=== PATIENT | female | born 1955 | race Caucasian/White ===

== ENCOUNTER 2023-12-19 16:34 | Outpatient (CLI) | payer MEDICARE, SELFPAY ==
[2023-12-19 17:46] LABS: Basophils Absolute Auto 0.1 K/mm3 (0.0-0.1); Basophils Percent Auto 1.6 % (0.2-1.2); Eosinophils Absolute Auto 0.3 K/mm3 (0-0.3); Eosinophils Percent Auto 4.9 % (0-4.4); Hematocrit 33.5 % (37.0-47.0); Hemoglobin 10.6 g/dL (12.0-15.0); Immature Granulocyte Absolute 0.01 K/mm3 (0.00-0.031); Immature Granulocyte Percent A 0.1 % (0-0.5); Lymphocytes Absolute Auto 1.83 K/mm3 (0.9-3.2); Lymphocytes Percent Auto 27.2 % (18.3-44.2); Mean Corpuscular HGB Conc 31.6 g/dl (32-36); Mean Corpuscular Hemoglobin 29.7 pg (26-34); Mean Corpuscular Volume 93.8 fl (80-100); Mean Platelet Volume 11.1 fl (7.4-10.4); Monocytes Absolute Auto 0.7 K/mm3 (0.1-0.6); Monocytes Percent Auto 9.6 % (2.6-8.5); Neutrophils Absolute Auto 3.8 K/mm3 (1.3-6.7); Neutrophils Percent Auto 56.6 % (45.5-73.1); Platelet Count Result 334 k/mm3 (150-375); Red Blood Count 3.57 M/mm3 (4.2-5.4); Red Cell Distribution Width 15.3 % (11.5-14.5); White Blood Count 6.7 K/mm3 (4.5-10.0)
[2023-12-19 17:55] LABS: Albumin Level 4.2 g/dL (3.5-5.1); Anion Gap 8 mmol/L (4-12); Blood Urea Nitrogen 30 mg/dL (7-17); Calcium 9.3 mg/dL (8.4-10.2); Carbon Dioxide 21 mmol/L (22-30); Chloride 110 mmol/L (98-107); Estimated Glomerular Filt Rate 34; Glucose 89 mg/dL (65-110); Phosphorus 3.1 mg/dL (2.5-4.5); Potassium 3.9 mmol/L (3.4-5.0); Sodium 139 mmol/L (137-145)
[2023-12-19 18:05] LABS: Creatinine Urine 52.8 mg/dL; Total Protein Urine Random 10 mg/dL; Ur Ttl Prot Creatinine Ratio 0.19 mg/mg (0-0.20)
[2023-12-19 18:07] LABS: Parathyroid Intact 7.5 pg/mL (7.5-53.5)
[2023-12-19 18:46] LABS: Iron 96 ug/dL (37-170)
[2023-12-19 18:55] LABS: Percent Iron Saturation 38 % (20-50)
[2023-12-19 21:19] LABS: MALB Creatinine Ratio < 11.4 mg/g (0-30); Microalbumin Urine Random < 6.0 mg/L (0-16.7)
[2023-12-20 12:39] LABS: Protein, Total 6.6 g/dL (6.1-8.1)
[2023-12-20 15:30] LABS: Albumin 3.7 g/dL (3.8-4.8); Alpha 1 Globulin 0.3 g/dL (0.2-0.3); Alpha 2 Globulin 0.9 g/dL (0.5-0.9); Beta 1 Globulin 0.4 g/dL (0.4-0.6)
[2023-12-22 12:42] LABS: Kappa\\Lambda Light Chains 1.81 (0.26-1.65); Lambda Light Chain 20.7 mg/L (5.7-26.3)
[2023-12-25 16:53] LABS: Immunofixation, Serum Normal pattern.
== END 2023-12-19 16:35 | disposition home or self-care (01) ==
PROVIDERS: PCP Physician Assistant
DX: R79.89 Other specified abnormal findings of blood chemistry (principal)
CPT/HCPCS: 36415; 80069; 81050; 82043; 82570; 83540; 83550; 83883; 83970; 84155; 84156; 84165; 85025; 86334

== ENCOUNTER 2024-05-10 11:42 | Observation (INO) | payer MEDICARE, SELFPAY ==
[2024-05-10] VITALS (25 sets, daily range): BP systolic 94–131; BP diastolic 59–99; PULSE 94–142; RESP 16–22; TEMP 36.2–36.4; O2SAT 95–100
--- NOTE | ~2024-05-10 | XR_ITS ---
Clinical Indication: Atrial fibrillation PA and lateral views of the chest: Comparison: None Findings: The lungs are clear, without evidence of focal consolidation or pleural effusion. Cardiome diastinal silhouette is within normal limits. Bones and soft tissues are unremarkable. Impression: Normal chest. Reviewed, dictated and finalized at location . NG [employer] Impression: Normal chest.
--- NOTE | 2024-05-10 11:45 | ECG_ITS ---
Test Date: 2024-05-10 11:52:30 Measurements Intervals [place] Rate: 146 P: 0 NE: 0 QRS: 28 QRSD: 113 T: -16 QT: 307 QTc: 479 Interpretive Statements ATRIAL FIBRILLATION WITH RAPID VENTRICULAR RESPONSE INTRAVENTRICULAR CONDUCTION DELAY BORDERLINE ST-T WAVE ABNORMALITY- DIFFUSE LEADS BASELINE ARTIFACT- I, II, III, AVR, AVL, AVF, V1 ABNORMAL ECG No previous ECG available for comparison Electronically Signed On 05-10-2024 12:05:57 TELEVISION EQUIPMENT OPERATOR by Markel Arias D.O.
[2024-05-10 12:02] LABS: Basophils Absolute Auto 0.1 K/mm3 (0.0-0.1); Basophils Percent Auto 1.1 % (0.2-1.2); Eosinophils Absolute Auto 0.2 K/mm3 (0-0.3); Hematocrit 39.1 % (37.0-47.0); Hemoglobin 12.7 g/dL (12.0-15.0); Immature Granulocyte Absolute 0.02 K/mm3 (0.00-0.031); Immature Granulocyte Percent A 0.3 % (0-0.5); Lymphocytes Absolute Auto 1.52 K/mm3 (0.9-3.2); Lymphocytes Percent Auto 21.6 % (18.3-44.2); Mean Corpuscular HGB Conc 32.5 g/dl (32-36); Mean Corpuscular Hemoglobin 29.5 pg (26-34); Mean Corpuscular Volume 90.7 fl (80-100); Mean Platelet Volume 11.4 fl (7.4-10.4); Monocytes Absolute Auto 0.7 K/mm3 (0.1-0.6); Monocytes Percent Auto 9.5 % (2.6-8.5); Neutrophils Absolute Auto 4.6 K/mm3 (1.3-6.7); Neutrophils Percent Auto 64.5 % (45.5-73.1); Platelet Count Result 278 k/mm3 (150-375); Red Blood Count 4.31 M/mm3 (4.2-5.4); White Blood Count 7.1 K/mm3 (4.5-10.0)
[2024-05-10] MEDS: ASPIRIN 81 MG CHEWABLE TABLET 324 MG PO (12:07)
[2024-05-10 12:14] LABS: INR 1.1; Prothrombin Time 14.5 Seconds (11.1-14.7)
[2024-05-10 12:15] LABS: Partial Thromboplastin Time 26.4 Seconds (22.3-36.8)
[2024-05-10 12:16] LABS: Alanine Aminotransferase 17 U/L (6-35); Albumin Level 4.2 g/dL (3.5-5.1); Alkaline Phosphatase 69 U/L (38-126); Anion Gap 10 mmol/L (4-12); Aspartate Amino Transferase 25 U/L (14-36); Bilirubin,Total 1.2 mg/dL (0.2-1.3); Blood Urea Nitrogen 20 mg/dL (7-17); Calcium 9.5 mg/dL (8.4-10.2); Carbon Dioxide 21 mmol/L (22-30); Chloride 108 mmol/L (98-107); Estimated CRCL calculation 34 ml/min; Estimated Glomerular Filt Rate 32; Glucose 91 mg/dL (65-110); Lipase 35 U/L (23-300); Potassium 4.3 mmol/L (3.4-5.0); Sodium 139 mmol/L (137-145)
[2024-05-10] MEDS: dilTIAZem HCl INJ 25 MG/5 ML VIAL 10 MG IV PUSH (12:22)
[2024-05-10 12:29] LABS: Troponin I < 0.012 ng/mL (0.000-0.034)
--- NOTE | 2024-05-10 13:55 | ED_ITS ---
HPI - General Adult General Chief complaint: Arrhythmia/Palpitations Stated complaint: A FIB ?NEW ONSET Time Seen by Provider: 05/10/24 11:54 History of Present Illness HPI narrative: 69-year-old female presenting ED with a chief complaint of shortness of breath. Patient went to see her primary care for this morning for an earache. While there she mentioned that she has been short of breath over the last several weeks. When they obtain vitals she had a heart rate in the 150s. She was found to be in AFib with RVR. She was then sent to the ED for evaluation. Patient is denying chest pain lower extremity edema fevers chills nausea vomiting or diarrhea. She has no history of paroxysmal AFib. Patient has hypertension and history of stroke. Related Data Allergies Allergy/AdvReac Type Severity Reaction Status Date / Time No Known Allergies Allergy Verified 05/10/24 12:21 Exam Narrative: APPEARANCE: No apparent distress. Head: atraumatic. TMs normal EYES: EOMI, NOSE: Atraumatic NECK: Trachea midline RESPIRATORY: No increased rate of breathing Clear auscultation CARDIOVASCULAR: tachycardic, irregular ABDOMINAL: Non-distended soft nontender MUSCULOSKELETAl: No obvious deformities NEURO: Alert. Moving 4/4 extremities SKIN:: Warm, dry. Normal color PSYCHIATRIC: Normal affect Course Vital Signs Vital signs: Vital Signs Temperature 97.2 F L 05/10/24 11:53 Pulse Rate 142 H 05/10/24 11:53 Respiratory Rate 19 05/10/24 11:53 Blood Pressure 98/80 L 05/10/24 11:53 Pulse Oximetry 96 05/10/24 11:53 Oxygen Delivery Room Air 05/10/24 11:53 Temperature 97.2 F L 05/10/24 11:53 Pulse Rate 102 H 05/10/24 13:22 Respiratory Rate 18 05/10/24 13:22 Blood Pressure 107/83 05/10/24 13:22 Pulse Oximetry 99 05/10/24 13:22 Oxygen Delivery Room Air 05/10/24 12:08 Medical Decision Making [facility] Narrative Medical decision making narrative: -Course: 69-year-old female sent from her primary care physician for AFib with RVR. Found to be in AFib with RVR on arrival. Received 10 mg diltiazem and then started on a diltiazem drip. Chads Vasc is elevated. Patient will be given enoxaparin. Patient will be admitted for new onset AFib. -Independent interpretation of studies: Labs and imaging reviewed Independent EKG interpretation: Rhythm [atrial fig], Rate [146], [place] -[normal], [place] -[none], QRS [narrow], QTC [normal], T waves -[negative for concerning inversions], ST Segments - [Negative for concerning elevations] Final interpretations: AFib with RVR -Discussion of Management/Consultants: Sabra -Interventions: 10 mg diltiazem, enoxaparin -Shared decision making / Disposition:admitted. Vital Signs Vital Signs: Vital Signs Temperature 97.2 F L 05/10/24 11:53 Pulse Rate 142 H 05/10/24 11:53 Respiratory Rate 19 05/10/24 11:53 Blood Pressure 98/80 L 05/10/24 11:53 Pulse Oximetry 96 05/10/24 11:53 Oxygen Delivery Room Air 05/10/24 11:53 Temperature 97.2 F L 05/10/24 11:53 Pulse Rate 102 H 05/10/24 13:22 Respiratory Rate 18 05/10/24 13:22 Blood Pressure 107/83 05/10/24 13:22 Pulse Oximetry 99 05/10/24 13:22 Oxygen Delivery Room Air 05/10/24 12:08 Lab Data 05/10/24 11:57 05/10/24 11:57 Labs: Lab Results 05/10/24 Range/Units 11:57 WBC 7.1 (4.5-10.0) K/mm3 RBC 4.31 (4.2-5.4) M/mm3 Hgb 12.7 (12.0-15.0) g/dL Hct 39.1 (37.0-47.0) % MCV 90.7 (80-100) fl MCH 29.5 (26-34) pg MCHC 32.5 (32-36) g/dl RDW 15.0 H (11.5-14.5) % Plt Count 278 (150-375) k/mm3 MPV 11.4 H (7.4-10.4) fl Immature Gran % (Auto) 0.3 (0-0.5) % Neut % (Auto) 64.5 (45.5-73.1) % Lymph % (Auto) 21.6 (18.3-44.2) % Knott % (Auto) 9.5 H (2.6-8.5) % Eos % (Auto) 3.0 (0-4.4) % Baso % (Auto) 1.1 (0.2-1.2) % Lymph # (Auto) 1.52 (0.9-3.2) K/mm3 Knott # (Auto) 0.7 H (0.1-0.6) K/mm3 Eos # (Auto) 0.2 (0-0.3) K/mm3 Baso # (Auto) 0.1 (0.0-0.1) K/mm3 Abs Immat Gran (auto) 0.02 (0.00-0.031) K/mm3 Absolute Neuts (auto) 4.6 (1.3-6.7) K/mm3 Absolute Nucleated RBC 0.000 (0.0-0.012) K/mm3 Nucleated RBC % 0.0 (0.0-0.2) % PT 14.5 (11.1-14.7) Seconds INR 1.1 APTT 26.4 (22.3-36.8) Seconds Sodium 139 (137-145) mmol/L Potassium 4.3 (3.4-5.0) mmol/L Chloride 108 H (98-107) mmol/L Carbon Dioxide 21 L (22-30) mmol/L Anion Gap 10 (4-12) mmol/L BUN 20 H D (7-17) mg/dL Creatinine 1.60 H (0.7-1.0) mg/dL Estim Creat Clear Calc 34 ml/min Estimated GFR 32 L (59 - ) Glucose 91 (65-110) mg/dL Calcium 9.5 (8.4-10.2) mg/dL Total Bilirubin 1.2 (0.2-1.3) mg/dL AST 25 (14-36) U/L ALT 17 (6-35) U/L Alkaline Phosphatase 69 (38-126) U/L Troponin I < 0.012 (0.000-0.034) ng/mL Total Protein 8.0 (6.3-8.2) g/dL Albumin 4.2 (3.5-5.1) g/dL Lipase 35 (23-300) U/L Critical Care Time Critical Care Time Critical Care Time: Yes Total Critical Care Time: 35 Discharge Plan Discharge Clinical Impression: A-fib Patient Disposition: Still a Patient Condition: Stable Follow-up/Referrals: Migel,MD Bernabe [Primary Care Provider] -
--- NOTE | 2024-05-10 14:10 | PM.IMHP ---
H&P: HPI History of Present Illness Date/Time: 05/10/24 14:30 Chief Complaint: Abnormal EKG. Narrative: This is a pleasant 69-year-old female with history of stroke in 2001, hypertension, hyperlipidemia, chronic kidney disease, deep venous thrombosis, and anxiety who presented to the emergency department via private vehicle after she was found to have an abnormal EKG. The patient provides the following history. She had an appointment with her primary care provider this morning for evaluation of an earache and while she was there she mentioned feeling short of breath with exertion the last several weeks. Pulse was elevated in the 150s and a subsequent EKG showed rapid atrial fibrillation for which she was directed to the ED. She has no prior history of atrial fibrillation but does have a family history of such. She has no known history of thyroid disease or sleep apnea and denies symptoms of sleep apnea. She also denies syncope, near syncope, chest pain, pleuritic pain, palpitations, sensations of racing heart, orthopnea, paroxysmal nocturnal dyspnea, lower extremity edema, diarrhea, weight change, and diarrhea. She drinks maybe a couple of cups of coffee a week and denies alcohol use. In the ED: She was in rapid atrial fibrillation with rates as high as the mid 120s on arrival. The remainder of her vital signs have been stable. Labs were significant for a BUN of 20, creatinine 1.60, troponin less than 0.012. Chest x-ray was unremarkable. EKG showed rapid atrial fibrillation with borderline ST T-wave abnormalities in intraventricular conduction delay. She was started on a diltiazem drip and was given enoxaparin 1 mg/kg. She is being admitted in this setting for further treatment and evaluation. Review of Systems Review of Systems: 12 systems were reviewed and are negative except for as per HPI. [facility] Past Medical History Medical History Anxiety Arthritis Cerebrovascular accident (2001) Chronic kidney disease Deep venous thrombosis Hyperlipidemia Hypertension Surgical History Surgical History History of bilateral knee arthroplasty History of cataract extraction History of section History of cholecystectomy History of gastric stapling Family History Family History Other Acute myocardial infarction Cerebrovascular accident Congestive heart failure Diabetes mellitus Hypertension Social History Social History Social History: Surrogate medical decision maker: Darline De La Torre or Norah Patel, daughters. Code status: Full code. Smoking status: Never smoker Alcohol intake: never Substance use: never Substance use type: does not use Do You Feel Safe in your Home?: Yes Lack of Transportation: No Lack of Food: Never True Current Housing: I Have Housing Concerned About Future Housing: No Difficulty Paying Gas/Electric Bills: No Difficulty Paying for Meds: No Currently Unemployed: No Education: Decline to Answer Difficulty w/ Childcare or Family Care: No Spiritual care concerns: No Meds Home Medications and Allergies Home Medications Medication Instructions Recorded Confirmed Type bupropion HCl 300 mg 24 hr tablet, 300 mg PO DAILY 05/10/24 05/10/24 History extended release clonazepam 0.5 mg tablet 0.5 mg PO DAILY PRN Anxiety 05/10/24 05/10/24 History lamotrigine 100 mg tablet 100 mg PO DAILY 05/10/24 05/10/24 History simvastatin 20 mg tablet 20 mg PO EVERY OTHER DAY 05/10/24 05/10/24 History tramadol 50 mg tablet 50 mg PO BID PRN Pain, Moderate 05/10/24 05/10/24 History trazodone 100 mg tablet 100 mg PO HS 05/10/24 05/10/24 History Allergies Allergy/AdvReac Type Severity Reaction Status Date / Time No Known Allergies Allergy Verified 05/10/24 12:21 Vital Signs Vital Signs - 24 hr 05/10/24 11:53 05/10/24 12:08 05/10/24 12:09 Temperature 97.2 F L Pulse Rate 142 H 135 H Respiratory Rate 19 Blood Pressure 98/80 L Pulse Oximetry 96 98 Oxygen Delivery Room Air Room Air 05/10/24 12:01 05/10/24 12:24 05/10/24 12:35 Temperature Pulse Rate 138 H 122 H 94 Respiratory Rate 16 18 19 Blood Pressure 105/81 102/59 L 107/69 Pulse Oximetry 100 99 97 Oxygen Delivery 05/10/24 12:24 05/10/24 13:01 05/10/24 13:22 Temperature Pulse Rate 127 H 100 102 H Respiratory Rate 19 16 18 Blood Pressure 102/59 L 103/86 107/83 Pulse Oximetry 99 96 99 Oxygen Delivery Exam Narrative: General: Well-developed, nontoxic-appearing female in bed in no acute distress. Weight: 95 kg. BMI: 32.8. HEENT: Normocephalic, atraumatic. PERRL, EOMI. Sclera anicteric. Oral mucosa moist. Oropharynx clear. Neck: Supple. No thyromegaly. Respiratory: Lungs are clear to auscultation bilaterally. Cardiovascular: Irregularly irregular rate and rhythm. Gastrointestinal: Abdomen is soft, nontender, and nondistended with positive bowel sounds. Skin: Warm and dry. No rash or lesions on limited exam. Extremities: No cyanosis, clubbing, or edema. Radial and pedal pulses intact. Neurological: Alert. Cranial nerves 2-12 are grossly intact. No gross focal deficits to casual conversation. Psychiatric: Pleasant and cooperative with normal mood and affect. Judgment and insight intact. H&P: Results Labs Labs: Short CBC 05/10/24 Range/Units 11:57 WBC 7.1 (4.5-10.0) K/mm3 Hgb 12.7 (12.0-15.0) g/dL Hct 39.1 (37.0-47.0) % Plt Count 278 (150-375) k/mm3 BMP 05/10/24 11:57 Sodium 139 Potassium 4.3 Chloride 108 H Carbon Dioxide 21 L BUN 20 H D Creatinine 1.60 H Glucose 91 Calcium 9.5 Cardiac Enzymes 05/10/24 Range/Units 11:57 Troponin I < 0.012 (0.000-0.034) ng/mL Liver Function 05/10/24 Range/Units 11:57 Total Bilirubin 1.2 (0.2-1.3) mg/dL AST 25 (14-36) U/L ALT 17 (6-35) U/L Alkaline Phosphatase 69 (38-126) U/L Albumin 4.2 (3.5-5.1) g/dL Imaging Chest X-Ray 05/10/24 12:37 Impression: Normal chest. Assessment and Plan Assessment and plan (1) Atrial fibrillation with rapid ventricular response: Code(s): I48.91 - Unspecified atrial fibrillation Status: Acute (2) Hypertension: Code(s): I10 - Essential (primary) hypertension Status: Acute (3) Hyperlipidemia: Code(s): E78.5 - Hyperlipidemia, unspecified Status: Acute (4) Chronic kidney disease: Code(s): N18.9 - Chronic kidney disease, unspecified Status: Acute Plan The patient presented to the emergency department from her doctor's office for evaluation after she was found to have an abnormal EKG showing rapid atrial fibrillation as detailed in HPI. Labs, imaging, EKG, and all reports were personally reviewed. She is currently on a diltiazem drip with improvement in her rates. She has also been started on enoxaparin 1 mg/kg b.i.d. given elevated [id number] (at least 4 - reported history of stroke, age, sex). Care coordination consulted for pre approval for Eliquis. Echocardiogram and TSH pending. Blood pressures were reviewed and they are stable. Kidney function is relatively stable on review of previous labs. Her medications will be reviewed and resumed as appropriate. Findings and treatment plan were discussed with the patient. Questions were solicited and answered to satisfaction. The patient's medical management will be taken over by the hospitalist team in a.m. Quality VTE Prophylaxis VTE prophylaxis: pharmacologic ordered The patient has been admitted under observation status. Hospitalist MIPS Advance Care Plan I have confirmed that the patient's Advanced Care Plan is present, code status is documented, or surrogate decision maker is listed in patient medical record.: Yes Medication Reconciliation I have utilized all available resources to obtain, update and review the patients current medications (includes all prescriptions, OTC, herbals, cannabis, and nutritional supplements).: Yes
[2024-05-10] MEDS: ENOXAPARIN 100 MG/ML SYRINGE 95 MG SUB-Q (14:18)
[2024-05-10] MEDS: dilTIAZem 100 MG/100 ML 100 MG/100 ML BAG IV CONT (14:20)
--- NOTE | 2024-05-10 14:54 | PC.NURSE ---
This RN received report from ARCH CUSHION PRESS OPERATOR.
--- NOTE | 2024-05-10 14:59 | ECG_ITS ---
Test Date: 2024-05-10 15:08:15 Measurements Intervals [place] Rate: 107 P: 0 WI: 0 QRS: 29 QRSD: 110 T: 21 QT: 356 QTc: 476 Interpretive Statements ATRIAL FIBRILLATION WITH RAPID VENTRICULAR RESPONSE INTRAVENTRICULAR CONDUCTION DELAY NONSPECIFIC T-WAVE ABNORMALITY- ANTEROLAT/INF LEADS ABNORMAL ECG Compared to ECG 05/10/2024 11:52:30 HEART RATE HAS DECREASED Electronically Signed On 05-10-2024 15:33:42 WORK AND FAMILY LIFE CONSULTANT by Markel Arias D.O.
--- NOTE | 2024-05-10 15:19 | ADMGEN ---
This patient, Jaja Meneses, was admitted to IMU Room 203-01 @ 1519. Patient/family oriented to hospital policies and general routines including ID bracelet, bed and alarms, visiting hours, pain management, procedures, bathroom and other care routines, personal items, smoking policy, room service/diet, and visiting hours. Information on how to activate the Rapid Response Team has been discussed. Patient/Family are encouraged to report perceived risks to care and to ask questions if they do not understand what they are told or what they should do.
[2024-05-10 15:44] LABS: Troponin I < 0.012 ng/mL (0.000-0.034)
--- NOTE | 2024-05-10 16:04 | ECHO_ITS ---
Patient Info Name: Jaja Meneses Age: 69 years : 1955 Gender: Female Ht: 68 in Wt: 207 lbs BSA: 2.15 m2 Heart Rhythm: Indeterminant Technical Quality: Good Exam Date: 05/10/2024 4:24 PM Exam Location: Echo Lab Patient Status: Inpatient Admit Date: 05/10/2024 Staff Ordering Physician: Maria Ines Johnson PA-C [employer]: Alexandre Meehan RDCS Attending Provider: Kyle Swann MD Referring Physician: Elizabeth FONTENOT; Exam Type: CA echo dop color flow w con Study Info Indications - new onset a fib Complete two-dimensional, color flow and Doppler transthoracic echocardiogram is performed with contrast to opacify the left ventricle and to improve the deliniation of the left ventricle endocardial borders. Summary 1. The left ventricle is moderately dilated. The left ventricular systolic function is severely reduced. The LVEF is visually estimated to be 25-30%. 2. The right ventricle is normal in size with mildly reduced systolic function. 3. The aortic valve is trileaflet and opens well. There is mild aortic regurgitation. 4. The mitral valve is sclerotic. There is moderate mitral regurgitation. Left Ventricle The left ventricle is moderately dilated. The left ventricular systolic function is severely reduced. The LVEF is visually estimated to be 25-30%. Right Ventricle The right ventricle is normal in size with mildly reduced systolic function. Left Atria The left atrium is moderately enlarged. Right Atria The right atrium is moderately enlarged. Aortic Valve The aortic valve is trileaflet and opens well. There is mild aortic regurgitation. Pulmonic Valve The pulmonic valve is grossly normal. There is trace pulmonic valve regurgitation. Mitral Valve The mitral valve is sclerotic. There is moderate mitral regurgitation. Tricuspid Valve The tricuspid valve is normal. There is mild tricuspid regurgitation. Pericardium/Pleural There is no pericardial effusion in available views. Inferior Vena Cava Inferior vena cava is not well visualized. Aorta The aortic root at the level of the sinus of Valsalva measures 3.2 cm in diameter. Left Ventricular Outflow Tract Name Value Normal LVOT 2D LVOT Diameter 2.14 cm LVOT Doppler LVOT Peak Gradient 2 mmHg LVOT Mean Gradient 1 mmHg LVOT VTI 15.59 cm LVOT VTI/AV VTI Ratio 0.60 LVOT Stroke Volume 56.26 ml LVOT CO 6.07 l/min LVOT CI 2.82 L/min/m2 Pulmonic Valve Name Value Normal PV Regurgitation Doppler VT Peak End Diastolic Velocity 81.74 cm/s Mitral Valve Name Value Normal MV Doppler MV Decel Haskell 685.61 cm/s2 MV PHT 0 s MV Area (PHT) 4.19 cm2 4.00-5.00 MV Regurgitation Doppler MR Peak Gradient 84 mmHg MV Diastolic Function MV E Peak Velocity 124.08 cm/s MV A Peak Velocity 1.44 cm/s MV E/A 86.12 MV Decel Time 0 s MV Annular TDI MV E/e' (Septal) 24.24 <=8.00 MV E/e' (Lateral) 16.36 <=8.00 MV E/e' (Average) 20.30 Tricuspid Valve Name Value Normal TV Regurgitation Doppler TR Peak Velocity 254.17 cm/s TR Peak Gradient 26 mmHg Estimated PAP/RSVP RA Pressure 10 mmHg <=5 PA Systolic Pressure 36 mmHg <36 RV Systolic Pressure 36 mmHg <36 Aortic Valve Name Value Normal AV Doppler AV Peak Velocity 153.01 cm/s AV Peak Gradient 9 mmHg AV Mean Gradient 5 mmHg AV VTI 26.09 cm AV Area (Cont Eq VTI) 2.16 cm2 >=3.00 AV Area (Cont Eq Carlin) 1.74 cm2 AV Regurgitation 2D LVOT Area 3.61 cm2 AV Regurgitation Doppler AR Decel Time 1 s AR Decel Haskell 308.27 cm/s2 AR PHT 0 s Ventricles Name Value Normal LV Dimensions 2D/MM IVS Diastolic Thickness (2D) 0.96 cm 0.60-1.00 LVID Diastole (2D) 5.51 cm 3.80-5.20 LVIW Diastolic Thickness (2D) 1.00 cm 0.60-0.90 LVID Systole (2D) 4.14 cm 2.20-3.50 LVOT Diameter 2.14 cm LV Mass (2D Cubed) 207.76 g 67.00-162.00 LV Mass Index (2D Cubed) 0.01 g/cm2 0.00-0.01 Relative Wall Thickness (2D) 0.36 LV Fractional Shortening/Ejection Fraction 2D/MM LV Fractional Shortening (2D) 25 % 27-45 LV EF (2D Teicholz) 49 % 54-74 LV Diastolic Volume (4C MOD) 122.73 ml LV EF (4C MOD) 42 % LV Diastolic Volume (2C MOD) 149.80 ml LV EF (2C MOD) 51 % LV Diastolic Volume (BP MOD) 137.20 ml 46.00-106.00 LV Diastolic Volume Index (BP MOD) 0.06 l/m2 0.03-0.06 LV Systolic Volume (BP MOD) 73.62 ml 14.00-42.00 LV Systolic Volume Index (BP MOD) 0.03 l/m2 0.01-0.02 LV EF (BP MOD) 46 % 54-74 LV Diastolic Length (4C) 8.06 cm LV Systolic Length (4C) 7.08 cm LV Stroke Volume (4C MOD) 51.34 ml Atria Name Value Normal LA Dimensions LA Volume (4C A-L) 107.37 ml LA Volume (BP A-L) 96.70 ml RA Dimensions RA Area (4C) 23.76 cm2 <=18.00 Report Signatures
[2024-05-10] MEDS: PERFLUTREN LIPID MICROSPHERES 1.5 ML VIAL DILUTED TO 10 ML TOTAL VOLUME IV PUSH (16:35)
--- NOTE | 2024-05-10 16:50 | IVDEFINITY ---
Prior to administration of IV Definity the patient was educated on the risks and benefits of the imaging enhancing agent including potential adverse side effects. The patient verbalized understanding. Allergies were verified. No exclusion criteria were identified and at least one of the following inclusion criteria were met: 1) physician request, 2) patient technically difficult to image (per the [place] [employer]ocardi[employer] guidelines of two or more segments not discernable within the apical view), or 3) questionable left ventricular function. ?
[2024-05-10 19:05] LABS: Troponin I < 0.012 ng/mL (0.000-0.034)
[2024-05-10 19:25] LABS: Thyroid Stimulating Hormone Reflex 0.247 uIU/mL (0.465-4.68)
[2024-05-10 20:15] LABS: Free T4 Free Thyroxine Reflex 1.65 ng/dL (0.78-2.19)
[2024-05-10] MEDS: traZODone HCL 50 MG TABLET 100 MG PO (20:37)
[2024-05-10] MEDS: SIMVASTATIN 20 MG TABLET PO (20:37)
[2024-05-10 21:26] LABS: Total Triiodothyronine (T3) 1.05 NG/ML (0.97-1.69)
[2024-05-10] MEDS: traMADol HCL (*CRX) 50 MG TABLET PO (23:50)
[2024-05-11] VITALS (19 sets, daily range): BP systolic 94–124; BP diastolic 62–90; PULSE 86–140; RESP 18–24; TEMP 36.4–36.7; O2SAT 97–99
[2024-05-11] MEDS: ENOXAPARIN 100 MG/ML SYRINGE 95 MG SUB-Q (01:27)
[2024-05-11 05:13] LABS: Anion Gap 6 mmol/L (4-12); Blood Urea Nitrogen 21 mg/dL (7-17); Calcium 8.9 mg/dL (8.4-10.2); Carbon Dioxide 23 mmol/L (22-30); Chloride 110 mmol/L (98-107); Estimated CRCL calculation 34 ml/min; Estimated Glomerular Filt Rate 32; Glucose 86 mg/dL (65-110); Magnesium 2.1 mg/dL (1.6-2.3); Sodium 139 mmol/L (137-145)
[2024-05-11] MEDS: ACETAMINOPHEN 325 MG TABLET 650 MG PO (09:10)
[2024-05-11] MEDS: buPROPion HCL XL (24 HR) 150 MG TABCR 300 MG PO (09:10)
[2024-05-11] MEDS: lamoTRIgine 100 MG TABLET PO (09:10)
--- NOTE | 2024-05-11 09:20 | P.PNIM_ITS ---
Progress Note: A&P Assessment and Plan (1) Atrial fibrillation with rapid ventricular response: Code(s): I48.91 - Unspecified atrial fibrillation Status: Acute Assessment and Plan: Patient with newly diagnosed atrial fibrillation with RVR. Chads 2 Vasc score is 4.(age, female, HTN, CVA). Patient started on diltiazem drip with good response. Lovenox therapeutic dosing was started. TSH is slightly low at 0.3 but free T4 is normal. Troponin negative x3. Echocardiogram ordered. Change diltiazem to oral metoprolol. Adjust medications control heart rate. Change Lovenox to Eliquis. Will discuss with Cardiology but most likely will have her follow-up with cardiology as an outpatient (2) Hypertension: Code(s): I10 - Essential (primary) hypertension Status: Acute Assessment and Plan: Patient has a history of hypertension but not currently on medications for high blood pressure. Blood pressure actually has been soft here with systolic blood pressure running 90-110 range. Monitor blood pressure on medications. (3) Chronic kidney disease: Code(s): N18.9 - Chronic kidney disease, unspecified Status: Acute Assessment and Plan: Creatinine was 1.5 in December. Creatinine 1.6 on admission here and unchanged on repeat. Patient had baseline renal function. Continue to monitor. (4) Hyperlipidemia: Code(s): E78.5 - Hyperlipidemia, unspecified Status: Acute Assessment and Plan: LFTs are normal. Continue Zocor. Plan DVT prophylaxis -Lovenox Code status -full Subjective Date/time seen: 05/11/24 09:20 Interval history: 69yo female with HTN, CKD and CVA who was sent in from the PCPs office for newly discovered AFib. Patient was at the doctors office for left ear pain but no infection noted. Ear pain slightly better today and has popping sensation to the ear. She has been tired recently and diffusely weak. No focal weakness. No hx of bleeding issues. No hx of PUD. No CP or palpitations. No long car rides or plane rides. Does become tachypneic and tachycardic with exertion. No recent stress test Exam Narrative: AF 97.6 106/74 86 20 97% ra Gen - NARD Chest - CTA bilaterally, nml RR CV -irregularly irregular. Telemetry showing atrial fibrillation with mostly controlled heart rate Abd - Soft, NT/ND, Positive BS Ext -trace pedal edema. Negative Homans sign. Neuro - Alert and oriented. Nonfocal exam. Psych - Nml mood and affect Skin - Warm and dry Objective Data Vital Signs Vital Signs: Vital Signs - 24 hr 05/10/24 11:53 05/10/24 12:08 05/10/24 12:09 Temperature 97.2 F L Pulse Rate 142 H 135 H Respiratory Rate 19 Blood Pressure 98/80 L Pulse Oximetry 96 98 Oxygen Delivery Room Air Room Air 05/10/24 12:01 05/10/24 12:24 05/10/24 12:35 Temperature Pulse Rate 138 H 122 H 94 Respiratory Rate 16 18 19 Blood Pressure 105/81 102/59 L 107/69 Pulse Oximetry 100 99 97 Oxygen Delivery 05/10/24 12:24 05/10/24 13:01 05/10/24 13:22 Temperature Pulse Rate 127 H 100 102 H Respiratory Rate 19 16 18 Blood Pressure 102/59 L 103/86 107/83 Pulse Oximetry 99 96 99 Oxygen Delivery 05/10/24 14:17 05/10/24 14:20 05/10/24 13:22 Temperature Pulse Rate 124 H 106 H 96 Respiratory Rate 20 18 Blood Pressure 122/99 H 122/99 H 107/83 Pulse Oximetry 100 99 Oxygen Delivery 05/10/24 13:31 05/10/24 13:51 05/10/24 14:16 Temperature Pulse Rate 102 H 109 H 126 H Respiratory Rate 20 22 H 16 Blood Pressure 117/91 H 119/85 123/94 H Pulse Oximetry 98 96 100 Oxygen Delivery 05/10/24 14:17 05/10/24 14:46 05/10/24 15:09 Temperature Pulse Rate 114 H 103 H 107 H Respiratory Rate 17 18 18 Blood Pressure 112/99 H 107/85 120/93 H Pulse Oximetry 100 99 98 Oxygen Delivery 05/10/24 15:28 05/10/24 15:55 05/10/24 16:00 Temperature 97.4 F L Pulse Rate 112 H 118 H Respiratory Rate Blood Pressure 109/84 Pulse Oximetry 98 Oxygen Delivery Room Air 05/10/24 16:00 05/10/24 16:00 05/10/24 18:00 Temperature Pulse Rate 117 H 125 H Respiratory Rate Blood Pressure Pulse Oximetry Oxygen Delivery Room Air 05/10/24 18:00 05/10/24 18:35 05/10/24 19:54 Temperature 97.6 F 97.6 F Pulse Rate 122 H 113 H 108 H Respiratory Rate 18 20 Blood Pressure 131/85 115/68 96/64 L Pulse Oximetry 96 100 95 Oxygen Delivery 05/10/24 22:10 05/10/24 20:00 05/10/24 22:43 Temperature 97.6 F Pulse Rate 102 H 108 H 102 H Respiratory Rate 20 Blood Pressure 103/60 94/64 L 103/60 Pulse Oximetry 96 Oxygen Delivery 05/10/24 20:00 05/10/24 20:00 05/10/24 22:00 Temperature Pulse Rate 116 H 100 Respiratory Rate Blood Pressure Pulse Oximetry Oxygen Delivery Room Air 05/10/24 23:50 05/11/24 00:00 05/11/24 00:35 Temperature 97.6 F Pulse Rate 102 H 102 H Respiratory Rate 20 Blood Pressure 121/84 121/84 Pulse Oximetry 98 Oxygen Delivery Room Air 05/11/24 00:00 05/11/24 01:30 05/11/24 01:47 Temperature Pulse Rate 90 106 H 100 Respiratory Rate Blood Pressure 115/68 Pulse Oximetry Oxygen Delivery 05/11/24 04:38 05/11/24 04:00 05/11/24 04:00 Temperature 97.6 F Pulse Rate 96 102 H Respiratory Rate 18 Blood Pressure 109/68 109/68 Pulse Oximetry 97 Oxygen Delivery Room Air 05/11/24 04:00 05/11/24 06:00 05/11/24 06:00 Temperature Pulse Rate 92 104 H 112 H Respiratory Rate Blood Pressure 103/69 Pulse Oximetry Oxygen Delivery 05/11/24 06:40 05/11/24 07:55 Temperature 97.6 F Pulse Rate 112 H 86 Respiratory Rate 20 Blood Pressure 103/69 106/74 Pulse Oximetry 97 Oxygen Delivery Intake/Output Intake/Output: Intake & Output 05/08/24 05/09/24 05/10/24 05/11/24 23:59 23:59 23:59 23:59 Intake Total 41.9 439.7 Output Total 200 Balance 41.9 239.7 Meds/Results Medications: Active Medications Generic Name Dose Route Start Last Admin Trade Name Freq PRN Reason Stop Dose Admin Acetaminophen 650 mg 05/10/24 16:13 05/11/24 09:10 Acetaminophen 325 Mg Tablet PO 650 mg Q6H PRN Administration Mild Pain (1-3) or Fever Bupropion HCl 300 mg 05/11/24 09:00 05/11/24 09:10 Bupropion Hcl Xl (24 Hr) 150 Mg Tabcr PO 300 mg DAILY JUSTINE Administration Clonazepam 0.5 mg 05/10/24 16:11 Clonazepam (*Crx) 0.5 Mg Tablet PO DAILY PRN Anxiety Enoxaparin Sodium 95 mg 05/11/24 02:00 05/11/24 01:27 Enoxaparin 100 Mg/Ml Syringe SUB-Q 95 mg Q12H JUSTINE Administration Diltiazem HCl 100 mg in 100 mls @ 5 mls/hr 05/10/24 14:05 05/11/24 06:40 Cardizem 100 Mg/100 Ml IV CONT 05/11/24 10:04 5 mg/hr .Q20H STA 5 mls/hr Titration Protocol 5 MG/HR Lamotrigine 100 mg 05/11/24 09:00 05/11/24 09:10 Lamotrigine 100 Mg Tablet PO 100 mg DAILY JUSTINE Administration Simvastatin 20 mg 05/10/24 21:00 05/10/24 20:37 Simvastatin 20 Mg Tablet PO 20 mg Q48H JUSTINE Administration Tramadol HCl 50 mg 05/10/24 16:11 05/10/24 23:50 Tramadol Hcl (*Crx) 50 Mg Tablet PO 50 mg BID PRN Administration Pain, Moderate 4-6 Trazodone HCl 100 mg 05/10/24 21:00 05/10/24 20:37 Trazodone Hcl 50 Mg Tablet PO 100 mg HS JUSTINE Administration Radiology Results: ITS Impressions Chest X-Ray 05/10/24 12:37 Impression: Normal chest. Labs Labs: Laboratory Results - last 24 hr 05/10/24 05/10/24 05/10/24 11:57 15:08 17:52 WBC 7.1 RBC 4.31 Hgb 12.7 Hct 39.1 MCV 90.7 MCH 29.5 MCHC 32.5 RDW 15.0 H Plt Count 278 MPV 11.4 H Immature Gran % (Auto) 0.3 Neut % (Auto) 64.5 Lymph % (Auto) 21.6 [place] % (Auto) 9.5 H Eos % (Auto) 3.0 Baso % (Auto) 1.1 Lymph # (Auto) 1.52 [place] # (Auto) 0.7 H Eos # (Auto) 0.2 Baso # (Auto) 0.1 Abs Immat Gran (auto) 0.02 Absolute Neuts (auto) 4.6 Absolute Nucleated RBC 0.000 Nucleated RBC % 0.0 PT 14.5 INR 1.1 APTT 26.4 Sodium 139 Potassium 4.3 Chloride 108 H Carbon Dioxide 21 L Anion Gap 10 BUN 20 H D Creatinine 1.60 H Estim Creat Clear Calc 34 Estimated GFR 32 L Glucose 91 Calcium 9.5 Magnesium Total Bilirubin 1.2 AST 25 ALT 17 Alkaline Phosphatase 69 Troponin I < 0.012 < 0.012 < 0.012 Total Protein 8.0 Albumin 4.2 Lipase 35 TSH (Reflex) 0.247 L Free T4 1.65 Total T3 1.05 05/11/24 04:11 WBC RBC Hgb Hct MCV MCH MCHC RDW Plt Count MPV Immature Gran % (Auto) Neut % (Auto) Lymph % (Auto) [place] % (Auto) Eos % (Auto) Baso % (Auto) Lymph # (Auto) [place] # (Auto) Eos # (Auto) Baso # (Auto) Abs Immat Gran (auto) Absolute Neuts (auto) Absolute Nucleated RBC Nucleated RBC % PT INR APTT Sodium 139 Potassium 4.0 Chloride 110 H Carbon Dioxide 23 Anion Gap 6 BUN 21 H Creatinine 1.60 H Estim Creat Clear Calc 34 Estimated GFR 32 L Glucose 86 Calcium 8.9 Magnesium 2.1 Total Bilirubin AST ALT Alkaline Phosphatase Troponin I Total Protein Albumin Lipase TSH (Reflex) Free T4 Total T3
[2024-05-11] MEDS: METOPROLOL TARTRATE 25 MG TABLET PO ×2 (12:38→19:00)
[2024-05-11] MEDS: dilTIAZem HCL 30 MG TABLET PO (19:14)
[2024-05-11] MEDS: clonazePAM (*CRX) 0.5 MG TABLET PO (19:19)
[2024-05-11] MEDS: traZODone HCL 50 MG TABLET 100 MG PO (21:02)
[2024-05-11] MEDS: APIXABAN 5 MG TABLET PO (21:03)
[2024-05-12] VITALS (21 sets, daily range): BP systolic 89–124; BP diastolic 59–89; PULSE 67–121; RESP 16–22; TEMP 36.5–37.2; O2SAT 96–99
[2024-05-12] MEDS: dilTIAZem HCL 30 MG TABLET PO ×2 (00:32→06:28)
[2024-05-12] MEDS: METOPROLOL TARTRATE 25 MG TABLET PO ×2 (00:32→06:27)
[2024-05-12] MEDS: ATORVASTATIN 20 MG TABLET PO (08:39)
[2024-05-12] MEDS: METOPROLOL SUCCINATE EXT REL 100 MG TABCR PO (08:39)
[2024-05-12] MEDS: lamoTRIgine 100 MG TABLET PO (08:39)
[2024-05-12] MEDS: dilTIAZem HCL CD 120 MG CAP.24HR PO (08:40)
[2024-05-12] MEDS: APIXABAN 5 MG TABLET PO ×2 (08:40→21:18)
[2024-05-12] MEDS: buPROPion HCL XL (24 HR) 150 MG TABCR 300 MG PO (08:41)
--- NOTE | 2024-05-12 12:35 | PM.IMPN ---
Progress Note: A&P Assessment and Plan (1) Atrial fibrillation with rapid ventricular response: Code(s): I48.91 - Unspecified atrial fibrillation Status: Acute Assessment and Plan: Patient with newly diagnosed atrial fibrillation with RVR. [id number] score is 4.(age, female, HTN, CVA). Patient started on diltiazem drip with good response. Lovenox therapeutic dosing was started. TSH is slightly low at 0.3 but free T4 is normal. Troponin negative x3. Echocardiogram pending Changed diltiazem to oral metoprolol but rate not controlled so oral diltiazem added. Lovenox changed to Eliquis. Discussed with Cardiology with plans to have her follow-up with cardiology as an outpatient Heart rate better controlled and BP stable so changed to Toprol XL and Cardizem CD. BP has dropped with symptoms. Will monitor today, PT/OT, back down on Toprol XL. (2) Hypertension: Code(s): I10 - Essential (primary) hypertension Status: Acute Assessment and Plan: Patient has a history of hypertension but not currently on medications for high blood pressure. Blood pressure has tolerated diltiazem and metorpolol but soft this morning. Monitor blood pressure (3) Chronic kidney disease: Code(s): N18.9 - Chronic kidney disease, unspecified Status: Acute Assessment and Plan: Creatinine was 1.5 in December. Creatinine 1.6 on admission here and unchanged on repeat. Patient at baseline renal function. Continue to monitor periodically. (4) Hyperlipidemia: Code(s): E78.5 - Hyperlipidemia, unspecified Status: Acute Assessment and Plan: LFTs are normal. Zocor interacted with Diltiazem so changed to Lipitor. Plan DVT prophylaxis - Eliquis Code status -full Subjective Date/time seen: 05/12/24 12:35 Interval history: 69yo female with HTN, CKD and CVA who was sent in from the PCPs office for newly discovered AFib. No issues overnight. Patient slept well. No complaints today. Exam Narrative: AF 98.9 91 16 98% ra Lying 89/65, sitting 93/75, standing 97/63 and felt lightheaded Gen - NARD Chest - CTA bilaterally, nml RR CV -irregularly irregular. Telemetry showing atrial fibrillation with controlled heart rate Abd - Soft, NT/ND, Positive BS Ext -no pedal edema. Psych - Nml mood and affect Skin - Warm and dry Objective Data Vital Signs Vital Signs: Vital Signs - 24 hr 05/11/24 12:38 05/11/24 14:00 05/11/24 14:00 Temperature 98.1 F Pulse Rate 116 H 130 H 118 H Respiratory Rate 20 Blood Pressure 115/84 Pulse Oximetry 97 Oxygen Delivery 05/11/24 16:00 05/11/24 16:00 05/11/24 18:00 Temperature 97.6 F 97.8 F Pulse Rate 126 H 123 H 112 H Respiratory Rate 24 H 20 Blood Pressure 94/62 L 111/77 Pulse Oximetry 99 97 Oxygen Delivery 05/11/24 19:00 05/11/24 18:00 05/11/24 18:00 Temperature Pulse Rate 121 H 122 H Respiratory Rate Blood Pressure 106/76 Pulse Oximetry Oxygen Delivery 05/11/24 16:00 05/11/24 20:00 05/11/24 20:00 Temperature 98.1 F Pulse Rate 126 H Respiratory Rate 18 Blood Pressure 124/90 Pulse Oximetry 99 Oxygen Delivery Room Air Room Air 05/12/24 00:32 05/12/24 00:00 05/12/24 00:00 Temperature 98.1 F Pulse Rate 116 H 121 H Respiratory Rate 18 Blood Pressure 124/89 Pulse Oximetry 97 Oxygen Delivery Room Air 05/12/24 04:00 05/12/24 04:00 05/11/24 20:00 Temperature 98.0 F Pulse Rate 100 140 H Respiratory Rate 18 Blood Pressure 119/81 Pulse Oximetry 99 Oxygen Delivery Room Air 05/11/24 22:00 05/12/24 00:00 05/12/24 02:00 Temperature Pulse Rate 123 H 107 H 98 Respiratory Rate Blood Pressure Pulse Oximetry Oxygen Delivery 05/12/24 04:00 05/12/24 06:00 05/12/24 06:27 Temperature Pulse Rate 92 82 86 Respiratory Rate Blood Pressure Pulse Oximetry Oxygen Delivery 05/12/24 08:00 05/12/24 08:39 05/12/24 08:00 Temperature Pulse Rate 92 93 Respiratory Rate 20 Blood Pressure 100/71 Pulse Oximetry 99 Oxygen Delivery Room Air 05/12/24 08:00 05/12/24 10:17 05/12/24 10:20 Temperature 97.7 F 97.7 F Pulse Rate 93 73 67 Respiratory Rate 20 20 Blood Pressure 89/65 L 93/75 L Pulse Oximetry 98 96 Oxygen Delivery 05/12/24 10:22 05/12/24 10:00 05/12/24 11:59 Temperature Pulse Rate 82 76 Respiratory Rate 22 H Blood Pressure 97/63 L Pulse Oximetry 98 96 Oxygen Delivery Room Air 05/12/24 12:00 05/12/24 12:00 05/12/24 12:00 Temperature 98.9 F Pulse Rate 91 85 Respiratory Rate 16 Blood Pressure 96/59 L Pulse Oximetry 98 Oxygen Delivery Room Air Intake/Output Intake/Output: Intake & Output 05/09/24 05/10/24 05/11/24 05/12/24 23:59 23:59 23:59 23:59 Intake Total 41.9 919.7 490 Output Total 500 Balance 41.9 419.7 490 Meds/Results Medications: Active Medications Generic Name Dose Route Start Last Admin Trade Name Freq PRN Reason Stop Dose Admin Acetaminophen 650 mg 05/10/24 16:13 05/11/24 09:10 Acetaminophen 325 Mg Tablet PO 650 mg Q6H PRN Administration Mild Pain (1-3) or Fever Apixaban 5 mg 05/11/24 21:00 05/12/24 08:40 Apixaban 5 Mg Tablet PO 5 mg Q12HR JUSTINE Administration Atorvastatin Calcium 20 mg 05/12/24 09:00 05/12/24 08:39 Atorvastatin 20 Mg Tablet PO 20 mg DAILY JUSTINE Administration Bupropion HCl 300 mg 05/11/24 09:00 05/12/24 08:41 Bupropion Hcl Xl (24 Hr) 150 Mg Tabcr PO 300 mg DAILY JUSTINE Administration Clonazepam 0.5 mg 05/10/24 16:11 05/11/24 19:19 Clonazepam (*Crx) 0.5 Mg Tablet PO 0.5 mg DAILY PRN Administration Anxiety Diltiazem HCl 120 mg 05/12/24 09:00 05/12/24 08:40 Diltiazem Hcl Cd 120 Mg Cap.24hr PO 120 mg QAM JUSTINE Administration Lamotrigine 100 mg 05/11/24 09:00 05/12/24 08:39 Lamotrigine 100 Mg Tablet PO 100 mg DAILY JUSTINE Administration Metoprolol Succinate 75 mg 05/13/24 09:00 Metoprolol Succinate Ext Rel 25 Mg Tabcr PO QAM JUSTINE Tramadol HCl 50 mg 05/10/24 16:11 05/10/24 23:50 Tramadol Hcl (*Crx) 50 Mg Tablet PO 50 mg BID PRN Administration Pain, Moderate 4-6 Trazodone HCl 100 mg 05/10/24 21:00 05/11/24 21:02 Trazodone Hcl 50 Mg Tablet PO 100 mg HS JUSTINE Administration Radiology Results: ITS Impressions Chest X-Ray 05/10/24 12:37 Impression: Normal chest.
[2024-05-12] MEDS: polyethylene glycoL 3350 17 GM POWD.PACK PO (19:00)
[2024-05-12] MEDS: traZODone HCL 50 MG TABLET 100 MG PO (21:18)
[2024-05-13] VITALS (13 sets, daily range): BP systolic 113–123; BP diastolic 75–88; PULSE 83–117; RESP 18–22; TEMP 36.5–37.1; O2SAT 97–99
[2024-05-13] MEDS: dilTIAZem HCL CD 120 MG CAP.24HR PO (08:22)
[2024-05-13] MEDS: buPROPion HCL XL (24 HR) 150 MG TABCR 300 MG PO (08:22)
[2024-05-13] MEDS: APIXABAN 5 MG TABLET PO (08:22)
[2024-05-13] MEDS: lamoTRIgine 100 MG TABLET PO (08:23)
[2024-05-13] MEDS: ATORVASTATIN 20 MG TABLET PO (08:23)
[2024-05-13] MEDS: METOPROLOL SUCCINATE EXT REL 25 MG TABCR 75 MG PO (08:23)
[2024-05-13] MEDS: polyethylene glycoL 3350 17 GM POWD.PACK PO (08:24)
[2024-05-13] MEDS: ACETAMINOPHEN 325 MG TABLET 650 MG PO (11:15)
--- NOTE | 2024-05-13 12:46 | PM.DS ---
DS: Admitting Diagnosis Discharge Date 05/13/24 Admitting Diagnosis AFib DS: Discharge Diagnosis Discharge Diagnosis (1) Atrial fibrillation with rapid ventricular response: Code(s): I48.91 - Unspecified atrial fibrillation Status: Acute (2) Hypertension: Code(s): I10 - Essential (primary) hypertension Status: Acute (3) Chronic kidney disease: Code(s): N18.9 - Chronic kidney disease, unspecified Status: Acute (4) Hyperlipidemia: Code(s): E78.5 - Hyperlipidemia, unspecified Status: Acute DS: Summary Hospital Course Reason for hospitalization: 69yo female with HTN, CKD and CVA who was sent in from the PCPs office for newly discovered AFib. Please see H&P for details. Hospital Course: Patient with newly diagnosed atrial fibrillation with RVR. [id number] score is 4 (age, female, HTN, CVA). Patient was started on diltiazem drip with good response. Lovenox therapeutic dosing was started. TSH is slightly low at 0.3 but free T4 is normal. Troponin negative x3. Echo completed but pending reading. Creatinine was 1.5 in December. Creatinine 1.6 on admission here and unchanged on repeat. LFTs are normal. Zocor interacted with Diltiazem so changed to Lipitor. Changed IV diltiazem to oral metoprolol but rate not controlled so oral diltiazem added. Lovenox changed to Eliquis. Discussed with Cardiology with plans to have her follow-up with cardiology as an outpatient. Heart rate better controlled and BP stable so changed to Toprol XL and Cardizem CD. Her BP did drop so she was held and monitored. Toprol XL dose was cut back with improvement. She worked with PT/OT. She was up walking to the bathroom using a cane. She overall did well and was able to be discharged home on 05/13/24. She declined SNF placement but was agreeable for outpatient PT/OT. Status at Discharge Cognitive/behavioral status at discharge: stable Time Spent with Patient Time attestation: Total time spent providing and/or coordinating discharge services: 34 minutes Time spent: Greater than 30 minutes Exam Narrative: AF 97.7 113/75 95 22 99% ra Gen - NARD sitting up in the chair. Chest - CTA bilaterally, nml RR CV -irregularly irregular. Telemetry showing atrial fibrillation with controlled heart rate Abd - Soft, NT/ND, Positive BS Ext -no pedal edema. Psych - Nml mood and affect Skin - Warm and dry Discharge Plan Discharge Attending physician on discharge: Kyle Swann Discharging Clinician: Kyle Swann Anticipated Discharge Date/Time: 05/13/24 13:24 Patient Disposition: Home, Self-Care Activity: as tolerated Diet: heart healthy Discharge Instructions: Check blood pressure 1 to 2 times a day. Record and bring into your doctor for review. Call your doctor if your blood pressure is greater than 180/110 or less than 90/45. Walk with cane or other assist device. Take precautions to avoid falls. Rise slowly from a lying or sitting position. Pause before standing or walking. Contact your doctor or call 911 and come to the Emergency Room if you have any type of trauma, lightheadedness with standing or other worrisome symptoms. Avoid NSAIDs (ibuprofen, naproxen, Aleve). Tylenol is safe to take. Follow-up with your primary care provider in 1-2 weeks. Please call for appointment. Follow-up with Cardiology in 2-4 weeks. Please call for an appointment. Thank you for using [facility] for your health care needs. Patient Instructions: Antibiotic Form, Apixaban (By mouth) Stand Alone Forms: General Discharge Information Follow-up/Referrals: Migel,MD Bernabe [Primary Care Provider] - Call for Appointment Leighann Celaya MD [Physician] - Call for Appointment Discharge Medications: New Eliquis 5 mg Tablet 5 mg PO Q12HR Qty: 60 1RF atorvastatin 20 mg Tablet 20 mg PO DAILY Qty: 30 1RF diltiazem HCl 120 mg Capsule,Extended Release 24 Hr 120 mg PO QAM Qty: 30 1RF metoprolol succinate 50 mg tablet extended release 24 hr 75 mg PO DAILY Qty: 45 1RF Continued clonazepam 0.5 mg tablet 0.5 mg PO DAILY PRN (Reason: Anxiety) tramadol 50 mg tablet 50 mg PO BID PRN (Reason: Pain, Moderate) trazodone 100 mg tablet 100 mg PO HS lamotrigine 100 mg tablet 100 mg PO DAILY bupropion HCl 300 mg tablet extended release 24 hr 300 mg PO DAILY Discontinued simvastatin 20 mg tablet 20 mg PO EVERY OTHER DAY Other Ambulatory Orders: OT Outpatient Eval and Treat (WEEKLY) Timeframe: 20240624 Location: Determined by Patient Ordered By: Kyle Swann PT Outpatient Eval and Treat (WEEKLY) Timeframe: 20240624 Location: Determined by Patient Ordered By: Kyle Swann Date of admission: 05/10/24 14:08 Primary Care Provider: Johnson*Bernabe Admitting Provider: Kyle Swann Attending physician on admission: Kyle Swann Condition: Stable Hospitalist MIPS Heart Failure (Exclusion) Patient has history of Heart Transplant or Left Ventricular Assistive Device?: No IF YES, STOP HERE Heart Failure (Qualifier) Patient has current or prior documentation of LVEF less than or equal to 40%, or mod/servere depressed LVSF?: No IF NO, STOP HERE
--- NOTE | 2024-05-13 14:28 | PC.NURSE ---
Reviewed discharge paperwork including medications. Verbalizes understanding and denies further questions at this time. States My ride will not be here for a couple of hours .
--- NOTE | 2024-05-14 08:11 | PC.NURSE ---
Echo results given to Dr. Swann. Results faxed to Dr. Lainez.
== END 2024-05-13 17:00 | disposition home or self-care (01) ==
LOC: ANHED 13:59 → ANHIMU 14:39
PROVIDERS: Physician Assistant; Admitting Provider Internal Medicine; Emergency Provider Emergency Medicine; PCP Internal Medicine; Visit Provider Internal Medicine
DX: I48.91 Unspecified atrial fibrillation (principal); I12.9 Hypertensive chronic kidney disease with stage 1 through stage 4 chronic kidney disease, or unspecified chronic kidney disease; N18.9 Chronic kidney disease, unspecified; E78.5 Hyperlipidemia, unspecified; Z79.899 Other long term (current) drug therapy; Z86.718 Personal history of other venous thrombosis and embolism; Z86.73 Personal history of transient ischemic attack (TIA), and cerebral infarction without residual deficits
CPT/HCPCS: 36415; 71046; 80048; 80053; 83690; 83735; 84439; 84443; 84480; 84484; 85025; 85610; 85730; 93005; 96365; 96366; 96372; 96374; 96375; 97161; 97165; 99285; A9270; C8929; G0378; J1650; Q9957

== ENCOUNTER 2024-06-07 09:59 | Inpatient (IN) | payer MEDICARE, SELFPAY ==
[2024-06-07] VITALS (23 sets, daily range): BP systolic 99–124; BP diastolic 66–91; PULSE 76–143; RESP 16–20; TEMP 36.3–36.6; O2SAT 94–100; BMI 32.1; BMI 31.0
--- NOTE | ~2024-06-07 | XR_ITS ---
XR chest 2V 06/07/2024 11:01 Indication: Shortness of breath. Atrial fibrillation. Procedure: 2 view chest Comparison: 05/10/2024 Findings: Cardiomegaly. Small pleural effusions. Bibasilar atelectasis. Mild pulmonary vascular conge stion. No pneumothorax. Impression: 1: Small pleural effusions with bibasilar atelectasis. 2: Cardiomegaly with mild pulmonary vascular congestion. Reviewed, dictated and finalized at location B. BOX COVERER Impression: 1: Small pleural effusions with bibasilar atelectasis. 2: Cardiomegaly with mild pulmonary vascular congestion.
--- NOTE | ~2024-06-07 | XR_ITS ---
HISTORY: ?Gout flare COMPARISON: None TECHNIQUE: 2 views of the left foot were performed. FINDINGS: Diffuse bony demineralization is identified. Hallux varus deformity is also noted within the metatarsals with hallux valgus deformity of the toes. Cortical lucency is identified along the plantar surface of the first metatarsal without significant medial soft tissue swelling, but with moderate plantar soft tissue swelling. The cortical lucency may represent early erosion, commonly seen with gouty arthritis. Calcaneal spur is noted, as is significant joint space narrowing within the foot IMPRESSION: Possible early erosion within the distal first metatarsal, commonly seen with gouty arthritis. Reviewed, dictated and finalized at location A. A BAKER IMPRESSION: Possible early erosion within the distal first metatarsal, commonly seen with g outy arthritis.
--- NOTE | ~2024-06-07 | XR_ITS ---
EXAM: XR ankle LT 2V DATE: 06/10/2024 23:58 HISTORY: NEW SWELLING AND PAIN . COMPARISON: None available. FINDINGS: Decreased mineralization. No fracture or dislocation. No lytic or blastic lesion. Mild sca ttered degenerative changes in the ankle joint and midfoot. Plantar enthesopathy. No erosion or perio steal change. Soft tissues within normal limits. IMPRESSION: No acute osseous finding in the left ankle. Reviewed, dictated and finalized at location K. OGRAPHIC PLATE MAKER
--- NOTE | 2024-06-07 10:06 | ECG_ITS ---
Test Date: 2024-06-07 10:11:52 Measurements Intervals Albers Rate: 110 P: 0 RI: 0 QRS: 37 QRSD: 102 T: 0 QT: 167 QTc: 226 Interpretive Statements ATRIAL FIBRILLATION WITH RAPID VENTRICULAR RESPONSE NONSPECIFIC ST & T-WAVE ABNORMALITY ABNORMAL RHYTHM ECG Compared to ECG 05/10/2024 15:08:15 NO SIGNIFICANT CHANGES Electronically Signed On 06-07-2024 12:23:14 HEALTH ASSISTANT by Henri Trevino M.D.
[2024-06-07 10:33] LABS: Basophils Absolute Auto 0.1 K/mm3 (0.0-0.1); Basophils Percent Auto 0.9 % (0.2-1.2); Eosinophils Absolute Auto 0.3 K/mm3 (0-0.3); Eosinophils Percent Auto 3.3 % (0-4.4); Hematocrit 38.5 % (37.0-47.0); Immature Granulocyte Absolute 0.02 K/mm3 (0.00-0.031); Immature Granulocyte Percent A 0.3 % (0-0.5); Lymphocytes Absolute Auto 1.49 K/mm3 (0.9-3.2); Lymphocytes Percent Auto 19.4 % (18.3-44.2); Mean Corpuscular HGB Conc 33.8 g/dl (32-36); Mean Corpuscular Hemoglobin 29.3 pg (26-34); Mean Corpuscular Volume 86.9 fl (80-100); Mean Platelet Volume 11.8 fl (7.4-10.4); Monocytes Absolute Auto 0.7 K/mm3 (0.1-0.6); Monocytes Percent Auto 9.1 % (2.6-8.5); Neutrophils Absolute Auto 5.2 K/mm3 (1.3-6.7); Platelet Count Result 280 k/mm3 (150-375); Red Blood Count 4.43 M/mm3 (4.2-5.4); Red Cell Distribution Width 15.6 % (11.5-14.5); White Blood Count 7.7 K/mm3 (4.5-10.0)
[2024-06-07 10:43] LABS: Alanine Aminotransferase 18 U/L (6-35); Albumin Level 3.8 g/dL (3.5-5.1); Alkaline Phosphatase 85 U/L (38-126); Anion Gap 8 mmol/L (4-12); Aspartate Amino Transferase 24 U/L (14-36); Bilirubin,Total 0.7 mg/dL (0.2-1.3); Blood Urea Nitrogen 29 mg/dL (7-17); Calcium 9.8 mg/dL (8.4-10.2); Carbon Dioxide 22 mmol/L (22-30); Chloride 109 mmol/L (98-107); Estimated CRCL calculation 30 ml/min; Estimated Glomerular Filt Rate 26; Glucose 115 mg/dL (65-110); Magnesium 1.9 mg/dL (1.6-2.3); Potassium 4.1 mmol/L (3.4-5.0); Sodium 139 mmol/L (137-145)
[2024-06-07 10:51] LABS: INR 1.6; Prothrombin Time 19.9 Seconds (11.1-14.7)
--- NOTE | 2024-06-07 10:51 | ED.ARRPALP ---
HPI - Arrhythmia/Palpitations General Chief Complaint: Arrhythmia/Palpitations <Leah Adkins PA-C - Last Filed: 06/07/24 13:52> Stated Complaint: afib <Leah Adkins PA-C - Last Filed: 06/07/24 13:52> Time Seen by Provider: 06/07/24 10:06 <Leah Adkins PA-C - Last Filed: 06/07/24 13:52> Source: patient and old records reviewed <Leah Adkins PA-C - Last Filed: 06/07/24 13:52> Mode of arrival: ambulatory <Leah Adkins PA-C - Last Filed: 06/07/24 13:52> Limitations: no limitations <Leah Adkins PA-C - Last Filed: 06/07/24 13:52> History of Present Illness HPI narrative: Patient is a 69-year-old female who presents the ED with report of palpitations. Patient was recently admitted to the hospital here from 05/10 through 05/13 for new onset AFib with RVR. She was started on multiple medications at that time, including diltiazem, metoprolol, Eliquis. She states she was not seen by Cardiology when she was admitted. She had a follow-up appointment with Dr. Barbosa today and was found to be in recurrent AFIB with RVR. Sent down to the ED for further evaluation. Patient had echocardiogram performed while admitted which showed a reduced EF to 25-30%. Dr. Barbosa spoke to myself and would like patient started on amiodarone, D/C diltiazem, diuresis as needed, admit to the hospital for further evaluation. Patient reports she has been increasingly fatigued and short of breath with exertion over the last few weeks. She denies feeling palpitations. She denies chest pain. She denies lower extremity pain or swelling. <Leah Adkins PA-C - Last Filed: 06/07/24 13:52> Related Data Home Medications: Home Medications ?Medication ?Instructions ?Recorded ?Confirmed ?Last Taken ?Type bupropion HCl 300 mg 24 hr tablet, 300 mg PO DAILY 05/10/24 06/07/24 06/07/24 History extended release clonazepam 0.5 mg tablet 0.5 mg PO DAILY PRN Anxiety 05/10/24 06/07/24 06/03/24 History lamotrigine 100 mg tablet 100 mg PO DAILY 05/10/24 06/07/24 06/07/24 History simvastatin 20 mg tablet 20 mg PO EVERY OTHER DAY 05/10/24 06/07/24 06/06/24 History tramadol 50 mg tablet 50 mg PO BID PRN Pain, Moderate 05/10/24 06/07/24 06/04/24 History trazodone 100 mg tablet 100 mg PO HS 05/10/24 06/07/24 06/03/24 History <Leah Adkins PA-C - Last Filed: 06/07/24 13:52> Allergies/Adverse Reactions: Allergies Allergy/AdvReac Type Severity Reaction Status Date / Time No Known Allergies Allergy Verified 05/10/24 12:21 <Leah Adkins PA-C - Last Filed: 06/07/24 13:52> Review of Systems Review of Systems: All systems reviewed & are unremarkable except as noted in HPI. <Leah Adkins PA-C - Last Filed: 06/07/24 13:52> All systems reviewed & are unremarkable except as noted in HPI and below <Leah Adkins PA-C - Last Filed: 06/07/24 13:52> [facility] Past Medical History Medical History: Medical History Chronic kidney disease Anxiety Arthritis Hyperlipidemia Hypertension Deep venous thrombosis Cerebrovascular accident (2001) <Leah Adkins PA-C - Last Filed: 06/07/24 13:52> Surgical History Surgical History: Surgical History History of section History of cataract extraction History of bilateral knee arthroplasty History of gastric stapling History of cholecystectomy <Leah Adkins PA-C - Last Filed: 06/07/24 13:52> Family History Family History: Family History Other Acute myocardial infarction Cerebrovascular accident Congestive heart failure Diabetes mellitus Hypertension <Leah Adkins PA-C - Last Filed: 06/07/24 13:52> Social History Social History: Social History Social History: Surrogate medical decision maker: Darline De La Torre or Norah Patel, daughters. Code status: Full code. Smoking status: Never smoker Second hand tobacco smoke exposure: No Alcohol intake: never Substance use: never Substance use type: does not use Do You Feel Safe in your Home?: Yes Lack of Transportation: No Lack of Food: Never True Current Housing: I Have Housing Concerned About Future Housing: No Difficulty Paying Gas/Electric Bills: No Difficulty Paying for Meds: No Currently Unemployed: No Education: High School Diploma/GED Difficulty w/ Childcare or Family Care: No Spiritual care concerns: No <Leah Adkins PA-C - Last Filed: 06/07/24 13:52> Exam Narrative: GENERAL: Well appearing, obesity BMI of 31.8, non-toxic, in no acute distress. HEAD: Normocephalic, atraumatic. RESPIRATORY: Airway patent, respirations nonlabored. Clear to auscultation bilaterally, no rales, rhonchi, wheezing. No significant focal lung sounds or rhonchi. CARDIOVASCULAR: Tachycardic with irregular rhythm without murmurs, rubs, or gallops. Peripheral pulses intact. MUSCULOSKELETAL: Moves all extremities. No gross deformities. No peripheral edema. No calf tenderness. SKIN: Warm, dry, normal color. NEURO: A&O X3. Speech clear. Cranial nerves II-XII grossly intact. Steady gait. No ataxic movements. PSYCHIATRIC: Appropriate mood and affect. Normal interaction. <Leah Adkins PA-C - Last Filed: 06/07/24 13:52> Course Course Emergency Course: <Ender Chavez MD - Last Filed: 06/07/24 18:45> SHANK SORTER/PA Physician Supervision This visit was performed by both a physician and an APC. I performed all aspects of the MDM as documented. <Ender Chavez MD - Last Filed: 06/07/24 18:45> Vital Signs Vital signs: Vital Signs Pulse Rate 143 H 06/07/24 10:06 Respiratory Rate 20 06/07/24 10:06 Blood Pressure 106/91 H 06/07/24 10:06 Pulse Oximetry 96 06/07/24 10:06 Oxygen Delivery Room Air 06/07/24 10:06 Temperature 97.6 F 06/07/24 17:55 Pulse Rate 88 06/07/24 18:00 Respiratory Rate 18 06/07/24 17:55 Blood Pressure 111/71 06/07/24 17:55 Pulse Oximetry 97 06/07/24 17:55 Oxygen Delivery Room Air 06/07/24 10:06 <Leah Adkins PA-C - Last Filed: 06/07/24 13:52> Vital Signs Pulse Rate 143 H 06/07/24 10:06 Respiratory Rate 20 06/07/24 10:06 Blood Pressure 106/91 H 06/07/24 10:06 Pulse Oximetry 96 06/07/24 10:06 Oxygen Delivery Room Air 06/07/24 10:06 Temperature 97.6 F 06/07/24 17:55 Pulse Rate 88 06/07/24 18:00 Respiratory Rate 18 06/07/24 17:55 Blood Pressure 111/71 06/07/24 17:55 Pulse Oximetry 97 06/07/24 17:55 Oxygen Delivery Room Air 06/07/24 10:06 <Ender Chavez MD - Last Filed: 06/07/24 18:45> MDM - Arrhythmia/Palpitations MDM Narrative Medical decision making narrative: Patient presented to ED with AFIB w RVR, recently admitted to the hospital here for similar symptoms, found to have reduced ejection fraction. Had a follow-up appointment with Cardiology today and sent down to the ED. Heart rate initially in the 140s. EKG showing AFib with RVR. HR ranging 100s-120s. EKG without concerning ischemic changes. Patient is denying chest pain. Amiodarone loading dose and drip started per the recommendations of Cardiology. Recommended to d/c Diltiazem given reduced EF. Laboratory studies notable for elevated BNP to 13,200. Chest x-ray does show small pleural effusions, cardiomegaly, pulmonary vascular congestion. Consistent with acute CHF. Given dose of Lasix in the ED. Creatinine is slightly elevated to 1.9 today. Per records, baseline around 1.5. Will need cautious diuresis. Baseline troponin is 0.014. Will continue to trend. patient will be admitted for further evaluation and medical management. Discussed case with Diana MOJICA Hospitalist, accepted patient for admission. I did speak to Dr. Butler, Cardiology, who spoke to Dr. Barbosa, as well. Will consult. Patient in agreement with plan and need for admission. HR improved into 80s-90s with Amio. Still in AFIB. <Leah Adkins PA-C - Last Filed: 06/07/24 13:52> Medical Records Attestation: I reviewed the patient's medical records. <Leah Adkins PA-C - Last Filed: 06/07/24 13:52> Lab Data Attestation: I reviewed the patient's lab results. <Leah Adkins PA-C - Last Filed: 06/07/24 13:52> Result diagrams: 06/07/24 10:22 06/07/24 10:22 <Leah Adkins PA-C - Last Filed: 06/07/24 13:52> Labs: Lab Results 06/07/24 Range/Units 10:22 WBC 7.7 (4.5-10.0) K/mm3 RBC 4.43 (4.2-5.4) M/mm3 Hgb 13.0 (12.0-15.0) g/dL Hct 38.5 (37.0-47.0) % MCV 86.9 (80-100) fl MCH 29.3 (26-34) pg MCHC 33.8 (32-36) g/dl RDW 15.6 H (11.5-14.5) % Plt Count 280 (150-375) k/mm3 MPV 11.8 H (7.4-10.4) fl Immature Gran % (Auto) 0.3 (0-0.5) % Neut % (Auto) 67.0 (45.5-73.1) % Lymph % (Auto) 19.4 (18.3-44.2) % Evangeline % (Auto) 9.1 H (2.6-8.5) % Eos % (Auto) 3.3 (0-4.4) % Baso % (Auto) 0.9 (0.2-1.2) % Lymph # (Auto) 1.49 (0.9-3.2) K/mm3 Evangeline # (Auto) 0.7 H (0.1-0.6) K/mm3 Eos # (Auto) 0.3 (0-0.3) K/mm3 Baso # (Auto) 0.1 (0.0-0.1) K/mm3 Abs Immat Gran (auto) 0.02 (0.00-0.031) K/mm3 Absolute Neuts (auto) 5.2 (1.3-6.7) K/mm3 Absolute Nucleated RBC 0.000 (0.0-0.012) K/mm3 Nucleated RBC % 0.0 (0.0-0.2) % PT 19.9 H (11.1-14.7) Seconds INR 1.6 APTT 31.4 (22.3-36.8) Seconds Sodium 139 (137-145) mmol/L Potassium 4.1 (3.4-5.0) mmol/L Chloride 109 H (98-107) mmol/L Carbon Dioxide 22 (22-30) mmol/L Anion Gap 8 (4-12) mmol/L BUN 29 H (7-17) mg/dL Creatinine 1.90 H (0.7-1.0) mg/dL Estim Creat Clear Calc 30 ml/min Estimated GFR 26 L (59 - ) Glucose 115 H (65-110) mg/dL Calcium 9.8 (8.4-10.2) mg/dL Magnesium 1.9 (1.6-2.3) mg/dL Total Bilirubin 0.7 (0.2-1.3) mg/dL AST 24 (14-36) U/L ALT 18 (6-35) U/L Alkaline Phosphatase 85 (38-126) U/L Troponin I 0.014 (0.000-0.034) ng/mL NT-Pro-B Natriuret Pep 91045 H (19.9-100) pg/mL Total Protein 7.0 (6.3-8.2) g/dL Albumin 3.8 (3.5-5.1) g/dL <Leah Adkins PA-C - Last Filed: 06/07/24 13:52> Lab Results 06/07/24 Range/Units 10:22 WBC 7.7 (4.5-10.0) K/mm3 RBC 4.43 (4.2-5.4) M/mm3 Hgb 13.0 (12.0-15.0) g/dL Hct 38.5 (37.0-47.0) % MCV 86.9 (80-100) fl MCH 29.3 (26-34) pg MCHC 33.8 (32-36) g/dl RDW 15.6 H (11.5-14.5) % Plt Count 280 (150-375) k/mm3 MPV 11.8 H (7.4-10.4) fl Immature Gran % (Auto) 0.3 (0-0.5) % Neut % (Auto) 67.0 (45.5-73.1) % Lymph % (Auto) 19.4 (18.3-44.2) % Evangeline % (Auto) 9.1 H (2.6-8.5) % Eos % (Auto) 3.3 (0-4.4) % Baso % (Auto) 0.9 (0.2-1.2) % Lymph # (Auto) 1.49 (0.9-3.2) K/mm3 Evangeline # (Auto) 0.7 H (0.1-0.6) K/mm3 Eos # (Auto) 0.3 (0-0.3) K/mm3 Baso # (Auto) 0.1 (0.0-0.1) K/mm3 Abs Immat Gran (auto) 0.02 (0.00-0.031) K/mm3 Absolute Neuts (auto) 5.2 (1.3-6.7) K/mm3 Absolute Nucleated RBC 0.000 (0.0-0.012) K/mm3 Nucleated RBC % 0.0 (0.0-0.2) % PT 19.9 H (11.1-14.7) Seconds INR 1.6 APTT 31.4 (22.3-36.8) Seconds Sodium 139 (137-145) mmol/L Potassium 4.1 (3.4-5.0) mmol/L Chloride 109 H (98-107) mmol/L Carbon Dioxide 22 (22-30) mmol/L Anion Gap 8 (4-12) mmol/L BUN 29 H (7-17) mg/dL Creatinine 1.90 H (0.7-1.0) mg/dL Estim Creat Clear Calc 30 ml/min Estimated GFR 26 L (59 - ) Glucose 115 H (65-110) mg/dL Calcium 9.8 (8.4-10.2) mg/dL Magnesium 1.9 (1.6-2.3) mg/dL Total Bilirubin 0.7 (0.2-1.3) mg/dL AST 24 (14-36) U/L ALT 18 (6-35) U/L Alkaline Phosphatase 85 (38-126) U/L Troponin I 0.014 (0.000-0.034) ng/mL NT-Pro-B Natriuret Pep 29504 H (19.9-100) pg/mL Total Protein 7.0 (6.3-8.2) g/dL Albumin 3.8 (3.5-5.1) g/dL <Ender Chavez MD - Last Filed: 06/07/24 18:45> Imaging Data Attestation: I personally reviewed and interpreted this imaging study as follows: <Leah Adkins PA-C - Last Filed: 06/07/24 13:52> Radiologist's impression: ITS Impressions Chest X-Ray 06/07/24 11:03 Impression: 1: Small pleural effusions with bibasilar atelectasis. 2: Cardiomegaly with mild pulmonary vascular congestion. <Leah Adkins PA-C - Last Filed: 06/07/24 13:52> ECG Data EKG #1: Attestation: I personally reviewed and interpreted this ECG as follows: <Leah Adkins PA-C - Last Filed: 06/07/24 13:52> ECG completion date: 06/07/24 <Leah Adkins PA-C - Last Filed: 06/07/24 13:52> ECG completion time: 10:11 <Leah Adkins PA-C - Last Filed: 06/07/24 13:52> EKG Interpretation: tachycardia (110), atrial fibrillation and non-specific ST changes <Leah Adkins PA-C - Last Filed: 06/07/24 13:52> Discharge Plan Discharge Clinical Impression: Atrial fibrillation with rapid ventricular response, HEMANT (acute kidney injury) CHF (congestive heart failure) Qualifiers: Heart failure type: unspecified Heart failure chronicity: acute Qualified Code(s): I50.9 - Heart failure, unspecified <Leah Adkins PA-C - Last Filed: 06/07/24 13:52> Patient Disposition: Still a Patient <Leah Adkins PA-C - Last Filed: 06/07/24 13:52> Condition: Stable <Leah Adkins PA-C - Last Filed: 06/07/24 13:52>
[2024-06-07 10:52] LABS: Partial Thromboplastin Time 31.4 Seconds (22.3-36.8)
[2024-06-07 10:55] LABS: NT Pro B Type Natriuretic Pept 13200 pg/mL (19.9-100); Troponin I 0.014 ng/mL (0.000-0.034)
[2024-06-07] MEDS: AMIODARONE 150 MG/D5W 100 ML 150 MG/100 ML BAG 600 MG IV CONT (11:07)
[2024-06-07] MEDS: AMIODARONE 360 MG/D5W 200 ML 360 MG/200 ML BAG 33.33 MG IV CONT (11:24)
[2024-06-07] MEDS: FUROSEMIDE INJ 40 MG/4 ML VIAL IV PUSH (11:27)
--- NOTE | 2024-06-07 12:41 | ECG_ITS ---
Test Date: 2024-06-07 13:09:43 Measurements Intervals Luther Rate: 84 P: 0 MI: 0 QRS: 25 QRSD: 113 T: 236 QT: 397 QTc: 471 Interpretive Statements ATRIAL FIBRILLATION WITH ABERRANT CONDUCTION OR VENTRICULAR PREMATURE COMPLEXES NONSPECIFIC ST & T-WAVE ABNORMALITY Compared to ECG 06/07/2024 10:11:52 RVR NO LONGER PRESENT Electronically Signed On 06-07-2024 15:47:14 STAFF COMB[facility] INFORMATION CENTER OFFICER by Henri Trevino M.D.
[2024-06-07 14:19] LABS: Troponin I 0.012 ng/mL (0.000-0.034)
--- NOTE | 2024-06-07 15:00 | P.CONCA_ITS ---
Assessment and Plan Assessment and plan (1) Atrial fibrillation with rapid ventricular response: Code(s): I48.91 - Unspecified atrial fibrillation Status: Acute (2) CHF (congestive heart failure): Qualifiers: Heart failure chronicity: acute Heart failure type: unspecified Q ualified Code(s): I50.9 - Heart failure, unspecified Code(s): I50.9 - Heart failure, unspecified Status: Acute Assessment and Plan: Assessment: 1. AFib with RVR-rate 110 2. Acute on chronic systolic heart failure with LVEF severely depressed at 25- 30%, BNP elevated at 13,200 3. Hypertension 4. Hyperlipidemia 5. HEMANT with creatinine of 1.9 today Plan Plan: -Stop diltiazem given cardiomyopathy with LVEF 25-30% -Given amiodarone 150 mg IV bolus followed by drip-1 milligram/minute for 6 hours, then 0.5 milligram/minute for 18 hours -Continue Eliquis for anticoagulation -Give metoprolol 25 mg q.6 hours -JAMEY guided cardioversion on Monday. Keep NPO at midnight on Monday -Guideline directed medical therapy for cardiomyopathy- already on a beta- ashley. Start Entresto, SGLT2 inhibitor, MRA as tolerated -Give Lasix IV 20 mg b.i.d. -Check renal function daily -Check electrolytes and replace as needed keeping potassium greater than 4 and magnesium greater than 2 -Evaluation for ischemia as outpatient. She does not have any chest pain -Trend troponin to peak History of Present Illness History of Present Illness Consult date/time: 06/07/24 15:00 Reason For Visit: afib Narrative: 69-year-old female with history of atrial fibrillation, hyperlipidemia, hypertension, DVT, CVA, arthritis, anxiety, and chronic kidney disease presents today for atrial fibrillation with RVR. She had a recent hospital admission from 05/10 through 05/13 for palpitations and was diagnosed with AFib with RVR. She was started on diltiazem at metoprolol for rate control and Eliquis for anticoagulation during this admission. A TTE during this admission showed an LVEF of 25-30%. She was not seen by Cardiology at that time and had a follow-up appointment today at which time she was noted to have AFib with RVR. She was sent to the ED for further evaluation and management. Diltiazem was stopped given severely depressed LVEF and amiodarone drip was started. She is being admitted to the hospital for further management. Patient reports off and on palpitation. She denies any chest pain, shortness of breath, dizziness, lightheadedness, leg swelling, recent weight gain, presyncope, or syncope. Workup: BNP: 36023 Creatinine: baseline 1.6-1.9 EKG: AFib with RVR, rate of 110 TTE 05/10: Summary 1. The left ventricle is moderately dilated. The left ventricular systolic function is severely reduced. The LVEF is visually estimated to be 25-30%. 2. The right ventricle is normal in size with mildly reduced systolic function. 3. The aortic valve is trileaflet and opens well. There is mild aortic regurgitation. 4. The mitral valve is sclerotic. There is moderate mitral regurgitation. Review of Systems 2 Review of Systems: A complete review of systems was performed and pertinent positives are noted in the HPI [facility] Past Medical History Medical History Chronic kidney disease Anxiety Arthritis Hyperlipidemia Hypertension Deep venous thrombosis Cerebrovascular accident (2001) Surgical History Surgical History History of section History of cataract extraction History of bilateral knee arthroplasty History of gastric stapling History of cholecystectomy Family History Family History Other Acute myocardial infarction Cerebrovascular accident Congestive heart failure Diabetes mellitus Hypertension Social History Social History Social History: Surrogate medical decision maker: Darline De La Torre or Norah Patel, daughters. Code status: Full code. Smoking status: Never smoker Alcohol intake: never Substance use: never Substance use type: does not use Do You Feel Safe in your Home?: Yes Lack of Transportation: No Lack of Food: Never True Current Housing: I Have Housing Concerned About Future Housing: No Difficulty Paying Gas/Electric Bills: No Difficulty Paying for Meds: No Currently Unemployed: No Education: Decline to Answer Difficulty w/ Childcare or Family Care: No Spiritual care concerns: No Meds Home Medications and Allergies Home Medications ?Medication ?Instructions ?Recorded ?Confirmed ?Type bupropion HCl 300 mg 24 hr tablet, 300 mg PO DAILY 05/10/24 05/10/24 History extended release clonazepam 0.5 mg tablet 0.5 mg PO DAILY PRN Anxiety 05/10/24 05/10/24 History lamotrigine 100 mg tablet 100 mg PO DAILY 05/10/24 05/10/24 History simvastatin 20 mg tablet 20 mg PO EVERY OTHER DAY 05/10/24 05/10/24 History tramadol 50 mg tablet 50 mg PO BID PRN Pain, Moderate 05/10/24 05/10/24 History trazodone 100 mg tablet 100 mg PO HS 05/10/24 05/10/24 History apixaban 5 mg tablet (Eliquis) 5 mg PO Q12HR #60 tabs 05/13/24 Rx atorvastatin 20 mg tablet 20 mg PO DAILY #30 tabs 05/13/24 Rx diltiazem HCl 120 mg capsule,24 120 mg PO QAM #30 caps 05/13/24 Rx hr,extended release metoprolol succinate 50 mg 75 mg (1.5 x 50 mg) PO DAILY #45 05/13/24 Rx tablet,extended release 24 hr tabs Allergies Allergy/AdvReac Type Severity Reaction Status Date / Time No Known Allergies Allergy Verified 05/10/24 12:21 Vital Signs Vital Signs - 24 hr 06/07/24 10:06 06/07/24 11:01 06/07/24 11:07 Temperature 36.6 C Pulse Rate 143 H 120 H 102 H Respiratory Rate 20 20 Blood Pressure 106/91 H 122/89 113/88 Pulse Oximetry 96 99 Oxygen Delivery Room Air 06/07/24 11:19 06/07/24 11:24 06/07/24 11:31 Temperature 36.6 C Pulse Rate 95 89 93 Respiratory Rate 20 Blood Pressure 118/84 118/84 107/76 Pulse Oximetry 94 Oxygen Delivery 06/07/24 12:15 06/07/24 12:35 06/07/24 13:22 Temperature 36.5 C 36.6 C 36.6 C Pulse Rate 95 79 77 Respiratory Rate 16 20 18 Blood Pressure 110/72 124/83 111/73 Pulse Oximetry 98 100 98 Oxygen Delivery 06/07/24 13:46 06/07/24 14:01 12/20/24 14:16 Temperature 36.6 C 36.5 C Pulse Rate 85 91 86 Respiratory Rate 20 20 20 Blood Pressure 116/87 107/77 112/79 Pulse Oximetry 95 96 96 Oxygen Delivery 06/07/24 14:31 Temperature Pulse Rate 79 Respiratory Rate 20 Blood Pressure 116/90 Pulse Oximetry 96 Oxygen Delivery Exam 2 Narrative: General: Alert oriented x3 no acute distress Neck: Supple no JVD Chest: Bilaterally clear to auscultation, no rales or rhonchi Cardiac: S1, S2 plus, regular rate, regular rhythm, no murmurs or rubs Extremities: No peripheral edema, no skin rash Neurologic: Positive into x3, no focal neurological deficits Results Labs and Meds 06/07/24 10:22 06/07/24 10:22 Lab results: Cardiac Enzymes 06/07/24 06/07/24 Range/Units 10:22 13:35 AST 24 (14-36) U/L Troponin I 0.014 0.012 (0.000-0.034) ng/mL Coagulation 06/07/24 Range/Units 10:22 PT 19.9 H (11.1-14.7) Seconds APTT 31.4 (22.3-36.8) Seconds CBC 06/07/24 Range/Units 10:22 WBC 7.7 (4.5-10.0) K/mm3 RBC 4.43 (4.2-5.4) M/mm3 Hgb 13.0 (12.0-15.0) g/dL Hct 38.5 (37.0-47.0) % Plt Count 280 (150-375) k/mm3 Lymph # (Auto) 1.49 (0.9-3.2) K/mm3 [place] # (Auto) 0.7 H (0.1-0.6) K/mm3 Eos # (Auto) 0.3 (0-0.3) K/mm3 Baso # (Auto) 0.1 (0.0-0.1) K/mm3 Comprehensive Metabolic Panel 06/07/24 Range/Units 10:22 Sodium 139 (137-145) mmol/L Potassium 4.1 (3.4-5.0) mmol/L Chloride 109 H (98-107) mmol/L Carbon Dioxide 22 (22-30) mmol/L BUN 29 H (7-17) mg/dL Creatinine 1.90 H (0.7-1.0) mg/dL Glucose 115 H (65-110) mg/dL Calcium 9.8 (8.4-10.2) mg/dL AST 24 (14-36) U/L ALT 18 (6-35) U/L Alkaline Phosphatase 85 (38-126) U/L Total Protein 7.0 (6.3-8.2) g/dL Albumin 3.8 (3.5-5.1) g/dL Intake and Output 06/06/24 06/07/24 06/07/24 23:59 07:59 15:59 Intake Total 100 Balance 100 Intake: IV 100 Amiodarone 150 mg/D5w 100 ml 100 150 mg In 100 ml @ 15 MG/MIN 600 mls/hr IV CONT .Q10M ONE Rx #:[id number] Patient Weight 06/07/24 23:59 Weight 95 kg
--- NOTE | 2024-06-07 15:04 | P.HP_ITS ---
H&P: HPI History of Present Illness Date/Time: 06/07/24 15:04 Chief Complaint: Palpitations Narrative: 69-year-old female past medical history of CKD stage 4, hyperlipidemia, hypertension, and DVT presents to the ED with AFib with RVR from per primary care office. Patient was admitted back in April was found to be in AFib with RVR started on diltiazem and switched to which overall for rate control. She wolff d echocardiogram while she was in the hospital but the reading was still pending per the discharge summary. Patient was recommended to follow-up outpatient with Cardiology they did not see our inpatient. She was unable to get appointment with the tamping machine operator says she went to her PCP today. He reviewed her record from the last hospitalization and saw that she was in a fib with RVR rate of 110's, echocardiogram that was done last hospitalization was 25-30%, under BNP today was 13,200. Review of her home meds it appears that she was discharged on metoprolol and diltiazem. Review of Systems Review of Systems: 12 systems were reviewed and are negativ e except for as per HPI. [facility] Past Medical History Medical History (Updated 06/08/24 @ 01:23 by Diana Pang APRN) Seizures Chronic kidney disease Anxiety Arthritis Hyperlipidemia Hypertension Deep venous thrombosis Cerebrovascular accident (2001) Surgical History Surgical History History of section History of cataract extraction History of bilateral knee arthroplasty History of gastric stapling History of cholecystectomy Family History Family History Other Acute myocardial infarction Cerebrovascular accident Congestive heart failure Diabetes mellitus Hypertension Social History Social History Social History: Surrogate medical decision maker: Darline De La Torre or Norah Patel, daughters. Code status: Full code. Smoking status: Never smoker Second hand tobacco smoke exposure: No Alcohol intake: never Substance use: never Substance use type: does not use Do You Feel Safe in your Home?: Yes Lack of Transportation: No Lack of Food: Never True Current Housing: I Have Housing Concerned About Future Housing: No Difficulty Paying Gas/Electric Bills: No Difficulty Paying for Meds: No Currently Unemployed: No Education: High School Diploma/GED Difficulty w/ Childcare or Family Care: No Spiritual care concerns: No Meds Home Medications and Allergies Home Medications ?Medication ?Instructions ?Recorded ?Confirmed ?Type bupropion HCl 300 mg 24 hr tablet, 300 mg PO DAILY 05/10/24 06/07/24 History extended release clonazepam 0.5 mg tablet 0.5 mg PO DAILY PRN Anxiety 05/10/24 06/07/24 History lamotrigine 100 mg tablet 100 mg PO DAILY 05/10/24 06/07/24 History simvastatin 20 mg tablet 20 mg PO EVERY OTHER DAY 05/10/24 06/07/24 History tramadol 50 mg tablet 50 mg PO BID PRN Pain, Moderate 05/10/24 06/07/24 History trazodone 100 mg tablet 100 mg PO HS 05/10/24 06/07/24 History apixaban 5 mg tablet (Eliquis) 5 mg PO Q12HR #60 tabs 05/13/24 06/07/24 Rx atorvastatin 20 mg tablet 20 mg PO DAILY #30 tabs 05/13/24 06/07/24 Rx diltiazem HCl 120 mg capsule,24 120 mg PO QAM #30 caps 05/13/24 06/07/24 Rx hr,extended release metoprolol succinate 50 mg 75 mg (1.5 x 50 mg) PO DAILY #45 05/13/24 06/07/24 Rx tablet,extended release 24 hr tabs Allergies Allergy/AdvReac Type Severity Reaction Status Date / Time No Known Allergies Allergy Verified 05/10/24 12:21 Vital Signs Vital Signs - 24 hr 06/07/24 10:06 06/07/24 11:01 06/07/24 11:07 Temperature 97.9 F Pulse Rate 143 H 120 H 102 H Respiratory Rate 20 20 Blood Pressure 106/91 H 122/89 113/88 Pulse Oximetry 96 99 Oxygen Delivery Room Air 06/07/24 11:19 06/07/24 11:24 06/07/24 11:31 Temperature 97.8 F Pulse Rate 95 89 93 Respiratory Rate 20 Blood Pressure 118/84 118/84 107/76 Pulse Oximetry 94 Oxygen Delivery 06/07/24 12:15 06/07/24 12:35 06/07/24 13:22 Temperature 97.7 F 97.9 F 97.8 F Pulse Rate 95 79 77 Respiratory Rate 16 20 18 Blood Pressure 110/72 124/83 111/73 Pulse Oximetry 98 100 98 Oxygen Delivery 06/07/24 13:46 06/07/24 14:01 06/07/24 14:16 Temperature 97.8 F 97.7 F Pulse Rate 85 91 86 Respiratory Rate 20 20 20 Blood Pressure 116/87 107/77 112/79 Pulse Oximetry 95 96 96 Oxygen Delivery 06/07/24 14:31 Temperature Pulse Rate 79 Respiratory Rate 20 Blood Pressure 116/90 Pulse Oximetry 96 Oxygen Delivery Exam Narrative: General: well appearing, appears stated age. HEENT: normocephalic, atraumatic. Mucous membranes moist. EOMI, PERRLA, bilateral sclera anicteric, no conjunctival injection. Neck supple without JVD, lymphadenopathy, or bruit. Respiratory: clear to ascultation bilaterally. No rales/rhonic/wheezes. Cardiovascular: Regular rate and rhythm, normal S1-S2 upon ascultation. No murmurs, rubs, or clicks. PMI is nondisplaced, capillary refill less than 3 second. Abdomen: Soft, round, no pulsatile masses, nondistended and nontender. No rebound, no guarding. No CVA tenderness, no hepatosplenomegaly. Bowel sounds present to all four quadrants. No high pitch or tinkling sounds, resonant to percussion. Extremities: No cyanosis, clubbing, or edema present. Pulses are palpable 2/2. Active ROM to all four extremities. Neuro: Alert and orientated x 4. PERRLA. Cranial nerves 2-12 intact without focal deficit. Skin: Warm, dry, and intact, without rash, erythema, or lesion. Psych: pleasant, cooperative, normal speech, normal affect, no hallucinations, no dysarthia Due to body habitus is hard to tell patient has edema H&P: Results Labs Labs: Short CBC 06/07/24 Range/Units 10:22 WBC 7.7 (4.5-10.0) K/mm3 Hgb 13.0 (12.0-15.0) g/dL Hct 38.5 (37.0-47.0) % Plt Count 280 (150-375) k/mm3 [facility] 06/07/24 10:22 Sodium 139 Potassium 4.1 Chloride 109 H Carbon Dioxide 22 BUN 29 H Creatinine 1.90 H Glucose 115 H Calcium 9.8 Cardiac Enzymes 06/07/24 06/07/24 Range/Units 10:22 13:35 Troponin I 0.014 0.012 (0.000-0.034) ng/mL Liver Function 06/07/24 Range/Units 10:22 Total Bilirubin 0.7 (0.2-1.3) mg/dL AST 24 (14-36) U/L ALT 18 (6-35) U/L Alkaline Phosphatase 85 (38-126) U/L Albumin 3.8 (3.5-5.1) g/dL Assessment and Plan Assessment and plan (1) Atrial fibrillation with rapid ventricular response: Code(s): I48.91 - Unspecified atrial fibrillation Status: Acute Assessment and Plan: Cardiology consulted -Given amiodarone 150 mg IV bolus followed by drip-1 milligram/minute for 6 hours, then 0.5 milligram/minute for 18 hours -Continue Eliquis for anticoagulation -Give metoprolol 25 mg q.6 hours -JAMEY guided cardioversion on Monday. - Keep NPO at midnight on Monday -Guideline directed medical therapy for cardiomyopathy- already on a beta- ashley. Start Entresto, SGLT2 inhibitor, MRA as tolerated -Check electrolytes and replace as needed keeping potassium greater than 4 and magnesium greater than 2 - Daily magnesium and BMP -Trend troponin troponins flat (2) CHF (congestive heart failure): Qualifiers: Heart failure chronicity: acute Heart failure type: unspecified Qualified Code(s): I50.9 - Heart failure, unspecified Code(s): I50.9 - Heart failure, unspecified Status: Acute Assessment and Plan: Severe reduced ejection fraction heart failure, Echo on 05/10/2024 EF 25-30% Cardiology consulted -Give Lasix IV 20 mg b.i.d. (3) HEMANT (acute kidney injury): Code(s): N17.9 - Acute kidney failure, unspecified Status: Acute Assessment and Plan: 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, baseline is 1.6, on admission 1.9, patient on his 1 kidney Avoid nephrotoxic medications No IV fluids due to fluid overload and EF of to 25-30% Daily BMP (4) Pleural effusion: Code(s): J90 - Pleural effusion, not elsewhere classified Status: Acute Assessment and Plan: New from last month Likely due to fluid overload, diuresing with IV Lasix (5) Seizures: Code(s): R56.9 - Unspecified convulsions Status: Acute Assessment and Plan: Continue home medications Quality VTE Prophylaxis VTE prophylaxis: mechanical ordered and pharmacologic ordered Hospitalist MIPS Advance Care Plan I have confirmed that the patient's Advanced Care Plan is present, code status is documented, or surrogate decision maker is listed in patient medical record.: Yes Medication Reconciliation I have utilized all available resources to obtain, update and review the patients current medications (includes all prescriptions, OTC, herbals, cannabis, and nutritional supplements).: Yes
--- NOTE | 2024-06-07 16:25 | ECG_ITS ---
Test Date: 2024-06-07 16:31:30 Measurements Intervals [place] Rate: 76 P: 0 [place]: 0 QRS: 23 QRSD: 113 T: -37 QT: 415 QTc: 467 Interpretive Statements ATRIAL FIBRILLATION MODERATE INTRAVENTRICULAR CONDUCTION DELAY [110+ ms QRS DURATION] NONSPECIFIC ST & T-WAVE ABNORMALITY ABNORMAL RHYTHM ECG Compared to ECG 06/07/2024 13:09:43 Intraventricular conduction delay now present Ventricular premature complex(es) no longer present Aberrant conduction of supraventricular beat(s) no longer present T-wave abnormality still present Electronically Signed On 06-07-2024 18:41:21 BISCUIT PACKER by Josie Mora M.D.
[2024-06-07 17:19] LABS: Troponin I < 0.012 ng/mL (0.000-0.034)
--- NOTE | 2024-06-07 18:38 | ADMGEN ---
This patient, Jaja Meneses, was admitted to IMU Room 210-01. Patient/family oriented to hospital policies and general routines including ID bracelet, bed and alarms, visiting hours, pain management, procedures, bathroom and other care routines, personal items, smoking policy, room service/diet, and visiting hours.GALINA Ortiz is here to see pt, phone in room along with clothing and shoes Information on how to activate the Rapid Response Team has been discussed. Patient/Family are encouraged to report perceived risks to care and to ask questions if they do not understand what they are told or what they should do.
[2024-06-07] MEDS: AMIODARONE 360 MG/D5W 200 ML 360 MG/200 ML BAG 16.67 MG IV CONT (21:00)
[2024-06-07] MEDS: HEPARIN SODIUM 5,000 UNITS/ML VIAL 5000 UNITS SUB-Q (21:38)
[2024-06-08] VITALS (21 sets, daily range): BP systolic 102–133; BP diastolic 71–94; PULSE 76–134; RESP 16–18; TEMP 36.6–37; O2SAT 96–100
[2024-06-08 04:47] LABS: Basophils Absolute Auto 0.1 K/mm3 (0.0-0.1); Basophils Percent Auto 1.4 % (0.2-1.2); Eosinophils Absolute Auto 0.3 K/mm3 (0-0.3); Eosinophils Percent Auto 4.9 % (0-4.4); Hematocrit 37.3 % (37.0-47.0); Hemoglobin 12.2 g/dL (12.0-15.0); Immature Granulocyte Absolute 0.02 K/mm3 (0.00-0.031); Immature Granulocyte Percent A 0.3 % (0-0.5); Lymphocytes Absolute Auto 1.93 K/mm3 (0.9-3.2); Lymphocytes Percent Auto 30.7 % (18.3-44.2); Mean Corpuscular HGB Conc 32.7 g/dl (32-36); Mean Corpuscular Hemoglobin 28.4 pg (26-34); Mean Corpuscular Volume 86.7 fl (80-100); Mean Platelet Volume 11.8 fl (7.4-10.4); Monocytes Absolute Auto 0.7 K/mm3 (0.1-0.6); Monocytes Percent Auto 10.3 % (2.6-8.5); Neutrophils Absolute Auto 3.3 K/mm3 (1.3-6.7); Neutrophils Percent Auto 52.4 % (45.5-73.1); Platelet Count Result 250 k/mm3 (150-375); Red Cell Distribution Width 15.5 % (11.5-14.5); White Blood Count 6.3 K/mm3 (4.5-10.0)
[2024-06-08 04:59] LABS: Cholesterol 87 mg/dL (0-200); HDL Direct 36 mg/dL; Triglycerides 71 mg/dL (<150)
[2024-06-08 05:02] LABS: Anion Gap 5 mmol/L (4-12); Blood Urea Nitrogen 29 mg/dL (7-17); Carbon Dioxide 25 mmol/L (22-30); Chloride 108 mmol/L (98-107); Estimated CRCL calculation 31 ml/min; Estimated Glomerular Filt Rate 28; Glucose 98 mg/dL (65-110); Magnesium 1.9 mg/dL (1.6-2.3); Potassium 3.6 mmol/L (3.4-5.0); Sodium 138 mmol/L (137-145)
[2024-06-08 05:09] LABS: LDL Cholesterol Direct 31 mg/dL
[2024-06-08] MEDS: METOPROLOL TARTRATE 25 MG TABLET PO ×3 (06:04→18:02)
[2024-06-08] MEDS: FUROSEMIDE INJ 40 MG/4 ML VIAL 20 MG IV PUSH ×2 (06:05→18:02)
[2024-06-08] MEDS: AMIODARONE 360 MG/D5W 200 ML 360 MG/200 ML BAG 16.67 MG IV CONT ×2 (07:14→19:16)
--- NOTE | 2024-06-08 07:47 | P.PNIM_ITS ---
Progress Note: A&P Assessment and Plan (1) Atrial fibrillation with rapid ventricular response: Code(s): I48.91 - Unspecified atrial fibrillation Status: Acute Assessment and Plan: Cardiology consulted -Given amiodarone 150 mg IV bolus followed by drip-1 milligram/minute for 6 hours, then 0.5 milligram/minute for 18 hours -Continue Eliquis for anticoagulation -Give metoprolol 25 mg q.6 hours -JAMEY guided cardioversion on Monday. - Keep NPO at midnight on Monday -Guideline directed medical therapy for cardiomyopathy- already on a beta- ashley. Unable to start Entresto or MRA due to kidney function. -Started Jardiance 10mh PO QD -Check electrolytes and replace as needed keeping potassium greater than 4 and magnesium greater than 2 - Daily magnesium and BMP -Trend troponin troponins flat (2) CHF (congestive heart failure): Qualifiers: Heart failure chronicity: acute Heart failure type: unspecified Qualified Code(s): I50.9 - Heart failure, unspecified Code(s): I50.9 - Heart failure, unspecified Status: Acute Assessment and Plan: Severe reduced ejection fraction heart failure, Echo on 05/10/2024 EF 25-30% Cardiology consulted -Give Lasix IV 20 mg b.i.d. 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 She follows up with a non acoustic operator at [facility]. Patient was recently admitted at [facility] for AFib with RVR. Patient was discharged with metoprolol and Cardizem. The echocardiogram that was done on previous admission shows ventricl e ejection fraction 25-30%. Patient was advised to follow up with outpatient Cardiology. During her visit with the Cardiology as an outpatient she was still in AFib with RVR. The director internal audit advised to get admitted. Patient has remote history of stroke in 2000. Patient will undergo cardioversion on Monday. Discussed with cardiology in regards to heart failure workup. The security solutions engineer director internal audit reported she spoke with the patient's director internal audit and advised to do the C as an outpatient. Due to her kidney function was not able to and Entresto or MRA for her heart failure. Exam Narrative: General: well appearing, appears stated age. HEENT: normocephalic, atraumatic. Mucous membranes moist. EOMI, PERRLA, bilateral sclera anicteric, no conjunctival injection. Neck supple without JVD, lymphadenopathy, or bruit. Respiratory: clear to ascultation bilaterally. No rales/rhonic/wheezes. Cardiovascular: Regular rate and rhythm, normal S1-S2 upon ascultation. No murmurs, rubs, or clicks. PMI is nondisplaced, capillary refill less than 3 second. Abdomen: Soft, round, no pulsatile masses, nondistended and nontender. No rebound, no guarding. No CVA tenderness, no hepatosplenomegaly. Bowel sounds present to all four quadrants. No high pitch or tinkling sounds, resonant to percussion. Extremities: No cyanosis, clubbing, or edema present. Pulses are palpable 2/2. Active ROM to all four extremities. Neuro: Alert and orientated x 4. PERRLA. Cranial nerves 2-12 intact without focal deficit. Skin: Warm, dry, and intact, without rash, erythema, or lesion. Psych: pleasant, cooperative, normal speech, normal affect, no hallucinations, no dysarthia Due to body habitus is hard to tell patient has edema Objective Data Vital Signs Vital Signs: Vital Signs - 24 hr 06/07/24 10:06 06/07/24 11:01 06/07/24 11:07 Temperature 97.9 F Pulse Rate 143 H 120 H 102 H Respiratory Rate 20 20 Blood Pressure 106/91 H 122/89 113/88 Pulse Oximetry 96 99 Oxygen Delivery Room Air 06/07/24 11:19 06/07/24 11:24 06/07/24 11:31 Temperature 97.8 F Pulse Rate 95 89 93 Respiratory Rate 20 Blood Pressure 118/84 118/84 107/76 Pulse Oximetry 94 Oxygen Delivery 06/07/24 12:15 06/07/24 12:35 06/07/24 13:22 Temperature 97.7 F 97.9 F 97.8 F Pulse Rate 95 79 77 Respiratory Rate 16 20 18 Blood Pressure 110/72 124/83 111/73 Pulse Oximetry 98 100 98 Oxygen Delivery 06/07/24 13:46 06/07/24 14:01 06/07/24 14:16 Temperature 97.8 F 97.7 F Pulse Rate 85 91 86 Respiratory Rate 20 20 20 Blood Pressure 116/87 107/77 112/79 Pulse Oximetry 95 96 96 Oxygen Delivery 06/07/24 14:31 06/07/24 14:32 06/07/24 15:00 Temperature 97.6 F 97.7 F Pulse Rate 79 78 86 Respiratory Rate 20 20 20 Blood Pressure 116/90 108/70 Pulse Oximetry 96 97 96 Oxygen Delivery 06/07/24 15:45 06/07/24 16:45 06/07/24 17:00 Temperature 97.4 F L 97.9 F Pulse Rate 84 84 86 Respiratory Rate 20 20 20 Blood Pressure 110/72 112/67 108/68 Pulse Oximetry 96 97 97 Oxygen Delivery 06/07/24 17:55 06/07/24 18:00 06/07/24 20:00 Temperature 97.6 F 97.7 F Pulse Rate 76 88 86 Respiratory Rate 18 16 Blood Pressure 111/71 99/66 L Pulse Oximetry 97 100 Oxygen Delivery 06/07/24 20:00 06/07/24 20:00 06/07/24 21:00 Temperature Pulse Rate 78 90 Respiratory Rate Blood Pressure Pulse Oximetry Oxygen Delivery Room Air 06/07/24 22:00 06/08/24 00:00 06/08/24 00:00 Temperature 98 F Pulse Rate 80 91 94 Respiratory Rate 16 Blood Pressure 102/71 Pulse Oximetry 100 Oxygen Delivery 06/08/24 00:00 06/08/24 02:00 06/08/24 04:00 Temperature Pulse Rate 95 Respiratory Rate Blood Pressure Pulse Oximetry Oxygen Delivery Room Air Room Air 06/08/24 04:00 06/08/24 04:00 06/08/24 06:00 Temperature 97.8 F Pulse Rate 87 90 91 Respiratory Rate 16 Blood Pressure 113/72 Pulse Oximetry 96 Oxygen Delivery 06/08/24 06:04 06/08/24 06:05 06/08/24 07:14 Temperature Pulse Rate 87 86 95 Respiratory Rate Blood Pressure Pulse Oximetry Oxygen Delivery 06/08/24 07:14 06/08/24 07:27 Temperature 98.6 F Pulse Rate 95 88 Respiratory Rate 18 Blood Pressure 133/87 Pulse Oximetry 100 Oxygen Delivery Intake/Output Intake/Output: Intake & Output 06/05/24 06/06/24 06/07/24 06/08/24 23:59 23:59 23:59 23:59 Intake Total 100 410.6 Output Total 400 Balance 100 10.6 Meds/Results Medications: Active Medications Generic Name Dose Route Start Last Admin Trade Name Freq PRN Reason Stop Dose Admin Acetaminophen 650 mg 06/07/24 15:10 Acetaminophen 325 Mg Tablet PO Q4H PRN Mild Pain (1-3) or Fever Apixaban 5 mg 06/08/24 09:00 Apixaban 5 Mg Tablet PO Q12HR [facility] Atorvastatin Calcium 20 mg 06/08/24 09:00 Atorvastatin [address] Table[address] [facility] Bupropion HCl 300 mg 06/08/24 09:00 Bupropion Hcl Xl (24 Hr) 150 [address] Tab[address] [facility] Clonazepam 0.5 mg 06/08/24 01:21 Clonazepam (*Crx) 0.5 Mg Tablet PO DAILY PRN Anxiety Docusate Sodium 100 mg 06/07/24 17:00 06/07/24 18:42 Docusate Sodium 100 Mg Capsule PO Not Given BID [facility] Furosemide 20 mg 06/08/24 06:00 06/08/24 06:05 Furosemide Inj 40 Mg/4 Ml Vial IV PUSH 20 mg 0600,1800 [facility] Administration Amiodarone HCl/Dextrose 360 mg in 200 mls @ 16.667 mls/hr 06/07/24 17:00 06/08/24 07:14 Nexterone 360 Mg/D5w 200 Ml IV CONT 0.5 mg/min .Q12H [facility] 16.67 mls/hr Administration 0.5 MG/MIN Lamotrigine 100 mg 06/08/24 09:00 Lamotrigine [address] Table[address] [facility] Metoprolol Tartrate 25 mg 06/08/24 01:20 06/08/24 06:05 Metoprolol Tartrate 25 Mg Tablet PO Not Given Q6HR [facility] Nitroglycerin 0.4 mg 06/07/24 12:32 Nitroglycerin Sl 0.4 Mg Tablet SUBLINGUAL Q5MIN PRN Chest Pain Tramadol HCl 50 mg 06/08/24 01:21 Tramadol Hcl (*Crx) 50 Mg Tablet PO BID PRN Pain, Moderate 4-6 Trazodone HCl 100 mg 06/08/24 21:00 Trazodone Hcl 50 Mg Tablet PO [facility] Radiology Results: ITS Impressions Chest X-Ray 06/07/24 11:03 Impression: 1: Small pleural effusions with bibasilar atelectasis. 2: Cardiomegaly with mild pulmonary vascular congestion. Labs Labs: Laboratory Results - last 24 hr 06/07/24 06/07/24 06/07/24 10:22 13:35 16:33 WBC 7.7 RBC 4.43 Hgb 13.0 Hct 38.5 MCV 86.9 MCH 29.3 MCHC 33.8 RDW 15.6 H Plt Count 280 MPV 11.8 H Immature Gran % (Auto) 0.3 Neut % (Auto) 67.0 Lymph % (Auto) 19.4 [place] % (Auto) 9.1 H Eos % (Auto) 3.3 Baso % (Auto) 0.9 Lymph # (Auto) 1.49 [place] # (Auto) 0.7 H Eos # (Auto) 0.3 Baso # (Auto) 0.1 Abs Immat Gran (auto) 0.02 Absolute Neuts (auto) 5.2 Absolute Nucleated RBC 0.000 Nucleated RBC % 0.0 PT 19.9 H INR 1.6 APTT 31.4 Sodium 139 Potassium 4.1 Chloride 109 H Carbon Dioxide 22 Anion Gap 8 BUN 29 H Creatinine 1.90 H Estim Creat Clear Calc 30 Estimated GFR 26 L Glucose 115 H Calcium 9.8 Magnesium 1.9 Total Bilirubin 0.7 AST 24 ALT 18 Alkaline Phosphatase 85 Troponin I 0.014 0.012 < 0.012 NT-Pro-B Natriuret Pep 69214 H Total Protein 7.0 Albumin 3.8 Triglycerides Cholesterol LDL Cholesterol Direct HDL Direct 06/08/24 04:25 WBC 6.3 RBC 4.30 Hgb 12.2 Hct 37.3 MCV 86.7 MCH 28.4 MCHC 32.7 RDW 15.5 H Plt Count 250 MPV 11.8 H Immature Gran % (Auto) 0.3 Neut % (Auto) 52.4 Lymph % (Auto) 30.7 [place] % (Auto) 10.3 H Eos % (Auto) 4.9 H Baso % (Auto) 1.4 H Lymph # (Auto) 1.93 [place] # (Auto) 0.7 H Eos # (Auto) 0.3 Baso # (Auto) 0.1 Abs Immat Gran (auto) 0.02 Absolute Neuts (auto) 3.3 Absolute Nucleated RBC 0.000 Nucleated RBC % 0.0 PT INR APTT Sodium 138 Potassium 3.6 Chloride 108 H Carbon Dioxide 25 Anion Gap 5 BUN 29 H Creatinine 1.80 H Estim Creat Clear Calc 31 Estimated GFR 28 L Glucose 98 Calcium 9.0 Magnesium 1.9 Total Bilirubin AST ALT Alkaline Phosphatase Troponin I NT-Pro-B Natriuret Pep Total Protein Albumin Triglycerides 71 Cholesterol 87 LDL Cholesterol Direct 31 HDL Direct 36 Hospitalist MIPS Advance Care Plan I have confirmed that the patient's Advanced Care Plan is present, code status is documented, or surrogate decision maker is listed in patient medical record.: Yes Medication Reconciliation I have utilized all available resources to obtain, update and review the patients current medications (includes all prescriptions, OTC, herbals, cannabis, and nutritional supplements).: Yes
[2024-06-08] MEDS: DOCUSATE SODIUM 100 MG CAPSULE PO ×2 (09:20→18:01)
[2024-06-08] MEDS: APIXABAN 5 MG TABLET PO ×2 (09:20→20:36)
[2024-06-08] MEDS: buPROPion HCL XL (24 HR) 150 MG TABCR 300 MG PO (09:20)
[2024-06-08] MEDS: ATORVASTATIN 20 MG TABLET PO (09:20)
[2024-06-08] MEDS: lamoTRIgine 100 MG TABLET PO (09:21)
--- NOTE | 2024-06-08 09:33 | PM.PNCARD ---
Progress Note: A&P Assessment and Plan (1) Atrial fibrillation with rapid ventricular response: Code(s): I48.91 - Unspecified atrial fibrillation Status: Acute (2) CHF (congestive heart failure): Qualifiers: Heart failure chronicity: acute Heart failure type: unspecified Qualified Code(s): I50.9 - Heart failure, unspecified Code(s): I50.9 - Heart failure, unspecified Status: Acute (3) HEMANT (acute kidney injury): Code(s): N17.9 - Acute kidney failure, unspecified Status: Acute Plan Assessment: 1. AFib with RVR-rates in the 80s at rest after amiodarone was initiated; pt remains asymptomatic 2. Acute on chronic systolic heart failure (LVEF 25-30%, BNP elevated to 13,200) most likely secondary to A fib with rapid rates; she also has risk factors for CAD including hypertension, hyperlipidemia 3. Hypertension 4. Hyperlipidemia 5. HEMANT with creatinine of 1.9 at admission and 1.8 today Plan -Given amiodarone 150 mg IV bolus followed by drip-1 milligram/minute for 6 hours, then 0.5 milligram/minute for 18 hours; then switch to amiodarone PO 200mg TID x 5 days, then 200 mg daily -Continue Eliquis for anticoagulation -Change metoprolol to 50mg BID -JAMEY guided cardioversion on Monday. Keep NPO at midnight on Monday -Guideline directed medical therapy for cardiomyopathy- already on a beta-ashley. Start Entresto, SGLT2 inhibitor, MRA as tolerated -Continue Lasix IV 20 mg b.i.d. -Check renal function daily -Check electrolytes and replace as needed keeping potassium greater than 4 and magnesium greater than 2 -Evaluation for ischemia as outpatient. She does not have any chest pain. Troponin negative Subjective Date/time seen: 06/08/24 09:33 Interval history: 69-year-old female with history of atrial fibrillation, hyperlipidemia, hypertension, DVT, CVA, arthritis, anxiety, and chronic kidney disease presents was admitted for atrial fibrillation with RVR and new diagnosis of cardiomyopathy with an EF of 25-30%. She is currently on metoprolol and amiodarone drip. Cardizem was stopped given cardiomyopathy Interval history: Patient denies any chest pain, shortness of breath, palpitations, dizziness. Heart rates are in the 80s range with rest Workup: BNP: 98887 Creatinine: baseline 1.6-1.9 EKG: AFib with RVR, rate of 110 TTE 05/10: Summary 1. The left ventricle is moderately dilated. The left ventricular systolic function is severely reduced. The LVEF is visually estimated to be 25-30%. 2. The right ventricle is normal in size with mildly reduced systolic function. 3. The aortic valve is trileaflet and opens well. There is mild aortic regurgitation. 4. The mitral valve is sclerotic. There is moderate mitral regurgitation. Review of Systems Review of Systems: Complete review of systems was performed and pertinent positives are noted in HPI Exam Narrative: General: Alert oriented x3 no acute distress Neck: Supple no JVD Chest: Bilaterally clear to auscultation, no rales or rhonchi Cardiac: S1, S2 plus, regular rate, regular rhythm, no murmurs or rubs Extremities: No peripheral edema, no skin rash Neurologic: Positive into x3, no focal neurological deficits Objective Data Vital Signs Vital Signs: Vital Signs - 24 hr 06/07/24 10:06 06/07/24 11:01 06/07/24 11:07 Temperature 36.6 C Pulse Rate 143 H 120 H 102 H Respiratory Rate 20 20 Blood Pressure 106/91 H 122/89 113/88 Pulse Oximetry 96 99 Oxygen Delivery Room Air 06/07/24 11:19 06/07/24 11:24 06/07/24 11:31 Temperature 36.6 C Pulse Rate 95 89 93 Respiratory Rate 20 Blood Pressure 118/84 118/84 107/76 Pulse Oximetry 94 Oxygen Delivery 06/07/24 12:15 06/07/24 12:35 06/07/24 13:22 Temperature 36.5 C 36.6 C 36.6 C Pulse Rate 95 79 77 Respiratory Rate 16 20 18 Blood Pressure 110/72 124/83 111/73 Pulse Oximetry 98 100 98 Oxygen Delivery 06/07/24 13:46 06/07/24 14:01 06/07/24 14:16 Temperature 36.6 C 36.5 C Pulse Rate 85 91 86 Respiratory Rate 20 20 20 Blood Pressure 116/87 107/77 112/79 Pulse Oximetry 95 96 96 Oxygen Delivery 06/07/24 14:31 06/07/24 14:32 06/07/24 15:00 Temperature 36.4 C 36.5 C Pulse Rate 79 78 86 Respiratory Rate 20 20 20 Blood Pressure 116/90 108/70 Pulse Oximetry 96 97 96 Oxygen Delivery 06/07/24 15:45 06/07/24 16:45 06/07/24 17:00 Temperature 36.3 C L 36.6 C Pulse Rate 84 84 86 Respiratory Rate 20 20 20 Blood Pressure 110/72 112/67 108/68 Pulse Oximetry 96 97 97 Oxygen Delivery 06/07/24 17:55 06/07/24 18:00 06/07/24 20:00 Temperature 36.4 C 36.5 C Pulse Rate 76 88 86 Respiratory Rate 18 16 Blood Pressure 111/71 99/66 L Pulse Oximetry 97 100 Oxygen Delivery 06/07/24 20:00 06/07/24 20:00 06/07/24 21:00 Temperature Pulse Rate 78 90 Respiratory Rate Blood Pressure Pulse Oximetry Oxygen Delivery Room Air 06/07/24 22:00 06/08/24 00:00 06/08/24 00:00 Temperature 36.6 C Pulse Rate 80 91 94 Respiratory Rate 16 Blood Pressure 102/71 Pulse Oximetry 100 Oxygen Delivery 06/08/24 00:00 06/08/24 02:00 06/08/24 04:00 Temperature Pulse Rate 95 Respiratory Rate Blood Pressure Pulse Oximetry Oxygen Delivery Room Air Room Air 06/08/24 04:00 06/08/24 04:00 06/08/24 06:00 Temperature 36.6 C Pulse Rate 87 90 91 Respiratory Rate 16 Blood Pressure 113/72 Pulse Oximetry 96 Oxygen Delivery 06/08/24 06:04 06/08/24 06:05 06/08/24 07:14 Temperature Pulse Rate 87 86 95 Respiratory Rate Blood Pressure Pulse Oximetry Oxygen Delivery 06/08/24 07:14 06/08/24 07:27 Temperature 37.0 C Pulse Rate 95 88 Respiratory Rate 18 Blood Pressure 133/87 Pulse Oximetry 100 Oxygen Delivery Intake/Output Intake/Output: Intake & Output 06/05/24 06/06/24 06/07/24 06/08/24 23:59 23:59 23:59 23:59 Intake Total 100 410.6 Output Total 700 Balance 100 -289.4 Meds/Results Medications: Active Medications Generic Name Dose Route Start Last Admin Trade Name Freq PRN Reason Stop Dose Admin Acetaminophen 650 mg 06/07/24 15:10 Acetaminophen 325 Mg Tablet PO Q4H PRN Mild Pain (1-3) or Fever Apixaban 5 mg 06/08/24 09:00 06/08/24 09:20 Apixaban 5 Mg Tablet PO 5 mg Q12HR [facility] Administration Atorvastatin Calcium 20 mg 06/08/24 09:00 06/08/24 09:20 Atorvastatin 20 Mg Tablet PO 20 mg DAILY [facility] Administration Bupropion HCl 300 mg 06/08/24 09:00 06/08/24 09:20 Bupropion Hcl Xl (24 Hr) 150 Mg Tabcr PO 300 mg DAILY [facility] Administration Clonazepam 0.5 mg 06/08/24 01:21 Clonazepam (*Crx) 0.5 Mg Tablet PO DAILY PRN Anxiety Docusate Sodium 100 mg 06/07/24 17:00 06/08/24 09:20 Docusate Sodium 100 Mg Capsule PO 100 mg BID [facility] Administration Furosemide 20 mg 06/08/24 06:00 06/08/24 06:05 Furosemide Inj 40 Mg/4 Ml Vial IV PUSH 20 mg 0600,1800 [facility] Administration Amiodarone HCl/Dextrose 360 mg in 200 mls @ 16.667 mls/hr 06/07/24 17:00 06/08/24 07:14 Nexterone 360 Mg/D5w 200 Ml IV CONT 0.5 mg/min .Q12H [facility] 16.67 mls/hr Administration 0.5 MG/MIN Lamotrigine 100 mg 06/08/24 09:00 06/08/24 09:21 Lamotrigine 100 Mg Tablet PO 100 mg DAILY [facility] Administration Metoprolol Tartrate 25 mg 06/08/24 01:20 06/08/24 06:05 Metoprolol Tartrate 25 Mg Tablet PO Not Given Q6HR [facility] Nitroglycerin 0.4 mg 06/07/24 12:32 Nitroglycerin Sl 0.4 Mg Tablet SUBLINGUAL Q5MIN PRN Chest Pain Tramadol HCl 50 mg 06/08/24 01:21 Tramadol Hcl (*Crx) 50 Mg Tablet PO BID PRN Pain, Moderate 4-6 Trazodone HCl 100 mg 06/08/24 21:00 Trazodone Hcl 50 Mg Tablet PO [facility] Radiology Results: ITS Impressions Chest X-Ray 06/07/24 11:03 Impression: 1: Small pleural effusions with bibasilar atelectasis. 2: Cardiomegaly with mild pulmonary vascular congestion. Labs Labs: Laboratory Results - last 24 hr 06/07/24 06/07/24 06/07/24 10:22 13:35 16:33 WBC 7.7 RBC 4.43 Hgb 13.0 Hct 38.5 MCV 86.9 MCH 29.3 MCHC 33.8 RDW 15.6 H Plt Count 280 MPV 11.8 H Immature Gran % (Auto) 0.3 Neut % (Auto) 67.0 Lymph % (Auto) 19.4 [place] % (Auto) 9.1 H Eos % (Auto) 3.3 Baso % (Auto) 0.9 Lymph # (Auto) 1.49 [place] # (Auto) 0.7 H Eos # (Auto) 0.3 Baso # (Auto) 0.1 Abs Immat Gran (auto) 0.02 Absolute Neuts (auto) 5.2 Absolute Nucleated RBC 0.000 Nucleated RBC % 0.0 PT 19.9 H INR 1.6 APTT 31.4 Sodium 139 Potassium 4.1 Chloride 109 H Carbon Dioxide 22 Anion Gap 8 BUN 29 H Creatinine 1.90 H Estim Creat Clear Calc 30 Estimated GFR 26 L Glucose 115 H Calcium 9.8 Magnesium 1.9 Total Bilirubin 0.7 AST 24 ALT 18 Alkaline Phosphatase 85 Troponin I 0.014 0.012 < 0.012 NT-Pro-B Natriuret Pep 52542 H Total Protein 7.0 Albumin 3.8 Triglycerides Cholesterol LDL Cholesterol Direct HDL Direct 06/08/24 04:25 WBC 6.3 RBC 4.30 Hgb 12.2 Hct 37.3 MCV 86.7 MCH 28.4 MCHC 32.7 RDW 15.5 H Plt Count 250 MPV 11.8 H Immature Gran % (Auto) 0.3 Neut % (Auto) 52.4 Lymph % (Auto) 30.7 [place] % (Auto) 10.3 H Eos % (Auto) 4.9 H Baso % (Auto) 1.4 H Lymph # (Auto) 1.93 [place] # (Auto) 0.7 H Eos # (Auto) 0.3 Baso # (Auto) 0.1 Abs Immat Gran (auto) 0.02 Absolute Neuts (auto) 3.3 Absolute Nucleated RBC 0.000 Nucleated RBC % 0.0 PT INR APTT Sodium 138 Potassium 3.6 Chloride 108 H Carbon Dioxide 25 Anion Gap 5 BUN 29 H Creatinine 1.80 H Estim Creat Clear Calc 31 Estimated GFR 28 L Glucose 98 Calcium 9.0 Magnesium 1.9 Total Bilirubin AST ALT Alkaline Phosphatase Troponin I NT-Pro-B Natriuret Pep Total Protein Albumin Triglycerides 71 Cholesterol 87 LDL Cholesterol Direct 31 HDL Direct 36
[2024-06-08] MEDS: CALCIUM CARBONATE (TUMS) 500 MG (200 MG ELEMENTAL) PO (16:01)
[2024-06-08] MEDS: traZODone HCL 50 MG TABLET 100 MG PO (20:36)
[2024-06-09] VITALS (23 sets, daily range): BP systolic 101–124; BP diastolic 63–92; PULSE 83–124; RESP 18; TEMP 36.6–37; O2SAT 98–100
[2024-06-09] MEDS: METOPROLOL TARTRATE 25 MG TABLET PO ×5 (01:00→23:29)
[2024-06-09 05:05] LABS: Hematocrit 39.2 % (37.0-47.0); Mean Corpuscular HGB Conc 33.2 g/dl (32-36); Mean Corpuscular Hemoglobin 28.7 pg (26-34); Mean Corpuscular Volume 86.5 fl (80-100); Platelet Count Result 263 k/mm3 (150-375); Red Blood Count 4.53 M/mm3 (4.2-5.4); Red Cell Distribution Width 15.3 % (11.5-14.5); White Blood Count 7.1 K/mm3 (4.5-10.0)
[2024-06-09 05:14] LABS: Alanine Aminotransferase 15 U/L (6-35); Albumin Level 3.5 g/dL (3.5-5.1); Alkaline Phosphatase 74 U/L (38-126); Anion Gap 5 mmol/L (4-12); Aspartate Amino Transferase 20 U/L (14-36); Bilirubin,Total 0.4 mg/dL (0.2-1.3); Blood Urea Nitrogen 35 mg/dL (7-17); Calcium 9.2 mg/dL (8.4-10.2); Carbon Dioxide 29 mmol/L (22-30); Chloride 105 mmol/L (98-107); Estimated CRCL calculation 28 ml/min; Estimated Glomerular Filt Rate 25; Glucose 95 mg/dL (65-110); Magnesium 1.8 mg/dL (1.6-2.3); Potassium 3.8 mmol/L (3.4-5.0); Sodium 139 mmol/L (137-145)
[2024-06-09] MEDS: FUROSEMIDE INJ 40 MG/4 ML VIAL 20 MG IV PUSH (05:26)
[2024-06-09] MEDS: AMIODARONE 360 MG/D5W 200 ML 360 MG/200 ML BAG 16.67 MG IV CONT ×2 (07:17→19:47)
[2024-06-09] MEDS: DOCUSATE SODIUM 100 MG CAPSULE PO ×2 (08:48→16:39)
[2024-06-09] MEDS: ATORVASTATIN 20 MG TABLET PO (08:48)
[2024-06-09] MEDS: EMPAGLIFLOZIN 10 MG TABLET PO (08:49)
[2024-06-09] MEDS: buPROPion HCL XL (24 HR) 150 MG TABCR 300 MG PO (08:49)
[2024-06-09] MEDS: APIXABAN 5 MG TABLET PO ×2 (08:49→20:26)
[2024-06-09] MEDS: lamoTRIgine 100 MG TABLET PO (08:49)
[2024-06-09] MEDS: traMADol HCL (*CRX) 50 MG TABLET PO ×2 (08:53→20:26)
--- NOTE | 2024-06-09 09:35 | P.PNCA_ITS ---
Progress Note: A&P Assessment and Plan (1) Atrial fibrillation with rapid ventricular response: Code(s): I48.91 - Unspecified atrial fibrillation Status: Acute (2) CHF (congestive heart failure): Qualifiers: Heart failure chronicity: acute Heart failure type: unspecified Qualified Code(s): I50.9 - Heart failure, unspecified Code(s): I50.9 - Heart failure, unspecified Status: Acute (3) HEMANT (acute kidney injury): Code(s): N17.9 - Acute kidney failure, unspecified Status: Acute Assessment and Plan: Assessment: 1. AFib with RVR-rates in the 1002-120s on amiodarone and metoprolol; pt remains asymptomatic 2. Acute on chronic systolic heart failure (LVEF 25-30%, BNP elevated to 13,200) most likely secondary to A fib with rapid rates; she also has risk factors for CAD including hypertension, hyperlipidemia 3. Hypertension 4. Hyperlipidemia 5. HEMANT on CKD (solitary kidney) with creatinine of 1.9 at admission and 2.0 today Plan Plan -Switch to amiodarone PO 200mg TID x 5 days, then 200 mg daily -Continue Eliquis for anticoagulation -Change metoprolol to 75mg BID -JAMEY guided cardioversion on Monday. Keep NPO at midnight on Monday -Guideline directed medical therapy for cardiomyopathy as tolerated in the setting of CKD and single kidney- already on a beta-ashley, and Empagliflozin. Unable to start Entresto and MRA given HEMANT on CKD with single kidney - Stop lasix given euvolemic and renal function getting worse -Check renal function daily -Check electrolytes and replace as needed keeping potassium greater than 4 and magnesium greater than 2 -Evaluation for ischemia as outpatient. She does not have any chest pain. Tr oponin negative Subjective Date/time seen: 06/09/24 09:35 Interval history: 69-year-old female with history of atrial fibrillation, hyperlipidemia, hypertension, DVT, CVA, arthritis, anxiety, and chronic kidney disease (with single kidney) presents was admitted for atrial fibrillation with RVR and new diagnosis of cardiomyopathy with an EF of 25-30%. She is currently on metoprolol and amiodarone drip. Cardizem was stopped given cardiomyopathy. Interval history: Patient denies any chest pain, shortness of breath, palpitations, dizziness. Heart rates are in the 90s-120s range with rest Workup: BNP: 11188 Creatinine: baseline 1.6-1.9 EKG: AFib with RVR, rate of 110 TTE 05/10: Summary 1. The left ventricle is moderately dilated. The left ventricular systolic function is severely reduced. The LVEF is visually estimated to be 25-30%. 2. The right ventricle is normal in size with mildly reduced systolic function. 3. The aortic valve is trileaflet and opens well. There is mild aortic regurgitation. 4. The mitral valve is sclerotic. There is moderate mitral regurgitation. Exam Narrative: General: Alert oriented x3 no acute distress Neck: Supple no JVD Chest: Bilaterally clear to auscultation, no rales or rhonchi Cardiac: S1, S2 plus, regular rate, regular rhythm, no murmurs or rubs Extremities: No peripheral edema, no skin rash Neurologic: Positive into x3, no focal neurological deficits Objective Data Vital Signs Vital Signs: Vital Signs - 24 hr 06/08/24 10:00 06/08/24 10:00 06/08/24 12:00 Temperature 36.6 C Pulse Rate 96 91 113 H Respiratory Rate 18 Blood Pressure 128/88 Pulse Oximetry 100 06/08/24 12:00 06/08/24 12:00 06/08/24 12:12 Temperature Pulse Rate 123 H 110 H 119 H Respiratory Rate Blood Pressure Pulse Oximetry 06/08/24 14:00 06/08/24 14:00 06/08/24 15:34 Temperature 36.6 C Pulse Rate 101 H 98 118 H Respiratory Rate 18 Blood Pressure 125/90 Pulse Oximetry 99 06/08/24 16:00 06/08/24 16:00 06/08/24 18:00 Temperature Pulse Rate 80 90 118 H Respiratory Rate Blood Pressure Pulse Oximetry 06/08/24 18:00 06/08/24 18:02 06/08/24 19:15 Temperature Pulse Rate 128 H 120 H 122 H Respiratory Rate Blood Pressure Pulse Oximetry 06/08/24 19:16 06/08/24 20:00 06/08/24 20:00 Temperature 36.6 C Pulse Rate 122 H 115 H 76 Respiratory Rate 18 Blood Pressure 124/94 H Pulse Oximetry 100 06/08/24 20:00 06/08/24 22:00 06/08/24 22:00 Temperature Pulse Rate 134 H 111 H 110 H Respiratory Rate Blood Pressure Pulse Oximetry 06/09/24 00:00 06/09/24 00:00 06/09/24 00:00 Temperature 36.6 C Pulse Rate 95 92 96 Respiratory Rate 18 Blood Pressure 117/78 Pulse Oximetry 100 06/09/24 01:00 06/09/24 02:00 06/09/24 02:00 Temperature Pulse Rate 83 88 95 Respiratory Rate Blood Pressure Pulse Oximetry 06/09/24 04:00 06/09/24 04:00 06/09/24 04:00 Temperature 36.7 C Pulse Rate 98 87 84 Respiratory Rate 18 Blood Pressure 124/92 H Pulse Oximetry 100 06/09/24 04:00 06/09/24 05:31 06/09/24 06:00 Temperature Pulse Rate 84 86 101 H Respiratory Rate Blood Pressure Pulse Oximetry 06/09/24 06:00 06/09/24 07:17 06/09/24 07:17 Temperature Pulse Rate 101 H 106 H 106 H Respiratory Rate Blood Pressure Pulse Oximetry 06/09/24 07:33 Temperature 36.6 C Pulse Rate 92 Respiratory Rate 18 Blood Pressure 114/72 Pulse Oximetry 100 Intake/Output Intake/Output: Intake & Output 06/06/24 06/07/24 06/08/24 06/09/24 23:59 23:59 23:59 23:59 Intake Total 100 1376.1 404.5 Output Total 1600 700 Balance 100 -223.9 -295.5 Meds/Results Medications: Active Medications Generic Name Dose Route Start Last Admin Trade Name Freq PRN Reason Stop Dose Admin Acetaminophen 650 mg 06/07/24 15:10 Acetaminophen 325 Mg Tablet PO Q4H PRN Mild Pain (1-3) or Fever Apixaban 5 mg 06/08/24 09:00 06/09/24 08:49 Apixaban 5 Mg Tablet PO 5 mg Q12HR JUSTINE Administration Atorvastatin Calcium 20 mg 06/08/24 09:00 06/09/24 08:48 Atorvastatin 20 Mg Tablet PO 20 mg DAILY JUSTINE Administration Bupropion HCl 300 mg 06/08/24 09:00 06/09/24 08:49 Bupropion Hcl Xl (24 Hr) 150 Mg Tabcr PO 300 mg DAILY JUSTINE Administration Calcium Carbonate 200 mg 06/08/24 15:37 06/08/24 16:01 Calcium Carbonate (Tums) 500 Mg (200 Mg Elemental) PO 200 mg Q6H PRN Administration Indigestion Clonazepam 0.5 mg 06/08/24 01:21 Clonazepam (*Crx) 0.5 Mg Tablet PO DAILY PRN Anxiety Docusate Sodium 100 mg 06/07/24 17:00 06/09/24 08:48 Docusate Sodium 100 Mg Capsule PO 100 mg BID JUSTINE Administration Empagliflozin 10 mg 06/09/24 09:00 06/09/24 08:49 Empagliflozin 10 Mg Tablet PO 10 mg DAILY JUSTINE Administration Furosemide 20 mg 06/08/24 06:00 06/09/24 05:26 Furosemide Inj 40 Mg/4 Ml Vial IV PUSH 20 mg 0600,1800 JUSTINE Administration Amiodarone HCl/Dextrose 360 mg in 200 mls @ 16.667 mls/hr 06/07/24 17:00 06/09/24 07:17 Nexterone 360 Mg/D5w 200 Ml IV CONT 0.5 mg/min .Q12H JUSTINE 16.67 mls/hr Administration 0.5 MG/MIN Lamotrigine 100 mg 06/08/24 09:00 06/09/24 08:49 Lamotrigine 100 Mg Tablet PO 100 mg DAILY JUSTINE Administration Metoprolol Tartrate 25 mg 06/08/24 01:20 06/09/24 05:31 Metoprolol Tartrate 25 Mg Tablet PO 25 mg Q6HR JUSTINE Administration Nitroglycerin 0.4 mg 06/07/24 12:32 Nitroglycerin Sl 0.4 Mg Tablet SUBLINGUAL Q5MIN PRN Chest Pain Tramadol HCl 50 mg 06/08/24 01:21 06/09/24 08:53 Tramadol Hcl (*Crx) 50 Mg Tablet PO 50 mg BID PRN Administration Pain, Moderate 4-6 Trazodone HCl 100 mg 06/08/24 21:00 06/08/24 20:36 Trazodone Hcl 50 Mg Tablet PO 100 mg HS JUSTINE Administration Radiology Results: ITS Impressions Chest X-Ray 06/07/24 11:03 Impression: 1: Small pleural effusions with bibasilar atelectasis. 2: Cardiomegaly with mild pulmonary vascular congestion. Labs Labs: Laboratory Results - last 24 hr 06/09/24 04:41 WBC 7.1 RBC 4.53 Hgb 13.0 Hct 39.2 MCV 86.5 MCH 28.7 MCHC 33.2 RDW 15.3 H Plt Count 263 MPV 12.0 H Sodium 139 Potassium 3.8 Chloride 105 Carbon Dioxide 29 Anion Gap 5 BUN 35 H Creatinine 2.00 H Estim Creat Clear Calc 28 Estimated GFR 25 L Glucose 95 Calcium 9.2 Magnesium 1.8 Total Bilirubin 0.4 AST 20 ALT 15 Alkaline Phosphatase 74 Total Protein 6.0 L Albumin 3.5
--- NOTE | 2024-06-09 09:35 | P.PNIM_ITS ---
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 Patient was recently admitted at [facility](05/10 through 05/13) for AFib with RVR. Patient was discha rged with metoprolol and Cardizem. The echocardiogram that was done on previous admission shows ventricle ejection fraction 25-30%. Patient was advised to follow up with outpatient Cardiology. During her visit with the Cardiology as an outpatient she was still in AFib with RVR. The soil conservation teacher advised to get admitted. Patient has remote history of stroke in 2000. Patient will undergo cardioversion on Monday. Discussed with cardiology in regards to heart failure workup. The personnel associate soil conservation teacher reported she spoke with the patient's soil conservation teacher and advised to do the C as an outpatient. Due to her kidney function was not able to add Entresto or MRA for her heart failure. Cardiology consulted -Given amiodarone 150 mg IV bolus followed by drip-1 milligram/minute for 6 hours, then 0.5 milligram/minute for 18 hours -Continue Eliquis for anticoagulation -Give metoprolol 25 mg q.6 hours -JAMEY guided cardioversion on Monday. - Keep NPO at midnight on Monday -Guideline directed medical therapy for cardiomyopathy- already on a beta- ashley. Unable to start Entresto or MRA due to kidney function. -Started Jardiance 10mh PO QD -Check electrolytes and replace as needed keeping potassium greater than 4 and magnesium greater than 2 - Daily magnesium and BMP -Trend troponin troponins flat (2) CHF (congestive heart failure): Qualifiers: Heart failure chronicity: acute Heart failure type: unspecified Qualified Code(s): I50.9 - Heart failure, unspecified Code(s): I50.9 - Heart failure, unspecified Status: Acute Assessment and Plan: Severe reduced ejection fraction heart failure, Echo on 05/10/2024 EF 25-30% Cardiology consulted -Give Lasix IV 20 mg b.i.d. (3) HEMANT (acute kidney injury): Code(s): N17.9 - Acute kidney failure, unspecified Status: Acute Assessment and Plan: 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, baseline is 1.6, on admission 1.9, patient has only left kidney functional Avoid nephrotoxic medications No IV fluids due to fluid overload and EF of to 25-30% Daily BMP (4) Pleural effusion: Code(s): J90 - Pleural effusion, not elsewhere classified Status: Acute Assessment and Plan: New from last month Likely due to fluid overload, diuresing with IV Lasix (5) Seizures: Code(s): R56.9 - Unspecified convulsions Status: Acute Assessment and Plan: Continue home medications Subjective Date/time seen: 06/09/24 09:35 Interval history: 06/09:No acute events reported. Discussed with [employer] who plans to do LHC for low EF fraction and cardioversion tomorrow for the A.FIb and also recommend holding lasix for today and giving gentle rehydration for increasing Cr.Since patient is going for LHC we agree in holding and started NS @ 70ml/hr. 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 Patient was recently admitted at [facility](05/10 through 05/13) for AFib with RVR. Patient was discharged with metoprolol and Cardizem. The echocardiogram that was done on previous admission shows ventricle ejection fraction 25-30%. Patient was advised to follow up with outpatient Cardiology. During her visit with the Cardiology as an outpatient she was still in AFib with RVR. The soil conservation teacher advised to get admitted. Patient has remote history of stroke in 2000. Patient will undergo cardioversion on Monday. Discussed with cardiology in regards to heart failure workup. The personnel associate soil conservation teacher reported she spoke with the patient's soil conservation teacher and advised to do the LHC as an outpatient. Due to her kidney function was not able to add Entresto or MRA for her heart failure. Review of Systems Review of Systems: 12 systems were reviewed and are negativ e except for as per HPI. Exam Narrative: General: well appearing, appears stated age. HEENT: normocephalic, atraumatic. Mucous membranes moist. EOMI, PERRLA, bilateral sclera anicteric, no conjunctival injection. Neck supple without JVD, lymphadenopathy, or bruit. Respiratory: clear to ascultation bilaterally. No rales/rhonic/wheezes. Cardiovascular: Regular rate and rhythm, normal S1-S2 upon ascultation. No murmurs, rubs, or clicks. PMI is nondisplaced, capillary refill less than 3 second. Abdomen: Soft, round, no pulsatile masses, nondistended and nontender. No rebound, no guarding. No CVA tenderness, no hepatosplenomegaly. Bowel sounds present to all four quadrants. No high pitch or tinkling sounds, resonant to percussion. Extremities: No cyanosis, clubbing, or edema present. Pulses are palpable 2/2. Active ROM to all four extremities. Neuro: Alert and orientated x 4. PERRLA. Cranial nerves 2-12 intact without focal deficit. Skin: Warm, dry, and intact, without rash, erythema, or lesion. Psych: pleasant, cooperative, normal speech, normal affect, no hallucinations, no dysarthia Due to body habitus is hard to tell patient has edema Objective Data Vital Signs Vital Signs: Vital Signs - 24 hr 06/08/24 10:00 06/08/24 10:00 06/08/24 12:00 Temperature 97.8 F Pulse Rate 96 91 113 H Respiratory Rate 18 Blood Pressure 128/88 Pulse Oximetry 100 06/08/24 12:00 06/08/24 12:00 06/08/24 12:12 Temperature Pulse Rate 123 H 110 H 119 H Respiratory Rate Blood Pressure Pulse Oximetry 06/08/24 14:00 06/08/24 14:00 06/08/24 15:34 Temperature 98 F Pulse Rate 101 H 98 118 H Respiratory Rate 18 Blood Pressure 125/90 Pulse Oximetry 99 06/08/24 16:00 06/08/24 16:00 06/08/24 18:00 Temperature Pulse Rate 80 90 118 H Respiratory Rate Blood Pressure Pulse Oximetry 06/08/24 18:00 06/08/24 18:02 06/08/24 19:15 Temperature Pulse Rate 128 H 120 H 122 H Respiratory Rate Blood Pressure Pulse Oximetry 06/08/24 19:16 06/08/24 20:00 06/08/24 20:00 Temperature 97.9 F Pulse Rate 122 H 115 H 76 Respiratory Rate 18 Blood Pressure 124/94 H Pulse Oximetry 100 06/08/24 20:00 06/08/24 22:00 06/08/24 22:00 Temperature Pulse Rate 134 H 111 H 110 H Respiratory Rate Blood Pressure Pulse Oximetry 06/09/24 00:00 06/09/24 00:00 06/09/24 00:00 Temperature 97.8 F Pulse Rate 95 92 96 Respiratory Rate 18 Blood Pressure 117/78 Pulse Oximetry 100 06/09/24 01:00 06/09/24 02:00 06/09/24 02:00 Temperature Pulse Rate 83 88 95 Respiratory Rate Blood Pressure Pulse Oximetry 06/09/24 04:00 06/09/24 04:00 06/09/24 04:00 Temperature 98.1 F Pulse Rate 98 87 84 Respiratory Rate 18 Blood Pressure 124/92 H Pulse Oximetry 100 06/09/24 04:00 06/09/24 05:31 06/09/24 06:00 Temperature Pulse Rate 84 86 101 H Respiratory Rate Blood Pressure Pulse Oximetry 06/09/24 06:00 06/09/24 07:17 06/09/24 07:17 Temperature Pulse Rate 101 H 106 H 106 H Respiratory Rate Blood Pressure Pulse Oximetry 06/09/24 07:33 Temperature 98 F Pulse Rate 92 Respiratory Rate 18 Blood Pressure 114/72 Pulse Oximetry 100 Intake/Output Intake/Output: Intake & Output 06/06/24 06/07/24 06/08/24 06/09/24 23:59 23:59 23:59 23:59 Intake Total 100 1376.1 404.5 Output Total 1600 700 Balance 100 -223.9 -295.5 Meds/Results Medications: Active Medications Generic Name Dose Route Start Last Admin Trade Name Freq PRN Reason Stop Dose Admin Acetaminophen 650 mg 06/07/24 15:10 Acetaminophen 325 Mg Tablet PO Q4H PRN Mild Pain (1-3) or Fever Apixaban 5 mg 06/08/24 09:00 06/09/24 08:49 Apixaban 5 Mg Tablet PO 5 mg Q12HR JUSTINE Administration Atorvastatin Calcium 20 mg 06/08/24 09:00 06/09/24 08:48 Atorvastatin 20 Mg Tablet PO 20 mg DAILY JUSTINE Administration Bupropion HCl 300 mg 06/08/24 09:00 06/09/24 08:49 Bupropion Hcl Xl (24 Hr) 150 Mg Tabcr PO 300 mg DAILY JUSTINE Administration Calcium Carbonate 200 mg 06/08/24 15:37 06/08/24 16:01 Calcium Carbonate (Tums) 500 Mg (200 Mg Elemental) PO 200 mg Q6H PRN Administration Indigestion Clonazepam 0.5 mg 06/08/24 01:21 Clonazepam (*Crx) 0.5 Mg Tablet PO DAILY PRN Anxiety Docusate Sodium 100 mg 06/07/24 17:00 06/09/24 08:48 Docusate Sodium 100 Mg Capsule PO 100 mg BID JUSTINE Administration Empagliflozin 10 mg 06/09/24 09:00 06/09/24 08:49 Empagliflozin 10 Mg Tablet PO 10 mg DAILY JUSTINE Administration Furosemide 20 mg 06/08/24 06:00 06/09/24 05:26 Furosemide Inj 40 Mg/4 Ml Vial IV PUSH 20 mg 0600,1800 JUSTINE Administration Amiodarone HCl/Dextrose 360 mg in 200 mls @ 16.667 mls/hr 06/07/24 17:00 06/09/24 07:17 Nexterone 360 Mg/D5w 200 Ml IV CONT 0.5 mg/min .Q12H JUSTINE 16.67 mls/hr Administration 0.5 MG/MIN Lamotrigine 100 mg 06/08/24 09:00 06/09/24 08:49 Lamotrigine 100 Mg Tablet PO 100 mg DAILY JUSTINE Administration Metoprolol Tartrate 25 mg 06/08/24 01:20 06/09/24 05:31 Metoprolol Tartrate 25 Mg Tablet PO 25 mg Q6HR JUSTINE Administration Nitroglycerin 0.4 mg 06/07/24 12:32 Nitroglycerin Sl 0.4 Mg Tablet SUBLINGUAL Q5MIN PRN Chest Pain Tramadol HCl 50 mg 06/08/24 01:21 06/09/24 08:53 Tramadol Hcl (*Crx) 50 Mg Tablet PO 50 mg BID PRN Administration Pain, Moderate 4-6 Trazodone HCl 100 mg 06/08/24 21:00 06/08/24 20:36 Trazodone Hcl 50 Mg Tablet PO 100 mg HS JUSTINE Administration Radiology Results: ITS Impressions Chest X-Ray 06/07/24 11:03 Impression: 1: Small pleural effusions with bibasilar atelectasis. 2: Cardiomegaly with mild pulmonary vascular congestion. Labs Labs: Laboratory Results - last 24 hr 06/09/24 04:41 WBC 7.1 RBC 4.53 Hgb 13.0 Hct 39.2 MCV 86.5 MCH 28.7 MCHC 33.2 RDW 15.3 H Plt Count 263 MPV 12.0 H Sodium 139 Potassium 3.8 Chloride 105 Carbon Dioxide 29 Anion Gap 5 BUN 35 H Creatinine 2.00 H Estim Creat Clear Calc 28 Estimated GFR 25 L Glucose 95 Calcium 9.2 Magnesium 1.8 Total Bilirubin 0.4 AST 20 ALT 15 Alkaline Phosphatase 74 Total Protein 6.0 L Albumin 3.5 Quality VTE Prophylaxis VTE prophylaxis: mechanical ordered and pharmacologic ordered Hospitalist [facility] Advance Care Plan I have confirmed that the patient's Advanced Care Plan is present, code status is documented, or surrogate decision maker is listed in patient medical record.: Yes Medication Reconciliation I have utilized all available resources to obtain, update and review the patients current medications (includes all prescriptions, OTC, herbals, cannabis, and nutritional supplements).: Yes
[2024-06-09] MEDS: SODIUM CHLORIDE 0.9% IV 1,000 ML 70 ML IV CONT ×2 (12:11→23:32)
[2024-06-09] MEDS: traZODone HCL 50 MG TABLET 100 MG PO (20:26)
[2024-06-10] VITALS (19 sets, daily range): BP systolic 103–129; BP diastolic 69–95; PULSE 81–127; RESP 16–20; TEMP 36.3–36.9; O2SAT 94–100
[2024-06-10] MEDS: AMIODARONE 360 MG/D5W 200 ML 360 MG/200 ML BAG 16.67 MG IV CONT ×2 (07:25→18:11)
[2024-06-10] MEDS: DOCUSATE SODIUM 100 MG CAPSULE PO ×2 (08:33→18:13)
[2024-06-10] MEDS: METOPROLOL TARTRATE 25 MG TABLET PO ×3 (08:33→18:13)
[2024-06-10] MEDS: buPROPion HCL XL (24 HR) 150 MG TABCR 300 MG PO (08:33)
[2024-06-10] MEDS: APIXABAN 5 MG TABLET PO ×2 (08:33→21:15)
[2024-06-10] MEDS: ATORVASTATIN 20 MG TABLET PO (08:33)
[2024-06-10] MEDS: EMPAGLIFLOZIN 10 MG TABLET PO (08:33)
[2024-06-10] MEDS: lamoTRIgine 100 MG TABLET PO (08:34)
[2024-06-10] MEDS: SODIUM CHLORIDE 0.9% IV 1,000 ML 70 ML IV CONT (15:02)
--- NOTE | 2024-06-10 17:04 | P.PNIM_ITS ---
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 She follows up with a software asset management analyst at [facility]. Patient was recently admitted at [facility](05/10 through 05/13) for AFib with RVR. Patient was discha rged with metoprolol and Cardizem. The echocardiogram that was done on previous admission shows ventricle ejection fraction 25-30%. Patient was advised to follow up with outpatient Cardiology. During her visit with the Cardiology as an outpatient she was still in AFib with RVR. The conference planner advised to get admitted. Patient has remote history of stroke in 2000. Patient will undergo cardioversion on Monday. Discussed with cardiology in regards to heart failure workup. The transportation aide conference planner reported she spoke with the patient's conference planner and advised to do the C as an outpatient. Due to her kidney function was not able to add Entresto or MRA for her heart failure. Cardiology consulted -Given amiodarone 150 mg IV bolus followed by drip-1 milligram/minute for 6 hours, then 0.5 milligram/minute for 18 hours -Continue Eliquis for anticoagulation -Give metoprolol 25 mg q.6 hours -Guideline directed medical therapy for cardiomyopathy- already on a beta- ashley. Unable to start Entresto or MRA due to kidney function. - pt having cardioversion today - AF is new diagnosis (2) CHF (congestive heart failure): Qualifiers: Heart failure chronicity: acute Heart failure type: unspecified Qualified Code(s): I50.9 - Heart failure, unspecified Code(s): I50.9 - Heart failure, unspecified Status: Acute Assessment and Plan: Severe reduced ejection fraction heart failure, Echo on 05/10/2024 EF 25-30% Cardiology consulted -lasix on hold due to raising creat levels -cardiology following see recommdations (3) HEMANT (acute kidney injury): Code(s): N17.9 - Acute kidney failure, unspecified Status: Acute Assessment and Plan: 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, baseline is 1.6, on admission 1.9, patient has only left kidney functional Avoid nephrotoxic medications EF of to 25-30% Daily BMP (4) Pleural effusion: Code(s): J90 - Pleural effusion, not elsewhere classified Status: Acute Assessment and Plan: New from last month diuresis cautiously can order CXR in AM (5) Seizures: Code(s): R56.9 - Unspecified convulsions Status: Acute Assessment and Plan: Continue home medications Subjective Date/time seen: 06/10/24 17:04 Interval history: 06/09:No acute events reported. Discussed with Boring Machine Set Up Operator who plans to do LHC for low EF fraction and cardioversion tomorrow for the A.FIb and also recommend holding lasix for today and giving gentle rehydration for increasing Cr.Since patient is going for LHC we agree in holding and started NS @ 70ml/hr. 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 She follows up with a software asset management analyst at [facility]. Patient was recently admitted at [facility](05/10 through 05/13) for AFib with RVR. Patient was discharged with metoprolol and Cardizem. The echocardiogram that was done on previous admission shows ventricle ejection fraction 25-30%. Patient was advised to follow up with outpatient Cardiology. During her visit with the Cardiology as an outpatient she was still in AFib with RVR. The conference planner advised to get admitted. Patient has remote history of stroke in 2000. Patient will undergo cardioversion on Monday. Discussed with cardiology in regards to heart failure workup. The transportation aide conference planner reported she spoke with the patient's conference planner and advised to do the LHC as an outpatient. Due to her kidney func tion was not able to add Entresto or MRA for her heart failure. 06/09: Pt being seen by cardiology, pt going for cardioversion today lasix put on hold by cardiology because creat levels are raising, continue to monitor in hospital, careful watch kidney function Review of Systems Review of Systems: Feels like she is getting better slowly Exam Narrative: General: well appearing swollen HEENT: normocephalic, atraumatic. Mucous membranes moist. EOMI, PERRLA, bilateral sclera anicteric, no conjunctival injection. Neck supple without JVD, lymphadenopathy, or bruit. Respiratory: clear to ascultation bilaterally. No rales/rhonic/wheezes. Cardiovascular: Regular rate and rhythm, normal S1-S2 upon ascultation. No murmurs, rubs, or clicks. PMI is nondisplaced, capillary refill less than 3 second. Abdomen: Soft, round, no pulsatile masses, nondistended and nontender. No rebound, no guarding. No CVA tenderness, no hepatosplenomegaly. Bowel sounds present to all four quadrants. No high pitch or tinkling sounds, resonant to percussion. Extremities: No cyanosis, clubbing, or edema present. Pulses are palpable 2/2. Active ROM to all four extremities. Neuro: Alert and orientated x 4. PERRLA. Cranial nerves 2-12 intact without focal deficit. Skin: Warm, dry, and intact, without rash, erythema, or lesion. Psych: pleasant, cooperative, normal speech, normal affect, no hallucinations, no dysarthia Due to body habitus is hard to tell patient has edema Objective Data Vital Signs Vital Signs: Vital Signs - 24 hr 06/09/24 19:18 06/09/24 19:47 06/09/24 20:00 Temperature 36.7 C Pulse Rate 114 H 114 H 116 H Respiratory Rate 18 Blood Pressure 103/84 Pulse Oximetry 100 Oxygen Delivery 06/09/24 20:00 06/09/24 20:00 06/09/24 20:00 Temperature Pulse Rate 115 H 116 H Respiratory Rate Blood Pressure 103/84 Pulse Oximetry 98 Oxygen Delivery Room Air 06/09/24 22:00 06/09/24 22:00 06/09/24 22:00 Temperature 36.8 C Pulse Rate 100 88 88 Respiratory Rate 18 Blood Pressure 117/64 117/64 Pulse Oximetry 99 Oxygen Delivery 06/09/24 23:29 06/09/24 23:47 06/10/24 00:00 Temperature Pulse Rate 118 H 93 Respiratory Rate Blood Pressure Pulse Oximetry 98 Oxygen Delivery Room Air 06/10/24 00:00 06/10/24 00:00 06/10/24 02:00 Temperature 36.7 C Pulse Rate 110 H 110 H 84 Respiratory Rate 18 Blood Pressure 114/71 114/71 115/79 Pulse Oximetry 100 Oxygen Delivery 06/10/24 02:15 06/10/24 04:00 06/10/24 04:00 Temperature Pulse Rate 90 90 Respiratory Rate Blood Pressure Pulse Oximetry 98 Oxygen Delivery Room Air 06/10/24 04:00 06/10/24 06:00 06/10/24 06:00 Temperature 36.9 C Pulse Rate 90 82 98 Respiratory Rate 18 Blood Pressure 129/95 H 104/84 Pulse Oximetry 100 Oxygen Delivery 06/10/24 07:25 06/10/24 07:25 06/10/24 08:00 Temperature 36.3 C L Pulse Rate 98 98 82 Respiratory Rate 20 Blood Pressure 121/70 Pulse Oximetry 94 Oxygen Delivery 06/10/24 08:00 06/10/24 08:33 06/10/24 10:00 Temperature Pulse Rate 81 84 82 Respiratory Rate Blood Pressure Pulse Oximetry Oxygen Delivery 06/10/24 11:00 06/10/24 11:50 06/10/24 12:00 Temperature 36.3 C L Pulse Rate 106 H 101 H 96 Respiratory Rate 18 Blood Pressure 122/80 Pulse Oximetry 100 Oxygen Delivery 06/10/24 14:00 06/10/24 16:00 Temperature 36.4 C Pulse Rate 105 H 118 H Respiratory Rate 16 Blood Pressure 129/77 Pulse Oximetry 100 Oxygen Delivery Intake/Output Intake/Output: Intake & Output 06/07/24 06/08/24 06/09/24 06/10/24 23:59 23:59 23:59 23:59 Intake Total 100 1376.1 2215.9 1156.9 Output Total 1600 700 500 Balance 100 -223.9 1515.9 656.9 Meds/Results Medications: Active Medications Generic Name Dose Route Start Last Admin Trade Name Freq PRN Reason Stop Dose Admin Acetaminophen 650 mg 06/07/24 15:10 Acetaminophen 325 Mg Tablet PO Q4H PRN Mild Pain (1-3) or Fever Apixaban 5 mg 06/08/24 09:00 06/10/24 08:33 Apixaban 5 Mg Tablet PO 5 mg Q12HR JUSTINE Administration Atorvastatin Calcium 20 mg 06/08/24 09:00 06/10/24 08:33 Atorvastatin 20 Mg Tablet PO 20 mg DAILY JUSTINE Administration Bupropion HCl 300 mg 06/08/24 09:00 06/10/24 08:33 Bupropion Hcl Xl (24 Hr) 150 Mg Tabcr PO 300 mg DAILY JUSTINE Administration Calcium Carbonate 200 mg 06/08/24 15:37 06/08/24 16:01 Calcium Carbonate (Tums) 500 Mg (200 Mg Elemental) PO 200 mg Q6H PRN Administration Indigestion Clonazepam 0.5 mg 06/08/24 01:21 Clonazepam (*Crx) 0.5 Mg Tablet PO DAILY PRN Anxiety Docusate Sodium 100 mg 06/07/24 17:00 06/10/24 08:33 Docusate Sodium 100 Mg Capsule PO 100 mg BID JUSTINE Administration Empagliflozin 10 mg 06/09/24 09:00 06/10/24 08:33 Empagliflozin 10 Mg Tablet PO 10 mg DAILY JUSTINE Administration Furosemide 20 mg 06/08/24 06:00 06/09/24 05:26 Furosemide Inj 40 Mg/4 Ml Vial IV PUSH 20 mg 0600,1800 JUSTINE Administration Amiodarone HCl/Dextrose 360 mg in 200 mls @ 16.667 mls/hr 06/07/24 17:00 06/10/24 07:25 Nexterone 360 Mg/D5w 200 Ml IV CONT 0.5 mg/min .Q12H JUSTINE 16.67 mls/hr Administration 0.5 MG/MIN Sodium Chloride 1,000 mls @ 70 mls/hr 06/09/24 11:05 06/10/24 15:02 Normal Saline Iv IV CONT 70 mls/hr .[id number] JUSTINE Administration Lamotrigine 100 mg 06/08/24 09:00 06/10/24 08:34 Lamotrigine 100 Mg Tablet PO 100 mg DAILY JUSTINE Administration Metoprolol Tartrate 25 mg 06/08/24 01:20 06/10/24 11:50 Metoprolol Tartrate 25 Mg Tablet PO 25 mg Q6HR JUSTINE Administration Nitroglycerin 0.4 mg 06/07/24 12:32 Nitroglycerin Sl 0.4 Mg Tablet SUBLINGUAL Q5MIN PRN Chest Pain Tramadol HCl 50 mg 06/08/24 01:21 06/09/24 20:26 Tramadol Hcl (*Crx) 50 Mg Tablet PO 50 mg BID PRN Administration Pain, Moderate 4-6 Trazodone HCl 100 mg 06/08/24 21:00 06/09/24 20:26 Trazodone Hcl 50 Mg Tablet PO 100 mg HS JUSTINE Administration Radiology Results: ITS Impressions Chest X-Ray 06/07/24 11:03 Impression: 1: Small pleural effusions with bibasilar atelectasis. 2: Cardiomegaly with mild pulmonary vascular congestion.
[2024-06-10] MEDS: traMADol HCL (*CRX) 50 MG TABLET PO (21:13)
[2024-06-10] MEDS: traZODone HCL 50 MG TABLET 100 MG PO (21:14)
--- NOTE | 2024-06-10 23:03 | ECG_ITS ---
Test Date: 2024-06-10 23:07:24 Measurements Intervals [place] Rate: 121 P: 0 [place]: 0 QRS: 30 QRSD: 116 T: -34 QT: 324 QTc: 460 Interpretive Statements ATRIAL FIBRILLATION WITH RAPID VENTRICULAR RESPONSE MODERATE INTRAVENTRICULAR CONDUCTION DELAY [110+ ms QRS DURATION] NONSPECIFIC ST & T-WAVE ABNORMALITY Compared to ECG 06/07/2024 16:31:30 heart rate increased Electronically Signed On 06-11-2024 14:54:44 LEAF STRIPPER by Josie Mora M.D.
[2024-06-11] VITALS (26 sets, daily range): BP systolic 90–129; BP diastolic 47–85; PULSE 47–133; RESP 14–25; TEMP 36.3–36.7; O2SAT 95–100
--- NOTE | 2024-06-11 | ECHO_ITS ---
Patient Info Name: Jaja Meneses Age: 69 years : 1955 Gender: Female Ht: 68 in Wt: 214 lbs BSA: 2.19 m2 HR: 95 bpm BP: 129 / 85 mmHg Technical Quality: Good Exam Date: 06/11/2024 10:29 AM Exam Location: Echo Lab Patient Status: Inpatient Admit Date: 06/08/2024 Staff Ordering Physician: [facility] Media Production Support Manager: Cammy Schulte RDCS Attending Provider: Kyle Swann MD Exam Type: CA echo transesophageal Study Info Indications - Afib Complete two-dimensional, color flow and Doppler transesophageal study is performed. Procedure Details The transesophageal probe was passed into the posterior pharynx, mid-esophagus, distal esophagus, and gastric fundus. The procedure was completed without complications. Summary 1. The left ventricle is dilated with severely reduced systolic function. 2. The right ventricle has reduced systolic function. 3. The mitral valve is sclerotic and opens well. There is moderate mitral regurgitation with a EROA of 0.31cm2, RV of 48cc, and VC of 0.42cm. 4. The aortic valve is trileaflet and opens well. There is mild aortic regurgitation. Left Ventricle The left ventricle is dilated with severely reduced systolic function. Right Ventricle The right ventricle has reduced systolic function. Left Atria The left atrium is dilated. Right Atria The right atrium is dilated. Atrial Septum The atrial septum is intact. Atrial Appendage The left atrial appendage does not have thrombus. PW velocity of the left atrial appendage is 20.2cm/s. Aortic Valve The aortic valve is trileaflet and opens well. There is mild aortic regurgitation. Pulmonic Valve The pulmonic valve is grossly normal. There is trace pulmonic valve regurgitation. Mitral Valve The mitral valve is sclerotic and opens well. There is moderate mitral regurgitation with a EROA of 0.31cm2, RV of 48cc, and VC of 0.42cm. Tricuspid Valve The tricuspid valve is grossly normal. There is trace tricuspid regurgitation. Aorta There is no significant atherosclerotic plaque in the visualized portions of the aorta. Mitral Valve Name Value Normal MV Regurgitation Doppler MR Peak Gradient 96 mmHg Report Signatures
--- NOTE | 2024-06-11 | ECG_ITS ---
Test Date: 2024-06-11 11:42:26 Measurements Intervals [place] Rate: 51 P: 62 IN: 192 QRS: 38 QRSD: 110 T: 0 QT: 526 QTc: 485 Interpretive Statements SINUS BRADYCARDIA WITH OCCASIONAL SUPRAVENTRICULAR PREMATURE COMPLEXES ST DEVIATION AND MODERATE T-WAVE ABNORMALITY, CONSIDER ANTERIOR ISCHEMIA [-0.1+ mV T WAVE IN V3/V4] Compared to ECG 06/11/2024 10:55:01 Atrial fibrillation no longer present Intraventricular conduction delay no longer present T-wave abnormality still present Possible ischemia still present Electronically Signed On 06-11-2024 14:47:20 STRUCTURAL STEEL ERECTOR by Josie Mora M.D.
[2024-06-11] MEDS: METOPROLOL TARTRATE 25 MG TABLET PO ×3 (00:08→14:24)
[2024-06-11] MEDS: MORPHINE SULFATE (*CRX) 2 MG/ML INJ IV PUSH (00:09)
[2024-06-11 00:28] LABS: Uric Acid 6.1 mg/dL (2.5-7.5)
--- NOTE | 2024-06-11 00:38 | PM.EVENT ---
Event Note Event Note Event Note: Called by a nursing for acute left foot pain. Now swollen with erythema Foot x-ray pending Uric acid 6.1 1 time dose IV morphine
[2024-06-11] MEDS: methylPREDNISolone SOD SUCC 125 MG VIAL IV PUSH (03:00)
[2024-06-11] MEDS: SODIUM CHLORIDE 0.9% IV 1,000 ML 70 ML IV CONT (03:00)
[2024-06-11] MEDS: ACETAMINOPHEN 325 MG TABLET 650 MG PO (03:00)
[2024-06-11] MEDS: AMIODARONE 360 MG/D5W 200 ML 360 MG/200 ML BAG 16.67 MG IV CONT (04:58)
--- NOTE | 2024-06-11 09:08 | ECG_ITS ---
Test Date: 2024-06-11 10:55:01 Measurements Intervals [place] Rate: 77 P: 0 NE: 0 QRS: 29 QRSD: 117 T: -60 QT: 453 QTc: 515 Interpretive Statements ATRIAL FIBRILLATION MODERATE INTRAVENTRICULAR CONDUCTION DELAY [110+ ms QRS DURATION] ST DEVIATION AND MODERATE T-WAVE ABNORMALITY, CONSIDER ANTERIOR ISCHEMIA [-0.1+ mV T-WAVE IN V3/V4] Compared to ECG 06/10/2024 23:07:24 Possible ischemia now present T-wave abnormality still present Electronically Signed On 06-11-2024 14:50:14 PATIENT SUPPORT TECH by Josie Mora M.D.
[2024-06-11] MEDS: ATORVASTATIN 20 MG TABLET PO (09:41)
[2024-06-11] MEDS: DOCUSATE SODIUM 100 MG CAPSULE PO ×2 (09:41→17:30)
[2024-06-11] MEDS: buPROPion HCL XL (24 HR) 150 MG TABCR 300 MG PO (09:42)
[2024-06-11] MEDS: APIXABAN 5 MG TABLET PO ×2 (09:42→20:30)
[2024-06-11] MEDS: predniSONE 5 MG TABLET PO (09:42)
[2024-06-11] MEDS: lamoTRIgine 100 MG TABLET PO (09:43)
--- NOTE | 2024-06-11 10:09 | P.PNAN_ITS ---
Anes - Initial Pre Proc Eval Procedure: Operation Date: 06/11/24 11:00 Proposed Procedures p Trans Esophageal Echo [facility] - Douglas Dove MD s Electrical Cardioversion - Douglas Dove MD Date/Time: 06/11/24 10:09 Surgeon: Douglas Dove Pre Op Diagnosis: AFIB with RVR, CHF Patient Data Age: 69 Gender: F Height: 1.73 m Weight: 97.5 kg Last Vital Signs Temp 36.3 C L 06/11/24 08:00 Pulse 91 06/11/24 08:00 Resp 14 06/11/24 08:00 BP 129/85 06/11/24 08:00 Pulse Ox 95 06/11/24 08:00 O2 Del Method Room Air 06/10/24 04:00 Allergies Allergy/AdvReac Type Severity Reaction Status Date / Time No Known Allergies Allergy Verified 05/10/24 12:21 Home Medications ?Medication ?Instructions ?Recorded ?Confirmed ?Type bupropion HCl 300 mg 24 hr tablet, 300 mg PO DAILY 05/10/24 06/07/24 History extended release clonazepam 0.5 mg tablet 0.5 mg PO DAILY PRN Anxiety 05/10/24 06/07/24 History lamotrigine 100 mg tablet 100 mg PO DAILY 05/10/24 06/07/24 History simvastatin 20 mg tablet 20 mg PO EVERY OTHER DAY 05/10/24 06/07/24 History tramadol 50 mg tablet 50 mg PO BID PRN Pain, Moderate 05/10/24 06/07/24 History trazodone 100 mg tablet 100 mg PO HS 05/10/24 06/07/24 History apixaban 5 mg tablet (Eliquis) 5 mg PO Q12HR #60 tabs 05/13/24 06/07/24 Rx atorvastatin 20 mg tablet 20 mg PO DAILY #30 tabs 05/13/24 06/07/24 Rx diltiazem HCl 120 mg capsule,24 120 mg PO QAM #30 caps 05/13/24 06/07/24 Rx hr,extended release metoprolol succinate 50 mg 75 mg (1.5 x 50 mg) PO DAILY #45 05/13/24 06/07/24 Rx tablet,extended release 24 hr tabs Laboratory Tests 06/11/24 06/11/24 00:06 04:47 Sodium Pending Potassium Pending Chloride Pending Carbon Dioxide Pending Anion Gap Pending BUN Pending Creatinine Pending Estim Creat Clear Calc Pending Estimated GFR Pending Glucose Pending Uric Acid 6.1 mg/dL (2.5-7.5) Calcium Pending Patient hx anesthesia problems: none Family hx anesthesia problems: none Results Review: All pre-operative results and documents have been reviewed as part of the pre- operative evaluation. [facility] Past Medical History Medical History (Updated 06/11/24 @ 10:09 by Parminder Ayala DO) HEMANT (acute kidney injury) CHF (congestive heart failure) Seizures Chronic kidney disease Anxiety Arthritis Hyperlipidemia Hypertension Deep venous thrombosis Cerebrovascular accident (2001) Surgical History Surgical History History of section History of cataract extraction History of bilateral knee arthroplasty History of gastric stapling History of cholecystectomy Family History Family History Other Acute myocardial infarction Cerebrovascular accident Congestive heart failure Diabetes mellitus Hypertension Social History Social History Social History: Surrogate medical decision maker: Darline De La Torre or Norah Patel, daughters. Code status: Full code. Smoking status: Never smoker Second hand tobacco smoke exposure: No Alcohol intake: never Substance use: never Substance use type: does not use Do You Feel Safe in your Home?: Yes Lack of Transportation: No Lack of Food: Never True Current Housing: I Have Housing Concerned About Future Housing: No Difficulty Paying Gas/Electric Bills: No Difficulty Paying for Meds: No Currently Unemployed: No Education: High School Diploma/GED Difficulty w/ Childcare or Family Care: No Spiritual care concerns: No Anes - Eval Final PreProcedure Day of Procedure 06/11/24 10:09 Patient weight: obese Heart: regular rate and rhythm Lungs: clear to auscultation Airway: Mallampati scale class II Neurological: alert and oriented Last oral intake: >/= 8 hours ASA classification: IV Emergent: no Anesthetic plan: proceed Anesthesia type and monitoring: general GIVS and standard monitoring Results Review: All pre-operative results and documents have been reviewed as part of the pre- operative evaluation. Informed Consent: The patient's anesthetic plan and its attendant risks and benefits were discussed with the patient/family/POA. Questions were solicited and answers provided to the satisfaction of the patient/family/POA.
--- NOTE | 2024-06-11 11:06 | PC.NURSE ---
Patient transported to cardiac woods laborer at 1105 by cardiac woods laborer team for [facility] w/ cardioversion. soap slabber team to resume patient care at this time.
--- NOTE | 2024-06-11 12:08 | WPDHPUPDATE1 ---
History and Physical Update Update Date/Time: 06/11/24 11:08 History and Physical has been reviewed, including an updated exam of the patient. There are NO changes in the patient's condition. Risks, benefits, and alternatives have been discussed and questions answered. Patient agrees to proceed with procedure.
--- NOTE | 2024-06-11 12:08 | WPDTECDV ---
[facility] with Cardioversion Date of procedure: 06/11/24 Procedure Type: Date Of Procedure: Brief History Of Present Illness: Patient is a pleasant 69-year-old woman with a history of dilated cardiomyopathy who is referred for transesophageal echocardiogram for further evaluation for cardioversion Procedure In Detail: After verbal and written informed consent was obtained, the patient risks, benefits, and alternatives explained in detail. The patient agreed to proceed with the plan of care as outlined above.?The patient was evaluated at bedside in the [facility] room.?The posterior oropharynx, neck, and jaw angle all within normal limits on examination. Lungs were clear to auscultation. Sedation was provided by Anesthesia. The patient was then placed in the appropriate 30 to 45 degree angle supine position at a slight left lateral decubitus position.?Patient was monitored throughout the study with telemetry, oxygen saturation, end-tidal CO2 monitoring, blood pressure, heart rate, and respirations.?The posterior hypopharynx was then locally anesthetized using repeated administration of Hurricaine spray as well as gargled viscous lidocaine. After local anesthetic of the posterior hypopharynx was achieved and the oral bite block placed.?After confirmation of adequate sedation, the transesophageal echocardiogram probe was advanced through the oral bite block into the posterior hypopharynx and into the esophagus and without complication.?Multiple, multiplanar echocardiographic images were obtained in multiple standard re-projections.?Pulsed wave, continuous-wave, and color-flow Doppler were utilized in conjunction with this study.?At the conclusion of the study, the transesophageal echocardiogram probe was removed easily and without complication. The patient tolerated the procedure well without difficulty.?Patient was in atrial fibrillation rhythm throughout the study. Sedation provided by Anesthesia. Time out performed 1123 Start time 11:24 a.m. Stop time 11:39 a.m. FINDINGS: LEFT VENTRICLE: The left ventricle is dilated with severely reduced systolic function. RIGHT VENTRICLE:?Size and systolic function within normal limits. LEFT ATRIUM: Dilated. RIGHT ATRIUM: Dilated. INTERATRIAL SEPTUM: Interatrial septum is anatomically normal without evidence of shunt with color-flow Doppler MITRAL VALVE: Mitral valve is sclerotic with moderate mitral regurgitation most likely in setting dilated left ventricle. AORTIC VALVE: The aortic valve was an anatomically normal 3 leaflet structure with normal leaflet excursion and mild regurgitation identified. TRICUSPID VALVE: The tricuspid valve is anatomically normal with normal leaflet excursion with trivial regurgitation identified. PULMONIC VALVE: Pulmonic valve was not well visualized, however, trivial regurgitation was identified.? LEFT ATRIAL APPENDAGE: Anatomically normal structure with prominent pectinate muscles without thrombus or vegetation identified. ? Left atrial appendage velocities averaged approximately 20.2 centimeters/second.? PERICARDIUM: The pericardium was anatomically normal without significant pericardial effusion. ? AORTA: no significant atherosclerotic disease in the visualized portions. DCCV at 200J x 1 with scientology of sinus rhythm Complications: None
--- NOTE | 2024-06-11 12:40 | PC.NURSE ---
post [facility] with cardioversion report received by DEEPTI Lea at 1204. All questions answered and plan of care reviewed. Patient to return to IMU room 210.
--- NOTE | 2024-06-11 12:41 | PC.NURSE ---
Patient returned to IMU room 210 at 1235. Assessment preformed and vital signs obtained. RN to resume patient care.
[2024-06-11 13:04] LABS: Anion Gap 6 mmol/L (4-12); Blood Urea Nitrogen 29 mg/dL (7-17); Calcium 8.9 mg/dL (8.4-10.2); Carbon Dioxide 21 mmol/L (22-30); Chloride 107 mmol/L (98-107); Estimated CRCL calculation 36 ml/min; Estimated Glomerular Filt Rate 32; Glucose 126 mg/dL (65-110); Sodium 134 mmol/L (137-145)
--- NOTE | 2024-06-11 13:20 | PCPTNOTE ---
Attempted PT evaluation, pt just returned from [facility]. Nursing suggested waiting to see pt at this time. Will follow.
--- NOTE | 2024-06-11 14:09 | PM.PNCARD ---
Progress Note: A&P Assessment and Plan (1) CHF (congestive heart failure): Qualifiers: Heart failure chronicity: acute Heart failure type: unspecified Qualified Code(s): I50.9 - Heart failure, unspecified Code(s): I50.9 - Heart failure, unspecified Status: Acute (2) Atrial fibrillation with rapid ventricular response: Code(s): I48.91 - Unspecified atrial fibrillation Status: Acute (3) Hyperlipidemia: Code(s): E78.5 - Hyperlipidemia, unspecified Status: Acute Plan 69-year-old woman with dilated cardiomyopathy, paroxysmal atrial fibrillation, and hyperlipidemia admitted for atrial fibrillation and acute systolic heart failure Acute systolic heart failure -possibly tachycardia driven -she is on Eliquis and is status post JAMEY cardioversion this morning -she can be discharged from cardiac perspective she is euvolemic and her ischemic eval can be completed outpatient -can discontinue her Lasix -continue Jardiance 10 mg p.o. daily -will consider adding Arb therapy outpatient when renal function stabilizes Paroxysmal atrial fibrillation -continue Eliquis 5 mg p.o. b.i.d. -can transition metoprolol tartrate to metoprolol succinate 25 mg p.o. daily Hyperlipidemia -continue rosuvastatin Subjective Date/time seen: 06/11/24 14:09 Interval history: No chest pain or shortness of breath. Has acute left foot pain and swelling. Review of Systems Cardiovascular: Cardiovascular: Reports as per HPI Respiratory: Respiratory: Reports as per HPI Exam Const: General: comfortable HENMT: Mouth: Yes moist mucous membranes Eyes: EOM: EOMs intact bilaterally Neck: Neck: no JVD Resp: Effort & Inspection: normal respiratory effort Auscultation: clear to auscultation bilaterally Cardio: Rate: bradycardic Rhythm: regular rhythm GI: GI Palp: Yes Soft to palpation Extrem: General: pedal edema Objective Data Vital Signs Vital Signs: Vital Signs - 24 hr 06/10/24 16:00 06/10/24 16:00 06/10/24 18:00 Temperature 36.4 C Pulse Rate 118 H 127 H 118 H Respiratory Rate 16 Blood Pressure 129/77 Pulse Oximetry 100 Oxygen Delivery Oxygen Flow Rate 06/10/24 18:11 06/10/24 18:11 06/10/24 20:00 Temperature 36.4 C L Pulse Rate 123 H 123 H 124 H Respiratory Rate 16 Blood Pressure 122/83 Pulse Oximetry 99 Oxygen Delivery Oxygen Flow Rate 06/10/24 20:00 06/10/24 20:00 06/10/24 22:00 Temperature Pulse Rate 122 H 122 H 120 H Respiratory Rate Blood Pressure 122/83 Pulse Oximetry Oxygen Delivery Oxygen Flow Rate 06/10/24 22:00 06/10/24 22:00 06/10/24 23:58 Temperature 36.7 C Pulse Rate 123 H 120 H 126 H Respiratory Rate 20 20 Blood Pressure 115/75 115/75 103/69 Pulse Oximetry 96 98 Oxygen Delivery Oxygen Flow Rate 06/11/24 00:00 06/11/24 00:00 06/11/24 00:08 Temperature Pulse Rate 133 H 133 H 125 H Respiratory Rate Blood Pressure 103/59 L Pulse Oximetry Oxygen Delivery Oxygen Flow Rate 06/11/24 02:00 06/11/24 02:00 06/11/24 02:00 Temperature 36.7 C Pulse Rate 114 H 124 H 124 H Respiratory Rate 20 Blood Pressure 112/69 112/69 Pulse Oximetry 98 Oxygen Delivery Oxygen Flow Rate 06/11/24 04:00 06/11/24 04:00 06/11/24 04:00 Temperature 36.6 C Pulse Rate 122 H 124 H 124 H Respiratory Rate 18 Blood Pressure 126/85 126/85 Pulse Oximetry 97 Oxygen Delivery Oxygen Flow Rate 06/11/24 04:58 06/11/24 04:58 06/11/24 04:58 Temperature Pulse Rate 128 H 128 H 128 H Respiratory Rate Blood Pressure Pulse Oximetry Oxygen Delivery Oxygen Flow Rate 06/11/24 05:52 06/11/24 05:59 06/11/24 06:00 Temperature 36.7 C Pulse Rate 114 H 114 H 114 H Respiratory Rate 20 Blood Pressure 103/75 Pulse Oximetry 96 Oxygen Delivery Oxygen Flow Rate 06/11/24 08:00 06/11/24 08:00 06/11/24 08:00 Temperature 36.3 C L Pulse Rate 91 94 91 Respiratory Rate 14 Blood Pressure 129/85 129/85 Pulse Oximetry 95 Oxygen Delivery Oxygen Flow Rate 06/11/24 10:00 06/11/24 10:00 06/11/24 10:00 Temperature Pulse Rate 87 88 88 Respiratory Rate Blood Pressure 106/78 106/78 Pulse Oximetry Oxygen Delivery Oxygen Flow Rate 06/11/24 11:43 06/11/24 11:51 06/11/24 11:58 Temperature Pulse Rate 55 L 47 L 48 L Respiratory Rate 25 H 20 20 Blood Pressure 99/64 L 99/64 L 93/61 L Pulse Oximetry 95 95 98 Oxygen Delivery Nasal Cannula Nasal Cannula Room Air Oxygen Flow Rate 6 2 06/11/24 12:09 06/11/24 12:13 06/11/24 12:39 Temperature 36.4 C Pulse Rate 49 L 54 L 55 L Respiratory Rate 20 20 20 Blood Pressure 99/72 L 102/66 99/55 L Pulse Oximetry 97 100 98 Oxygen Delivery Room Air Room Air Oxygen Flow Rate Intake/Output Intake/Output: Intake & Output 06/08/24 06/09/24 06/10/24 06/11/24 23:59 23:59 23:59 23:59 Intake Total 1376.1 2215.9 2240.0 2643.0 Output Total 0426 348 5898 600 Balance -223.9 1515.9 740.0 2043.0 Meds/Results Medications: Active Medications Generic Name Dose Route Start Last Admin Trade Name Freq PRN Reason Stop Dose Admin Acetaminophen 650 mg 06/07/24 15:10 06/11/24 03:00 Acetaminophen 325 Mg Tablet PO 650 mg Q4H PRN Administration Mild Pain (1-3) or Fever Apixaban 5 mg 06/08/24 09:00 06/11/24 09:42 Apixaban 5 Mg Tablet PO 5 mg Q12HR JUSTINE Administration Atorvastatin Calcium 20 mg 06/08/24 09:00 06/11/24 09:41 Atorvastatin 20 Mg Tablet PO 20 mg DAILY JUSTINE Administration Bupropion HCl 300 mg 06/08/24 09:00 06/11/24 09:42 Bupropion Hcl Xl (24 Hr) 150 Mg Tabcr PO 300 mg DAILY JUSTINE Administration Calcium Carbonate 200 mg 06/08/24 15:37 06/08/24 16:01 Calcium Carbonate (Tums) 500 Mg (200 Mg Elemental) PO 200 mg Q6H PRN Administration Indigestion Clonazepam 0.5 mg 06/08/24 01:21 Clonazepam (*Crx) 0.5 Mg Tablet PO DAILY PRN Anxiety Docusate Sodium 100 mg 06/07/24 17:00 06/11/24 09:41 Docusate Sodium 100 Mg Capsule PO 100 mg BID JUSTINE Administration Empagliflozin 10 mg 06/09/24 09:00 06/10/24 08:33 Empagliflozin 10 Mg Tablet PO 10 mg DAILY JUSTINE Administration Furosemide 20 mg 06/08/24 06:00 06/11/24 05:52 Furosemide Inj 40 Mg/4 Ml Vial IV PUSH Not Given 0600,1800 [facility] Sodium Chloride 1,000 mls @ 70 mls/hr 06/09/24 11:05 06/11/24 03:00 Normal Saline Iv IV CONT 70 mls/hr .[id number] JUSTINE Administration Lamotrigine 100 mg 06/08/24 09:00 06/11/24 09:43 Lamotrigine 100 Mg Tablet PO 100 mg DAILY JUSTINE Administration Metoprolol Tartrate 25 mg 06/08/24 01:20 06/11/24 05:52 Metoprolol Tartrate 25 Mg Tablet PO 25 mg Q6HR JUSTINE Administration Nitroglycerin 0.4 mg 06/07/24 12:32 Nitroglycerin Sl 0.4 Mg Tablet SUBLINGUAL Q5MIN PRN Chest Pain Prednisone 5 mg 06/11/24 08:00 06/11/24 09:42 Prednisone 5 Mg Tablet PO 06/15/24 08:01 5 mg DAILY@0800 [facility] Administration Tramadol HCl 50 mg 06/08/24 01:21 06/10/24 21:13 Tramadol Hcl (*Crx) 50 Mg Tablet PO 50 mg BID PRN Administration Pain, Moderate 4-6 Trazodone HCl 100 mg 06/08/24 21:00 06/10/24 21:14 Trazodone Hcl 50 Mg Tablet PO 100 mg HS JUSTINE Administration Radiology Results: ITS Impressions Chest X-Ray 06/07/24 11:03 Impression: 1: Small pleural effusions with bibasilar atelectasis. 2: Cardiomegaly with mild pulmonary vascular congestion. Ankle X-Ray 06/11/24 00:04 IMPRESSION: No acute osseous finding in the left ankle. Labs Labs: Laboratory Results - last 24 hr 06/11/24 06/11/24 00:06 04:47 Sodium 134 L Potassium 4.0 Chloride 107 Carbon Dioxide 21 L Anion Gap 6 BUN 29 H Creatinine 1.60 H Estim Creat Clear Calc 36 Estimated GFR 32 L Glucose 126 H Uric Acid 6.1 Calcium 8.9
[2024-06-11] MEDS: EMPAGLIFLOZIN 10 MG TABLET PO (14:24)
--- NOTE | 2024-06-11 16:50 | P.PNIM_ITS ---
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 She follows up with a washroom operator at [facility]. Patient was recently admitted at [facility](05/10 through 05/13) for AFib with RVR. Patient was discharged with metoprolol and Cardizem. The echocardiogram that was done on previous admission shows ventricle ejection fraction 25-30%. Patient was advised to follow up with outpatient Cardiology. During her visit with the Cardiology as an outpatient she was still in AFib with RVR. The technology infusion specialist advised to get admitted. Patient has remote history of stroke in 2000. Patient will undergo cardioversion on Monday. Discussed with cardiology in regards to heart failure workup. The special education associate technology infusion specialist reported she spoke with the patient's technology infusion specialist and advised to do the [facility] as an outpatient. Due to her kidney function was not able to add Entresto or MRA for her heart failure. Cardiology consulted -Given amiodarone 150 mg IV bolus followed by drip-1 milligram/minute for 6 hours, then 0.5 milligram/minute for 18 hours -Continue Eliquis for anticoagulation -Give metoprolol 25 mg q.6 hours -Guideline directed medical therapy for cardiomyopathy- already on a beta- ashley. Unable to start Entresto or MRA due to kidney function. - pt having cardioversion today - AF is new diagnosis (2) CHF (congestive heart failure): Qualifiers: Heart failure chronicity: acute Heart failure type: unspecified Qualified Code(s): I50.9 - Heart failure, unspecified Code(s): I50.9 - Heart failure, unspecified Status: Acute Assessment and Plan: Severe reduced ejection fraction heart failure, Echo on 05/10/2024 EF 25-30% Contineu Jardiance, further Guideline directed medical therapy per cardiology on outpatient follow up F/u with cardiology as instructed (3) HEMANT (acute kidney injury): Code(s): N17.9 - Acute kidney failure, unspecified Status: Acute Assessment and Plan: 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, baseline is 1.6, on admission 1.9, patient has only left kidney functional Avoid nephrotoxic medications EF of to 25-30% Daily BMP (4) Pleural effusion: Code(s): J90 - Pleural effusion, not elsewhere classified Status: Acute Assessment and Plan: New from last month can order CXR in AM s/p Lasix (5) Seizures: Code(s): R56.9 - Unspecified convulsions Status: Acute Assessment and Plan: Continue home medications Plan DVT prophylaxis on Eliquis Subjective Date/time seen: 06/11/24 16:50 Interval history: Patient comfortable at bedside Review of Systems Review of Systems: Feels like she is getting better slowly Exam Narrative: General: well appearing swollen HEENT: normocephalic, atraumatic. Mucous membranes moist. EOMI, PERRLA, bilateral sclera anicteric, no conjunctival injection. Neck supple without JVD, lymphadenopathy, or bruit. Respiratory: clear to ascultation bilaterally. No rales/rhonic/wheezes. Cardiovascular: Regular rate and rhythm, normal S1-S2 upon ascultation. No murmurs, rubs, or clicks. PMI is nondisplaced, capillary refill less than 3 second. Abdomen: Soft, round, no pulsatile masses, nondistended and nontender. No rebound, no guarding. No CVA tenderness, no hepatosplenomegaly. Bowel sounds present to all four quadrants. No high pitch or tinkling sounds, resonant to percussion. Extremities: No cyanosis, clubbing, or edema present. Pulses are palpable 2/2. Active ROM to all four extremities. Neuro: Alert and orientated x 4. PERRLA. Cranial nerves 2-12 intact without focal deficit. Skin: Warm, dry, and intact, without rash, erythema, or lesion. Psych: pleasant, cooperative, normal speech, normal affect, no hallucinations, no dysarthia Due to body habitus is hard to tell patient has edema Objective Data Vital Signs Vital Signs: Vital Signs - 24 hr 06/10/24 18:00 06/10/24 18:11 06/10/24 18:11 Temperature Pulse Rate 118 H 123 H 123 H Respiratory Rate Blood Pressure Pulse Oximetry Oxygen Delivery Oxygen Flow Rate 06/10/24 20:00 06/10/24 20:00 06/10/24 20:00 Temperature 97.5 F L Pulse Rate 124 H 122 H 122 H Respiratory Rate 16 Blood Pressure 122/83 122/83 Pulse Oximetry 99 Oxygen Delivery Oxygen Flow Rate 06/10/24 22:00 06/10/24 22:00 06/10/24 22:00 Temperature Pulse Rate 120 H 123 H 120 H Respiratory Rate 20 Blood Pressure 115/75 115/75 Pulse Oximetry 96 Oxygen Delivery Oxygen Flow Rate 06/10/24 23:58 06/11/24 00:00 06/11/24 00:00 Temperature 98.0 F Pulse Rate 126 H 133 H 133 H Respiratory Rate 20 Blood Pressure 103/69 103/59 L Pulse Oximetry 98 Oxygen Delivery Oxygen Flow Rate 06/11/24 00:08 06/11/24 02:00 06/11/24 02:00 Temperature 98.0 F Pulse Rate 125 H 114 H 124 H Respiratory Rate 20 Blood Pressure 112/69 Pulse Oximetry 98 Oxygen Delivery Oxygen Flow Rate 06/11/24 02:00 06/11/24 04:00 06/11/24 04:00 Temperature 97.9 F Pulse Rate 124 H 122 H 124 H Respiratory Rate 18 Blood Pressure 112/69 126/85 126/85 Pulse Oximetry 97 Oxygen Delivery Oxygen Flow Rate 06/11/24 04:00 06/11/24 04:58 06/11/24 04:58 Temperature Pulse Rate 124 H 128 H 128 H Respiratory Rate Blood Pressure Pulse Oximetry Oxygen Delivery Oxygen Flow Rate 06/11/24 04:58 06/11/24 05:52 06/11/24 05:59 Temperature 98.1 F Pulse Rate 128 H 114 H 114 H Respiratory Rate 20 Blood Pressure 103/75 Pulse Oximetry 96 Oxygen Delivery Oxygen Flow Rate 06/11/24 06:00 06/11/24 08:00 06/11/24 08:00 Temperature 97.4 F L Pulse Rate 114 H 91 94 Respiratory Rate 14 Blood Pressure 129/85 Pulse Oximetry 95 Oxygen Delivery Oxygen Flow Rate 06/11/24 08:00 06/11/24 10:00 06/11/24 10:00 Temperature Pulse Rate 91 87 88 Respiratory Rate Blood Pressure 129/85 106/78 Pulse Oximetry Oxygen Delivery Oxygen Flow Rate 06/11/24 10:00 06/11/24 11:43 06/11/24 11:51 Temperature Pulse Rate 88 55 L 47 L Respiratory Rate 25 H 20 Blood Pressure 106/78 99/64 L 99/64 L Pulse Oximetry 95 95 Oxygen Delivery Nasal Cannula Nasal Cannula Oxygen Flow Rate 6 2 06/11/24 11:58 06/11/24 12:09 06/11/24 12:13 Temperature Pulse Rate 48 L 49 L 54 L Respiratory Rate 20 20 20 Blood Pressure 93/61 L 99/72 L 102/66 Pulse Oximetry 98 97 100 Oxygen Delivery Room Air Room Air Room Air Oxygen Flow Rate 06/11/24 12:39 06/11/24 14:24 06/11/24 15:49 Temperature 97.6 F 97.4 F L Pulse Rate 55 L 55 L 54 L Respiratory Rate 20 20 Blood Pressure 99/55 L 92/47 L Pulse Oximetry 98 98 Oxygen Delivery Oxygen Flow Rate Intake/Output Intake/Output: Intake & Output 06/08/24 06/09/24 06/10/24 06/11/24 23:59 23:59 23:59 23:59 Intake Total 1376.1 2215.9 2240.0 2643.0 Output Total 4918 249 7448 600 Balance -223.9 1515.9 740.0 2043.0 Meds/Results Medications: Active Medications Generic Name Dose Route Start Last Admin Trade Name Freq PRN Reason Stop Dose Admin Acetaminophen 650 mg 06/07/24 15:10 06/11/24 03:00 Acetaminophen 325 Mg Tablet PO 650 mg Q4H PRN Administration Mild Pain (1-3) or Fever Apixaban 5 mg 06/08/24 09:00 06/11/24 09:42 Apixaban 5 Mg Tablet PO 5 mg Q12HR JUSTINE Administration Atorvastatin Calcium 20 mg 06/08/24 09:00 06/11/24 09:41 Atorvastatin 20 Mg Tablet PO 20 mg DAILY JUSTINE Administration Bupropion HCl 300 mg 06/08/24 09:00 06/11/24 09:42 Bupropion Hcl Xl (24 Hr) 150 Mg Tabcr PO 300 mg DAILY JUSTINE Administration Calcium Carbonate 200 mg 06/08/24 15:37 06/08/24 16:01 Calcium Carbonate (Tums) 500 Mg (200 Mg Elemental) PO 200 mg Q6H PRN Administration Indigestion Clonazepam 0.5 mg 06/08/24 01:21 Clonazepam (*Crx) 0.5 Mg Tablet PO DAILY PRN Anxiety Docusate Sodium 100 mg 06/07/24 17:00 06/11/24 09:41 Docusate Sodium 100 Mg Capsule PO 100 mg BID JUSTINE Administration Empagliflozin 10 mg 06/09/24 09:00 06/11/24 14:24 Empagliflozin 10 Mg Tablet PO 10 mg DAILY JUSTINE Administration Lamotrigine 100 mg 06/08/24 09:00 06/11/24 09:43 Lamotrigine 100 Mg Tablet PO 100 mg DAILY JUSTINE Administration Metoprolol Succinate 25 mg 06/12/24 09:00 Metoprolol Succinate Ext Rel 25 Mg Tabcr PO QAM JUSTINE Nitroglycerin 0.4 mg 06/07/24 12:32 Nitroglycerin Sl 0.4 Mg Tablet SUBLINGUAL Q5MIN PRN Chest Pain Prednisone 5 mg 06/11/24 08:00 06/11/24 09:42 Prednisone 5 Mg Tablet PO 06/15/24 08:01 5 mg DAILY@0800 JUSTINE Administration Tramadol HCl 50 mg 06/08/24 01:21 06/10/24 21:13 Tramadol Hcl (*Crx) 50 Mg Tablet PO 50 mg BID PRN Administration Pain, Moderate 4-6 Trazodone HCl 100 mg 06/08/24 21:00 06/10/24 21:14 Trazodone Hcl 50 Mg Tablet PO 100 mg HS JUSTINE Administration Radiology Results: ITS Impressions Chest X-Ray 06/07/24 11:03 Impression: 1: Small pleural effusions with bibasilar atelectasis. 2: Cardiomegaly with mild pulmonary vascular congestion. Ankle X-Ray 06/11/24 00:04 IMPRESSION: No acute osseous finding in the left ankle. Labs Labs: Laboratory Results - last 24 hr 06/11/24 06/11/24 00:06 04:47 Sodium 134 L Potassium 4.0 Chloride 107 Carbon Dioxide 21 L Anion Gap 6 BUN 29 H Creatinine 1.60 H Estim Creat Clear Calc 36 Estimated GFR 32 L Glucose 126 H Uric Acid 6.1 Calcium 8.9 Quality VTE Prophylaxis VTE prophylaxis: mechanical ordered and pharmacologic ordered
[2024-06-11] MEDS: traZODone HCL 50 MG TABLET 100 MG PO (20:30)
[2024-06-11] MEDS: traMADol HCL (*CRX) 50 MG TABLET PO (20:31)
[2024-06-12] VITALS (16 sets, daily range): BP systolic 92–129; BP diastolic 47–81; PULSE 54–70; RESP 14–16; TEMP 36.3–36.8; O2SAT 95–100
[2024-06-12 05:18] LABS: Basophils Percent Auto 0.2 % (0.2-1.2); Eosinophils Percent Auto 0.1 % (0-4.4); Hematocrit 36.3 % (37.0-47.0); Immature Granulocyte Absolute 0.03 K/mm3 (0.00-0.031); Immature Granulocyte Percent A 0.3 % (0-0.5); Lymphocytes Absolute Auto 1.38 K/mm3 (0.9-3.2); Mean Corpuscular HGB Conc 33.1 g/dl (32-36); Mean Corpuscular Hemoglobin 28.7 pg (26-34); Mean Corpuscular Volume 86.8 fl (80-100); Monocytes Absolute Auto 1.3 K/mm3 (0.1-0.6); Monocytes Percent Auto 13.1 % (2.6-8.5); Neutrophils Absolute Auto 7.1 K/mm3 (1.3-6.7); Neutrophils Percent Auto 72.3 % (45.5-73.1); Platelet Count Result 225 k/mm3 (150-375); Red Blood Count 4.18 M/mm3 (4.2-5.4); Red Cell Distribution Width 15.6 % (11.5-14.5); White Blood Count 9.9 K/mm3 (4.5-10.0)
[2024-06-12 05:32] LABS: Alanine Aminotransferase 14 U/L (6-35); Albumin Level 3.1 g/dL (3.5-5.1); Alkaline Phosphatase 79 U/L (38-126); Anion Gap 2 mmol/L (4-12); Aspartate Amino Transferase 21 U/L (14-36); Bilirubin,Total 0.7 mg/dL (0.2-1.3); Blood Urea Nitrogen 39 mg/dL (7-17); Calcium 8.7 mg/dL (8.4-10.2); Carbon Dioxide 23 mmol/L (22-30); Chloride 108 mmol/L (98-107); Estimated CRCL calculation 32 ml/min; Estimated Glomerular Filt Rate 28; Glucose 130 mg/dL (65-110); Potassium 3.7 mmol/L (3.4-5.0); Sodium 133 mmol/L (137-145)
--- NOTE | 2024-06-12 08:09 | P.PNCA_ITS ---
Progress Note: A&P Assessment and Plan (1) CHF (congestive heart failure): Qualifiers: Heart failure chronicity: acute Heart failure type: unspecified Qualified Code(s): I50.9 - Heart failure, unspecified Code(s): I50.9 - Heart failure, unspecified Status: Acute (2) Atrial fibrillation with rapid ventricular response: Code(s): I48.91 - Unspecified atrial fibrillation Status: Acute (3) Hyperlipidemia: Code(s): E78.5 - Hyperlipidemia, unspecified Status: Acute Plan 69-year-old woman with dilated cardiomyopathy with ejection fraction 25% April 2024, paroxysmal atrial fibrillation, and hyperlipidemia admitted for atrial fibrillation and acute systolic heart failure Acute combined systolic-diastolic heart failure exacerbation -possibly tachycardia driven -she is on Eliquis and is status post JAMEY cardioversion 06/11. Maintaining sinus rhythm. Continue Toprol XL 25 mg daily. -she can be discharged from cardiac perspective she is euvolemic and her ischemic eval can be completed outpatient -looks euvolemic and therefore not on Lasix. -continue Jardiance 10 mg p.o. daily -not on Baldomero or Arb inhibitor due to chronic kidney disease. Her single kidney Paroxysmal atrial fibrillation -continue Eliquis 5 mg p.o. b.i.d. -continue Toprol-XL 25 mg daily. Hyperlipidemia -continue rosuvastatin Subjective Date/time seen: 06/12/24 08:09 Interval history: No chest pain or shortness of breath. Has acute left foot pain and swelling. Date of service: 06/12/2024-has pain and swelling in the left foot and unable to ambulate. Maintaining sinus rhythm. Denies shortness of breath. Review of Systems Review of Systems: Complete review of systems was performed and pertinent positives are noted in HPI Cardiovascular: Cardiovascular: Reports as per HPI Respiratory: Respiratory: Reports as per HPI Exam Narrative: General: Alert oriented x3 no acute distress Neck: Supple no JVD Chest: Bilaterally clear to auscultation, no rales or rhonchi Cardiac: S1, S2 plus, regular rate, regular rhythm, no murmurs or rubs Extremities: No peripheral edema, no skin rash Neurologic: Positive into x3, no focal neurological deficits Const: General: comfortable HENMT: Mouth: Yes moist mucous membranes Eyes: EOM: EOMs intact bilaterally Neck: Neck: no JVD Resp: Effort & Inspection: normal respiratory effort Auscultation: clear to auscultation bilaterally Cardio: Rate: bradycardic Rhythm: regular rhythm Extrem: General: pedal edema Objective Data Vital Signs Vital Signs: Vital Signs - 24 hr 06/11/24 10:00 06/11/24 10:00 06/11/24 10:00 Temperature Pulse Rate 87 88 88 Respiratory Rate Blood Pressure 106/78 106/78 Pulse Oximetry Oxygen Delivery Oxygen Flow Rate 06/11/24 11:43 06/11/24 11:51 06/11/24 11:58 Temperature Pulse Rate 55 L 47 L 48 L Respiratory Rate 25 H 20 20 Blood Pressure 99/64 L 99/64 L 93/61 L Pulse Oximetry 95 95 98 Oxygen Delivery Nasal Cannula Nasal Cannula Room Air Oxygen Flow Rate 6 2 06/11/24 12:00 06/11/24 12:09 06/11/24 12:13 Temperature Pulse Rate 51 L 49 L 54 L Respiratory Rate 20 20 Blood Pressure 99/72 L 102/66 Pulse Oximetry 97 100 Oxygen Delivery Room Air Room Air Oxygen Flow Rate 06/11/24 12:39 06/11/24 14:00 06/11/24 14:24 Temperature 36.4 C Pulse Rate 55 L 52 L 55 L Respiratory Rate 20 Blood Pressure 99/55 L Pulse Oximetry 98 Oxygen Delivery Oxygen Flow Rate 06/11/24 15:49 06/11/24 16:00 06/11/24 16:00 Temperature 36.3 C L Pulse Rate 54 L 61 Respiratory Rate 20 Blood Pressure 92/47 L Pulse Oximetry 98 Oxygen Delivery Room Air Oxygen Flow Rate 06/11/24 18:00 06/11/24 20:00 06/11/24 20:00 Temperature 36.3 C L Pulse Rate 55 L 77 56 L Respiratory Rate 16 Blood Pressure 90/58 L Pulse Oximetry 96 Oxygen Delivery Oxygen Flow Rate 06/11/24 20:25 06/11/24 22:00 06/11/24 23:47 Temperature Pulse Rate 77 59 L 59 L Respiratory Rate 16 16 Blood Pressure Pulse Oximetry 96 96 Oxygen Delivery Room Air Room Air Oxygen Flow Rate 06/12/24 00:00 06/12/24 00:00 06/12/24 02:00 Temperature 36.3 C L Pulse Rate 60 59 L 56 L Respiratory Rate 16 Blood Pressure 92/51 L Pulse Oximetry 95 Oxygen Delivery Oxygen Flow Rate 06/12/24 04:00 06/12/24 04:00 06/12/24 04:00 Temperature 36.6 C Pulse Rate 56 L 56 L 55 L Respiratory Rate 16 16 Blood Pressure 92/47 L Pulse Oximetry 95 97 Oxygen Delivery Room Air Oxygen Flow Rate 06/12/24 06:00 Temperature Pulse Rate 54 L Respiratory Rate Blood Pressure Pulse Oximetry Oxygen Delivery Oxygen Flow Rate Intake/Output Intake/Output: Intake & Output 06/09/24 06/10/24 06/11/24 06/12/24 23:59 23:59 23:59 23:59 Intake Total 2215.9 2240.0 3003.0 150 Output Total 700 1500 1100 200 Balance 1515.9 740.0 1903.0 -50 Meds/Results Medications: Active Medications Generic Name Dose Route Start Last Admin Trade Name Freq PRN Reason Stop Dose Admin Acetaminophen 650 mg 06/07/24 15:10 06/11/24 03:00 Acetaminophen 325 Mg Tablet PO 650 mg Q4H PRN Administration Mild Pain (1-3) or Fever Apixaban 5 mg 06/08/24 09:00 06/11/24 20:30 Apixaban 5 Mg Tablet PO 5 mg Q12HR JUSTINE Administration Atorvastatin Calcium 20 mg 06/08/24 09:00 06/11/24 09:41 Atorvastatin 20 Mg Tablet PO 20 mg DAILY JUSTINE Administration Bupropion HCl 300 mg 06/08/24 09:00 06/11/24 09:42 Bupropion Hcl Xl (24 Hr) 150 Mg Tabcr PO 300 mg DAILY JUSTINE Administration Calcium Carbonate 200 mg 06/08/24 15:37 06/08/24 16:01 Calcium Carbonate (Tums) 500 Mg (200 Mg Elemental) PO 200 mg Q6H PRN Administration Indigestion Clonazepam 0.5 mg 06/08/24 01:21 Clonazepam (*Crx) 0.5 Mg Tablet PO DAILY PRN Anxiety Docusate Sodium 100 mg 06/07/24 17:00 06/11/24 17:30 Docusate Sodium 100 Mg Capsule PO 100 mg BID JUSTINE Administration Empagliflozin 10 mg 06/09/24 09:00 06/11/24 14:24 Empagliflozin 10 Mg Tablet PO 10 mg DAILY JUTSINE Administration Lamotrigine 100 mg 06/08/24 09:00 06/11/24 09:43 Lamotrigine 100 Mg Tablet PO 100 mg DAILY JUSTINE Administration Metoprolol Succinate 25 mg 06/12/24 09:00 Metoprolol Succinate Ext Rel 25 Mg Tabcr PO QAM JUSTINE Nitroglycerin 0.4 mg 06/07/24 12:32 Nitroglycerin Sl 0.4 Mg Tablet SUBLINGUAL Q5MIN PRN Chest Pain Prednisone 5 mg 06/11/24 08:00 06/11/24 09:42 Prednisone 5 Mg Tablet PO 06/15/24 08:01 5 mg DAILY@0800 JUSTINE Administration Tramadol HCl 50 mg 06/08/24 01:21 06/11/24 20:31 Tramadol Hcl (*Crx) 50 Mg Tablet PO 50 mg BID PRN Administration Pain, Moderate 4-6 Trazodone HCl 100 mg 06/08/24 21:00 06/11/24 20:30 Trazodone Hcl 50 Mg Tablet PO 100 mg HS JUSTINE Administration Radiology Results: ITS Impressions Chest X-Ray 06/07/24 11:03 Impression: 1: Small pleural effusions with bibasilar atelectasis. 2: Cardiomegaly with mild pulmonary vascular congestion. Ankle X-Ray 06/11/24 00:04 IMPRESSION: No acute osseous finding in the left ankle. Foot X-Ray 06/11/24 22:36 IMPRESSION: Possible early erosion within the distal first metatarsal, commonly seen with gouty arthritis. Labs Labs: Laboratory Results - last 24 hr 06/11/24 06/12/24 04:47 04:56 WBC 9.9 RBC 4.18 L Hgb 12.0 Hct 36.3 L MCV 86.8 MCH 28.7 MCHC 33.1 RDW 15.6 H Plt Count 225 MPV 12.0 H Immature Gran % (Auto) 0.3 Neut % (Auto) 72.3 Lymph % (Auto) 14.0 L [place] % (Auto) 13.1 H Eos % (Auto) 0.1 Baso % (Auto) 0.2 Lymph # (Auto) 1.38 [place] # (Auto) 1.3 H Eos # (Auto) 0.0 Baso # (Auto) 0.0 Abs Immat Gran (auto) 0.03 Absolute Neuts (auto) 7.1 H Absolute Nucleated RBC 0.000 Nucleated RBC % 0.0 Sodium 134 L 133 L Potassium 4.0 3.7 Chloride 107 108 H Carbon Dioxide 21 L 23 Anion Gap 6 2 L BUN 29 H 39 H D Creatinine 1.60 H 1.80 H Estim Creat Clear Calc 36 32 Estimated GFR 32 L 28 L Glucose 126 H 130 H Calcium 8.9 8.7 Magnesium 2.0 Total Bilirubin 0.7 AST 21 ALT 14 Alkaline Phosphatase 79 Total Protein 6.0 L Albumin 3.1 L
[2024-06-12] MEDS: buPROPion HCL XL (24 HR) 150 MG TABCR 300 MG PO (08:53)
[2024-06-12] MEDS: EMPAGLIFLOZIN 10 MG TABLET PO (08:57)
[2024-06-12] MEDS: DOCUSATE SODIUM 100 MG CAPSULE PO ×2 (08:57→17:46)
[2024-06-12] MEDS: APIXABAN 5 MG TABLET PO ×2 (08:57→20:26)
[2024-06-12] MEDS: predniSONE 5 MG TABLET PO (08:57)
[2024-06-12] MEDS: ATORVASTATIN 20 MG TABLET PO (08:57)
[2024-06-12] MEDS: METOPROLOL SUCCINATE EXT REL 25 MG TABCR PO (08:58)
[2024-06-12] MEDS: lamoTRIgine 100 MG TABLET PO (08:58)
--- NOTE | 2024-06-12 13:18 | P.PNIM_ITS ---
Progress Note: A&P Assessment and Plan (1) Atrial fibrillation with rapid ventricular response: Code(s): I48.91 - Unspecified atrial fibrillation Status: Acute Assessment and Plan: S/p JAMEY and cardioversion x2, last one being this today s/p Amiodarone Continue Metoprolol 25mg daily per cards adn Eliquis ischemic workup outpatient per cardiology Continue Metoprolol 25mg daily and Eliquis F/u with Cardiology outpatient (2) CHF (congestive heart failure): Qualifiers: Heart failure chronicity: acute Heart failure type: unspecified Qualified Code(s): I50.9 - Heart failure, unspecified Code(s): I50.9 - Heart failure, unspecified Status: Acute Assessment and Plan: Severe reduced ejection fraction heart failure, Echo on 05/10/2024 EF 25-30% Contineu Jardiance, further Guideline directed medical therapy per cardiology on outpatient follow up F/u with cardiology as instructed (3) HEMANT (acute kidney injury): Code(s): N17.9 - Acute kidney failure, unspecified Status: Acute Assessment and Plan: 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, baseline is 1.6, on admission 1.8, patient has only left kidney functional Avoid nephrotoxic medications EF of to 25-30% Daily BMP (4) Pleural effusion: Code(s): J90 - Pleural effusion, not elsewhere classified Status: Acute Assessment and Plan: New from last month can order CXR in AM s/p Lasix (5) Seizures: Code(s): R56.9 - Unspecified convulsions Status: Acute Assessment and Plan: Continue home medications Plan DVT prophylaxis on Eliquis Subjective Date/time seen: 06/12/24 13:18 Interval history: Patient comfortable at bedside However noted she has worked with PT since Monday awaiting PT eval for discharge disposition Review of Systems Review of Systems: Feels like she is getting better slowly Exam Narrative: General: well appearing swollen HEENT: normocephalic, atraumatic. Mucous membranes moist. EOMI, PERRLA, bilateral sclera anicteric, no conjunctival injection. Neck supple without JVD, lymphadenopathy, or bruit. Respiratory: clear to ascultation bilaterally. No rales/rhonic/wheezes. Cardiovascular: Regular rate and rhythm, normal S1-S2 upon ascultation. No murmurs, rubs, or clicks. PMI is nondisplaced, capillary refill less than 3 second. Abdomen: Soft, round, no pulsatile masses, nondistended and nontender. No rebound, no guarding. No CVA tenderness, no hepatosplenomegaly. Bowel sounds present to all four quadrants. No high pitch or tinkling sounds, resonant to percussion. Extremities: No cyanosis, clubbing, or edema present. Pulses are palpable 2/2. Active ROM to all four extremities. Neuro: Alert and orientated x 4. PERRLA. Cranial nerves 2-12 intact without focal deficit. Skin: Warm, dry, and intact, without rash, erythema, or lesion. Psych: pleasant, cooperative, normal speech, normal affect, no hallucinations, no dysarthia Due to body habitus is hard to tell patient has edema Objective Data Vital Signs Vital Signs: Vital Signs - 24 hr 06/11/24 14:00 06/11/24 14:24 06/11/24 15:49 Temperature 97.4 F L Pulse Rate 52 L 55 L 54 L Respiratory Rate 20 Blood Pressure 92/47 L Pulse Oximetry 98 Oxygen Delivery 06/11/24 16:00 06/11/24 16:00 06/11/24 18:00 Temperature Pulse Rate 61 55 L Respiratory Rate Blood Pressure Pulse Oximetry Oxygen Delivery Room Air 06/11/24 20:00 06/11/24 20:00 06/11/24 20:25 Temperature 97.4 F L Pulse Rate 77 56 L 77 Respiratory Rate 16 16 Blood Pressure 90/58 L Pulse Oximetry 96 96 Oxygen Delivery Room Air 06/11/24 22:00 06/11/24 23:47 06/12/24 00:00 Temperature 97.4 F L Pulse Rate 59 L 59 L 60 Respiratory Rate 16 16 Blood Pressure 92/51 L Pulse Oximetry 96 95 Oxygen Delivery Room Air 06/12/24 00:00 06/12/24 02:00 06/12/24 04:00 Temperature Pulse Rate 59 L 56 L 56 L Respiratory Rate 16 Blood Pressure Pulse Oximetry 95 Oxygen Delivery Room Air 06/12/24 04:00 06/12/24 04:00 06/12/24 06:00 Temperature 98 F Pulse Rate 56 L 55 L 54 L Respiratory Rate 16 Blood Pressure 92/47 L Pulse Oximetry 97 Oxygen Delivery 06/12/24 08:00 06/12/24 08:35 06/12/24 08:58 Temperature 97.6 F Pulse Rate 54 L 59 L 59 L Respiratory Rate 16 Blood Pressure 97/56 L Pulse Oximetry 99 Oxygen Delivery 06/12/24 10:00 06/12/24 12:00 Temperature 98.2 F Pulse Rate 60 60 Respiratory Rate 16 Blood Pressure 129/59 L Pulse Oximetry 100 Oxygen Delivery Intake/Output Intake/Output: Intake & Output 06/09/24 06/10/24 06/11/24 06/12/24 23:59 23:59 23:59 23:59 Intake Total 2215.9 2240.0 3003.0 510 Output Total 700 1500 1100 200 Balance 1515.9 740.0 1903.0 310 Meds/Results Medications: Active Medications Generic Name Dose Route Start Last Admin Trade Name Freq PRN Reason Stop Dose Admin Acetaminophen 650 mg 06/07/24 15:10 06/11/24 03:00 Acetaminophen 325 Mg Tablet PO 650 mg Q4H PRN Administration Mild Pain (1-3) or Fever Apixaban 5 mg 06/08/24 09:00 06/12/24 08:57 Apixaban 5 Mg Tablet PO 5 mg Q12HR JUSTINE Administration Atorvastatin Calcium 20 mg 06/08/24 09:00 06/12/24 08:57 Atorvastatin 20 Mg Tablet PO 20 mg DAILY JUSTINE Administration Bupropion HCl 300 mg 06/08/24 09:00 06/12/24 08:53 Bupropion Hcl Xl (24 Hr) 150 Mg Tabcr PO 300 mg DAILY JUSTINE Administration Calcium Carbonate 200 mg 06/08/24 15:37 06/08/24 16:01 Calcium Carbonate (Tums) 500 Mg (200 Mg Elemental) PO 200 mg Q6H PRN Administration Indigestion Clonazepam 0.5 mg 06/08/24 01:21 Clonazepam (*Crx) 0.5 Mg Tablet PO DAILY PRN Anxiety Docusate Sodium 100 mg 06/07/24 17:00 06/12/24 08:57 Docusate Sodium 100 Mg Capsule PO 100 mg BID JUSTINE Administration Empagliflozin 10 mg 06/09/24 09:00 06/12/24 08:57 Empagliflozin 10 Mg Tablet PO 10 mg DAILY JUSTINE Administration Lamotrigine 100 mg 06/08/24 09:00 06/12/24 08:58 Lamotrigine 100 Mg Tablet PO 100 mg DAILY JUSTINE Administration Metoprolol Succinate 25 mg 06/12/24 09:00 06/12/24 08:58 Metoprolol Succinate Ext Rel 25 Mg Tabcr PO 25 mg QAM JUSTINE Administration Nitroglycerin 0.4 mg 06/07/24 12:32 Nitroglycerin Sl 0.4 Mg Tablet SUBLINGUAL Q5MIN PRN Chest Pain Prednisone 5 mg 06/11/24 08:00 06/12/24 08:57 Prednisone 5 Mg Tablet PO 06/15/24 08:01 5 mg DAILY@0800 JUSTINE Administration Tramadol HCl 50 mg 06/08/24 01:21 06/11/24 20:31 Tramadol Hcl (*Crx) 50 Mg Tablet PO 50 mg BID PRN Administration Pain, Moderate 4-6 Trazodone HCl 100 mg 06/08/24 21:00 06/11/24 20:30 Trazodone Hcl 50 Mg Tablet PO 100 mg HS JUSTINE Administration Radiology Results: ITS Impressions Chest X-Ray 06/07/24 11:03 Impression: 1: Small pleural effusions with bibasilar atelectasis. 2: Cardiomegaly with mild pulmonary vascular congestion. Ankle X-Ray 06/11/24 00:04 IMPRESSION: No acute osseous finding in the left ankle. Foot X-Ray 06/11/24 22:36 IMPRESSION: Possible early erosion within the distal first metatarsal, commonly seen with gouty arthritis. Labs Labs: Laboratory Results - last 24 hr 06/12/24 04:56 WBC 9.9 RBC 4.18 L Hgb 12.0 Hct 36.3 L MCV 86.8 MCH 28.7 MCHC 33.1 RDW 15.6 H Plt Count 225 MPV 12.0 H Immature Gran % (Auto) 0.3 Neut % (Auto) 72.3 Lymph % (Auto) 14.0 L [place] % (Auto) 13.1 H Eos % (Auto) 0.1 Baso % (Auto) 0.2 Lymph # (Auto) 1.38 [place] # (Auto) 1.3 H Eos # (Auto) 0.0 Baso # (Auto) 0.0 Abs Immat Gran (auto) 0.03 Absolute Neuts (auto) 7.1 H Absolute Nucleated RBC 0.000 Nucleated RBC % 0.0 Sodium 133 L Potassium 3.7 Chloride 108 H Carbon Dioxide 23 Anion Gap 2 L BUN 39 H D Creatinine 1.80 H Estim Creat Clear Calc 32 Estimated GFR 28 L Glucose 130 H Calcium 8.7 Magnesium 2.0 Total Bilirubin 0.7 AST 21 ALT 14 Alkaline Phosphatase 79 Total Protein 6.0 L Albumin 3.1 L Quality VTE Prophylaxis VTE prophylaxis: mechanical ordered and pharmacologic ordered
[2024-06-12] MEDS: traZODone HCL 50 MG TABLET 100 MG PO (20:25)
[2024-06-13] VITALS (11 sets, daily range): BP systolic 104–132; BP diastolic 52–71; PULSE 56–70; RESP 14–20; TEMP 36.4–36.8; O2SAT 97–100
[2024-06-13] MEDS: EMPAGLIFLOZIN 10 MG TABLET PO (08:49)
[2024-06-13] MEDS: APIXABAN 5 MG TABLET PO ×2 (08:49→20:34)
[2024-06-13] MEDS: lamoTRIgine 100 MG TABLET PO (08:49)
[2024-06-13] MEDS: METOPROLOL SUCCINATE EXT REL 25 MG TABCR PO (08:49)
[2024-06-13] MEDS: DOCUSATE SODIUM 100 MG CAPSULE PO ×2 (08:50→16:22)
[2024-06-13] MEDS: buPROPion HCL XL (24 HR) 150 MG TABCR 300 MG PO (08:50)
[2024-06-13] MEDS: predniSONE 5 MG TABLET PO (08:50)
[2024-06-13] MEDS: ATORVASTATIN 20 MG TABLET PO (08:50)
[2024-06-13] MEDS: ACETAMINOPHEN 325 MG TABLET 650 MG PO (08:55)
--- NOTE | 2024-06-13 17:09 | PC.NURSE ---
This patient, Jaja Meneses, was transferred to [[facility] ] on 06/13/24 at 1650. Personal belongings sent with patient. Report given to [DEEPTI Orr @ [id number] ]. Appropriate documentation sent with patient. Family at bedside at time of transfer.
--- NOTE | 2024-06-13 17:28 | PM.IMPN ---
Progress Note: A&P Assessment and Plan (1) Atrial fibrillation with rapid ventricular response: Code(s): I48.91 - Unspecified atrial fibrillation Status: Acute Assessment and Plan: S/p JAMEY and cardioversion x2, last one being this today s/p Amiodarone Continue Metoprolol 25mg daily per cards adn Eliquis ischemic workup outpatient per cardiology Continue Metoprolol 25mg daily and Eliquis F/u with Cardiology outpatient (2) CHF (congestive heart failure): Qualifiers: Heart failure chronicity: acute Heart failure type: unspecified Qualified Code(s): I50.9 - Heart failure, unspecified Code(s): I50.9 - Heart failure, unspecified Status: Acute Assessment and Plan: Severe reduced ejection fraction heart failure, Echo on 05/10/2024 EF 25-30% Contineu Jardiance, further Guideline directed medical therapy per cardiology on outpatient follow up F/u with cardiology as instructed (3) HEMANT (acute kidney injury): Code(s): N17.9 - Acute kidney failure, unspecified Status: Acute Assessment and Plan: 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, baseline is 1.6, on admission 1.8, patient has only left kidney functional Avoid nephrotoxic medications EF of to 25-30% On Lasix Daily BMP (4) Pleural effusion: Code(s): J90 - Pleural effusion, not elsewhere classified Status: Acute Assessment and Plan: New from last month can order CXR in AM on Lasix (5) Seizures: Code(s): R56.9 - Unspecified convulsions Status: Acute Assessment and Plan: Continue home medications Plan DVT prophylaxis on Eliquis Awaiting placement Subjective Date/time seen: 06/13/24 17:28 Interval history: Comfortable at bedside Now agreeable to go to SNF Review of Systems Review of Systems: Feels like she is getting better slowly Exam Narrative: General: well appearing swollen HEENT: normocephalic, atraumatic. Mucous membranes moist. EOMI, PERRLA, bilateral sclera anicteric, no conjunctival injection. Neck supple without JVD, lymphadenopathy, or bruit. Respiratory: clear to ascultation bilaterally. No rales/rhonic/wheezes. Cardiovascular: Regular rate and rhythm, normal S1-S2 upon ascultation. No murmurs, rubs, or clicks. PMI is nondisplaced, capillary refill less than 3 second. Abdomen: Soft, round, no pulsatile masses, nondistended and nontender. No rebound, no guarding. No CVA tenderness, no hepatosplenomegaly. Bowel sounds present to all four quadrants. No high pitch or tinkling sounds, resonant to percussion. Extremities: No cyanosis, clubbing, or edema present. Pulses are palpable 2/2. Active ROM to all four extremities. Neuro: Alert and orientated x 4. PERRLA. Cranial nerves 2-12 intact without focal deficit. Skin: Warm, dry, and intact, without rash, erythema, or lesion. Psych: pleasant, cooperative, normal speech, normal affect, no hallucinations, no dysarthia Due to body habitus is hard to tell patient has edema Objective Data Vital Signs Vital Signs: Vital Signs - 24 hr 06/12/24 20:00 06/12/24 20:28 06/12/24 22:00 Temperature 97.6 F Pulse Rate 70 67 62 Respiratory Rate 14 Blood Pressure 113/61 Pulse Oximetry 98 Oxygen Delivery 06/12/24 23:47 06/13/24 00:00 06/13/24 02:00 Temperature 97.9 F Pulse Rate 63 60 62 Respiratory Rate 14 Blood Pressure 110/63 Pulse Oximetry 96 Oxygen Delivery 06/13/24 04:00 06/13/24 04:38 06/13/24 06:00 Temperature 97.8 F Pulse Rate 64 65 63 Respiratory Rate 14 Blood Pressure 124/52 L Pulse Oximetry 97 Oxygen Delivery 06/13/24 08:00 06/13/24 08:00 06/13/24 08:00 Temperature 98.3 F Pulse Rate 65 66 70 Respiratory Rate 20 20 Blood Pressure 132/67 Pulse Oximetry 99 99 Oxygen Delivery Room Air 06/13/24 08:16 06/13/24 08:49 06/13/24 10:00 Temperature Pulse Rate 66 62 Respiratory Rate Blood Pressure Pulse Oximetry Oxygen Delivery Room Air 06/13/24 12:00 06/13/24 12:00 06/13/24 12:00 Temperature 98 F Pulse Rate 56 L 62 56 L Respiratory Rate 18 20 Blood Pressure 104/55 L Pulse Oximetry 97 99 Oxygen Delivery Room Air 06/13/24 12:30 Temperature Pulse Rate Respiratory Rate Blood Pressure Pulse Oximetry Oxygen Delivery Room Air Intake/Output Intake/Output: Intake & Output 06/10/24 06/11/24 06/12/24 06/13/24 23:59 23:59 23:59 23:59 Intake Total 2240.0 3003.0 990 700 Output Total 1500 1100 400 700 Balance 740.0 1903.0 590 0 Meds/Results Medications: Active Medications Generic Name Dose Route Start Last Admin Trade Name Freq PRN Reason Stop Dose Admin Acetaminophen 650 mg 06/07/24 15:10 06/13/24 08:55 Acetaminophen 325 Mg Tablet PO 650 mg Q4H PRN Administration Mild Pain (1-3) or Fever Apixaban 5 mg 06/08/24 09:00 06/13/24 08:49 Apixaban 5 Mg Tablet PO 5 mg Q12HR JUSTINE Administration Atorvastatin Calcium 20 mg 06/08/24 09:00 06/13/24 08:50 Atorvastatin 20 Mg Tablet PO 20 mg DAILY JUSTINE Administration Bupropion HCl 300 mg 06/08/24 09:00 06/13/24 08:50 Bupropion Hcl Xl (24 Hr) 150 Mg Tabcr PO 300 mg DAILY JUSTINE Administration Calcium Carbonate 200 mg 06/08/24 15:37 06/08/24 16:01 Calcium Carbonate (Tums) 500 Mg (200 Mg Elemental) PO 200 mg Q6H PRN Administration Indigestion Clonazepam 0.5 mg 06/08/24 01:21 Clonazepam (*Crx) 0.5 Mg Tablet PO DAILY PRN Anxiety Docusate Sodium 100 mg 06/07/24 17:00 06/13/24 16:22 Docusate Sodium 100 Mg Capsule PO 100 mg BID JUSTINE Administration Empagliflozin 10 mg 06/09/24 09:00 06/13/24 08:49 Empagliflozin 10 Mg Tablet PO 10 mg DAILY JUSTINE Administration Lamotrigine 100 mg 06/08/24 09:00 06/13/24 08:49 Lamotrigine 100 Mg Tablet PO 100 mg DAILY JUSTINE Administration Metoprolol Succinate 25 mg 06/12/24 09:00 06/13/24 08:49 Metoprolol Succinate Ext Rel 25 Mg Tabcr PO 25 mg QAM JUSTINE Administration Nitroglycerin 0.4 mg 06/07/24 12:32 Nitroglycerin Sl 0.4 Mg Tablet SUBLINGUAL Q5MIN PRN Chest Pain Prednisone 5 mg 06/11/24 08:00 06/13/24 08:50 Prednisone 5 Mg Tablet PO 06/15/24 08:01 5 mg DAILY@0800 JUSTINE Administration Tramadol HCl 50 mg 06/08/24 01:21 06/11/24 20:31 Tramadol Hcl (*Crx) 50 Mg Tablet PO 50 mg BID PRN Administration Pain, Moderate 4-6 Trazodone HCl 100 mg 06/08/24 21:00 06/12/24 20:25 Trazodone Hcl 50 Mg Tablet PO 100 mg HS JUSTINE Administration Radiology Results: ITS Impressions Chest X-Ray 06/07/24 11:03 Impression: 1: Small pleural effusions with bibasilar atelectasis. 2: Cardiomegaly with mild pulmonary vascular congestion. Ankle X-Ray 06/11/24 00:04 IMPRESSION: No acute osseous finding in the left ankle. Foot X-Ray 06/11/24 22:36 IMPRESSION: Possible early erosion within the distal first metatarsal, commonly seen with gouty arthritis. Quality VTE Prophylaxis VTE prophylaxis: mechanical ordered and pharmacologic ordered
--- NOTE | 2024-06-13 17:33 | PC.NURSE ---
This patient, Jaja Meneses, was received from [facility] on 06/13/24 at 1700. Patient/family oriented to unit policies and routines
[2024-06-13] MEDS: traZODone HCL 50 MG TABLET 100 MG PO (20:34)
[2024-06-13] MEDS: SENNA/DOCUSATE SODIUM TABLET 1 TAB PO (21:50)
[2024-06-14 06:04] VITALS: BP 116/54; PULSE 58; RESP 18; TEMP 36.8; O2SAT 98
[2024-06-14 07:49] VITALS: PULSE 60
[2024-06-14] MEDS: METOPROLOL SUCCINATE EXT REL 25 MG TABCR PO (07:49)
[2024-06-14] MEDS: APIXABAN 5 MG TABLET PO ×2 (07:49→19:56)
[2024-06-14] MEDS: EMPAGLIFLOZIN 10 MG TABLET PO (07:49)
[2024-06-14] MEDS: ATORVASTATIN 20 MG TABLET PO (07:49)
[2024-06-14] MEDS: SENNA/DOCUSATE SODIUM TABLET 1 TAB PO ×2 (07:49→16:12)
[2024-06-14] MEDS: buPROPion HCL XL (24 HR) 150 MG TABCR 300 MG PO (07:49)
[2024-06-14] MEDS: lamoTRIgine 100 MG TABLET PO (07:50)
[2024-06-14] MEDS: predniSONE 5 MG TABLET PO (07:54)
[2024-06-14 08:00] VITALS: O2SAT 98
[2024-06-14] MEDS: BISACODYL 5 MG TABLET EC PO (09:28)
[2024-06-14] MEDS: polyethylene glycoL 3350 17 GM POWD.PACK PO (09:29)
[2024-06-14 10:00] LABS: Hematocrit 37.9 % (37.0-47.0); Hemoglobin 12.3 g/dL (12.0-15.0); Mean Corpuscular HGB Conc 32.5 g/dl (32-36); Mean Corpuscular Hemoglobin 28.8 pg (26-34); Mean Corpuscular Volume 88.8 fl (80-100); Mean Platelet Volume 11.3 fl (7.4-10.4); Platelet Count Result 227 k/mm3 (150-375); Red Blood Count 4.27 M/mm3 (4.2-5.4); Red Cell Distribution Width 15.9 % (11.5-14.5)
[2024-06-14 10:14] LABS: Anion Gap 6 mmol/L (4-12); Blood Urea Nitrogen 33 mg/dL (7-17); Calcium 8.9 mg/dL (8.4-10.2); Carbon Dioxide 21 mmol/L (22-30); Chloride 112 mmol/L (98-107); Estimated CRCL calculation 38 ml/min; Estimated Glomerular Filt Rate 34; Glucose 115 mg/dL (65-110); Potassium 3.3 mmol/L (3.4-5.0); Sodium 139 mmol/L (137-145)
--- NOTE | 2024-06-14 12:10 | PCNWS ---
Weekly nutritional screen. Patient is tolerating current diet heart healthy diet with adequate intake 50-100%. No weight loss reported. No nutritional recommendations at this time.
[2024-06-14] MEDS: BISACODYL 10 MG SUPPOSITORY RECTAL (12:31)
--- NOTE | 2024-06-14 12:58 | PM.DS ---
DS: Admitting Diagnosis Discharge Date 06/14/24 Admitting Diagnosis Palpitations DS: Discharge Diagnosis Discharge Diagnosis (1) CHF (congestive heart failure): Qualifiers: Heart failure chronicity: acute Heart failure type: unspecified Qualified Code(s): I50.9 - Heart failure, unspecified Code(s): I50.9 - Heart failure, unspecified Status: Acute (2) HEMANT (acute kidney injury): Code(s): N17.9 - Acute kidney failure, unspecified Status: Acute (3) Atrial fibrillation with rapid ventricular response: Code(s): I48.91 - Unspecified atrial fibrillation Status: Acute DS: Summary Hospital Course Hospital Course: 69-year-old female past medical history of CKD stage 4, hyperlipidemia, hypertension, and DVT presents to the ED with AFib with RVR from per primary care office. Patient was admitted back in April was found to be in AFib with RVR started on diltiazem and switched to which overall for rate control. She had echocardiogram while she was in the hospital but the reading was still pending per the discharge summary. Patient was recommended to follow-up outpatient with Cardiology they did not see our inpatient. She was unable to get appointment with the geoscience technician says she went to her PCP today. He reviewed her record from the last hospitalization and saw that she was in a fib with RVR rate of 110's, echocardiogram that was done last hospitalization was 25-30%, under BNP today was 13,200. Review of her home meds it appears that she was discharged on metoprolol and diltiazem. Patient underwent JAMEY with cardioversion x2 and evetually was on NSR and placed on Metoprolol XL 25 mg daily and continued to be controlledon that, started on Jardiance by cardiology. Also diagnosed of Gout flare with Uriec acid of 6.1. discharged on PO steroid x 5 days. F/u with PCP in 3-5 days F/u with cardiology as instructed Assessment and Plan (1) Atrial fibrillation with rapid ventricular response: Code(s): I48.91 - Unspecified atrial fibrillation Status: Acute Assessment and Plan: S/p JAMEY and cardioversion x2, last one being this today s/p Amiodarone Continue Metoprolol 25mg daily per cards adn Eliquis ischemic workup outpatient per cardiology Continue Metoprolol 25mg daily and Eliquis F/u with Cardiology outpatient (2) CHF (congestive heart failure): Qualifiers: Heart failure chronicity: acute Heart failure type: unspecified Qualified Code(s): I50.9 - Heart failure, unspecified Code(s): I50.9 - Heart failure, unspecified Status: Acute Assessment and Plan: Severe reduced ejection fraction heart failure, Echo on 05/10/2024 EF 25-30% Contineu Jardiance, further Guideline directed medical therapy per cardiology on outpatient follow up F/u with cardiology as instructed (3) HEMANT (acute kidney injury): Code(s): N17.9 - Acute kidney failure, unspecified Status: Acute Assessment and Plan: 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, baseline is 1.6, on admission 1.8, patient has only left kidney functional Avoid nephrotoxic medications EF of to 25-30% On Lasix Daily BMP (4) Pleural effusion: Code(s): J90 - Pleural effusion, not elsewhere classified Status: Acute Assessment and Plan: New from last month can order CXR in AM on Lasix (5) Seizures: Code(s): R56.9 - Unspecified convulsions Status: Acute Assessment and Plan: Continue home medications Time Spent with Patient Time attestation: Total time spent providing and/or coordinating discharge services: DS: Data Data Completed and Pending Labs on day of discharge: Labs from last 24 hours 06/14/24 09:54 WBC 8.0 RBC 4.27 Hgb 12.3 Hct 37.9 MCV 88.8 MCH 28.8 MCHC 32.5 RDW 15.9 H Plt Count 227 MPV 11.3 H Sodium 139 Potassium 3.3 L Chloride 112 H Carbon Dioxide 21 L Anion Gap 6 BUN 33 H Creatinine 1.50 H Estim Creat Clear Calc 38 Estimated GFR 34 L Glucose 115 H Calcium 8.9 Discharge Plan Discharge Attending physician on discharge: Dennis Crowley Consulting providers: Jennifer Butler; Bernabe Bruno Discharging Clinician: Dennis Crowley Anticipated Discharge Date/Time: 06/14/24 12:53 Patient Disposition: SNF Activity: as tolerated Diet: as tolerated Patient Instructions: Heart Failure (DC), A-fib (Atrial Fibrillation) (DC), Gout (GEN), Cardioversion (DC) Patient Language: Mohawk Stand Alone Forms: General Discharge Information Follow-up/Referrals: Kyle Swann MD [Physician] - (Follow-up with cardiology as instructed) Discharge Medications: New Jardiance 10 mg Tablet 10 mg PO DAILY 30 Days Qty: 30 1RF prednisone 5 mg Tablet 40 mg PO DAILY@0800 5 Days Qty: 40 0RF metoprolol succinate [Toprol XL] 25 mg Tablet Extended Release 24 Hr 25 mg PO QAM 30 Days Qty: 30 1RF furosemide [Lasix] 20 mg tablet 20 mg PO DAILY 30 Days Qty: 30 0RF Continued clonazepam 0.5 mg tablet 0.5 mg PO DAILY PRN (Reason: Anxiety) tramadol 50 mg tablet 50 mg PO BID PRN (Reason: Pain, Moderate) trazodone 100 mg tablet 100 mg PO HS simvastatin 20 mg tablet 20 mg PO EVERY OTHER DAY lamotrigine 100 mg tablet 100 mg PO DAILY bupropion HCl 300 mg tablet extended release 24 hr 300 mg PO DAILY Eliquis 5 mg Tablet 5 mg PO Q12HR Qty: 60 1RF atorvastatin 20 mg Tablet 20 mg PO DAILY Qty: 30 1RF Discontinued diltiazem HCl 120 mg Capsule,Extended Release 24 Hr 120 mg PO QAM Qty: 30 1RF metoprolol succinate 50 mg tablet extended release 24 hr 75 mg PO DAILY Qty: 45 1RF Date of admission: 06/08/24 16:38 Primary Care Provider: Johnson*Bernabe Admitting Provider: Kyle Swann Attending physician on admission: Kyle Swann Condition: Stable
--- NOTE | 2024-06-14 13:56 | PC.NURSE ---
Dr Crowley notified of patient having bowel movement and small amount of blood in stool.
[2024-06-14 16:00] VITALS: BP 130/78; PULSE 58; RESP 16; TEMP 36.2; O2SAT 100
[2024-06-14 21:00] VITALS: BP 125/55; PULSE 60; RESP 14; TEMP 36.8; O2SAT 99
== END 2024-06-14 21:25 | DRG 308 ==
LOC: ANHED 13:52 → ANHIMU 17:25 → ANH3MEDSUR 06-14 12:55 → ANHIMU 06-17 16:38
PROVIDERS: Family Medicine; General Practice; Internal Medicine; Nurse Practitioner Gerontology; Admitting Provider Internal Medicine; Emergency Provider Physician Assistant; PCP Internal Medicine; Visit Provider Internal Medicine
PROC: 5A2204Z Restoration of Cardiac Rhythm, Single (ICD-10-PCS; CPT 93312; principal; 2024-06-11 11:00)
PROC: 5A2204Z Restoration of Cardiac Rhythm, Single (ICD-10-PCS; 2024-06-11 11:00)
DX: I48.0 Paroxysmal atrial fibrillation (principal); I50.43 Acute on chronic combined systolic (congestive) and diastolic (congestive) heart failure; I13.0 Hypertensive heart and chronic kidney disease with heart failure and stage 1 through stage 4 chronic kidney disease, or unspecified chronic kidney disease; N17.9 Acute kidney failure, unspecified; N18.4 Chronic kidney disease, stage 4 (severe); J90 Pleural effusion, not elsewhere classified; E78.5 Hyperlipidemia, unspecified; R56.9 Unspecified convulsions; M10.9 Gout, unspecified; Z96.653 Presence of artificial knee joint, bilateral; Z86.73 Personal history of transient ischemic attack (TIA), and cerebral infarction without residual deficits; Z86.718 Personal history of other venous thrombosis and embolism; Z90.49 Acquired absence of other specified parts of digestive tract; Z98.84 Bariatric surgery status; E66.9 Obesity, unspecified; Z68.32 Body mass index [BMI] 32.0-32.9, adult
CPT/HCPCS: 36415; 71046; 73600; 73620; 80048; 80053; 80061; 83735; 83880; 84484; 84550; 85025; 85027; 85610; 85730; 92960; 93005; 93312; 93320; 93325; 96372; 96374; 96375; 96376; 97110; 97161; 97165; 97530; 97535; 99285; A9270; G0378; J0282; J1644; J1940; J2270; J2371; J2919; J7030; J7040; J7512

== ENCOUNTER 2024-08-30 10:54 | Outpatient (CLI) | payer MEDICARE, SELFPAY ==
--- OUTSIDE RECORDS SUMMARY | 2024-08-30 11:44 | XMS_ITS | Clinical Summary ---
Author Organization [facility] Address [address] [address] Phone Care Team Providers Care Interior Design Professional Name Role Phone Edil Castañeda Primary Care Provider Allergies No known active allergies Medications citalopram (CELEXA) 40 MG Tablet Take 40 mg by mouth daily. Active simvastatin (ZOCOR) 20 MG Tablet Take 20 mg by mouth every evening. Active acetaminophen (TYLENOL) 500 MG Tablet Take 500 mg by mouth every 4 hours as needed for Pain. 2 TABS Active Calcium Carbonate Antacid (TUMS PO) Take 2 Tabs by mouth as needed. Active clonazePAM (KLONOPIN) 0.5 MG Tablet Take 0.5 mg by mouth Daily as needed. Active Family History Medical History Relation Name Comments Abdominal Aortic Aneurysm Father Anemia Father PERNICIOUS Hypertension Father Congestive Heart Failure Mother Diabetes Mother Heart Disease Mother Cancer Sister gastric/colon Relation Name Status Comments Father Mother Sister Social History Tobacco Use Types Packs/Day Years Used Date Smoking Tobacco: Never Alcohol Use Standard Drinks/Week Comments No 0 (1 standard drink = 0.6 oz pur e alcohol) Comments Unknown Sex and Gender Information Value Date Recorded Sex Assigned at Not on file Legal Sex Female 10:25 PM CDT Gender Identity Not on file Sexual Orientation Not on file 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 Not on file Not on file Not on file Last Filed Vital Signs Vital Sign Reading Time Taken Comments Blood Pressure 129/67 08/14/2015 11:34 AM [employer] Pulse - - Temperature 36 C (96.8 F) 08/14/2015 11:34 AM [employer]ILING CLEANER Respiratory Rate 16 08/14/2015 11:34 AM CEILING CLEANER Oxygen Saturation 100% 08/14/2015 11:34 AM CEILING CLEANER Inhaled Oxygen Concentration - - Weight 92.1 kg (203 lb) 08/07/2015 9:00 AM CEILING CLEANER Height 175.3 cm (5' 9 ) 08/07/2015 9:00 AM CEILING CLEANER Body Mass Index 29.98 08/07/2015 9:00 AM CEILING CLEANER Plan of Treatment Health Maintenance Due Date Last Done Comments DEXA Bone Density 1955 Hepatitis C Virus (HCV) Screening 1955 TdaP Immunization 1955 Cologuard 2003 Immunochemical Fecal Occult Blood 2003 Mammogram 2003 Pneumococcal Immunization (5 0+ years) (1 of 1 - PCV) 2003 Zoster Immunization (1 of 2) 2003 Influenza Immunization (#1) 2024 SARS-COV-2 Immunization (1 - 2023- season) 2024 Colonoscopy 08/14/2025 08/14/2015 Colorectal Cancer Screening 08/14/2025 Respiratory Syncytial Virus (RSV) Immunization (Adult) (1 - 1-dose 75+ series) 02/29/2028 08/14/2015 Hepatitis B Immunization Aged Out No longer eligible based on patient's age to complete this topic Meningococcal Immunization (ACWY) Aged Out No longer eligible based on patient's age to complete this topic Rotavirus Immunization Aged Out No lo nger eligible based on patient's age to complete this topic Care Teams Interior Design Professional Relationship Specialty Start Date End Date Edil Castañeda PA [address] [place] [id number] PCP - General Physician Emulsion Operator 08/10/15
--- OUTSIDE RECORDS SUMMARY | 2024-08-30 11:44 | XMS_ITS | Clinical Summary ---
Author Organization Unknown Care Team Providers Care Thermostatic Controls Supervisor Name Role Phone ASCENCION MCCLENDON MD Unavailable Unavailable DREA PT, BENNETT Unavailable Unavailable MINISTERIO DONAHUE, SABINA Unavailable Unavailable DESTINI GALLOWAY Unavailable Unavailable JAS OT, MARY Unavailable Unavailable Payers Payer Name Policy Type Policy Number Effective Date Expira tion Date MEDICARE.[facility] [id number] Problems Condition Name Condition Details Condition Category Status Onset Date Resolution Date Last Treatment Date Treating Clinician Comments HYP HRT AND CHR KDNY DIS W HRT FAIL AND STG 1-4/UNSP CHR KDNY Active 07-08 00:00: 00 ACUTE ON CHRONIC SYSTOLIC (CONGESTIVE) HEART FAILURE Active 07-08 00:00: 00 UNSPECIFIED ABNORMALITIE S OF GAIT AND MOBILITY Active 07-15 00:00: 00 CHRONIC KIDNEY DISEASE, STAGE 4 (SEVERE) Active 07-08 00:00: 00 UNSPECIFIED ATRIAL FIBRILLATION Active 07-08 00:00: 00 RHEUMATIC DISORDERS OF BOTH MITRAL AND AORTIC VALVES Active 07-08 00:00: 00 ACUTE KIDNEY FAILURE, UNSPECIFIED Active 07-08 00:00: 00 ANXIETY DISORDER, UNSPECIFIED Active 07-08 00:00: 00 UNSPECIFIED OSTEOARTHRIT IS, UNSPECIFIED SITE Active 07-08 00:00: 00 CARDIOMYOPAT HY, UNSPECIFIED Active 07-08 00:00: 00 HYPERLIPIDEM IA, UNSPECIFIED Active 07-08 00:00: 00 UNSPECIFIED CONVULSIONS Active 07-08 00:00: 00 FDC (CURRENT) USE OF ANTICOAGULAN TS Active 07-08 00:00: 00 PERSONAL HISTORY OF OTHER VENOUS THROMBOSIS AND EMBOLISM Active 06-19 00:00: 00 PRSNL HX OF TIA (TIA), AND CEREB INFRC W/O RESID DEFICITS Active 06-19 00:00: 00 PRESENCE OF ARTIFICIAL KNEE JOINT, BILATERAL Active 06-19 00:00: 00 Allergies, Adverse Reactions, Alerts Allergy Name Allergy Type Status Severity Reaction(s) Onset Date Inactive Date Treating Clinician Comments NO KNOWN ALLERGIES Propensity to adverse reactions Active 07-16 10:05: 01 Medications Ordered Medication Name Filled Medication Name Start Date Stop Date Current Medication? Ordering Clinician Indication Dosage Frequency Signature (SIG) Comments Components bupropion HCl XL 300 mg 24 hr tablet, extended release 07-05 00:00: 00 07-16 00:00 :00 No [id number] Per instruc tions Per instructio ns (route: oral) Med Classific ation: Central Nervous System Agents Eliquis 5 mg tablet 07-05 00:00: 00 07-16 00:00 :00 No [id number] Per instruc tions Per instructio ns (route: oral) Med Classific ation: Hematolog ical Agents furosemide 20 mg tablet 07-05 00:00: 00 07-16 00:00 :00 No [id number] Per instruc tions Per instructio ns (route: oral) Med Classific ation: Cardiovas cular Therapy Agents Jardiance 10 mg tablet 07-05 00:00: 00 Yes [id number] DIABETES 1 tablet DAILY 1 tablet DAILY (route: oral) Med Classific ation: Endocrine lamotrigine 100 mg tablet 07-05 00:00: 00 Yes [id number] SEIZURES 1 tablet DAILY 1 tablet DAILY (route: oral) Med Classific ation: Central Nervous System Agents metoprolol succinate ER 25 mg tablet,exte nded release 24 hr 07-05 00:00: 00 Yes [id number] HIGH BLOOD PRESSURE 1 tablet DAILY 1 tablet DAILY (route: oral) Med Classific ation: Cardiovas cular Therapy Agents simvastatin 20 mg tablet 07-05 00:00: 00 Yes [id number] CHOLESTEROL 1 tablet DAILY 1 tablet DAILY (route: oral) Med Classific ation: Cardiovas cular Therapy Agents trazodone 100 mg tablet 07-05 00:00: 00 07-16 00:00 :00 No [id number] Per instruc tions Per instructio ns (route: oral) Med Classific ation: Central Nervous System Agents clonazepam 0.5 mg tablet - 00:00: 00 Yes [id number] NEEDED FOR ANXIETY 1 tablet DAILY 1 tablet DAILY (route: oral) Med Classific ation: Central Nervous System Agents prednisone 20 mg tablet 2023-06 00:00: 00 07-16 00:00 :00 No [id number] Per instruc tions Per instructio ns (route: oral) Med Classific ation: Endocrine trazodone 100 mg tablet 2023-06 00:00: 00 07-16 00:00 :00 No [id number] Per instruc tions Per instructio ns (route: oral) Med Classific ation: Central Nervous System Agents bupropion HCl XL 300 mg 24 hr tablet, extended release 07-05 00:00: 00 07-16 00:00 :00 No [id number] Per instruc tions Per instructio ns (route: oral) Med Classific ation: Central Nervous System Agents Eliquis 5 mg tablet 07-05 00:00: 00 07-16 00:00 :00 No [id number] BLOOD THINNER 1 tablet DAILY 1 tablet DAILY (route: oral) Med Classific ation: Hematolog ical Agents furosemide 20 mg tablet 07-05 00:00: 00 07-16 00:00 :00 No [id number] Per instruc tions Per instructio ns (route: oral) Med Classific ation: Cardiovas cular Therapy Agents Jardiance 10 mg tablet 07-05 00:00: 00 07-16 00:00 :00 No [id number] Per instruc tions Per instructio ns (route: oral) Med Classific ation: Endocrine lamotrigine 100 mg tablet 07-05 00:00: 00 07-16 00:00 :00 No [id number] Per instruc tions Per instructio ns (route: oral) Med Classific ation: Central Nervous System Agents metoprolol succinate ER 25 mg tablet,exte nded release 24 hr 07-05 00:00: 00 07-16 00:00 :00 No [id number] Per instruc tions Per instructio ns (route: oral) Med Classific ation: Cardiovas cular Therapy Agents simvastatin 20 mg tablet 07-05 00:00: 00 07-16 00:00 :00 No [id number] Per instruc tions Per instructio ns (route: oral) Med Classific ation: Cardiovas cular Therapy Agents trazodone 100 mg tablet 07-05 00:00: 00 07-16 00:00 :00 No [id number] Per instruc tions Per instructio ns (route: oral) Med Classific ation: Central Nervous System Agents clonazepam 0.5 mg tablet 06-21 00:00: 00 07-16 00:00 :00 No [id number] Per instruc tions Per instructio ns (route: oral) Med Classific ation: Central Nervous System Agents prednisone 20 mg tablet 2023-06 00:00: 00 07-16 00:00 :00 No [id number] Per instruc tions Per instructio ns (route: oral) Med Classific ation: Endocrine trazodone 100 mg tablet 2023-06 00:00: 00 Yes [id number] NEEDED FOR SLEEPING AID 1 tablet DAILY 1 tablet DAILY (route: oral) Med Classific ation: Central Nervous System Agents Calcium Antacid 200 mg (as calcium carbonate 500 mg) chewable tablet 07-16 00:00: 00 Yes [id number] SUPPLEMENT 2 tablet DAILY 2 tablet DAILY (route: oral) Med Classific ation: Gastroint estinal Therapy Agents Pain Relief (acetaminop hen) 650 mg tablet,exte nded release 07-16 00:00: 00 Yes [id number] NEEDED FOR MILD PAIN 1 tablet EVERY 8 HOURS 1 tablet EVERY 8 HOURS (route: oral) Med Classific ation: Analgesic , Anti-infl ammatory or Antipyret ic tramadol 50 mg tablet 07-16 00:00: 00 Yes [id number] NEEDED FOR MODERATE PAIN 1 tablet 2 TIMES DAILY 1 tablet 2 TIMES DAILY (route: oral) Med Classific ation: Analgesic , Anti-infl ammatory or Antipyret ic Vitamin B-12 50 mcg tablet 07-16 00:00: 00 Yes [id number] SUPPLEMENT 1 tablet DAILY 1 tablet DAILY (route: oral) Med Classific ation: Electroly te Balance-N utritiona l Products Vitamin D3 25 mcg (1,000 unit) capsule 07-16 00:00: 00 Yes [id number] SUPPLEMENT 1 capsule DAILY 1 capsule DAILY (route: oral) Med Classific ation: Electroly te Balance-N utritiona l Products Immunizations Ordered Immunization Name Filled Immunization Name Date Status Comments Refusal Reason BOOSTER -COVID-19 VACCINE, COVID-19 VACCINE 2024-03-19 00:00:00 INFLUENZA, TIV (INACTIVATED) 2024-03-19 00:00:00 PNEUMOCOCCAL (PPV), PPV 2018-06-19 00:00:00 Vital Signs Vital Name Observation Time Observation Value Commen ts Temperature 2024-08-29 13:59:00.000 96.8 [degF] Temperature 2024-08-15 14:17:00.000 97.1 [degF] Temperature 2024-08-01 10:45:00.000 97.1 [degF] Temperature 2024-07-23 12:17:00.000 97.9 [degF] Temperature 2024-07-23 11:48:00.000 97.9 [degF] Temperature 2024-07-16 11:34:00.000 96.6 [degF] BMI (%) 2024-07-16 10:45:53.000 28 kg/m2 Height 2024-07-16 10:45:48.000 68 [in_us] Pulse 2024-08-29 13:59:00.000 60 /min Pulse 2024-08-15 14:17:00.000 62 /min Pulse 2024-08-01 10:45:00.000 84 /min Pulse 2024-07-23 12:17:00.000 60 /min Pulse 2024-07-23 11:48:00.000 60 /min Pulse 2024-07-16 11:34:00.000 65 /min O2 Saturation (%) 2024-08-15 14:17:00.000 97 % O2 Saturation (%) 2024-07-23 12:18:00.000 98 % O2 Saturation (%) 2024-07-23 11:48:00.000 98 % O2 Saturation (%) 2024-07-16 11:34:00.000 98 % Respirations 2024-08-29 13:59:00.000 18 /min Respirations 2024-08-15 14:17:00.000 19 /min Respirations 2024-08-01 10:45:00.000 18 /min Respirations 2024-07-23 12:17:00.000 18 /min Respirations 2024-07-23 11:48:00.000 18 /min Respirations 2024-07-16 11:34:00.000 18 /min Weight (lbs) 2024-08-15 14:21:00.000 180 [lb_av] Weight (lbs) 2024-07-23 12:18:00.000 185 [lb_av] Weight (lbs) 2024-07-16 10:45:53.000 185 [lb_av] Systolic Blood Pressure 2024-08-29 13:59:00.000 116 mm [Hg] Systolic Blood Pressure 2024-08-15 14:17:00.000 126 mm [Hg] Systolic Blood Pressure 2024-08-01 10:45:00.000 102 mm [Hg] Systolic Blood Pressure 2024-07-23 12:17:00.000 122 mm [Hg] Systolic Blood Pressure 2024-07-23 11:48:00.000 122 mm [Hg] Systolic Blood Pressure 2024-07-16 11:34:00.000 122 mm [Hg] Diastolic Blood Pressure 2024-08-29 13:59:00.000 72 mm [Hg] Diastolic Blood Pressure 2024-08-15 14:17:00.000 78 mm [Hg] Diastolic Blood Pressure 2024-08-01 10:45:00.000 68 mm [Hg] Diastolic Blood Pressure 2024-07-23 12:17:00.000 80 mm [Hg] Diastolic Blood Pressure 2024-07-23 11:48:00.000 82 mm [Hg] Diastolic Blood Pressure 2024-07-16 11:34:00.000 60 mm [Hg] Plan of Treatment Planned Activity Planned Date Details Comments Future Scheduled Test AGENCY MAY PERFORM A RESUMPTION OF CARE VISIT FOLLOWING ANY HOSPITAL ADMISSION. PT TO EVALUATE, OBSERVE / ASSESS, AND MONITOR, DOOR FRAMER TO OBSERVE AND MONITOR, PROVIDE SKILLED THERAPEUTIC INTERVENTION, ACTIVITY, EDUCATION, AND TRAINING TO ADDRESS; [code = AGENCY MAY PERFORM A RESUMPTION OF CARE VISIT FOLLOWING ANY HOSPITAL ADMISSION. PT TO EVALUATE, OBSERVE / ASSESS, AND MONITOR, DOOR FRAMER TO OBSERVE AND MONITOR, PROVIDE SKILLED THERAPEUTIC INTERVENTION, ACTIVITY, EDUCATION, AND TRAINING TO ADDRESS;] Future Scheduled Test OCCUPATION AL THERAPIST DECLINED [code = OCCUPATIONAL THERAPIST DECLINED] Future Scheduled Test PT / DOOR FRAMER T O INSTRUCT PATIENT/CAREGIVER ON RISK FOR HOSPITALIZATION/EMERGENCY ROOM VISITS, TEACH SIGNS AND SYMPTOMS THAT PUT PATIENT AT RISK, WHEN TO NOTIFY NURSE/PHYSICIAN OF COMPLICATIONS/DECLINE, AND WHEN TO CALL 911. [code = PT / DOOR FRAMER TO INSTRUCT PATIENT/CAREGIVER ON RISK FOR HOSPITALIZATION/EMERGENCY ROOM VISITS, TEACH SIGNS AND SYMPTOMS THAT PUT PATIENT AT RISK, WHEN TO NOTIFY NURSE/PHYSICIAN OF COMPLICATIONS/DECLINE, AND WHEN TO CALL 911.] Future Scheduled Test PT/DOOR FRAMER TO PROVIDE GAIT TRAINING FOR IMPROVED MOBILITY AND /OR TO NORMALIZE GAIT PATTERN [code = PT/DOOR FRAMER TO PROVIDE GAIT TRAINING FOR IMPROVED MOBILITY AND /OR TO NORMALIZE GAIT PATTERN] Future Scheduled Test THERAPEUTI C EXERCISES AND ESTABLISHING A HOME EXERCISE PROGRAM (PT/DOOR FRAMER) [code = THERAPEUTIC EXERCISES AND ESTABLISHING A HOME EXERCISE PROGRAM (PT/DOOR FRAMER)] Future Scheduled Test PT/DOOR FRAMER TO IDENTIFY FALL RISK FACTORS; EDUCATE THE PATIENT/CAREGIVER ON WAYS TO REDUCE FALL RISK FACTORS AND ESTABLISH HOME EXERCISE PROGRAM TO MINIMIZE FALL RISK. MAY TEACH THE PATIENT FLOOR RECOVERY WHEN CLINICALLY APPROPRIATE [code = PT/DOOR FRAMER TO IDENTIFY FALL RISK FACTORS; EDUCATE THE PATIENT/CAREGIVER ON WAYS TO REDUCE FALL RISK FACTORS AND ESTABLISH HOME EXERCISE PROGRAM TO MINIMIZE FALL RISK. MAY TEACH THE PATIENT FLOOR RECOVERY WHEN CLINICALLY APPROPRIATE] Future Scheduled Test PT/DOOR FRAMER TO PROVIDE STAIR TRAINING [code = PT/DOOR FRAMER TO PROVIDE STAIR TRAINING] Future Scheduled Test SIT TO/FRO M STAND TRANSFERS (PT/DOOR FRAMER) [code = SIT TO/FROM STAND TRANSFERS (PT/DOOR FRAMER)] Future Scheduled Test PT TO ASSE SS / DOOR FRAMER TO MONITOR CARDIO/RESPIRATORY SYSTEM; AND NOTIFY THE PHYSICIAN AND/OR THE RN CLINICAL DEVELOPMENTAL SERVICES WORKER FOR PHYSICIAN NOTIFICATION FOR EARLY SIGNS AND SYMPTOMS OF EXACERBATION OR DETERIORATION. [code = PT TO ASSESS / DOOR FRAMER TO MONITOR CARDIO/RESPIRATORY SYSTEM; AND NOTIFY THE PHYSICIAN AND/OR THE RN CLINICAL DEVELOPMENTAL SERVICES WORKER FOR PHYSICIAN NOTIFICATION FOR EARLY SIGNS AND SYMPTOMS OF EXACERBATION OR DETERIORATION.] Future Scheduled Test PT / DOOR FRAMER T O MONITOR AND EDUCATE ON OXYGEN SATURATION DURING ADLS/IADLS, NOTIFY PHYSICIAN AND/OR THE RN CLINICAL DEVELOPMENTAL SERVICES WORKER FOR PHYSICIAN NOTIFICATION AND IF O2 SATS BELOW PHYSICIAN ORDERED PARAMETERS AFTER 10 MIN OF REST [code = PT / DOOR FRAMER TO MONITOR AND EDUCATE ON OXYGEN SATURATION DURING ADLS/IADLS, NOTIFY PHYSICIAN AND/OR THE RN CLINICAL DEVELOPMENTAL SERVICES WORKER FOR PHYSICIAN NOTIFICATION AND IF O2 SATS BELOW PHYSICIAN ORDERED PARAMETERS AFTER 10 MIN OF REST] Future Scheduled Test PT / DOOR FRAMER T O MONITOR FOR HYPO/HYPERGLYCEMIA AND CONDUCT ROUTINE FOOT INSPECTIONS. RECORD PATIENT REPORTED BLOOD SUGAR LEVELS AND NOTIFY PHYSICIAN AND/OR THE RN CLINICAL DEVELOPMENTAL SERVICES WORKER FOR PHYSICIAN NOTIFICATION IF BLOOD SUGAR LEVELS ARE OUTSIDE ORDERED PARAMETERS. TEACH PATIENT/CAREGIVER ON DAILY FOOT INSPECTIONS [code = PT / DOOR FRAMER TO MONITOR FOR HYPO/HYPERGLYCEMIA AND CONDUCT ROUTINE FOOT INSPECTIONS. RECORD PATIENT REPORTED BLOOD SUGAR LEVELS AND NOTIFY PHYSICIAN AND/OR THE RN CLINICAL DEVELOPMENTAL SERVICES WORKER FOR PHYSICIAN NOTIFICATION IF BLOOD SUGAR LEVELS ARE OUTSIDE ORDERED PARAMETERS. TEACH PATIENT/CAREGIVER ON DAILY FOOT INSPECTIONS] Future Scheduled Test PT / DOOR FRAMER M AY EDUCATE ON PAIN MANAGEMENT CLINICALLY INDICATED, INCLUDING NON-PHARMACOLOGICAL PAIN REDUCTION TECHNIQUES AND USE OF CRYOTHERAPY OR HEAT UP TO 20 MIN AT A TIME FOR PAIN MANAGEMENT 6-8 TIMES PER DAY TO BACK AND HEAD [code = PT / DOOR FRAMER MAY EDUCATE ON PAIN MANAGEMENT CLINICALLY INDICATED, INCLUDING NON-PHARMACOLOGICAL PAIN REDUCTION TECHNIQUES AND USE OF CRYOTHERAPY OR HEAT UP TO 20 MIN AT A TIME FOR PAIN MANAGEMENT 6-8 TIMES PER DAY TO BACK AND HEAD] Future Scheduled Test PT / DOOR FRAMER T O EDUCATE ON HEART FAILURE SELF-MANAGEMENT [code = PT / DOOR FRAMER TO EDUCATE ON HEART FAILURE SELF-MANAGEMENT] Future Scheduled Test PT / DOOR FRAMER T O EDUCATE ON HYPERTENSION SELF-MANAGEMENT [code = PT / DOOR FRAMER TO EDUCATE ON HYPERTENSION SELF-MANAGEMENT] Future Scheduled Test PT / DOOR FRAMER T O EDUCATE ON ATRIAL FIBRILLATION SELF-MANAGEMENT. [code = PT / DOOR FRAMER TO EDUCATE ON ATRIAL FIBRILLATION SELF-MANAGEMENT.] Future Scheduled Test PT TO ASSE SS / DOOR FRAMER TO MONITOR FOR AND REPORT EARLY SIGNS OF ANTICOAGULANT TOXICITY TO THE PHYSICIAN AND/OR THE RN CLINICAL DEVELOPMENTAL SERVICES WORKER FOR PHYSICIAN NOTIFICATION AND TO PROVIDE PATIENT/CAREGIVER EDUCATION ON ANTICOAGULANT THERAPY [code = PT TO ASSESS / DOOR FRAMER TO MONITOR FOR AND REPORT EARLY SIGNS OF ANTICOAGULANT TOXICITY TO THE PHYSICIAN AND/OR THE RN CLINICAL DEVELOPMENTAL SERVICES WORKER FOR PHYSICIAN NOTIFICATION AND TO PROVIDE PATIENT/CAREGIVER EDUCATION ON ANTICOAGULANT THERAPY] Future Scheduled Test PT TO ASSE SS / DOOR FRAMER TO MONITOR FOR HEART FAILURE EXACERBATION AND RECORD PATIENT REPORTED WEIGHT, AND NOTIFY THE PHYSICIAN AND/OR THE RN CLINICAL DEVELOPMENTAL SERVICES WORKER FOR PHYSICIAN NOTIFICATION OF HF EXACERBATION (2LB WEIGHT GAIN IN 1 DAY, 5LBS IN A WEEK OR 5 LBS OVER BASELINE; INCREASED SOB, EDEMA, NEEDING MORE PILLOWS AT NIGHT, CRACKLES IN BASIS OF THE LUNGS OR PMI SHIFT) [code = PT TO ASSESS / DOOR FRAMER TO MONITOR FOR HEART FAILURE EXACERBATION AND RECORD PATIENT REPORTED WEIGHT, AND NOTIFY THE PHYSICIAN AND/OR THE RN CLINICAL DEVELOPMENTAL SERVICES WORKER FOR PHYSICIAN NOTIFICATION OF HF EXACERBATION (2LB WEIGHT GAIN IN 1 DAY, 5LBS IN A WEEK OR 5 LBS OVER BASELINE; INCREASED SOB, EDEMA, NEEDING MORE PILLOWS AT NIGHT, CRACKLES IN BASIS OF THE LUNGS OR PMI SHIFT)] Future Scheduled Test PT / DOOR FRAMER T O EDUCATE ON DIABETES SELF- MANAGEMENT [code = PT / DOOR FRAMER TO EDUCATE ON DIABETES SELF- MANAGEMENT] Future Scheduled Test OCCUPATION AL THERAPY EVALUATION PERFORMED. NO ADDITIONAL VISITS REQUIRED. PROVIDED SKILLED INTERVENTION INCLUDING TASK/PERFORMANCE ANALYSIS, SIMULATION, PATIENT REPORT AND CLINICAL JUDGEMENT TO DETERMINE CLOF IN HOME ENVIRONMNET. [code = OCCUPATIONAL THERAPY EVALUATION PERFORMED. NO ADDITIONAL VISITS REQUIRED. PROVIDED SKILLED INTERVENTION INCLUDING TASK/PERFORMANCE ANALYSIS, SIMULATION, PATIENT REPORT AND CLINICAL JUDGEMENT TO DETERMINE CLOF IN HOME ENVIRONMNET. ] Goal Patient Goal - P ATIENT GOAL IS TO GET LEGS STRONGER Goal Provider Goal - PATIENT WILL DEMONSTRATE PT GOALS MET BY 3.28.25 Goal Provider Goal - PATIENT DECLINED OT SERVICES Goal Provider Goal - PT GOAL: PATIENT/CAREGIVER WILL VERBALIZE UNDERSTANDING OF SIGNS AND SYMPTOMS THAT PUT THE PATIENT AT RISK FOR HOSPITALIZATION /EMERGENCY ROOM VISITS, WHEN TO NOTIFY NURSE/PHYSICIAN OF COMPLICATIONS/DECLINE AND WHEN TO CALL 911. Goal Provider Goal - PATIENT WILL DEMONSTRATE REDUCED GAIT DEVIATIONS TO REDUCE THE RISK FOR FALLING AND MINIMIZE STRAIN ON KNEES/HIPS AND BACK EVIDENCED BY IMPROVED HEEL TO TOE OFF GAIT PATTERN TO IMPROVE STEP LENGTHS TO NORMALIZE GAIT EFFICIENCY USING WW X 50 FEET ON EVEN AND UNEVEN CARPETED SURFACES WITH SBA AND VERBAL INSTRUCTIONS TO WALK 250 FEET ON EVEN AND UNEVEN CARPETED SURFACES WITHOUT AN AD INDEPENDENTLY IN ORDER TO ACCESS BATHROOM/KITCHEN WITHIN 9 WEEKS. Goal Provider Goal - PT STG: PATIENT WILL DEMONSTRATE INCREASED STRENGTH OF BILATERAL HIPS/KNEES FROM 4-/5 TO 4/5 WITHIN 3 WEEKS IN ORDER TO IMPROVE GAIT/BALANCE TO REDUCE RISK OF FALLS TO BATHROOM/KITCHEN. PT LTG: PATIENT WILL DEMONSTRATE INCREASED STRENGTH OF BILATERAL HIPS/KNEES FROM 4-/5 TO 4+/5 WITHIN 9 WEEKS IN ORDER TO IMPROVE GAIT/BALANCE TO REDUCE RISK OF FALLS TO BATHROOM/KITCHEN. PATIENT WILL BE INDEPENDENT WITH COMPREHENSIVE HOME EXERCISE PROGRAM TO ENSURE THERAPY CARRYOVER WITHIN 9 WEEKS TO ASSURE LE STRENGTH TO SAFELY AMBULATE TO BATHROOM/KITCHEN. Goal Provider Goal - PT LTG: PATIENT/CAREGIVER WILL DEMONSTRATE ADHERENCE TO FALL REDUCTION SELF-MANAGEMENT AND REDUCING FALL RISK FACTORS TO MINIMIZE FALL RISK BY 3.28.25 Goal Provider Goal - PATIENT WILL DEMONSTRATE IMPROVED ABILITY TO SAFELY NEGOTIATE 14 STAIRS FROM UNABLE TO WITH BILATERAL HANDRAILS INDEPENDENTLY IN ORDER TO ENTER/EXIT HOME TO ATTEND MD APPTS/GET TO CAR WITHIN 9 WEEKS. Goal Provider Goal - PT STG: PATIENT WILL DEMONSTRATE IMPROVED ABILITY TO PERFORM SIT TO/FROM STAND TRANSFERS FROM VARIOUS HEIGHT SEATS TO REDUCE THE RISK OF SKIN BREAKDOWN AND REDUCE FALL RISK FROM WITH USE OF UES WITH WW WITH SBA TO INDEPENDENTLY WITH USE OF UES WITHOUT AN AD WITHIN 9 WEEKS. Goal Provider Goal - PT LTG: PATIENT WILL NOT EXPERIENCE CARDIAC OR RESPIRATORY COMPLICATIONS THROUGHOUT THE EPISODE OF CARE. Goal Provider Goal - PT LTG: PATIENT WILL MAINTAIN OXYGEN SATURATION WITHIN PHYSICIAN ORDERED PARAMETERS THROUGHOUT EPISODE OF CARE. Goal Provider Goal - PATIENTS BLOOD SUGAR WILL REMAIN WELL CONTROLLED WITH SELF-MANAGEMENT THROUGHOUT EPISODE OF CARE. Goal Provider Goal - PT GOAL: PATIENT WILL DEMONSTRATE UNDERSTANDING OF PAIN MANAGEMENT TECHNIQUES EVIDENCED BY REDUCED PAIN IN BACK AND HEAD WITHIN 9 WEEKS. Goal Provider Goal - PT STG: PATIENT WILL BE ABLE TO WEIGH SELF WITH USE OF WW INDEPENDENTLY WITHIN 9 WEEKS. PT LTG: PATIENT/CAREGIVER WILL BE ABLE TO IDENTIFY SIGNS OF EXACERBATION OF HEART FAILURE AND VERBALIZE / DEMONSTRATE HOW TO MANAGE SYMPTOMS AND HOW TO ADHERE TO HEART FAILURE SELF-MANAGEMENT AND LIFE-STYLE CHANGES BY 3.28.25 Goal Provider Goal - PT GOAL: PATIENT/CAREGIVER WILL BE ABLE TO IDENTIFY SIGNS OF EXACERBATION OF HYPERTENSION AND WILL VERBALIZE/DEMONSTRATE AN ABILITY TO ADHERE TO HYPERTENSION SELF-MANAGEMENT AND LIFE-STYLE CHANGES BY 3.28.25 Goal Provider Goal - PT GOAL: PATIENT/CAREGIVER WILL BE ABLE TO IDENTIFY SIGNS OF ATRIAL FIBRILLATION EXACERBATION AND WILL VERBALIZE/DEMONSTRATE AN ABILITY TO ADHERE TO ATRIAL FIBRILLATION SELF-MANAGEMENT AND LIFE-STYLE CHANGES BY 3.28.25 Goal Provider Goal - PT LTG: PATIENT WILL NOT EXHIBIT SIGNS AND SYMPTOMS OF ANTICOAGULANT TOXICITY THROUGHOUT EPISODE OF CARE. Goal Provider Goal - PT GOAL: PATIENTS HEART FAILURE WILL REMAIN WELL CONTROLLED THROUGHOUT EPISODE OF CARE. Goal Provider Goal - PATIENT/CAREGIVER WILL BE ABLE TO IDENTIFY SIGNS OF HYPER- AND HYPOGLYCEMIA AND VERBALIZE HOW TO MANAGE SYMPTOMS. Goal Provider Goal - PATIENT / CAREGIVER WITHIN 1 VISIT WILL BE ABLE TO VERBALIZE / DEMONSTRATE UNDERSTANDING OF SAFETY AND USE OF ECT TO REMAIN SAFE IN HOME. Encounters Start Date/Time End Date/Time Encounter Type Admission Type Attending [facility] Care Department Encounter ID Discharge Date Discharge Status Discharge Condition Discharge Reason Percent Goals Met 2024-07-16 00:00:00 2024-09-13 00:00:00 Outpatient NEW ADMISSION [facility] [id number]
--- OUTSIDE RECORDS SUMMARY | 2024-08-30 11:44 | XMS_ITS | Referral Summary ---
Author Organization [facility] [address] Address [address] [address] Care Team Providers Care Fabric Lay Out Worker Name Role Phone Bernabe Lainez MD Primary Care Provider [phone] Encounters Date Type Department Care Team Description 08/27/2024 Telephone [facility] [address] [place] [address] [place] [phone] Jameson Martinez NP 08/06/2024 Telephone [facility] [address] [place] [address] [place] [phone] Negro Barbosa MD 08/06/2024 Results Follow-Up [place] [address] [place] [phone] Jameson Martinez NP Stage 3a chronic kidney disease (HCC) (Primary Dx) 08/05/2024 9:15 AM DIRECTOR OF WOMEN'S SERVICES Ancillary Procedure [facility] [address] [place] [address] [place] [phone] Paroxysmal atrial fibrillation (HCC); Dilated cardiomyopathy (HCC) 07/29/2024 Telephone [place] [address] [place] [phone] Jameson Martinez NP 07/29/2024 Orders Only [facility] [address] [place] [address] [place] [phone] Dennis Crowley MD 07/26/2024 10:00 AM DIRECTOR OF WOMEN'S SERVICES Office Visit [facility] Card[facility] [address] [facility] [address] [place] [phone] Jameson Martinez NP Chronic systolic congestive heart failure (HCC) (Primary Dx); Dilated cardiomyopathy (HCC); Paroxysmal atrial fibrillation (HCC); Chronic anticoagulation 07/15/2024 Telephone [facility] [address] [phone] Douglas Dove MD 06/14/2024 Orders Only [facility] [address] [place] [address] [place] [phone] Jennifer Butler MD 06/13/2024 Orders Only [facility] [address] [place] [address] [place] [phone] Jennifer Butler MD 06/11/2024 Orders Only [facility] Health Information Management [address] [place] [phone] Douglas Dove MD 06/07/2024 Orders Only [facility] [address] [place] [address] [place] [phone] Juleit Triana MD 06/07/2024 8:30 AM DIRECTOR OF WOMEN'S SERVICES Office Visit [facility] [address] [place] [address] [place] [phone] Negro Barbosa MD Atrial fibrillation with rapid ventricular response (HCC) (Primary Dx); Chronic anticoagulation; Essential hypertension; Hyperlipidemia LDL goal <100; Cardiomyopathy, unspecified type (HCC); Stage 3a chronic kidney disease (HCC); Acute systolic congestive heart failure (HCC) from Last 3 Months Allergies Active Allergy Reactions Criticality Noted Date Comments Hydrochlorothiazide Dizziness Low 09/05/2023 Medications calcium carbonate (TUMS) 500 mg (200 mg elemental calcium) chewable tablet Take 2 tablet/chew tab (1,000 mg total) by mouth as needed Active citalopram (CeleXA) 40 mg tablet Take 1 tablet (40 mg total) by mouth daily Active clonazePAM (KlonoPIN) 0.5 mg tablet Take 1 tablet (0.5 mg total) by mouth daily as needed Active DULoxetine DR (CYMBALTA) 30 mg capsule Take 1 capsule 3 times a day by oral route for [address] (CYMBALTA) 60 mg capsule Take 1 capsule twice a day by oral route for 30 days. Active hydrOXYzine (VISTARIL) 25 mg capsule Take 2 capsules (50 mg total) by mouth 2 (two) times a day as needed Active lamoTRIgine (LaMICtal) 100 mg tablet Take 1 tablet (100 mg total) by mouth daily Active linaCLOtide (Linzess) 72 mcg capsule Take 1 capsule (72 mcg total) by mouth daily Active lisinopriL (PRINIVIL,ZESTR IL) 20 mg tablet Take 1 tablet (20 mg total) by mouth 2 (two) times a day Active loratadine (CLARITIN) 10 mg tablet Take 1 tablet every day by oral route. Active traMADoL (ULTRAM) 50 mg tablet Take 1 tablet (50 mg total) by mouth every 8 (eight) hours as needed Active Tiadylt ER 120 mg 24 hr capsule Take 1 capsule (120 mg total) by mouth daily 05/13/2024 Active buPROPion XL (WELLBUTRIN XL) 300 mg 24 hr tablet Take 1 tablet (300 mg total) by mouth every morning 05/09/2024 Active metoprolol XL (TOPROL-XL) 50 mg extended release tablet Take 1.5 tablets (75 mg total) by mouth daily 05/13/2024 Active apixaban (ELIQUIS) 5 mg tablet Take 1 tablet (5 mg total) by mouth 2 (two) times a day Active Jardiance 10 mg tablet Take 1 tablet (10 mg total) by mouth daily 07/05/2024 Active simvastatin (ZOCOR) 20 mg tablet Take 1 tablet (20 mg total) by mouth nightly Active furosemide (LASIX) 20 mg tablet Take 1 tablet (20 mg total) by mouth 2 (two) times a day Active Active Problems Problem Noted Date Diagnosed Date Stage 3a chronic kidney disease 06/07/2024 Cardiomyopathy 06/07/2024 Hyperlipidemia LDL goal <100 06/07/2024 Essential hypertension 06/07/2024 Chronic anticoagulation 06/07/2024 Atrial fibrillation with rapid ventricular respo nse 06/07/2024 Acute systolic congestive heart failure 06/07/20 Social History Tobacco Use Types Packs/Day Years Used Date Smoking Tobacco: Never Smokeless Tobacco: Never Tobacco Cessation:Counseling Given: Not Answered Comments Unknown Sex and Gender Information Value Date Recorded Sex Assigned at Not on file Legal Sex Female 6:12 PM DIRECTOR OF WOMEN'S SERVICES Gender Identity Not on file Sexual Orientation Not on file Last Filed Vital Signs Vital Sign Reading Time Taken Comments Blood Pressure 138/78 07/26/2024 10:06 AM DIRECTOR OF WOMEN'S SERVICES Pulse 67 07/26/2024 10:06 AM DIRECTOR OF WOMEN'S SERVICES Temperature - - Respiratory Rate - - Oxygen Saturation 96% 07/26/2024 10:06 AM DIRECTOR OF WOMEN'S SERVICES Inhaled Oxygen Concentration - - Weight 83.9 kg (185 lb) 07/26/2024 10:06 AM DIRECTOR OF WOMEN'S SERVICES Height 172.7 cm (5' 8 ) 07/26/2024 10:06 AM DIRECTOR OF WOMEN'S SERVICES Body Mass Index 28.13 07/26/2024 10:06 AM DIRECTOR OF WOMEN'S SERVICES Plan of Treatment Not on file Procedures Procedure Name Priority Date/Time Associated Diagnosis Comments NM MPI SPECT (REST AND/OR STRESS) MULTIPLE STUDIES Schedule Routine, Read Routine (OP Routine) 08/05/2024 12:54 PM DIRECTOR OF WOMEN'S SERVICES Paroxysmal atrial fibrillation (HCC) Dilated cardiomyopathy (HCC) ECG 12-LEAD Routine 07/26/2024 4:01 PM DIRECTOR OF WOMEN'S SERVICES COMPREHENSIVE METABOLIC PANEL Routine 06/14/2024 7:44 AM DIRECTOR OF WOMEN'S SERVICES CBC WITHOUT DIFFERENTIAL Routine 06/14/2024 7:43 AM DIRECTOR OF WOMEN'S SERVICES CARDIOLOGY DOCUMENT SCAN Routine 06/12/2024 7:52 AM DIRECTOR OF WOMEN'S SERVICES CARDIOLOGY DOCUMENT SCAN Routine 06/11/2024 2:40 PM DIRECTOR OF WOMEN'S SERVICES ECG 12-LEAD Routine 06/11/2024 7:46 AM DIRECTOR OF WOMEN'S SERVICES CARDIOLOGY DOCUMENT SCAN 06/11/2024 CARDIOLOGY DOCUMENT SCAN Routine 06/09/2024 1:40 PM DIRECTOR OF WOMEN'S SERVICES CARDIOLOGY DOCUMENT SCAN Routine 06/09/2024 7:38 AM DIRECTOR OF WOMEN'S SERVICES CARDIOLOGY DOCUMENT SCAN Routine 06/08/2024 1:39 PM DIRECTOR OF WOMEN'S SERVICES CARDIOLOGY DOCUMENT SCAN Routine 06/07/2024 1:37 PM DIRECTOR OF WOMEN'S SERVICES ELECTROCARDIOGRAM REPORT Routine 06/07/2024 11:33 AM DIRECTOR OF WOMEN'S SERVICES Atrial fibrillation with rapid ventricular response (HCC) POCT LIPID PANEL Routine 06/07/2024 8:55 AM DIRECTOR OF WOMEN'S SERVICES Hyperlipidemia LDL goal <100 from Last 3 Months Results * NM MPI SPECT (Rest and/or Stress) Multiple Studies (08/05/2024 12:54 PM DIRECTOR OF WOMEN'S SERVICES) Anatomical Region Laterality Modality Body N/A Nuclear Medicine 08/05/2024 9:35 AM DIRECTOR OF WOMEN'S SERVICES Narrative 08/05/2024 12:45 PM DIRECTOR OF WOMEN'S SERVICES [facility] [address] [facility] [address], [place] [address] [address] [facility] [address], [place] [address] P:[phone] P:[phone] MPI Imaging Report Patient Name: JAJA MENESES M : 1955 Study Date: 08/05/2024 9:35:14 AM Gender: F Tech: [facility] Location: [facility] Provider: JAMESON MARTINEZ Height(Cm): 172.7 BSA: Weight(Kg): 83.9 BMI: 28.13 Order Provider: JAMESON MARTINEZ PHYSICIAN: Referring Physician: Dr. Lainez. HCG Physician: Ata Barbosa M.D. Interpreting Physician: Ata Barbosa M.D. Stress Supervision: Ata Barbosa M.D. PROCEDURES: Pharmacologic SPECT Report: Myocardial perfusion imaging with Tc99M Sestamibi SPECT at rest and stress post regadenoson (Lexiscan) infusion. INDICATIONS: Hypertension, Family Hx CAD, High Cholesterol, I48.0 Paroxysmal atrial fibrillation, and I42.0 Dilated cardiomyopathy. FINDINGS: Procedural Findings: One day rest/stress was used. Tc99m Sestamibi injected IV at rest was 10.8 millicuries 33.0 millicuries of Tc99M Sestamibi injected IV during Lexiscan stress Lexiscan 0.4mg administered IV over 10 seconds. Patient had no symptoms during stress test. Baseline heart rate was 56 BPM Maximum Heart Rate Achieved was: 73 BPM Baseline blood pressure was 132/74 mmHg Post Stress Blood Pressure was 120/78 mmHg Termination: Protocol complete. Resting ECG: Sinus bradycardia. Post ECG: No diagnostic ST changes. Arrhythmia: Occasional PVCs. Perfusion Findings: Abnormal perfusion imaging - see below. Technical quality of study is excellent. Prone imaging was not performed. Left ventricle cavity size at rest is normal. Left ventricle cavity size with stress is unchanged. A TID of 0.98 was automatically calculated. defect 1: Size is small. Severity is mild. Location of defect is in the apical inferior segment and apex. Reversibility is full. Type of defect is ischemia. LV Function: Left ventricular ejection fraction is 49 %. There is mild LV dysfunction. CONCLUSIONS: Left ventricular ejection fraction is 49 %. There is mild LV dysfunction. Size is small. Severity is mild. Location of defect is in the apical inferior segment and apex. Reversibility is full. Type of defect is ischemia. Myocardial perfusion imaging is abnormal. Negative EKG portion of stress test. Electronically Signed By: Negro Barbosa MD 08/05/2024 12:44:59 PM DIRECTOR OF WOMEN'S SERVICES Electronically Signed By: Negro Barbosa MD 08/05/2024 12:44:59 PM DIRECTOR OF WOMEN'S SERVICES Procedure Note Negro Barbosa MD - 08/05/2024 [facility] [address] [facility] [address] [id number] [address] [facility] [address] [address] P:[phone] P:[phone] MPI Imaging Report Patient Name: JAJA MENESES M : 1955 Study Date: 08/05/2024 9:35:14 AM Gender: F Tech: OMARI PATTEN Location: [facility] Provider: JAMESON MARTINEZ Height(Cm): 172.7 BSA: Weight(Kg): 83.9 BMI: 28.13 Order Provider: JAMESON MARTINEZ PHYSICIAN: Referring Physician: Dr. Lainez. HCG Physician: Ata Barbosa M.D. Interpreting Physician: Ata Barbosa M.D. Stress Supervision: Ata Barbosa M.D. PROCEDURES: Pharmacologic SPECT Report: Myocardial perfusion imaging with Tc99M Sestamibi SPECT at rest and stresspost regadenoson (Lexiscan) infusion. INDICATIONS: Hypertension, Family Hx CAD, High Cholesterol, I48.0 Paroxysmal atrialfibrillation, and I42.0 Dilated cardiomyopathy. FINDINGS: Procedural Findings: One day rest/stress was used. Tc99m Sestamibi injected IV at rest was 10.8 millicuries 33.0 millicuries of Tc99M Sestamibi injected IV during Lexiscan stress Lexiscan 0.4mg administered IV over 10 seconds. Patient had no symptoms during stress test. Baseline heart rate was 56 BPM Maximum Heart Rate Achieved was: 73 BPM Baseline blood pressure was 132/74 mmHg Post Stress Blood Pressure was 120/78 mmHg Termination: Protocol complete. Resting ECG: Sinus bradycardia. Post ECG: No diagnostic ST changes. Arrhythmia: Occasional PVCs. Perfusion Findings: Abnormal perfusion imaging - see below. Technical quality of study isexcellent. Prone imaging was not performed. Left ventricle cavity size at rest is normal.Left ventricle cavity size with stress is unchanged. A TID of 0.98 was automaticallycalculated. defect 1: Size is small. Severity is mild. Location of defect is in the apicalinferior segment and apex. Reversibility is full. Type of defect is ischemia. LV Function: Left ventricular ejection fraction is 49 %. There is mild LVdysfunction. CONCLUSIONS: Left ventricular ejection fraction is 49 %. There is mild LVdysfunction. Size is small. Severity is mild. Location of defect is in the apicalinferior segment and apex. Reversibility is full. Type of defect is ischemia. Myocardial perfusion imaging is abnormal. Negative EKG portion of stress test. Electronically Signed By: Negro Barbosa MD 08/05/2024 12:44:59 PM DIRECTOR OF WOMEN'S SERVICES Electronically Signed By: Negro Barbosa MD 08/05/2024 12:44:59 PM DIRECTOR OF WOMEN'S SERVICES Jameson Martinez CARTOON DESIGNER IMG NM PROCEDURES Final R esult * ECG 12 lead (07/26/2024 4:01 PM DIRECTOR OF WOMEN'S SERVICES) Jameson Martinez CARTOON DESIGNER ECG ORDERABLES Final Res ult * Comprehensive metabolic panel (06/14/2024 7:44 AM DIRECTOR OF WOMEN'S SERVICES) Blood Result [facility] Dennis Crowley MD LAB BLOOD ORDERABLES Final Resu lt * CBC without differential (06/14/2024 7:43 AM DIRECTOR OF WOMEN'S SERVICES) Blood us Dennis Crowley MD LAB BLOOD ORDERABLES Final Resu lt * Cardiology Document Scan (06/12/2024 7:52 AM DIRECTOR OF WOMEN'S SERVICES) Anatomical Region Laterality Modality Other us Josie Mora MD CV CARDIAC SERVICES PROCEDURES Final Result * Cardiology Document Scan (06/11/2024 2:40 PM DIRECTOR OF WOMEN'S SERVICES) Anatomical Region Laterality Modality Other us Douglas Dove MD CV CARDIAC SERVICES PROCEDURES F inal Result * ECG 12 lead (06/11/2024 7:46 AM DIRECTOR OF WOMEN'S SERVICES) Result Rick Dove MD ECG ORDERABLES Final Result * Cardiology Document Scan (06/11/2024) Anatomical Region Laterality Modality Other us Douglas Dove MD CV CARDIAC SERVICES PROCEDURES E dited Result - Final * Cardiology Document Scan (06/09/2024 1:40 PM DIRECTOR OF WOMEN'S SERVICES) Anatomical Region Laterality Modality Other us Jennifer Butler MD CV CARDIAC SERVICES PROCEDU RES Final Result * Cardiology Document Scan (06/09/2024 7:38 AM DIRECTOR OF WOMEN'S SERVICES) Anatomical Region Laterality Modality Other Result [facility] us Jennifer Butler MD CV CARDIAC SERVICES PROCEDU RES Final Result * Cardiology Document Scan (06/08/2024 1:39 PM DIRECTOR OF WOMEN'S SERVICES) Anatomical Region Laterality Modality Other Result [facility] us Jennifer Butler MD CV CARDIAC SERVICES PROCEDU RES Final Result * Cardiology Document Scan (06/07/2024 1:37 PM DIRECTOR OF WOMEN'S SERVICES) Anatomical Region Laterality Modality Other Result Rick Butler MD CV CARDIAC SERVICES PROCEDU RES Final Result * Electrocardiogram Report (06/07/2024 11:33 AM DIRECTOR OF WOMEN'S SERVICES) Result [facility] Negro Barbosa MD ECG ORDERABLES Final Res ult * POCT lipid panel (06/07/2024 8:55 AM DIRECTOR OF WOMEN'S SERVICES) Cholesterol, POC 101 mg/dL Comment:Glucose = 137 HDL, POC 37 mg/dL Triglycerides, POC 76 mg/dL LDL Cholesterol POC 48 mg/dL Chol/HDL Ratio, POC 1.3 Non-HDL Cholesterol, POC 64 mg/dL Cholesterol Total, POC 101 mg/dL Capillary blood 06/07/2024 8 :55 AM DIRECTOR OF WOMEN'S SERVICES Negro Barbosa MD POINT OF CARE TEST ORDERA BLES Final Result from Last 3 Months Insurance [employer] Care Teams Fabric Lay Out Worker Relationship Specialty Start Date End Date Bernabe Lainez MD [address] [place] [address] PCP - General Internal Medicine 06/07/24
--- OUTSIDE RECORDS SUMMARY | 2024-08-30 11:44 | XMS_ITS | Clinical Summary ---
Author Organization [facility] [address] Address [address] [place] [address] Care Team Providers Care Salesperson Trailers [employer] Name Role Phone Bernabe Lainez MD Primary Care Provider + [phone] Allergies Active Allergy Reactions Criticality Noted Date [...] 06/07/2024 Acute systolic congestive heart failure 06/07/20 24 Encounters Date Type Department Care Team Description 08/27/2024 Telephone [facility] [address] [place] [address] [place] [phone] Prabha Martinez NP 08/06/2024 Telephone [facility] [address] [place] [address] [place] [phone] Negro Barbosa MD 08/06/2024 Results Follow-Up [facility] [address] [place] [address] [place] [phone] Prabha Martinez NP Stage 3a chronic kidney disease (HCC) (Primary Dx) 08/05/2024 9:15 AM TIMBER HARVESTER OPERATOR Ancillary Procedure [facility] [address] [place] [address] [place] [phone] Paroxysmal atrial fibrillation (HCC); Dilated cardiomyopathy (HCC) 07/29/2024 Telephone [facility] [address] [place] [address] [place] [phone] Prabha Martinez NP 07/29/2024 Orders Only [facility] [address] [place] [address] [place] [phone] Dennis Crowley MD 07/26/2024 10:00 AM TIMBER HARVESTER OPERATOR Office Visit [facility] [address] [place] [address] [place] [phone] Prabha Martinez NP Chronic systolic congestive heart failure (HCC) (Primary Dx); Dilated cardiomyopathy (HCC); Paroxysmal atrial fibrillation (HCC); Chronic anticoagulation 07/15/2024 Telephone [facility] [address] [facility] [address] [place] [phone] Douglas Dove MD 06/14/2024 Orders Only [facility] [address] [place] [address] [place] [phone] Jennifer Butler MD 06/13/2024 Orders Only [facility] [address] [place] [address] [place] [phone] Jennifer Butler MD 06/11/2024 Orders Only [facility] Information Management [address] [place] [phone] Douglas Dove MD 06/07/2024 8:30 AM TIMBER HARVESTER OPERATOR Office Visit [facility] [address] [place] [address] [place] [phone] Negro Barbosa MD Atrial fibrillation with rapid ventricular response (HCC) (Primary Dx); Chronic anticoagulation; Essential hypertension; Hyperlipidemia LDL goal <100; Cardiomyopathy, unspecified type (HCC); Stage 3a chronic kidney disease (HCC); Acute systolic congestive heart failure (HCC) 06/07/2024 Orders Only [facility] [address] [place] [address] [place] [phone] Juliet Triana MD from Last 3 Months Social History Tobacco Use Types Packs/Day Years Used Date Smoking Tobacco: Never Smokeless Tobacco: Never Tobacco Cessation:Counseling Given: Not Answered Comments Unknown Sex and Gender Information Value Date Recorded Sex Assigned at Not on file Legal Sex Female 6:12 PM TIMBER HARVESTER OPERATOR Gender Identity Not on file Sexual Orientation Not on file Obstetrics History Last Filed Vital Signs Vital Sign Reading Time Taken Comments Blood Pressure 138/78 07/26/2024 10:06 AM TIMBER HARVESTER OPERATOR Pulse 67 07/26/2024 10:06 AM TIMBER HARVESTER OPERATOR Temperature - - Respiratory Rate - - Oxygen Saturation 96% 07/26/2024 10:06 AM TIMBER HARVESTER OPERATOR Inhaled Oxygen Concentration - - Weight 83.9 kg (185 lb) 07/26/2024 10:06 AM TIMBER HARVESTER OPERATOR Height 172.7 cm (5' 8 ) 07/26/2024 10:06 AM TIMBER HARVESTER OPERATOR Body Mass Index 28.13 07/26/2024 10:06 AM TIMBER HARVESTER OPERATOR Plan of Treatment Health Maintenance Due Date Last Done Comments Breast Cancer Screening-Mammogram 1955 Colon Cancer Screening-Colonoscopy 1955 Depression Screening 1955 Fall Risk Assessment 1955 Hepatitis C Screening 1955 Osteoporosis Screening-Bone Density Scan 1955 DTaP/Tdap/Td Vaccine (1 - Tdap) 02/29/1964 Hepatitis B Screening 1971 Zoster Vaccine (1 of 2) 2003 Well Visit 65+ 2018 Covid-19 Vaccine (5 - 2023-2 5 season) 2024 05/03/2022, 06/01/2021, 09/04/2020, Additional history exists Influenza Vaccine (#1) 2024 3, 05/06/2021, 03/25/2020, Additional history exists Pneumococcal vaccine 65+ Completed 08/11/2022, 11/2018 Procedures Procedure Name Priority Date/Time Associated Diagnosis Comments NM MPI SPECT (REST AND/OR STRESS) MULTIPLE STUDIES Schedule Routine, Read Routine (OP Routine) 08/05/2024 12:54 PM TIMBER HARVESTER OPERATOR Paroxysmal atrial fibrillation (HCC) Dilated cardiomyopathy (HCC) ECG 12-LEAD Routine 07/26/2024 4:01 PM TIMBER HARVESTER OPERATOR COMPREHENSIVE METABOLIC PANEL Routine 06/14/2024 7:44 AM TIMBER HARVESTER OPERATOR CBC WITHOUT DIFFERENTIAL Routine 06/14/2024 7:43 AM TIMBER HARVESTER OPERATOR CARDIOLOGY DOCUMENT SCAN Routine 06/12/2024 7:52 AM TIMBER HARVESTER OPERATOR CARDIOLOGY DOCUMENT SCAN Routine 06/11/2024 2:40 PM TIMBER HARVESTER OPERATOR ECG 12-LEAD Routine 06/11/2024 7:46 AM TIMBER HARVESTER OPERATOR CARDIOLOGY DOCUMENT SCAN 06/11/2024 CARDIOLOGY DOCUMENT SCAN Routine 06/09/2024 1:40 PM TIMBER HARVESTER OPERATOR CARDIOLOGY DOCUMENT SCAN Routine 06/09/2024 7:38 AM TIMBER HARVESTER OPERATOR CARDIOLOGY DOCUMENT SCAN Routine 06/08/2024 1:39 PM TIMBER HARVESTER OPERATOR CARDIOLOGY DOCUMENT SCAN Routine 06/07/2024 1:37 PM TIMBER HARVESTER OPERATOR ELECTROCARDIOGRAM REPORT Routine 06/07/2024 11:33 AM TIMBER HARVESTER OPERATOR Atrial fibrillation with rapid ventricular response (HCC) POCT LIPID PANEL Routine 06/07/2024 8:55 AM TIMBER HARVESTER OPERATOR Hyperlipidemia LDL goal <100 from Last 3 Months Results * NM MPI SPECT (Rest and/or Stress) Multiple Studies (08/05/2024 12:54 PM TIMBER HARVESTER OPERATOR) Anatomical Region Laterality Modality Body N/A Nuclear Medicine 08/05/2024 9:35 AM TIMBER HARVESTER OPERATOR Narrative 08/05/2024 12:45 PM TIMBER HARVESTER OPERATOR [facility] [address] [facility] [address] [address] [address] [facility] [address] [address] P:[phone] P:[phone] MPI Imaging Report Patient Name: JAJA MENESES M : 1955 Study Date: 08/05/2024 9:35:14 AM Gender: F Tech: [facility] Location: [facility] Provider: PRABHA MARTINEZ Height(Cm): 172.7 BSA: Weight(Kg): 83.9 BMI: 28.13 Order Provider: PRABHA MARTINEZ PHYSICIAN: Referring Physician: Dr. Lainez. HCG [...] By: Negro Barbosa MD 08/05/2024 12:44:59 PM TIMBER HARVESTER OPERATOR Electronically Signed By: Negro Barbosa MD 08/05/2024 12:44:59 PM TIMBER HARVESTER OPERATOR Procedure Note Negro Barbosa MD - 08/05/2024 [facility] [address], [place] [address] [address] [facility] [address], [place] [address] P:[phone] P:[phone] MPI Imaging Report Patient Name: JAJA MENESES M : 1955 Study Date: 08/05/2024 9:35:14 AM Gender: F Tech: [facility] Location: [facility] Provider: PRABHA MARTINEZ Height(Cm): 172.7 BSA: Weight(Kg): 83.9 BMI: 28.13 Order Provider: PRABAH MARTINEZ PHYSICIAN: Referring Physician: Dr. Lainez. HCG [...] By: Negro Barbosa MD 08/05/2024 12:44:59 PM TIMBER HARVESTER OPERATOR Electronically Signed By: Negro Barbosa MD 08/05/2024 12:44:59 PM TIMBER HARVESTER OPERATOR Result [facility] Prabha Martinez NP IMG NM PROCEDURES Final R esult * ECG 12 lead (07/26/2024 4:01 PM TIMBER HARVESTER OPERATOR) Result [facility] Prabha Martinez NP ECG ORDERABLES Final Res ult * Comprehensive metabolic panel (06/14/2024 7:44 AM TIMBER HARVESTER OPERATOR) Blood Dennis Crowley MD LAB BLOOD ORDERABLES Final Resu lt * CBC without differential (06/14/2024 7:43 AM TIMBER HARVESTER OPERATOR) Blood Dennis Crowley MD LAB BLOOD ORDERABLES Final Resu lt * Cardiology Document Scan (06/12/2024 7:52 AM TIMBER HARVESTER OPERATOR) Anatomical Region Laterality Modality Other us Josie Mora MD CV CARDIAC SERVICES PROCEDURES Final Result * Cardiology Document Scan (06/11/2024 2:40 PM TIMBER HARVESTER OPERATOR) Anatomical Region Laterality Modality Other Result Rick Dove MD CV CARDIAC SERVICES PROCEDURES F inal Result * ECG 12 lead (06/11/2024 7:46 AM TIMBER HARVESTER OPERATOR) Result Rick Dove MD ECG ORDERABLES Final Result * Cardiology Document Scan (06/11/2024) Anatomical Region Laterality Modality Other Result Rick Dove MD CV CARDIAC SERVICES PROCEDURES E dited Result - Final * Cardiology Document Scan (06/09/2024 1:40 PM TIMBER HARVESTER OPERATOR) Anatomical Region Laterality Modality Other Result Rick Butler MD CV CARDIAC SERVICES PROCEDU RES Final Result * Cardiology Document Scan (06/09/2024 7:38 AM TIMBER HARVESTER OPERATOR) Anatomical Region Laterality Modality Other Result Rick Butler MD CV CARDIAC SERVICES PROCEDU RES Final Result * Cardiology Document Scan (06/08/2024 1:39 PM TIMBER HARVESTER OPERATOR) Anatomical Region Laterality Modality Other Result Rick Butler MD CV CARDIAC SERVICES PROCEDU RES Final Result * Cardiology Document Scan (06/07/2024 1:37 PM TIMBER HARVESTER OPERATOR) Anatomical Region Laterality Modality Other Result Rick Butler MD CV CARDIAC SERVICES PROCEDU RES Final Result * Electrocardiogram Report (06/07/2024 11:33 AM TIMBER HARVESTER OPERATOR) us Negro Barbosa MD ECG ORDERABLES Final Res ult * POCT lipid panel (06/07/2024 8:55 AM TIMBER HARVESTER OPERATOR) Cholesterol, POC 101 mg/dL Comment:Glucose = 137 HDL, POC 37 mg/dL Triglycerides, POC 76 mg/dL LDL Cholesterol POC 48 mg/dL Chol/HDL Ratio, POC 1.3 Non-HDL Cholesterol, POC 64 mg/dL Cholesterol Total, POC 101 mg/dL Capillary blood 06/07/2024 8 :55 AM TIMBER HARVESTER OPERATOR Negro Barbosa MD POINT OF CARE TEST ORDERA BLES Final Result from Last 3 Months Insurance [facility]IC[facility] Address: [facility] [address] [place] [address] Care Teams Salesperson [employer] Relationship Specialty [place] [address] [place] [address] PCP - General Internal Medicine 06/07/24
--- OUTSIDE RECORDS SUMMARY | 2024-08-30 11:44 | XMS_ITS ---
Author Organization [facility] Address [address] [place] [address] Care Team Providers Care Cloth Sander Name Role Phone Sandeep Pabon Primary Care Provider Kei Stringer Unavailable [phone] Silke Peng Unavailable [phone] REASON FOR VISIT 1 Month Psych F/U & Med Refill Medications Medication SIG (Take, Route, Frequency, Duration) Notes Start Date End Date Status traMADol HCl 50 MG 1 tablet as needed O rally Three times daily Active clonazePAM 0.5 MG 1 tablet at bedtime Orally Once a day Not-Taking Simvastatin 20 MG 1 tablet in the even ing Orally Once a day for 30 day(s) Active Vistaril 25 MG 2 capsules Orally three times a day for 30 days As needed Active Wellbutrin XL 300 MG 1 tablet in the mor chitra Orally Once a day Active traZODone HCl 50 MG 1 tablet at bedtime as needed Orally Once a day for 30 day(s) Active Social History Sex Assigned At : Social History Observation Description Sex Assigned At Female Encounters Encounter Location Date Provider Diagnosis [address] [place] [address] 12/25/2023 Silke Peng Plan Of Treatment No Information Progress Notes * Joana MENESESsDOB: 3 (69 yo F)Acc No.[id number]:12/25/2023 UNLOCKED PROGRESS NOTE Patient: Jaja BUTT Provider: Radha Peng, CHAD, AIRCRAFT MECHANIC ARMAMENT-BC, PMHNP-BC :1955 A ge:68 Y S ex:Female Date:12/25/2023 Address:[address] [place] [address], [facility] Pcp:Sandeep Pabon Subjective: * Chief Complaints: * [...] * Electronic signature of Silke Peng , [id number] on 08/30/2024 at 11:44 AM CDT Sign off status: Pending * Provider: CHAD Coy, AIRCRAFT MECHANIC ARMAMENT-BC, PMHNP-BC Date: 12/25/2023 Generated for Mary ramirez/Justin/Paulinosmwendy on: 0 08/30/2024 11:44 AM CDT
--- OUTSIDE RECORDS SUMMARY | 2024-08-30 11:44 | XMS_ITS | Encounter Summary ---
Author Organization [facility] Address [address] [place] [address] Care Team Providers Care Cadd Manager Name Role Phone Bernabe Lainez MD Primary Care Provider [phone] Encounter Details Date Type Department Care Team (Late st Contact Info) Description 06/11/2024 Orders Only [facility] Health Information Management [address] [place] [address] Douglas Dove MD [address] [address] Social History Tobacco Use Types Packs/Day Years Used Date Smoking Tobacco: Never Smokeless Tobacco: Never Comments Unknown Sex and Gender Information Value Date Recorded Sex Assigned at Not on file 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 Gender Identity Not on file Sexual Orientation Not on file documented as of this encounter Plan of Treatment Not on file documented as of this encounter Procedures Procedure Name Priority Date/Time Associated Diagnosis Comments CARDIOLOGY DOCUMENT SCAN 06/11/2024 documented in this encounter Results * Cardiology Document Scan (06/11/2024) Anatomical Region Laterality Modality Other us Douglas Dove MD CV CARDIAC SERVICES PROCEDURES E dited Result - Final documented in this encounter Visit Diagnoses Not on filedocumented in this encounter Care Teams Cadd Manager Relationship Specialty Start Date End Date Bernabe Lainez MD [address] [place] [address] PCP - General Internal Medicine 06/07/24 documented as of this encounter
--- OUTSIDE RECORDS SUMMARY | 2024-08-30 11:44 | XMS_ITS | Encounter Summary ---
Author Organization [facility] Address [address] [place] [address] Care Team Providers Care Damage Assessor Name Role Phone Sae Lopez MD Primary Care Provider [phone] Encounter Details Date Type Department Care Team (Late st Contact Info) Description 09/06/2023 1:31 PM CDT Hospital Encounter [facility] Orthopedics and Sports Medicine at [address] [phone] Social History Tobacco Use Types Packs/Day Years Used Date Smoking Tobacco: Never Smokeless Tobacco: Never Comments Unknown Sex and Gender Information Value Date Recorded Sex Assigned at Not on file 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
--- OUTSIDE RECORDS SUMMARY | 2024-08-30 11:45 | XMS_ITS ---
Author Organization [facility] Address [address] [place] [address] Care Team Providers Care Office Machine Embossograph Operator Name Role Phone Sandeep Pabon Primary Care Provider Kei Stringer Unavailable [phone] REASON FOR VISIT transfer to Dr. Pabon Social History Sex Assigned At : Social History Observation Description Sex Assigned At Female Encounters Encounter Location Date Provider Diagnosis [address] [place] [address] 02/12/2024 Sandeep Pabon Plan Of Treatment No Information Progress Notes * Joana MENESESsDOB: 3 (68 yo F)Acc No.[id number]:02/12/2024 Patient: Jaja BUTT :1955 A ge:68 Y S ex:Female Address:[address] [place] [address], [address], [place], [address] * true * Date: Generated for Mary ramirez/Justin/eTransmitting on: 0 08/30/2024 11:44 AM CDT
--- OUTSIDE RECORDS SUMMARY | 2024-08-30 11:45 | XMS_ITS | Patient Health Record ---
Author Organization [facility] Address [address] [place] [address] Care Team Providers Care Skin Lifter Bacon Name Role Phone Pepper Sandeep Primary Care Provider [phone] Kei Stringer Unavailable [phone] Silke Peng Unavailable [phone] Allergies No Known Allergies Reason For Referral No Information Medications Medication SIG (Take, Route, Fr equency, Duration) Notes Start Date End Date Status clonazePAM 0.5 MG 1 tablet at bedtime Orally Once a day Active Simvastatin 20 MG 1 tablet in the even ing Orally Once a day for 30 day(s) Active Wellbutrin XL 300 MG 1 tablet in the mor chitra Orally Once a day Active traMADol HCl 50 MG 1 tablet as needed O rally Three times daily Active traZODone HCl 50 MG 1 tablet at bedtime as needed Orally Once a day for 30 day(s) Active Vistaril 25 MG 2 capsules Orally three times a day for 30 days As needed Active Social History Tobacco Use: Social History Observation Description Date Details (start date - stop date) Never Smoker NA - NA Sex Assigned At : Social History Observation Description Sex Assigned At Female Dont use, Tobacco Use/Smoking Question Answer Notes Are you a nonsmoker Alcohol Screen (Audit-C) Question Answer Notes Did you have a drink containing alcohol in the p ast year? No Section Notes: PRESCRIPTION # FILLED WRITTEN DRUG LABEL QTY DAYS STRENGTH MEDD PRESCRIBER PHARMACY REFILL NO. REFILLS STATE 09/19/2022 09/19/2022 traMADol 30.0 10 50 MG 15 JessicaSae Md [id number] [facility], [place] NA 0 [place] 1 [id number] 09/09/2022 08/17/2022 clonazePAM 30.0 30 0.5 MG NA LiondaEusebio avendaño M.d [id number] [facility], [place] NA 2 [place] 1 [id number] 08/14/2022 08/11/2022 traMADol 30.0 10 50 MG 15 KalynSae simpson Md [id number] [facility], [place] NA [place] 1 [id number] 07/26/2022 04/26/2022 clonazePAM 30.0 30 0.5 MG NA LiondaEusebio avendaño M.d [id number] [place] PRESCRIPTION # FILLED WRITTEN DRUG LABEL QTY DAYS STRENGTH MME PRESCRIBER PHARMACY REFILL NO. REFILLS STATE 11/29/2022 11/29/2022 traMADol 30.0 10 50 MG 15 Jessica Sae Lopez [id number] [facility], [place] NA 0 [place] 1 [id number] 11/28/2022 08/17/2022 clonazePAM 30.0 30 0.5 MG NA LiondaEusebio avendaño M.d [id number] [facility], [place] NA 2 [place] 1 [id number] 10/20/2022 08/17/2022 clonazePAM 30.0 30 0.5 MG NA LiondaEusebio avendaño M.d [id number] [facility], [place] NA 2 [place] 1 [id number] 09/19/2022 09/19/2022 traMADol 30.0 10 50 MG 15 Sae Lopez Md [id number] [place] PRESCRIPTION # FILLED WRITTEN DRUG LABEL QTY DAYS STRENGTH MME PRESCRIBER PHARMACY REFILL NO. REFILLS STATE 12/28/2022 12/28/2022 traMADol 30.0 10 50 MG 15 Sae Lopez Md [id number] [facility], [place] NA 0 [place] 1 [id number] 11/29/2022 11/29/2022 traMADol 30.0 10 50 MG 15 Sae Lopez Md [id number] [place], [place] NA 0 [place] 1 [id number] 11/28/2022 08/17/2022 clonazePAM 30.0 30 0.5 MG NA Muddasani, Bongsimha Liat Garner - [id number] PRESCRIPTION # FILLED WRITTEN DRUG LABEL QTY DAYS STRENGTH MME PRESCRIBER PHARMACY REFILL NO. REFILLS STATE 03/08/2023 02/07/2023 clonazePAM 30.0 30 0.5 MG NA Muddasani, Narsimha Liat Lopez [id number] [place], [place] NA 2 [place] 1 [id number] 02/07/2023 02/07/2023 clonazePAM 30.0 30 0.5 MG NA Muddasani, Narsifrankia Liat Garner - [id number] [place], [place] NA 2 [place] 1 [id number] 12/28/2022 12/28/2022 traMADol 30.0 10 50 MG 15 Sae Lopez Md [id number] PRESCRIPTION # FILLED WRITTEN DRUG LABEL QTY DAYS STRENGTH MME PRESCRIBER PHARMACY REFILL NO. REFILLS STATE 03/11/2023 03/10/2023 traMADol HCL 30.0 10 50 MG 15 Haven Rubi, Rehabilitation Inspector-c - [id number] [place], [place] NA 0 [place] 1 [id number] 03/08/2023 02/07/2023 clonazePAM 30.0 30 0.5 MG NA Muddasani, Narsimha R Pascual Lopez [id number] [place], [place] NA 2 [place] 1 [id number] 02/07/2023 02/07/2023 clonazePAM 30.0 30 0.5 MG NA Muddasani, Narsimha R Pascual - [id number] PRESCRIPTION # FILLED WRITTEN DRUG LABEL QTY DAYS STRENGTH MME PRESCRIBER PHARMACY REFILL NO. REFILLS STATE 05/28/2023 05/25/2023 30.0 10 NA Sae Lopez Md [id number] [place], [place] NA 0 [place] 1 [id number] 05/08/2023 02/07/2023 clonazePAM 30.0 30 0.5 MG NA MuddasaEusebio arriaza M.d [id number] [place], [place] NA 2 [place] 1 [id number] 03/11/2023 03/10/2023 traMADol HCL 30.0 10 50 MG 15 MinHaven menendez Aprn-chela - [id number] [place], [place] 1 [id number] 03/08/2023 02/07/2023 clonazePAM 30.0 30 0.5 MG NA MuddasaBong arriazasifrankia Liat Lopez [id number] [place], [place] NA 2 [place] 1 [id number] 02/07/2023 02/07/2023 clonazePAM 30.0 30 0.5 MG NA LiondasaEusebio arriaza M.d [id number] W PRESCRIPTION # FILLED WRITTE N DRUG LABEL QTY DAYS STRENGTH MME PRESCRIBER PHARMACY REFILL NO. REFILLS STATE PATIENT [id number] 05/28/2023 05/25/2023 30.0 10 Sae Preston Md [id number] [place], [place] NA 0 [place] [id number] 05/08/2023 02/07/2023 clonazePAM 30.0 30 0.5 MG NA LiondasaEusebio arriaza M.d [id number] [facility], [place] NA 2 [place] [id number] 03/11/2023 03/10/2023 traMADol HCL 30.0 10 50 MG 15 MinHaven menendez, Rehabilitation Inspector-c - [id number] W PRESCRIPTION # FILLED WRITTE N DRUG LABEL QTY DAYS STRENGTH MME PRESCRIBER PHARMACY REFILL NO. REFILLS STATE PATIENT [id number] 05/28/2023 05/25/2023 30.0 10 Sae Preston Md [id number] [facility], [place] NA 0 [place] [id number] 05/08/2023 02/07/2023 clonazePAM 30.0 30 0.5 MG NA Muddasani, Narsimha R Mmiguel - [id number] [place], [place] NA 2 [place] [id number] 03/11/2023 03/10/2023 traMADol HCL 30.0 10 50 MG Rosa GreysonHaven Rehabilitation Inspector-c - [id number] [facility], [place] NA 0 [place] [id number] 03/08/2023 02/07/2023 clonazePAM 30.0 30 0.5 MG NA Muddasani, Narsimha R Mmiguel - [id number] W PRESCRIPTION # FILLED WRITTE N DRUG LABEL QTY DAYS STRENGTH MME PRESCRIBER PHARMACY REFILL NO. REFILLS STATE PATIENT [id number] 09/13/2023 09/13/2023 clonazePAM 30.0 30 0.5 MG NA Muddasani, Narsimha Liat Garner - [id number] [place], [place] NA 2 [place] [id number] 09/07/2023 09/07/2023 30.0 10 NA Sae Lopez Md [id number] [place], [place] NA 0 [place] [id number] 05/28/2023 05/25/2023 30.0 10 Sae Preston Md [id number] [place], [place] NA 0 [place] [id number] 05/08/2023 02/07/2023 clonazePAM 30.0 30 0.5 MG NA Muddasani, Narsimha R Pascual - [id number] W PRESCRIPTION # FILLED WRITTEN DRUG LABEL QTY DAYS STRENGTH MME PRESCRIBER PHARMACY REFILL NO. REFILLS STATE 10/28/2023 09/13/2023 clonazePAM 30.0 30 0.5 MG NA Muddasani, Narsimha R Mmiguel - [id number] [place], [place] NA 2 [place] 1 [id number] 10/23/2023 10/23/2023 traMADol HCL 60.0 30 50 MG 10.0 Bernabe Lainez Md - [id number] [facility], [place] NA [place] 1 [id number] 09/13/2023 09/13/2023 clonazePAM 30.0 30 0.5 MG NA Eusebio Elise M.d [id number] [place], [place] NA 2 [place] 1 [id number] 09/07/2023 09/07/2023 traMADol HCL 30.0 10 50 MG 15.0 Sae Lopez Md [id number] W PRESCRIPTION # FILLED WRITTEN DRUG LABEL QTY DAYS STRENGTH MME PRESCRIBER PHARMACY REFILL NO. REFILLS STATE 12/10/2023 09/13/2023 clonazePAM 30.0 30 0.5 MG NA Eusebio Elise M.d [id number] [place], [place] NA 2 [place] 1 [id number] 10/28/2023 09/13/2023 clonazePAM 30.0 30 0.5 MG NA LiondaEusebio avendaño M.d [id number] [place], [place] NA 2 [place] 1 [id number] 10/23/2023 10/23/2023 traMADol HCL 60.0 30 50 MG 10.0 Bernabe Lainez Md - [id number] [place], [place] NA 0 [place] 1 [id number] 09/13/2023 09/13/2023 clonazePAM 30.0 30 0.5 MG NA LiondaEusebio avendaño M.d [id number] [place] PRESCRIPTION # FILLED WRITTEN DRUG LABEL QTY DAYS STRENGTH MEDD PRESCRIBER PHARMACY REFILL NO. REFILLS STATE 08/14/2022 08/11/2022 traMADol 30.0 10 50 MG 15 Sae Lopez Md [id number] [place], [place] NA [place] 1 [id number] 07/26/2022 04/26/2022 clonazePAM 30.0 30 0.5 MG NA LiondaEusebio avendaño M.d [id number] [place], [place] NA 2 [place] 1 [id number] 06/10/2022 06/10/2022 traMADol 30.0 10 50 MG 15 Mahay, Sae Md - [id number] [place], [place] 1 [id number] 06/09/2022 04/26/2022 clonazePAM 30.0 30 0.5 MG NA Bong Elisecindalulu Lopez [id number] W Problems Problem Type SNOMED Code ICD Code Onset Dates Problem Status W/U Status Risk Notes Problem Depression (022410268) Depression (F32.9) Active confirmed Problem Anxiety (02094508) Anxiety (F41.9) Active confirmed Encounters Encounter Location Date Provider Diagnosis [address] [address] 09/18/2023 Silke Ginette Depression F32.9 and Anxiety F41.[address] [address] 10/19/2023 Silke Ginette Depression F32.9 and Anxiety F41.[address] [address] 11/23/2023 Silke Ginette Depression F32.9 and Anxiety F41.[address] [address] 01/22/2024 Silke Ginette Depression F32.9 and Anxiety F41.[address] [address] 02/12/2024 Sandeep Pabon Assessments Encounter Date Diagnosis (ICD Code) Assessment Notes Treatment Notes Treatment Clinical Notes Section Notes 09/18/2023 Depression (ICD-10 - F32.9) Pt has contact information for therapy, PHQ-9 is 15 today, pt refuses warm hand off to crisis. Wellbutrin, trazodone prescribed by PCP. 10/19/2023 Depression (ICD-10 - F32.9) Pt has contact information for therapy, PHQ-9 is 7 today, pt refuses warm hand off to crisis. Wellbutrin, trazodone prescribed by PCP. 11/23/2023 Depression (ICD-10 - F32.9) Pt has contact information for therapy, PHQ-9 is 7 today, pt refuses warm hand off to crisis. Wellbutrin, trazodone prescribed by PCP. 01/22/2024 Depression (ICD-10 - F32.9) Pt has contact information for therapy, PHQ-9 is 5 today, pt refuses warm hand off to crisis. Wellbutrin, trazodone prescribed by PCP. 01/22/2024 Anxiety (ICD-10 - F41.9) Continue Vistaril Practice deep breathing daily Practice mindfulness techniques Practice relaxation techniques Encouraged therapy Medications as prescribed. Discussed possible SEs, risks, and benefits. Reviewed black box warning for possible SI. Continue with regular exercise and a healthy, balanced diet. Follow up with the counselor as discussed. Pt advised to call or seek immediate medical attention if they develop any new or worsening symptoms. Follow up in 1 month for recheck, sooner if needed. Patient/caregiver instructed to call or seek medical attention if any new or worsening symptoms. Red flag symptoms/indications for trip to ER reviewed. Patient/caregiver voiced understanding and agreement with the above. Practice deep breathing daily Practice mindfulness techniques Practice mindfulness techniques 11/23/2023 Anxiety (ICD-10 - F41.9) Continue Vistaril Encouraged therapy 10/19/2023 Anxiety (ICD-10 - F41.9) Continue Vistaril Encouraged therapy 09/18/2023 Anxiety (ICD-10 - F41.9) Continue Vistaril Encouraged therapy 09/18/2023 Other Patient was edu cated on diagnosis and symptoms. Discussed the treatment plan, patient is agreeable and accepting of treatment plan. Patient denies further questions or concerns currently. Discussed sleep hygiene and caffeine intake. Encouraged to improve diet, get regular exercise, daily relaxation, and work on managing stress levels.Return to clinic 4 weeks.Labs are up to date, need disclosure. Encouraged counseling.The Patient/Guardian is aware of the need to contact the office or return for an earlier appointment if any problems or concerns arise. May also contact the 24-hour crisis hotline (R), refer to the closest emergency room or call 911 if new symptoms arise of existing symptoms worsen; the Patient/Guardian is aware that this would apply to symptoms such as: suicidal ideation, homicidal ideation, high risk behaviors, manic symptoms, psychotic symptoms, physical symptoms, or any other symptoms that may be dangerous to self or others.Greater than 50% of time spent on coordination and counseling where psychopharmacology as well as psychotherapeutic interventions were discussed along with review of treatments in the past.Patient/Guardian was educated about treatments including benefits and risks, alternatives, potential medication side effects, black box warning, and risks of failure if not treated. The Patient/Guardian asked appropriate questions, appeared to understand the answers, and decided to accept the treatment and continue being followed.Discussed the importance of compliance with medications due to the risk of relapse of symptoms.Discussed the risks of taking psychotropic medication when combined with substance use/abuse and/or drinking alcohol. 10/19/2023 Other Patient was edu cated on diagnosis and symptoms. Discussed the treatment plan, patient is agreeable and accepting of treatment plan. Patient denies further questions or concerns currently. Discussed sleep hygiene and caffeine intake. Encouraged to improve diet, get regular exercise, daily relaxation, and work on managing stress levels.Return to clinic 4 weeks.Disclosure signed. Encouraged counseling.The Patient/Guardian is aware of the need to contact the office or return for an earlier appointment if any problems or concerns arise. May also contact the 24-hour crisis hotline ([facility]), refer to the closest emergency room or call 911 if new symptoms arise of existing symptoms worsen; the Patient/Guardian is aware that this would apply to symptoms such as: suicidal ideation, homicidal ideation, high risk behaviors, manic symptoms, psychotic symptoms, physical symptoms, or any other symptoms that may be dangerous to self or others.Greater than 50% of time spent on coordination and counseling where psychopharmacology as well as psychotherapeutic interventions were discussed along with review of treatments in the past.Patient/Guardian was educated about treatments including benefits and risks, alternatives, potential medication side effects, black box warning, and risks of failure if not treated. The Patient/Guardian asked appropriate questions, appeared to understand the answers, and decided to accept the treatment and continue being followed.Discussed the importance of compliance with medications due to the risk of relapse of symptoms.Discussed the risks of taking psychotropic medication when combined with substance use/abuse and/or drinking alcohol. 11/23/2023 Other Patient was edu cated on diagnosis and symptoms. Discussed the treatment plan, patient is agreeable and accepting of treatment plan. Patient denies further questions or concerns currently. Discussed sleep hygiene and caffeine intake. Encouraged to improve diet, get regular exercise, daily relaxation, and work on managing stress levels.Return to clinic 4 weeks.Labs are up to date, need disclosure. Encouraged counseling.The Patient/Guardian is aware of the need to contact the office or return for an earlier appointment if any problems or concerns arise. May also contact the 24-hour crisis hotline ([facility]), refer to the closest emergency room or call 911 if new symptoms arise of existing symptoms worsen; the Patient/Guardian is aware that this would apply to symptoms such as: suicidal ideation, homicidal ideation, high risk behaviors, manic symptoms, psychotic symptoms, physical symptoms, or any other symptoms that may be dangerous to self or others.Greater than 50% of time spent on coordination and counseling where psychopharmacology as well as psychotherapeutic interventions were discussed along with review of treatments in the past.Patient/Guardian was educated about treatments including benefits and risks, alternatives, potential medication side effects, black box warning, and risks of failure if not treated. The Patient/Guardian asked appropriate questions, appeared to understand the answers, and decided to accept the treatment and continue being followed.Discussed the importance of compliance with medications due to the risk of relapse of symptoms.Discussed the risks of taking psychotropic medication when combined with substance use/abuse and/or drinking alcohol. 01/22/2024 Other Patient was edu cated on diagnosis and symptoms. Discussed the treatment plan, patient is agreeable and accepting of treatment plan. Patient denies further questions or concerns currently. Discussed sleep hygiene and caffeine intake. Encouraged to improve diet, get regular exercise, daily relaxation, and work on managing stress levels.Return to clinic 4 weeks.Had recent labs, will have sign a disclosure.Encouraged counseling.The Patient/Guardian is aware of the need to contact the office or return for an earlier appointment if any problems or concerns arise. May also contact the 24-hour crisis hotline ([facility]), refer to the closest emergency room or call 911 if new symptoms arise of existing symptoms worsen; the Patient/Guardian is aware that this would apply to symptoms such as: suicidal ideation, homicidal ideation, high risk behaviors, manic symptoms, psychotic symptoms, physical symptoms, or any other symptoms that may be dangerous to self or others.Greater than 50% of time spent on coordination and counseling where psychopharmacology as well as psychotherapeutic interventions were discussed along with review of treatments in the past.Patient/Guardian was educated about treatments including benefits and risks, alternatives, potential medication side effects, black box warning, and risks of failure if not treated. The Patient/Guardian asked appropriate questions, appeared to understand the answers, and decided to accept the treatment and continue being followed.Discussed the importance of compliance with medications due to the risk of relapse of symptoms.Discussed the risks of taking psychotropic medication when combined with substance use/abuse and/or drinking alcohol. Plan Of Treatment No Information Insurance Providers Payer Name Payer Address Payer Phone Subscriber Number Group Number Insured Name Patient Relationship to Insured Coverage Start Date Coverage End Date [employer] Medicare [address] [address] [place] [phone] [id number] Jaja Meneses Self - patient is the insured 3 [employer] MEDICARE AIR[employer] ARTIST [address] [address] [place] [address] [id number] Jaja Meneses Self - patient is the insured 2 2 [employer] MEDICARE ADVANTAGE PLAN [address] [address] [place], [place] [id number] Jaja Meneses Self - patient is the insured 2 2 Medical (General) History Medical History History ICD Code CKD HLD HTN Stage 3 Kidney Disease Surgical History Surgery Date(Month/Year) Endoscopic sleeve gastroplasty 1978 1981 Left/Right Feet Hammer Toe 1996 gallbladder removal 2003 Left/Right knee replacement 2004 Hospitalization History Reason Date(Month/Year) Left/Right knee replacement 2004 1981 Endoscopic sleeve gastroplasty 1978 gallbladder removal 2003 Left/Right Feet Hammer Toe 1996 Child 1979
--- OUTSIDE RECORDS SUMMARY | 2024-08-30 11:45 | XMS_ITS | Clinical Summary ---
Author Organization Unknown Care Team Providers Care Blunger Machine Operator Name Role Phone ASCENCION MCCLENDON MD Unavailable Unavailable DREA PT, BENNETT Unavailable Unavailable MINISTERIO DONAHUE, SABINA Unavailable Unavailable DESTINI GALLOWAY Unavailable Unavailable JAS OT, MARY Unavailable Unavailable Payers Payer Name Policy Type Policy Number Effective Date Expira tion Date MEDICARE.[email or web address] [id number] Problems Condition Name Condition Details Condition Category [...] 00 UNSPECIFIED CONVULSIONS Active 07-08 00:00: 00 PENITENTIARY (CURRENT) USE OF ANTICOAGULAN TS Active 07-08 [...] 07-05 00:00: 00 07-16 00:00 :00 No [id number] Per instruc tions Per instructio ns (route: oral) Med Classific ation: Central Nervous System Agents Eliquis 5 mg tablet 07-05 00:00: 00 07-16 00:00 :00 No [id number] Per instruc tions Per instructio ns (route: oral) Med Classific ation: Hematolog ical Agents furosemide 20 mg tablet 07-05 00:00: 00 07-16 00:00 :00 No [id number] Per instruc tions Per instructio ns (route: oral) Med Classific ation: Cardiovas cular Therapy Agents Jardiance 10 mg tablet 07-05 00:00: 00 Yes [id number] DIABETES 1 tablet DAILY 1 tablet DAILY (route: oral) Med Classific ation: Endocrine lamotrigine 100 mg tablet 07-05 00:00: 00 Yes [id number] SEIZURES 1 tablet DAILY 1 tablet DAILY (route: oral) Med Classific ation: Central Nervous System Agents metoprolol succinate ER 25 mg tablet,exte nded release 24 hr 07-05 00:00: 00 Yes [id number] HIGH BLOOD PRESSURE 1 tablet DAILY 1 tablet DAILY (route: oral) Med Classific ation: Cardiovas cular Therapy Agents simvastatin 20 mg tablet 07-05 00:00: 00 Yes [id number] CHOLESTEROL 1 tablet DAILY 1 tablet DAILY (route: oral) Med Classific ation: Cardiovas cular Therapy Agents trazodone 100 mg tablet 07-05 00:00: 00 07-16 00:00 :00 No [id number] Per instruc tions Per instructio ns (route: oral) Med Classific ation: Central Nervous System Agents clonazepam 0.5 mg tablet - 00:00: 00 Yes [id number] NEEDED FOR ANXIETY 1 tablet DAILY 1 tablet DAILY (route: oral) Med Classific ation: Central Nervous System Agents prednisone 20 mg tablet 2023-06 00:00: 00 07-16 00:00 :00 No [id number] Per instruc tions Per instructio ns (route: oral) Med Classific ation: Endocrine trazodone 100 mg tablet 2023-06 00:00: 00 07-16 00:00 :00 No [id number] Per instruc tions Per instructio ns (route: oral) Med Classific ation: Central Nervous System Agents bupropion HCl XL 300 mg 24 hr tablet, extended release 07-05 00:00: 00 07-16 00:00 :00 No [id number] Per instruc tions Per instructio ns (route: oral) Med Classific ation: Central Nervous System Agents Eliquis 5 mg tablet 07-05 00:00: 00 07-16 00:00 :00 No [id number] BLOOD THINNER 1 tablet DAILY 1 tablet DAILY (route: oral) Med Classific ation: Hematolog ical Agents furosemide 20 mg tablet 07-05 00:00: 00 07-16 00:00 :00 No [id number] Per instruc tions Per instructio ns (route: oral) Med Classific ation: Cardiovas cular Therapy Agents Jardiance 10 mg tablet 07-05 00:00: 00 07-16 00:00 :00 No [id number] Per instruc tions Per instructio ns (route: oral) Med Classific ation: Endocrine lamotrigine 100 mg tablet 07-05 00:00: 00 07-16 00:00 :00 No [id number] Per instruc tions Per instructio ns (route: oral) Med Classific ation: Central Nervous System Agents metoprolol succinate ER 25 mg tablet,exte nded release 24 hr 07-05 00:00: 00 07-16 00:00 :00 No [id number] Per instruc tions Per instructio ns (route: oral) Med Classific ation: Cardiovas cular Therapy Agents simvastatin 20 mg tablet 07-05 00:00: 00 07-16 00:00 :00 No [id number] Per instruc tions Per instructio ns (route: oral) Med Classific ation: Cardiovas cular Therapy Agents trazodone 100 mg tablet 07-05 00:00: 00 07-16 00:00 :00 No [id number] Per instruc tions Per instructio ns (route: oral) Med Classific ation: Central Nervous System Agents clonazepam 0.5 mg tablet 06-21 00:00: 00 07-16 00:00 :00 No [id number] Per instruc tions Per instructio ns (route: oral) Med Classific ation: Central Nervous System Agents prednisone 20 mg tablet 2023-06 00:00: 00 07-16 00:00 :00 No [id number] Per instruc tions Per instructio ns (route: oral) Med Classific ation: Endocrine trazodone 100 mg tablet 2023-06 00:00: 00 Yes [id number] NEEDED FOR SLEEPING AID 1 tablet DAILY 1 tablet DAILY (route: oral) Med Classific ation: Central Nervous System Agents Calcium Antacid 200 mg (as calcium carbonate 500 mg) chewable tablet 07-16 00:00: 00 Yes [id number] SUPPLEMENT 2 tablet DAILY 2 tablet DAILY (route: oral) Med Classific ation: Gastroint estinal Therapy Agents Pain Relief (acetaminop hen) 650 mg tablet,exte nded release 07-16 00:00: 00 Yes [id number] NEEDED FOR MILD PAIN 1 tablet EVERY 8 HOURS 1 tablet EVERY 8 HOURS (route: oral) Med Classific ation: Analgesic , Anti-infl ammatory or Antipyret ic tramadol 50 mg tablet 07-16 00:00: 00 Yes [id number] NEEDED FOR MODERATE PAIN 1 tablet 2 TIMES DAILY 1 tablet 2 TIMES DAILY (route: oral) Med Classific ation: Analgesic , Anti-infl ammatory or Antipyret ic Vitamin B-12 50 mcg tablet 07-16 00:00: 00 Yes [id number] SUPPLEMENT 1 tablet DAILY 1 tablet DAILY (route: oral) Med Classific ation: Electroly te Balance-N utritiona l Products Vitamin D3 25 mcg (1,000 unit) capsule 07-16 00:00: 00 Yes [id number] SUPPLEMENT 1 capsule DAILY 1 capsule DAILY [...] TO EVALUATE, OBSERVE / ASSESS, AND MONITOR, STRATEGIC PARTNERSHIP MANAGER TO OBSERVE AND MONITOR, PROVIDE SKILLED THERAPEUTIC INTERVENTION, ACTIVITY, EDUCATION, AND TRAINING TO ADDRESS; [code = AGENCY MAY PERFORM A RESUMPTION OF CARE VISIT FOLLOWING ANY HOSPITAL ADMISSION. PT TO EVALUATE, OBSERVE / ASSESS, AND MONITOR, STRATEGIC PARTNERSHIP MANAGER TO OBSERVE AND MONITOR, PROVIDE SKILLED THERAPEUTIC INTERVENTION, ACTIVITY, EDUCATION, AND TRAINING TO ADDRESS;] Future Scheduled Test OCCUPATION AL THERAPIST DECLINED [code = OCCUPATIONAL THERAPIST DECLINED] Future Scheduled Test PT / STRATEGIC PARTNERSHIP MANAGER T O INSTRUCT PATIENT/CAREGIVER ON RISK FOR HOSPITALIZATION/EMERGENCY ROOM VISITS, TEACH SIGNS AND SYMPTOMS THAT PUT PATIENT AT RISK, WHEN TO NOTIFY NURSE/PHYSICIAN OF COMPLICATIONS/DECLINE, AND WHEN TO CALL 911. [code = PT / STRATEGIC PARTNERSHIP MANAGER TO INSTRUCT PATIENT/CAREGIVER ON RISK FOR HOSPITALIZATION/EMERGENCY ROOM VISITS, TEACH SIGNS AND SYMPTOMS THAT PUT PATIENT AT RISK, WHEN TO NOTIFY NURSE/PHYSICIAN OF COMPLICATIONS/DECLINE, AND WHEN TO CALL 911.] Future Scheduled Test PT/STRATEGIC PARTNERSHIP MANAGER TO PROVIDE GAIT TRAINING FOR IMPROVED MOBILITY AND /OR TO NORMALIZE GAIT PATTERN [code = PT/STRATEGIC PARTNERSHIP MANAGER TO PROVIDE GAIT TRAINING FOR IMPROVED MOBILITY AND /OR TO NORMALIZE GAIT PATTERN] Future Scheduled Test THERAPEUTI C EXERCISES AND ESTABLISHING A HOME EXERCISE PROGRAM (PT/STRATEGIC PARTNERSHIP MANAGER) [code = THERAPEUTIC EXERCISES AND ESTABLISHING A HOME EXERCISE PROGRAM (PT/STRATEGIC PARTNERSHIP MANAGER)] Future Scheduled Test PT/STRATEGIC PARTNERSHIP MANAGER TO IDENTIFY FALL RISK FACTORS; EDUCATE THE PATIENT/CAREGIVER ON WAYS TO REDUCE FALL RISK FACTORS AND ESTABLISH HOME EXERCISE PROGRAM TO MINIMIZE FALL RISK. MAY TEACH THE PATIENT FLOOR RECOVERY WHEN CLINICALLY APPROPRIATE [code = PT/STRATEGIC PARTNERSHIP MANAGER TO IDENTIFY FALL RISK FACTORS; EDUCATE THE PATIENT/CAREGIVER ON WAYS TO REDUCE FALL RISK FACTORS AND ESTABLISH HOME EXERCISE PROGRAM TO MINIMIZE FALL RISK. MAY TEACH THE PATIENT FLOOR RECOVERY WHEN CLINICALLY APPROPRIATE] Future Scheduled Test PT/STRATEGIC PARTNERSHIP MANAGER TO PROVIDE STAIR TRAINING [code = PT/STRATEGIC PARTNERSHIP MANAGER TO PROVIDE STAIR TRAINING] Future Scheduled Test SIT TO/FRO M STAND TRANSFERS (PT/STRATEGIC PARTNERSHIP MANAGER) [code = SIT TO/FROM STAND TRANSFERS (PT/STRATEGIC PARTNERSHIP MANAGER)] Future Scheduled Test PT TO ASSE SS / STRATEGIC PARTNERSHIP MANAGER TO MONITOR CARDIO/RESPIRATORY SYSTEM; AND NOTIFY THE PHYSICIAN AND/OR THE RN CL[employer]ICAL [employer] PRINCIPAL FOR PHYSICIAN NOTIFICATION FOR EARLY SIGNS AND SYMPTOMS OF EXACERBATION OR DETERIORATION. [code = PT TO ASSESS / STRATEGIC PARTNERSHIP MANAGER TO MONITOR CARDIO/RESPIRATORY SYSTEM; AND NOTIFY THE PHYSICIAN AND/OR THE RN CL[employer]ICAL [employer] PRINCIPAL FOR PHYSICIAN NOTIFICATION FOR EARLY SIGNS AND SYMPTOMS OF EXACERBATION OR DETERIORATION.] Future Scheduled Test PT / STRATEGIC PARTNERSHIP MANAGER T O MONITOR AND EDUCATE ON OXYGEN SATURATION DURING ADLS/IADLS, NOTIFY PHYSICIAN AND/OR THE RN CL[employer]ICAL [employer] PRINCIPAL FOR PHYSICIAN NOTIFICATION AND IF O2 SATS BELOW PHYSICIAN ORDERED PARAMETERS AFTER 10 MIN OF REST [code = PT / STRATEGIC PARTNERSHIP MANAGER TO MONITOR AND EDUCATE ON OXYGEN SATURATION DURING ADLS/IADLS, NOTIFY PHYSICIAN AND/OR THE RN CL[employer]ICAL [employer] PRINCIPAL FOR PHYSICIAN NOTIFICATION AND IF O2 SATS BELOW PHYSICIAN ORDERED PARAMETERS AFTER 10 MIN OF REST] Future Scheduled Test PT / STRATEGIC PARTNERSHIP MANAGER T O MONITOR FOR HYPO/HYPERGLYCEMIA AND CONDUCT ROUTINE FOOT INSPECTIONS. RECORD PATIENT REPORTED BLOOD SUGAR LEVELS AND NOTIFY PHYSICIAN AND/OR THE RN CL[employer]ICAL [employer] PRINCIPAL FOR PHYSICIAN NOTIFICATION IF BLOOD SUGAR LEVELS ARE OUTSIDE ORDERED PARAMETERS. TEACH PATIENT/CAREGIVER ON DAILY FOOT INSPECTIONS [code = PT / STRATEGIC PARTNERSHIP MANAGER TO MONITOR FOR HYPO/HYPERGLYCEMIA AND CONDUCT ROUTINE FOOT INSPECTIONS. RECORD PATIENT REPORTED BLOOD SUGAR LEVELS AND NOTIFY PHYSICIAN AND/OR THE RN CL[employer]ICAL [employer] PRINCIPAL FOR PHYSICIAN NOTIFICATION IF BLOOD SUGAR LEVELS ARE OUTSIDE ORDERED PARAMETERS. TEACH PATIENT/CAREGIVER ON DAILY FOOT INSPECTIONS] Future Scheduled Test PT / STRATEGIC PARTNERSHIP MANAGER M AY EDUCATE ON PAIN MANAGEMENT CLINICALLY INDICATED, INCLUDING NON-PHARMACOLOGICAL PAIN REDUCTION TECHNIQUES AND USE OF CRYOTHERAPY OR HEAT UP TO 20 MIN AT A TIME FOR PAIN MANAGEMENT 6-8 TIMES PER DAY TO BACK AND HEAD [code = PT / STRATEGIC PARTNERSHIP MANAGER MAY EDUCATE ON PAIN MANAGEMENT CLINICALLY INDICATED, INCLUDING NON-PHARMACOLOGICAL PAIN REDUCTION TECHNIQUES AND USE OF CRYOTHERAPY OR HEAT UP TO 20 MIN AT A TIME FOR PAIN MANAGEMENT 6-8 TIMES PER DAY TO BACK AND HEAD] Future Scheduled Test PT / STRATEGIC PARTNERSHIP MANAGER T O EDUCATE ON HEART FAILURE SELF-MANAGEMENT [code = PT / STRATEGIC PARTNERSHIP MANAGER TO EDUCATE ON HEART FAILURE SELF-MANAGEMENT] Future Scheduled Test PT / STRATEGIC PARTNERSHIP MANAGER T O EDUCATE ON HYPERTENSION SELF-MANAGEMENT [code = PT / STRATEGIC PARTNERSHIP MANAGER TO EDUCATE ON HYPERTENSION SELF-MANAGEMENT] Future Scheduled Test PT / STRATEGIC PARTNERSHIP MANAGER T O EDUCATE ON ATRIAL FIBRILLATION SELF-MANAGEMENT. [code = PT / STRATEGIC PARTNERSHIP MANAGER TO EDUCATE ON ATRIAL FIBRILLATION SELF-MANAGEMENT.] Future Scheduled Test PT TO ASSE SS / STRATEGIC PARTNERSHIP MANAGER TO MONITOR FOR AND REPORT EARLY SIGNS OF ANTICOAGULANT TOXICITY TO THE PHYSICIAN AND/OR THE RN CL[employer]ICAL [employer] PRINCIPAL FOR PHYSICIAN NOTIFICATION AND TO PROVIDE PATIENT/CAREGIVER EDUCATION ON ANTICOAGULANT THERAPY [code = PT TO ASSESS / STRATEGIC PARTNERSHIP MANAGER TO MONITOR FOR AND REPORT EARLY SIGNS OF ANTICOAGULANT TOXICITY TO THE PHYSICIAN AND/OR THE RN CL[employer]ICAL [employer] PRINCIPAL FOR PHYSICIAN NOTIFICATION AND TO PROVIDE PATIENT/CAREGIVER EDUCATION ON ANTICOAGULANT THERAPY] Future Scheduled Test PT TO ASSE SS / STRATEGIC PARTNERSHIP MANAGER TO MONITOR FOR HEART FAILURE EXACERBATION AND RECORD PATIENT REPORTED WEIGHT, AND NOTIFY THE PHYSICIAN AND/OR THE RN CLINICAL [employer] PRINCIPAL FOR PHYSICIAN NOTIFICATION OF HF EXACERBATION (2LB WEIGHT GAIN IN 1 DAY, 5LBS IN A WEEK OR 5 LBS OVER BASELINE; INCREASED SOB, EDEMA, NEEDING MORE PILLOWS AT NIGHT, CRACKLES IN BASIS OF THE LUNGS OR PMI SHIFT) [code = PT TO ASSESS / STRATEGIC PARTNERSHIP MANAGER TO MONITOR FOR HEART FAILURE EXACERBATION AND RECORD PATIENT REPORTED WEIGHT, AND NOTIFY THE PHYSICIAN AND/OR THE RN CLINICAL [employer] PRINCIPAL FOR PHYSICIAN NOTIFICATION OF HF EXACERBATION (2LB WEIGHT GAIN IN 1 DAY, 5LBS IN A WEEK OR 5 LBS OVER BASELINE; INCREASED SOB, EDEMA, NEEDING MORE PILLOWS AT NIGHT, CRACKLES IN BASIS OF THE LUNGS OR PMI SHIFT)] Future Scheduled Test PT / STRATEGIC PARTNERSHIP MANAGER T O EDUCATE ON DIABETES SELF- MANAGEMENT [code = PT / STRATEGIC PARTNERSHIP MANAGER TO EDUCATE ON DIABETES SELF- MANAGEMENT] Future [...] End Date/Time Encounter Type Admission Type Attending [facility] Care Department Encounter ID Discharge Date Discharge Status Discharge Condition Discharge Reason Percent Goals Met 2024-07-16 00:00:00 2024-09-13 00:00:00 Outpatient NEW ADMISSION BENNETT SHEPARD [facility] [id number]
--- OUTSIDE RECORDS SUMMARY | 2024-08-30 11:45 | XMS_ITS ---
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 REFILLS STATE 12/10/2023 09/13/2023 clonazePAM 30.0 30 0.5 MG NA Eusebio Elise M.d [id number] [place], [place] NA 2 [place] 1 [id number] 10/28/2023 09/13/2023 clonazePAM 30.0 30 0.5 MG Eusebio Norman M.d [id number] [place], [place] NA 2 [place] 1 [id number] 10/23/2023 10/23/2023 traMADol HCL 60.0 30 50 MG 10.0 Bernabe Lainez Md - [id number] [place], [place] NA 0 [place] 1 [id number] 09/13/2023 09/13/2023 clonazePAM 30.0 30 0.5 MG NA LiondaEusebio avendaño M.d [id number] [place] Encounters Encounter Location Date Provider Diagnosis [address] [place] [address] 01/22/2024 Silke Peng Depression F32.9 and Anxiety F41.9 Assessments Encounter Date Diagnosis (ICD Code) Assessment Notes Treatment Notes Treatment Clinical Notes Section Notes 01/22/2024 Depression (ICD-10 - F32.9) Pt has [...] daily Practice mindfulness techniques Practice mindfulness techniques 01/22/2024 Other Patient was edu cated on [...] use/abuse and/or drinking alcohol. Plan Of Treatment Medication Medication Name Sig Start Date Stop Date Notes Vistaril 25 MG 2 capsules Orally th ree times a day for 30 days Treatment Notes Assessment Notes Depression Pt has contact information for therapy, PHQ-9 is 5 today, pt refuses warm hand off to crisis. Wellbutrin, trazodone prescribed by PCP. Anxiety Continue Vistaril Practice deep breathing daily Practice [...] daily Practice mindfulness techniques Practice mindfulness techniques Other Patient was educated on diagnosis and symptoms. Discussed the treatment [...] combined with substance use/abuse and/or drinking alcohol. Next Appt Details Follow Up: 4 Weeks, Reason: Medication management - can be telehealth appt. Progress Notes * Joana MENESESsDOB: 3 (68 yo F)Acc No.[id number]:01/22/2024 Patient: Jaja BUTT Provider: Radha Peng, MSN, NANOTECHNOLOGY ENGINEERING TECHNICIAN-, PMHNP-BC :1955 A ge:68 Y S ex:Female Date:01/22/2024 Address:[address] [place] [address], [id number] Pcp:Kei Stringer Subjective: * Chief Complaints: * E xtended visit * HPI: D epression Screening: PHQ-9 L ittle interest or pleasure in doing things S everal days, F eeling down, depressed, or hopeless M ore than half the days, T rouble falling or staying asleep, or sleeping too much N ot at all, F eeling tired or having little energy S everal days, P oor appetite or overeating N ot at all, F eeling bad about yourself or that you are a failure, or have let yourself or your family down S everal days, T rouble concentrating on things, such as reading the newspaper or watching television N ot at all,?Moving or speaking so slowly that other people could have noticed; or the opposite, being so fidgety or restless that you have been moving around a lot more than usual N ot at all, T houghts that you would be better off or of hurting yourself in some way N ot at all, T otal Score 5 , I nterpretation M ild Depression. I ntervention D epression Screening Findings P ositive, F ollow-Up for Depression N o Referral necessary, patient involved in behavioral health treatment .. This session was completed telephonically due to COVID-19 emergency, with client/parental/guardian consent. S creening: Ingram Suicide Severity Rating Scale (LF) D o you want to initiate with S creener form, 1 . Wish to be : Have you wished you were or wished you could go to sleep and not wake up? N o, 2 . Suicidal Thoughts: Have you actually had any thoughts of killing yourself? N o, 6 . Suicide Behaviour: Have you ever done anything,started to do anything, or prepared to end your life? N o, I nterpretation: L ow Risk. C SSRS Interpretation and Follow Up Plan: CSSRS Interpretation and Follow Up Plan. CSSRS Interpretation and Follow Up Plan C SSRS Screen documented using SF Y es, M oderate or High risk requires selection of a follow up plan C SSRS No/Low: intervention not needed at this time. C onstitutional: Chief Complaint: Medication management HPI: Jaja is a 68 y/o female that presents via telephone for her appt today. She was last seen 11/23/23 at which time we increased Vistaril. She missed last months appt. She has been trying her cousin's car so that has helped tremendously, she does not have to rely on Norah and Darline for rides to work, PT, and to the store. She continues to work part-time. She had recent labs. She is established care with a new PCP, Dr. Lainez, she has an appt with him tomorrow. She is seeing a intelligence group supervisor because her creatinine was slightly elevated. She has 1 kidney. He is having her drink 60 oz of water a day and to keep her BP in check. She continues with PT and she admits it has helped with the strength in her lower legs. Her sister, Nena, has 3 more chemo treatments (stomach cancer), she is back staying with her boyfriend. Nena's boyfriend now has brain cancer. Nena comes over every Monday and they play cards. Her granddaughter Thuy (age 19) continues to live with her. She got a car and got a job at [employer]. Jaja is worried about her because her anxiety is elevated. She was suffering from panic attacks. She was seen at [facility], then sent to [facility], then [facility]. Jaja is working part-time job. Her PCP prescribes trazodone, tramadol, and Wellbutrin. Depression is 5/10. Anxiety is 9/10. Denies any difficulty with sleep. She feels her medications are effective and she takes them as directed. I don't know where I would be without my medication. No side effects. She denies any SIB/SI/HI/AVH. Pt is taking clonazepam per Dr. Elise, discussed prison risk of BZD, educated pt to only take if SEVERE anxiety. PHQ-9 on 11/23/2023 was 7. Today's PHQ-9 is a 5. 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 Appetite: Appetite is good. Depression: 10/26 Anxiety/Panic attacks: 02/26 Anger/Irritability: Denies Hallucinations/Paranoia: Denies Current Suicidal ideation: Denies Past suicidal ideation: Denies Homicidal ideation: Denies Medical concerns: PCP is Dr. Migel Burr Has 1 kidney Hospitalizations/medication changes by other providers: Denies Support system: Daughter Darline, Has another daughter Norah; Support System is her cousin, sister, and youngest brother Labs: Up to date, need disclosure signed. * ROS: P sych ROS: Constitutional D enies. R espiratory D enies. C ardiovascular D enies. G I D enies. M usculoskeletal R eports, A rthralgias. I ntegumentary D enies. * PSYCH ROS2: Elevated mood symptoms D enies. m ood swings D enies. T houghts of self harm D enies. D enies H omicidal thoughts. H yperactivity?Denies. P aranoia D enies. D ifficulty concentrating D enies. s leeping more than usual D enies. A dmits A nxiety. D enies A uditory/visual hallucinations.?Denies D elusions. A dmits D epressed mood. D enies D ifficulty sleeping.?Denies L oss of appetite. A dmits S tressors. D enies S ubstance abuse. D enies S uicidal thoughts. * Medical History: * Surgical History: E ndoscopic sleeve gastroplasty 1978C-Section 1981Left/Right Feet Hammer Toe 1997gallbladder removal 2003Left/Right knee replacement 2004 * Hospitalization/Major Diagno stic Procedure: E ndoscopic sleeve gastroplasty 1978C-Section 1982Child 1979Left/Right Feet Hammer Toe 1997gallbladder removal 2003Left/Right knee replacement 2004 * Family History: F ather: , 56- stomach aneurysm. M other: , 84- complication from diabetes. S iblings: Sister- Cancer. 2 brother(s) , 3 sister(s) - healthy. 2 daughter(s) - healthy. . * Social History: P rimary Social History: L iving Arrangement L iving Arrangement: I ndependent Living, I s this a supportive environment? Y es. A lcohol Use A lcohol Use Frequency: N ever. I llicit Substance Usage I llicit Substance Usage: N o. 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 P RESCRIPTION # FILLED WRITTEN DRUG LABEL QTY DAYS STRENGTH MME [facility] REFILL NO. REFILLS STATE 12/10/2023 09/13/2023 clonazePAM 30.0 30 0.5 MG NA Eusebio Elise M.d [id number] [place], [place] NA 2 [place] 1 [id number] 10/28/2023 09/13/2023 clonazePAM 30.0 30 0.5 MG NA Eusebio Elise M.d [id number] [place], [place] NA 2 [place] 1 [id number] 10/23/2023 10/23/2023 traMADol HCL 60.0 30 50 MG 10.0 Bernabe Lainez Md - [id number] [place], [place] NA 0 [place] 1 [id number] 09/13/2023 09/13/2023 clonazePAM 30.0 30 0.5 MG NA Eusebio Elise M.d [id number] [place]. * Medications: T akingVistaril 25 MG Capsule 2 capsules Orally three times a day As neededWellbutrin XL 300 MG Tablet Extended Release 24 Hour 1 tablet in the morning Orally Once a day traZODone HCl 50 MG Tablet 1 tablet at bedtime as needed Orally Once a day traMADol HCl 50 MG Tablet 1 tablet as needed Orally Three times daily Simvastatin 20 MG Tablet 1 tablet in the evening Orally Once a day clonazePAM 0.5 MG Tablet 1 tablet at bedtime Orally Once a day Medication List reviewed and reconciled with the patientTaking Vistaril 25 MG Capsule 2 capsules Orally three times a day As neededTaking Wellbutrin XL 300 MG Tablet Extended Release 24 Hour 1 tablet in the morning Orally Once a day Taking traZODone HCl 50 MG Tablet 1 tablet at bedtime as needed Orally Once a day Taking traMADol HCl 50 MG Tablet 1 tablet as needed Orally Three times daily Taking Simvastatin 20 MG Tablet 1 tablet in the evening Orally Once a day Taking clonazePAM 0.5 MG Tablet 1 tablet at bedtime Orally Once a day Medication List reviewed and reconciled with the patient * Allergies: N .K.D.A.no[Allergies Verified] Objective: * Vitals: I nitials: CLS, LMP: N/A, Pain scale:6. Denies any physical symptoms; unable to obtain vital signs due to telephone encounter. * Examination: G eneral Examination: PSYCH: f ull range of affect/positive mood , speech clear , thought content without suicidal ideation or delusions , no auditory or visual hallucinations , alert, oriented x4 , thought process logical, goal directed , thought content congruent with affect , denies any current thoughts/plans of suidicial/homicidal ideation. Mental Status Exam P rotective Factors C hildren, Coping Skills, Employed, Cultural/Sabianism Ideology, Denies Intent/Desire/Means. Assessment: * Assessment: 1. D epression - F32.9 (Primary) 2 . A nxiety - F41.9 Plan: * Treatment: 2. A nxiety Refill Vistaril Capsule, 25 MG, 2 capsules, Orally, three times a day As needed, 30 days, 180 Capsule, Refills 1. Notes: Continue Vistaril Practice deep breathing daily Practice [...] daily Practice mindfulness techniques Practice mindfulness techniques 3. O thers Notes: Patient was educated on diagnosis and symptoms. Discussed the treatment [...] May also contact the 24-hour crisis hotline ([facility]), refer to the closest emergency room or [...] combined with substance use/abuse and/or drinking alcohol. * Procedure Codes: * Follow Up: 4 Weeks (Reason: Medication management - can be telehealth appt.) * * Sign off status: Completed true * Provider: Radha Peng, MSN, NANOTECHNOLOGY ENGINEERING TECHNICIAN-BC, PMHNP-BC Date: 0 01/22/2024 Generated for Mary ramirez/Justin/William on: 0 08/30/2024 11:44 AM CDT History and Physical Notes * HPI (History of Present Illness) Category Sub-Category Detail Notes Category Not es Depression Screening PHQ-9 Little inte rest or pleasure in doing things: Several days This session was completed telephonically due to COVID-19 emergency, with client/parental/guardian consent. Feeling down, depressed, or hopeless: Mo re than half the days Trouble falling or staying asleep, or sl eeping too much: Not at all Feeling tired or having little energy: S everal days Poor appetite or overeating: Not at all Feeling bad about yourself o r that you are a failure, or have let yourself or your family down: Several days Trouble concentrating on thi ngs, such as reading the newspaper or watching television: Not at all Moving or speaking so slowly that other people could have noticed; or the opposite, being so fidgety or restless that you have been moving around a lot more than usual: Not at all Thoughts that you would be b jose off or of hurting yourself in some way: Not at all Total Score: 5 Interpretation: Mild Depression Intervention Depression Screening Findings: P ositive Follow-Up for Depression: No Referral necessary, patient involved in behavioral health treatment . Constitutional Chief Complaint: Medication management HPI: Jaja is a 68 y/o female that presents via telephone for her appt today. She was last seen 11/23/23 at which time we increased Vistaril. She missed last months appt. She has been trying her cousin's car so that has helped tremendously, she does not have to rely on Norah and Zigfu for rides to work, PT, and to the store. She continues to work part-time. She had recent labs. She is established care with a new PCP, Dr. Lainez, she has an appt with him tomorrow. She is seeing a intelligence group supervisor because her creatinine was slightly elevated. She has 1 kidney. He is having her drink 60 oz of water a day and to keep her BP in check. She continues with PT and she admits it has helped with the strength in her lower legs. Her sister, Nena, has 3 more chemo treatments (stomach cancer), she is back staying with her boyfriend. Nena's boyfriend now has brain cancer. Nena comes over every Monday and they play cards. Her granddaughter Thuy (age 19) continues to live with her. She got a car and got a job at [employer]. Jaja is worried about her because her anxiety is elevated. She was suffering from panic attacks. She was seen at [facility], then sent to [facility], then [facility]. Jaja is working part-time job. Her PCP prescribes trazodone, tramadol, and Wellbutrin. Depression is 5/10. Anxiety is 9/10. Denies any difficulty with sleep. She feels her medications are effective and she takes them as directed. I don't know where I would be without my medication. No side effects. She denies any SIB/SI/HI/AVH. Pt is taking clonazepam per Dr. Elise, discussed prison risk of BZD, educated pt to only take if SEVERE anxiety. PHQ-9 on 11/23/2023 was 7. Today's PHQ-9 is a 5. 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 Appetite: Appetite is good. Depression: 10/26 Anxiety/Panic attacks: 02/26 Anger/Irritability: Denies Hallucinations/Paranoia: Denies Current Suicidal ideation: Denies Past suicidal ideation: Denies Homicidal ideation: Denies Medical concerns: PCP is Dr. Migel Burr Has 1 kidney Hospitalizations/medication changes by other providers: Denies Support system: Daughter Darline, Has another daughter Norah; Support System is her cousin, sister, and youngest brother Labs: Up to date, need disclosure signed Screening Ingram Suicide Severity Rating Scale (LF) Do you want to initiate with: Screener form 1. Wish to be : Have you wished you were or wished you could go to sleep and not wake up?: No 2. Suicidal Thoughts: Have you actually had any thoughts of killing yourself?: No 6. Suicide Behavior Question: Have you ever done anything,started to do anything, or prepared to end your life?: No Interpretation:: Low Risk Do Not Use CSSRS Interpretation and Follow Up Plan CSSRS Interpretation and Follow Up Plan CSSRS Screen documented using SF: Yes Moderate or High risk requir es selection of a follow up plan: CSSRS No/Low: intervention not needed at this time Examination Category Sub-Category Detail Notes Category Not es General Examination PSYCH: full range o f affect/positive mood , speech clear , thought content without suicidal ideation or delusions , no auditory or visual hallucinations , alert, oriented x4 , thought process logical, goal directed , thought content congruent with affect , denies any current thoughts/plans of suidicial/homicidal ideation Mental Status Exam Protective Factors: Children, Coping Skills, Employed, Cultural/Sabianism Ideology, Denies Intent/Desire/Means
--- OUTSIDE RECORDS SUMMARY | 2024-08-30 11:45 | XMS_ITS | Clinical Summary ---
Author Organization [facility] Facility Address [address] [place] [id number] Care Team Providers Care C++ Quant Developer Name Role Phone Jessica Quevedo MD Primary Care Provider [phone] Allergies Active Allergy Reactions Criticality Noted Date Comments Hydrochlorothiazide 09/05/2023 Medications traZODone (DESYREL) 50 MG tablet Take 100 mg by mouth at night if needed for sleep Active traMADol (ULTRAM) 50 MG tablet Take 50 mg by mouth every 8 (eight) hours if needed for severe pain Active simvastatin (ZOCOR) 20 MG tablet Take 20 mg by mouth every night Active lamoTRIgine (LaMICtal) 100 MG tablet Take 100 mg by mouth 1 (one) time each day Active lisinopril 20 MG tablet Take 1 tablet (20 mg total) by mouth 1 (one) time each day 12/26/2023 Active Active Problems Problem Noted Date Diagnosed Date Stage 3b chronic kidney disease 12/26/2023 Serum creatinine above reference range Personal history of stroke 08/15/2023 Obesity 08/15/2023 Hypertension 08/15/2023 Hyperlipidemia 08/15/2023 Chronic depression 08/15/2023 Anxiety 08/15/2023 Family History Medical History Relation Comments Heart disease Brother Hypertension Brother Diabetes Father's Brother Diabetes Maternal Grandfather Stroke Maternal Grandmother Diabetes Mother Heart disease Mother Diabetes Sister Hypertension Sister Relation Status Comments Brother Father Father's Brother Maternal Grandfather Maternal Grandmother Mother Sister Social History Tobacco Use Types Packs/Day Years Used Date Smoking Tobacco: Never Smokeless Tobacco: Never Alcohol Use Standard Drinks/Week Comments Yes 0 (1 standard drink = 0.6 oz pur e alcohol) occasional Comments Unknown Sex and Gender Information Value Date Recorded Sex Assigned at Not on file Legal Sex Female 2:52 PM EDT Gender Identity Not on file Sexual Orientation Not on file Last Filed Vital Signs Vital Sign Reading Time Taken Comments Blood Pressure 130/80 12/26/2023 11:17 AM CDT Pulse 66 12/26/2023 11:17 AM CDT Temperature 36.8 C (98.2 F) 12/26/2023 11:17 AM CDT Respiratory Rate 18 09/05/2023 11:32 AM CDT Oxygen Saturation 96% 12/26/2023 11:17 AM CDT Inhaled Oxygen Concentration - - Weight 98 kg (216 lb) 12/26/2023 11:17 AM CDT Height 170.2 cm (5' 7 ) 12/26/2023 11:17 AM CDT Body Mass Index 33.83 12/26/2023 11:17 AM CDT Plan of Treatment Health Maintenance Due Date Last Done Comments Breast Cancer Screening 1955 Pneumococcal Vaccine: 65+ Ye ars (1 of 2 - PCV) 1961 Colorectal Cancer Screening: Annual FOBT 2002 Colorectal Cancer Screening: Colonoscopy 2002 Colorectal Cancer Screening: Sigmoidoscopy 2002 Influenza Vaccine (#1) 2024 Hepatitis B Vaccine Aged Out No longe r eligible based on patient's age to complete this topic Insurance MEDICARE Advance Directives Documents on File Type Date Recorded Patient Neon Molder Expl anation Advance Care Planning 09/25/2023 3:03 PM Care Teams C++ Quant Developer Relationship Specialty Start Date End Date Jessica Quevedo MD [address] [place], [place] [id number] PCP - General Internal Medicine 06/06/23
[2024-08-30 11:51] LABS: Anion Gap 12 mmol/L (4-12); Blood Urea Nitrogen 39 mg/dL (7-17); Calcium 9.8 mg/dL (8.4-10.2); Carbon Dioxide 25 mmol/L (22-30); Chloride 103 mmol/L (98-107); Estimated Glomerular Filt Rate 27; Glucose 74 mg/dL (65-110); Potassium 3.9 mmol/L (3.4-5.0); Sodium 140 mmol/L (137-145)
== END 2024-08-30 10:55 | disposition home or self-care (01) ==
PROVIDERS: PCP Internal Medicine; Visit Provider Nurse Practitioner Adult Health
DX: N18.31 Chronic kidney disease, stage 3a (principal)
CPT/HCPCS: 36415; 80048

== ENCOUNTER 2025-02-18 11:58 | Outpatient (CLI) | payer MEDICARE, SELFPAY ==
--- OUTSIDE RECORDS SUMMARY | 2023-09-06 13:31 | XMS_ITS | Encounter Summary ---
Author Organization [facility] Healthcare Address [address] [place] [address] Care Team Providers Care Turf And Grounds Supervisor Name Role Phone Sae Lopez MD Primary Care Provider [phone] Encounter Details Date Type Department Care Team (Late st Contact Info) Description 09/06/2023 1:31 PM CDT Hospital Encounter [facility] Medical Group Orthopedics and Sports Medicine at [address] [phone] Social History Tobacco Use Types Packs/Day Years Used Date Smoking Tobacco: Never Smokeless Tobacco: Never Comments Unknown Sex and Gender Information Value Date Recorded Sex Assigned at Not on file 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
--- OUTSIDE RECORDS SUMMARY | 2025-02-18 11:00 | XMS_ITS | Encounter Summary ---
Author Organization [facility] Healthcare Address [address] [place] [address] Care Team Providers Care Director Of Critical Care Name Role Phone Bernabe Lainez MD Primary Care Provider [phone] Reason for Visit * Reason Comments Follow-up Encounter Details Date Type Department Care Team (Late st Contact Info) Description 02/18/2025 11:00 AM CDT Office Visit [facility] Cardiology [address] [facility] [address] [place] [phone] Prabha Moyer NP [address] [place] [address] Paroxysmal atrial fibrillation (HCC); Chronic anticoagulation; Abnormal nuclear stress test; Cardiomyopathy, unspecified type (HCC); Chronic kidney disease (CKD), stage 4 Social History Tobacco Use Types Packs/Day Years Used Date Smoking Tobacco: Never Smokeless Tobacco: Never Comments Unknown Sex and Gender Information Value Date Recorded Sex Assigned at Not on file 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 Gender Identity Not on file Sexual Orientation Not on file documented as of this encounter Last Filed Vital Signs Vital Sign Reading Time Taken Comments Blood Pressure 132/80 02/18/2025 11:13 AM CDT Pulse 59 02/18/2025 11:13 AM CDT Temperature - - Respiratory Rate 18 02/18/2025 11:13 AM CDT Oxygen Saturation 99% 02/18/2025 11:13 AM CDT Inhaled Oxygen Concentration - - Weight 81.6 kg (180 lb) 02/18/2025 11:13 AM CDT Height 172.7 cm (5' 8) 02/18/2025 11:13 AM CDT Body Mass Index 27.37 02/18/2025 11:13 AM CDT documented in this encounter Ordered Prescriptions Prescription Sig Dispense Quantity Refills Last Filled Start Date End Date warfarin (COUMADIN) 2 mg tabletIndications: atrial fibrillation Take 2 tablets (4 mg total) by mouth daily Take as directed. Dose may change as blood testing is done. Finish Eliquis completely before starting warfarin. 60 tablet 11 02/18/2025 documented in this encounter Progress Notes * Prabha Moyer, GALINA - 02/18/2025 11:00 AM CDT Images from the original note were not included. [facility] Cardiology [address] [place] [address] Date of Visit: 02/18/2025 Patient ID: Jaja Meneses [id number] Chief Complaint Patient presents with Follow-up Jaja Meneses is a 69 y.o. female returning to the office for routine follow- up for CHF and AFib. History of Present Illness: Jaja Meneses is a 69 y.o. female with atrial fibrillation and CHF. Initial office consultation with Dr. Barbosa 06/07/2024: She was recently admitted to [facility] for atrial fibrillation with a rapid ventricular response. This was noted in the primary care office. She was not seen by Cardiology in the hospital. Her TSH was low but free T4 level was normal. T roponins were negative. Echocardiogram was performed showing ejection fraction 25-30%. She did havea creatinine elevation also 1.6. She was treated with IV diltiazem, oral metoprolol and then the IVdiltiazem was converted to oral. She will be discharged home with a combination of Toprol-XL, Cardizem CD as well as Eliquis. Unfortunately she is still short of breath with activities such as shopping. She does have worsening orthopnea with 2 or 3 pillows in order to breathe at night. She denies any chest pain, syncope, presyncope, paroxysmal nocturnal dyspnea or edema. She has no bleeding issues. Hospital follow-up visit with [facility] 07/26/2024: She was readmitted from the office visit with Dr. Barbosa in May for treatment of her CHF and AFib with RVR. During the admission she had a JAMEY with successful cardioversion. She was diuresed. She was discharged to rehab. She returns for hospital follow-up accompanied by her daughter. Overall she is doing better. She still has physical therapy coming to her house. She has noted pulse 54-65 beats per minute. Blood pressure does fluctuate and she cannot identify a reason for that. Occasionally she feels a need to take a deep breath now and then but otherwise she denies OCONNOR, orthopnea, PND or edema. She denies any chest pain, palpitations, syncope or near-syncope. She cannot afford Eliquis or Jardiance. 12-lead ECG showed sinus rhythm, normal axis and normal intervals, rate 59 beats per minute. Office follow-up [facility] 09/24/2024: After I last saw her in the office a stress test was recommended byDr. Barbosa and it showed a small mild fully reversible defect in the apex and apical inferior segment. I asked the patient to get a BMP to reassess her creatinine in the event that we recommend proceeding with coronary angiogram, however her creatinine was 1.8. She returns today for 2 month follow-up and states that her heart rate has been elevated 100 to 110s. A typical blood pressure is systolic 1 100s, diastolic 60s. She denies chest pain. She does feel a heartburn feeling down in the epigastric area this triggered by certain foods and relieved with taking an antacid. Sometimes she has shortness of breath that she attributes to feeling anxiety. She has chronic constipation and sometimes has some bleeding with a bowel movement she denies any other bleeding problems. ECG performed in theoffice showed suspected atrial flutter with rapid heartbeat, ventricular rate 102 beats per minute. Office visit with [facility] 02/18/2025: She is here for routine follow-up. She denies chest pain or palpitations. She will get dyspnea on exertion such as walking through the store and it is lead with rest.Sometimes she feels a need to take a deep breath which she attributes to anxiety. She reports atypical home blood pressure reading is 117/59 and a resting heart rate is in the 50s. She was able to get patient assistance for Jardiance until the end of the year. She was not able to get patient assistance for DOAC's. She has a supply as Eliquis that will run out at the end of the month. Medical History: No past medical history on file. History reviewed. No pertinent surgical history. Social History Tobacco Use Smoking Status Never Smokeless Tobacco Never Social History Tobacco Use Smoking status: Never Smokeless tobacco: Never Substance and Sexual Activity Drug use: None Sexual activity: None Alcohol Use: Not on file No family history on file. Review of Systems Constitutional: Negative for malaise/fatigue, weight gain and weight loss. Cardiovascular: Positive for dyspnea on exertion. Negative for chest pain, leg swelling, near-syncope, orthopnea, palpitations, paroxysmal nocturnal dyspnea and syncope. Respiratory: Negative for cough and sleep disturbances due to breathing. Hematologic/Lymphatic: Negative for bleeding problem. Does not bruise/bleed easily. Vital Signs: BP 132/80 (BP Location: Left arm, Patient Position: Sitting) Pulse 59 Resp 18 Ht 172.7 cm (5'8) Wt 81.6 kg (180 lb) SpO2 99% BMI 27.37 kg/m?? Physical Exam Constitutional: General: She is not in acute distress. Appearance: She is well-developed. Comments: Ambulates with a walker HENT: Head: Normocephalic and atraumatic. Eyes: General: No scleral icterus. Conjunctiva/sclera: Conjunctivae normal. Neck: Vascular: No JVD. Trachea: No tracheal deviation. Cardiovascular: Rate and Rhythm: Normal rate and regular rhythm. Heart sounds: Normal heart sounds. No murmur heard. Pulmonary: Effort: Pulmonary effort is normal. No respiratory distress. Breath sounds: Normal breath sounds. Musculoskeletal: Right lower leg: No edema. Left lower leg: No edema. Skin: General: Skin is warm and dry. Neurological: Mental Status: She is alert and oriented to person, place, and time. Psychiatric: Mood and Affect: Mood normal. Behavior: Behavior normal. Allergies Allergen Reactions Hydrochlorothiazide Dizziness Current Outpatient Medications: buPROPion XL (WELLBUTRIN XL) 300 mg 24 hr tablet, Take 1 tablet (300 mg total) by mouth every morning, Disp: , Rfl: calcium carbonate (TUMS) 500 mg (200 mg elemental calcium) chewable tablet, Take 2 tablet/chew tab (1,000 mg total) by mouth as needed, Disp: , Rfl: clonazePAM (KlonoPIN) 0.5 mg tablet, Take 1 tablet (0.5 mg total) by mouth daily as needed, Disp: ,Rfl: fluvoxaMINE (LUVOX) 50 mg tablet, , Disp: , Rfl: furosemide (LASIX) 20 mg tablet, Take 1 tablet (20 mg total) by mouth 2 (two) times a day, Disp: , Rfl: Jardiance 10 mg tablet, Take 1 tablet (10 mg total) by mouth daily, Disp: , Rfl: lamoTRIgine (LaMICtal) 100 mg tablet, Take 1 tablet (100 mg total) by mouth daily, Disp: , Rfl: metoprolol XL (TOPROL-XL) 50 mg extended release tablet, Take 2 tablets (100 mg total) by mouth daily, Disp: 180 tablet, Rfl: 1 simvastatin (ZOCOR) 20 mg tablet, Take 1 tablet (20 mg total) by mouth nightly, Disp: , Rfl: traMADoL (ULTRAM) 50 mg tablet, Take 1 tablet (50 mg total) by mouth every 8 (eight) hours as needed, Disp: , Rfl: acetaminophen (TYLENOL) 500 mg tablet, Take 1 tablet (500 mg total) by mouth every 4 (four) hours as needed, Disp: , Rfl: hydrOXYzine (VISTARIL) 25 mg capsule, Take 2 capsules (50 mg total) by mouth 2 (two) times a day asneeded (Patient not taking: Reported on 02/18/2025), Disp: , Rfl: loratadine (CLARITIN) 10 mg tablet, Take 1 tablet every day by oral route. (Patient not taking: Reported on 02/18/2025), Disp: , Rfl: warfarin (COUMADIN) 2 mg tablet, Take 2 tablets (4 mg total) by mouth daily Take as directed. Dose may change as blood testing is done. Finish Eliquis completely before starting warfarin., Disp: 60 tablet, Rfl: 11 No results found for: POTASSIUM, BUNSER, CREATININE, EGFR, CHOL, TRIG, LDL, LDLCALC, HDL No results found for: WBC, HGB, HCT, MCV, PLT Recent Results (from the past 4 hours) POCT lipid panel Collection Time: 02/18/25 11:07 AM Result Value Ref Range Cholesterol, POC 148 <200 MG/DL HDL, POC 63 >=40 mg/dL Triglycerides, POC 159 (A) <=149 mg/dL LDL Cholesterol POC 54 <=129 mg/dL Chol/HDL Ratio, POC 0.9 NONE Non-HDL Cholesterol, POC 86 NONE mg/dL Cholesterol Total, POC 148 30 - 199 mg/dL Lab Results Component Value Date POCCHOL 148 02/18/2025 POCHDL 63 02/18/2025 POCTRIG 159 (A) 02/18/2025 POCLDL 54 02/18/2025 POCNONHDL 86 02/18/2025 POCCHLPL 148 02/18/2025 Assessment: Diagnoses and all orders for this visit: Paroxysmal atrial fibrillation (HCC) - warfarin (COUMADIN) 2 mg tablet; Take 2 tablets (4 mg total) by mouth daily Take as directed. Dose may change as blood testing is done. Finish Eliquis completely before starting warfarin. Chronic anticoagulation Abnormal nuclear stress test - POCT lipid panel Cardiomyopathy, unspecified type (HCC) Chronic kidney disease (CKD), stage 4 Plan/Recommendations: She had atrial fibrillation with RVR when she was hospitalized in May 2024. She underwent a cardioversion during the admission that was successful. After discharge her metoprolol had to be up titrated further to treat sinus tachycardia. Her tachycardia resolved on the higher dose metoprolol. She denies any symptoms of AFib recurrence. Continue metoprolol succinate 100 mg daily. She is on Eliquis for stroke risk reduction in the setting of atrial arrhythmias. She cannot affordto remain on Eliquis and was denied for patient assistance. She will run out of Eliquis in a month.Therefore we will transition her to warfarin. I sent a prescription for warfarin 2 mg tablets and advised her to begin warfarin 4 mg daily the day after she finishes Eliquis. Get the 1st INR check 1 week after beginning the warfarin. Teaching was done with the patient regarding vitamin K and other medications that can influence the level of warfarin. Patient was given an information packet on warfarin and encouraged to call the office if she has any questions about that information. She has a cardiomyopathy (tachycardia mediated due to the AFib with RVR vs ischemic). Nuclear stress test was performed to evaluate for an ischemic cardiomyopathy. It showed a small mild reversible defect in the apex but she is not having symptoms of angina, so because of her CKD, we are pursuing co nservative medical management with the idea that a dye load from coronary angiogram could cause kidney injury leading to dialysis. Continue Jardiance, simvastatin and metoprolol. She has 1 functional kidney and CKD stage 4 (baseline creatinine around 1.6- 1.8). She is not on Baldomero/ARB/ARNI due to her CKD. Returns to the office for routine follow-up with Dr. Barbosa in 6 months. Call sooner with questionsor concerns in the interim. 02/18/2025 LASHON Yap- Nurse Practitioner with [facility] Cardiology This note is dictated and transcribed using Pose Direct Software. Expressive Art Therapist variancesmay occur. Despite proofreading, typographical errors may occur. documented in this encounter Plan of Treatment Not on file documented as of this encounter Procedures Procedure Name Priority Date/Time Associated Diagnosis Comments POCT LIPID PANEL Routine 02/18/2025 11:0 7 AM CDT Abnormal nuclear stress test documented in this encounter Results * (ABNORMAL) POCT lipid panel (02/18/2025 11:07 AM CDT) Cholesterol, POC 148 <200 MG/DL HDL, POC 63 >=40 mg/dL Triglycerides, POC 159(A) <=149 mg/dL LDL Cholesterol POC 54 <=129 mg/dL Chol/HDL Ratio, POC 0.9 NONE Non-HDL Cholesterol, POC 86 NONE mg/dL Cholesterol Total, POC 148 30 - 199 mg/dL Capillary blood 02/18/2025 1 1:07 AM CDT Prabha Moyer [facility] POINT OF CARE TEST ORDERA BLES Final Result documented in this encounter Visit Diagnoses Diagnosis Paroxysmal atrial fibrillation (HCC) Atrial fibrillation Chronic anticoagulation Encounter for long-term (current) use of anticoagulants Abnormal nuclear stress test Cardiomyopathy, unspecified type (HCC) Chronic kidney disease (CKD), stage 4 documented in this encounter Discontinued Medications Medication Sig Discontinue Reason Start Date End Da te rivaroxaban (XARELTO) 15 mg tablet Take 1 tablet (15 mg total) by mouth daily with dinner Alternate therapy 09/24/2024 02/18/2025 documented as of this encounter Historical Medications * This list may reflect changes made after this encounter. acetaminophen (TYLENOL) 500 mg tablet Take 1 tablet (500 mg total) by mouth every 4 (four) hours as needed added in this encounter Care Teams Director Of Critical Care Relationship Specialty Start Date End Date Bernabe Lainez MD PCP - General Internal Medicine 06/07/24 documented as of this encounter
--- OUTSIDE RECORDS SUMMARY | 2025-02-18 12:09 | XMS_ITS | Encounter Summary ---
Author Organization [facility] Healthcare Address [address] [place] [address] Care Team Providers Care Production Dispatcher Name Role Phone Bernabe Lainez MD Primary Care Provider [phone] Encounter Details Date Type Department Care Team (Late st Contact Info) Description 06/07/2024 Orders Only [facility] Health Information Management [address] [place] [phone] Scanning, Provider Social History Tobacco Use Types Packs/Day Years Used Date Smoking Tobacco: Never Smokeless Tobacco: Never Comments Unknown Sex and Gender Information Value Date Recorded Sex Assigned at Not on file 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 Gender Identity Not on file Sexual Orientation Not on file documented as of this encounter Plan of Treatment Not on file documented as of this encounter Procedures Procedure Name Priority Date/Time Associated Diagnosis Comments SCAN - RADIOLOGY/IMAGING 06/07/2024 documented in this encounter Results * SCAN - RADIOLOGY/IMAGING (06/07/2024) Anatomical Region Laterality Modality Other us Provider Scanning Final Result documented in this encounter Visit Diagnoses Not on filedocumented in this encounter Care Teams Production Dispatcher Relationship Specialty Start Date End Date Bernabe Lainez MD PCP - General Internal Medicine 06/07/24 documented as of this encounter
--- OUTSIDE RECORDS SUMMARY | 2025-02-18 12:09 | XMS_ITS | Clinical Summary ---
Author Organization [facility] Facility Address [address] [place] [id number] Care Team Providers Care Alarm Security Or Surveillance Monitor Name Role Phone Jessica Quevedo MD Primary Care Provider Allergies Active Allergy Reactions Criticality Noted Date [...] 11:17 AM CDT Height 170.2 cm (5' 7) 12/26/2023 11:17 AM CDT Body Mass Index 33.83 12/26/2023 11:17 AM CDT Plan of Treatment Health Maintenance Due Date Last Done Comments Breast Cancer Screening 1955 Pneumococcal Vaccine: 50+ Ye ars (1 of 2 - PCV) 02/29/1972 Colorectal Cancer Screening: Annual FOBT 2002 Colorectal Cancer Screening: Colonoscopy 2002 Colorectal Cancer Screening: Sigmoidoscopy 2002 Influenza Vaccine (#1) 2025 Hepatitis B Vaccine Aged Out No longe r eligible based on patient's age to complete this topic Insurance Medicare Advance Directives Documents on File Type Date Recorded 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
--- OUTSIDE RECORDS SUMMARY | 2025-02-18 12:09 | XMS_ITS | Clinical Summary ---
Author Organization [facility] [address] Address [address] [place] [address] Care Team Providers Care Quality Improvement Consultant Name Role Phone Bernabe Lainez MD Primary Care Provider [phone] Allergies Active Allergy Reactions Criticality Noted Date Comments Hydrochlorothiazide Dizziness Low 09/05/2023 Medications calcium carbonate (TUMS) 500 mg (200 mg elemental calcium) chewable tablet Take 2 tablet/chew tab (1,000 mg total) by mouth as needed Active clonazePAM (KlonoPIN) 0.5 mg tablet Take 1 tablet (0.5 mg total) by mouth daily as needed Active hydrOXYzine (VISTARIL) 25 mg capsule Take 2 capsules (50 mg total) by mouth 2 (two) times a day as needed Active lamoTRIgine (LaMICtal) 100 mg tablet Take 1 tablet (100 mg total) by mouth daily Active loratadine (CLARITIN) 10 mg tablet Take 1 tablet every day by oral route. Active traMADoL (ULTRAM) 50 mg tablet Take 1 tablet (50 mg total) by mouth every 8 (eight) hours as needed Active buPROPion XL (WELLBUTRIN XL) 300 mg 24 hr tablet Take 1 tablet (300 mg total) by mouth every morning 4 Active Jardiance 10 mg tablet Take 1 tablet (10 mg total) by mouth daily 5 Active simvastatin (ZOCOR) 20 mg tablet Take 1 tablet (20 mg total) by mouth nightly Active furosemide (LASIX) 20 mg tablet Take 1 tablet (20 mg total) by mouth 2 (two) times a day Active fluvoxaMINE (LUVOX) 50 mg tablet 5 Active metoprolol XL (TOPROL-XL) 50 mg extended release tablet Take 2 tablets (100 mg total) by mouth daily 180 tablet 1 5 Active acetaminophen (TYLENOL) 500 mg tablet Take 1 tablet (500 mg total) by mouth every 4 (four) hours as needed Active warfarin (COUMADIN) 2 mg tabletIndication s:atrial fibrillation Take 2 tablets (4 mg total) by mouth daily Take as directed. Dose may change as blood testing is done. Finish Eliquis completely before starting warfarin. 60 tablet 11 5 Active rivaroxaban (XARELTO) 15 mg tablet Take 1 tablet (15 mg total) by mouth daily with dinner 30 tablet 11 5 025 Discontin ued(Alter ahsan therapy) Active Problems Problem Noted Date Diagnosed Date Stage 3a chronic kidney disease 06/07/2024 Cardiomyopathy 06/07/2024 Hyperlipidemia LDL goal <100 06/07/2024 Essential hypertension 06/07/2024 Chronic anticoagulation 06/07/2024 Atrial fibrillation with rapid ventricular respo nse 06/07/2024 Acute systolic congestive heart failure 06/07/20 24 Encounters Date Type Department Care Team Description 02/18/2025 11:00 AM CDT Office Visit [facility] Cardiology [address] [facility] [address] [place] [phone] Prabha Moyer NP Paroxysmal atrial fibrillation (HCC); Chronic anticoagulation; Abnormal nuclear stress test; Cardiomyopathy, unspecified type (HCC); Chronic kidney disease (CKD), stage 4 02/18/[address] 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 Gender Identity Not on file Sexual Orientation [...] Mass Index 27.37 02/18/2025 11:13 AM CDT Plan of Treatment Health Maintenance Due Date Last Done Comments Breast Cancer Screening-Mammogram 1955 Colon Cancer Screening-Colonoscopy 1955 Depression Screening 1955 Fall Risk Assessment 1955 Hepatitis C Screening 1955 Osteoporosis Screening-Bone Density Scan 1955 DTaP/Tdap/Td Vaccine (1 - Tdap) 02/29/1964 Hepatitis B Screening 1971 Zoster Vaccine (1 of 2) 2003 Well Visit 65+ 2018 Covid-19 Vaccine (5 - 2024-2 6 season) 2025 05/03/2022, 06/01/2021, 09/04/2020, Additional history exists Influenza Vaccine (#1) 2025 , 05/06/2021, 03/25/2020, Additional history exists Pneumococcal vaccine 65+ Completed 08/11/2022, 1211/2018 Procedures Procedure Name Priority Date/Time Associated Diagnosis Comments POCT LIPID PANEL Routine 02/18/2025 11:0 7 AM CDT Abnormal nuclear stress test from Last 3 Months Results * (ABNORMAL) POCT lipid panel (02/18/2025 11:07 AM CDT) Cholesterol, POC 148 <200 MG/DL HDL, POC 63 >=40 mg/dL Triglycerides, POC 159(A) <=149 mg/dL LDL Cholesterol POC 54 <=129 mg/dL Chol/HDL Ratio, POC 0.9 NONE Non-HDL Cholesterol, POC 86 NONE mg/dL Cholesterol Total, POC 148 30 - 199 mg/dL Capillary blood 02/18/2025 1 1:07 AM CDT Prabha Moyer GEOLOGICAL TECHNICIAN POINT OF CARE TEST ORDERA BLES Final Result from Last 3 Months Insurance [facility] MEDICARE [facility] Address: [facility] [address] [place] [address] Care Teams Quality Improvement Consultant Relationship Specialty Start Date End Date Bernabe Lainez MD PCP - General Internal Medicine 06/07/24
--- OUTSIDE RECORDS SUMMARY | 2025-02-18 12:09 | XMS_ITS | Encounter Summary ---
Author Organization [facility] Healthcare Address [address] [place] [address] Care Team Providers Care Human Resources Admin Name Role Phone Sae Lopez MD Primary Care Provider [phone] Bernabe Lainez MD Primary Care Provider + [phone] Encounter Details Date Type Department Care Team (Late st Contact Info) Description 05/10/2024 Orders Only [facility] Health Information Management [address] [place] [phone] Scanning, Provider Social History Tobacco Use Types Packs/Day Years Used Date Smoking Tobacco: Never Smokeless Tobacco: Never Comments Unknown Sex and Gender Information Value Date Recorded Sex Assigned at Not on file 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 Gender Identity Not on file Sexual Orientation Not on file documented as of this encounter Plan of Treatment Not on file documented as of this encounter Procedures Procedure Name Priority Date/Time Associated Diagnosis Comments SCAN - RADIOLOGY/IMAGING 05/10/2024 documented in this encounter Results * SCAN - RADIOLOGY/IMAGING (05/10/2024) Anatomical Region Laterality Modality Other us Provider Scanning Final Result documented in this encounter Visit Diagnoses Not on filedocumented in this encounter Care Teams Human Resources Admin Relationship Specialty Start Date End Date Sae Lopez MD [address] [place] [address] [place] [address] PCP - General Internal Medicine 08/18/23 06/06/24 Bernabe Lainez MD [address] [facility] DEPT [place] [address] PCP - General Internal Medicine 06/07/24 documented as of this encounter
--- OUTSIDE RECORDS SUMMARY | 2025-02-18 12:09 | XMS_ITS | Encounter Summary ---
Author Organization [facility] Healthcare Address [address] [place] [address] Care Team Providers Care Database Admin Name Role Phone Bernabe Lainez MD Primary Care Provider [phone] Encounter Details Date Type Department Care Team (Late st Contact Info) Description 02/18/2025 Anticoagulation Visit [facility] Medical Group Cardiology [address] [place] [address] Nichelle Fox, RN Social History Tobacco Use Types Packs/Day Years Used Date Smoking Tobacco: Never Smokeless Tobacco: Never Comments Unknown Sex and Gender Information Value Date Recorded Sex Assigned at Not on file 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
--- OUTSIDE RECORDS SUMMARY | 2025-02-18 12:09 | XMS_ITS | Clinical Summary ---
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 Not on file Not on file Last Filed Vital Signs Vital Sign Reading Time Taken Comments Blood Pressure 129/67 08/14/2015 11:34 AM PROFESSIONAL MODEL Pulse - - Temperature 36 C (96.8 F) 08/14/2015 11:34 AM PROFESSIONAL MODEL Respiratory Rate 16 08/14/2015 11:34 AM PROFESSIONAL MODEL Oxygen Saturation 100% 08/14/2015 11:34 AM PROFESSIONAL MODEL Inhaled Oxygen Concentration - - Weight 92.1 kg (203 lb) 08/07/2015 9:00 AM PROFESSIONAL MODEL Height 175.3 cm (5' 9) 08/07/2015 9:00 AM PROFESSIONAL MODEL Body Mass Index 29.98 08/07/2015 9:00 AM PROFESSIONAL MODEL Plan of Treatment Health Maintenance Due Date Last Done Comments Hepatitis C Virus (HCV) Screening 1955 TdaP Immunization 1955 Cologuard 1998 Immunochemical Fecal Occult Blood 1998 Pneumococcal Immunization (5 0+ years) (1 of 1 - PCV) 2003 Zoster Immunization (1 of 2) 2003 SARS-COV-2 Immunization (1 - season) 2024 Influenza Immunization (#1) 2025 Colonoscopy 08/14/2025 08/14/2015 Colorectal Cancer Screening 08/14/2025 Respiratory Syncytial Virus (RSV) Immunization (Adult) (1 - 1-dose 75+ series) 02/29/2028 Hepatitis B Immunization Aged Out No longer eligible based on patient's age to complete this topic Human Papillomavirus (HPV) Immunization Aged Out No longer eligible b ased on patient's age to complete this topic Meningococcal Immunization (ACWY) Aged Out No longer eligible based on patient's age to complete this topic Rotavirus Immunization Aged Out No lo nger eligible based on patient's age to complete this topic Care Teams Back Strip Machine Operator Relationship Specialty Start Date End Date Edil Castañ[place] [address] [place] [address] PCP - General Physician Coal Handler 08/10/15
--- OUTSIDE RECORDS SUMMARY | 2025-02-18 12:09 | XMS_ITS | Encounter Summary ---
Author Organization [facility] Healthcare Address [address] [place] [address] Care Team Providers Care Blender Machine Operator Name Role Phone Bernabe Lainez MD Primary Care Provider [phone] Encounter Details Date Type Department Care Team (Late st Contact Info) Description 06/11/2024 Orders Only [facility] [place] [address] [place] [address] Douglas Dove MD [address] [place] [address] Social History Tobacco Use Types Packs/Day Years Used Date Smoking Tobacco: Never Smokeless Tobacco: Never Comments Unknown Sex and Gender Information Value Date Recorded Sex Assigned at Not on file Legal Sex Female 6:12 PM FORCE DISPATCHER Gender Identity Not on file Sexual Orientation [...] on filedocumented in this encounter Care Teams Blender Machine Operator Relationship Specialty Start Date End Date Bernabe Lainez MD PCP - General Internal Medicine 06/07/24 documented as of this encounter
[2025-02-18 12:53] LABS: Hematocrit 39.2 % (37.0-47.0); Hemoglobin 12.6 g/dL (12.0-15.0); Mean Corpuscular HGB Conc 32.1 g/dl (32-36); Mean Corpuscular Hemoglobin 30.1 pg (26-34); Mean Corpuscular Volume 93.6 fl (80-100); Platelet Count Result 279 k/mm3 (150-375); Red Blood Count 4.19 M/mm3 (4.2-5.4); White Blood Count 7.0 K/mm3 (4.5-10.0)
[2025-02-18 12:56] LABS: Add Urine Microscopic? NO; Appearance Urine Clear (Clear); Glucose Urine UA Trace mg/dL (Negative); Leukocyte Esterase Ur Negative LEU/UL (Negative); Nitrate Urine Negative (Negative); Specific Grav Ur 1.011 (1.001-1.035)
[2025-02-18 13:12] LABS: Albumin Level 4.2 g/dL (3.5-5.1); Anion Gap 11 mmol/L (4-12); Blood Urea Nitrogen 41 mg/dL (7-17); Calcium 10.0 mg/dL (8.4-10.2); Carbon Dioxide 24 mmol/L (22-30); Chloride 103 mmol/L (98-107); Creatine Kinase 60 U/L (30-135); Estimated Glomerular Filt Rate 27; Glucose 82 mg/dL (65-110); Potassium 4.1 mmol/L (3.4-5.0); Sodium 138 mmol/L (137-145)
[2025-02-18 13:24] LABS: Parathyroid Intact 25.6 pg/mL (14.5-75.2)
[2025-02-18 14:02] LABS: Total Protein Urine Random 10 mg/dL; Ur Ttl Prot Creatinine Ratio 0.20 mg/mg (0-0.20)
[2025-02-19 16:08] LABS: Free Lambda Lt Chains, Serum 29.5 mg/L (5.7-26.3); Kappa/Lambda Ratio, Serum 1.53 (0.26-1.65)
== END 2025-02-18 11:59 | disposition home or self-care (01) ==
LOC: ANHLAB 11:59
PROVIDERS: PCP Internal Medicine; Visit Provider Internal Medicine Nephrology
DX: N18.4 Chronic kidney disease, stage 4 (severe) (principal)
CPT/HCPCS: 36415; 80069; 81003; 82550; 82570; 82784; 83521; 83970; 84156; 85027; 85652; 86160; 86162; 86334

== ENCOUNTER 2025-02-19 10:28 | Outpatient (CLI) | payer MEDICARE, SELFPAY ==
--- NOTE | ~2025-02-19 | US_ITS ---
Examination: Ultrasound of the retroperitoneum including kidneys and bladder. Clinical History: N18.4 - Chronic kidney disease, stage 4 (severe) . Comparison: None available. Findings: Right kidney: Not identified. Left kidney: 12 cm. Normal echogenicity. No collecting system dilatation. No shadowing calculi. Urinary bladder: Underdistended limiting evaluation. IMPRESSION: 1. Right kidney not identified. Atrophic and/or absent? Can consider CT for more definitive characterization. 2. Left kidney unremarkable, without hydronephrosis. Reviewed, dictated and finalized at location R. IMPRESSION: 1. Right kidney not identified. Atrophic and/or absent? Can consider CT for mo re definitive characterization. 2. Left kidney unremarkable, without hydronephrosis.
== END 2025-02-19 10:29 | disposition home or self-care (01) ==
LOC: MICIMG 10:28
PROVIDERS: PCP Internal Medicine; Visit Provider Internal Medicine Nephrology
DX: N18.4 Chronic kidney disease, stage 4 (severe) (principal)
CPT/HCPCS: 76770

== ENCOUNTER 2025-04-29 15:46 | Outpatient (CLI) | payer MEDICARE, SELFPAY ==
--- OUTSIDE RECORDS SUMMARY | 2023-09-06 12:31 | XMS_ITS | Encounter Summary ---
Author Organization [facility] Healthcare Address [address] [place] [address] Care Team Providers Care Supervisor Multifocal Lens Name Role Phone Sae Lopez MD Primary Care Provider [phone] Encounter Details Date Type Department Care Team (Late st Contact Info) Description 09/06/2023 1:31 PM CDT Hospital Encounter [facility] Medical Group Orthopedics and Sports Medicine at [address] [address] Social History Tobacco Use Types Packs/Day Years Used Date Smoking Tobacco: Never Smokeless Tobacco: Never Comments Unknown Sex and Gender Information Value Date Recorded Sex Assigned at Not on file 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 Gender Identity Not on file Sexual Orientation Not on file documented as of this encounter Functional Status * BP Location Answer Date of Assessment Author Left arm 02/18/2025 11:13 AM CDT Nhung Gilmore MA * BP Location Answer Date of Assessment Author Left arm 02/18/2025 11:13 AM CDT Nhung Gilmore MA documented as of this encounter Plan of Treatment Not on file documented as of this encounter Procedures Procedure Name Priority Date/Time Associated Diagnosis Comments XR KNEE BILATERAL 3 VIEWS Schedule Routine, Read Routine (OP Routine) 09/06/2023 1:39 PM CDT Pain in both knees, unspecified chronicity documented in this encounter Results * XR Knee Bilateral 3 Views (09/06/2023 1:39 PM CDT) Anatomical Region Laterality Modality Lower Extremities, Knee Bilateral Digital Radiography Narrative 09/06/2023 1:41 PM CDT Well-fixed well-aligned cemented bilateral Mathews Nephew knees. Patellas are resurfaced and tracking nicely in the femoral trochleae. us Kemal Swenson MD IMG XR PROCEDURES Edited Res ult - Final documented in this encounter Visit Diagnoses Not on filedocumented in this encounter Care Teams Supervisor Multifocal Lens Relationship Specialty Start Date End Date Sae Lopez MD [address] [facility] [place] [address] PCP - General Internal Medicine 08/18/23 06/06/24 documented as of this encounter
--- OUTSIDE RECORDS SUMMARY | 2023-12-25 02:40 | XMS_ITS ---
Author Organization [facility] Address [address] [place] [address] Care Team Providers Care Sales Representative Adding Machines Name Role Phone Sandeep Pabon Primary Care Provider [phone] Kei Stringer Unavailable [phone] Silke Peng Unavailable [phone] REASON FOR VISIT 1 Month Psych F/U & Med Refill Medications Medication SIG (Take, Route, Frequency, Duration) Notes Start Date End Date Status traMADol HCl 50 MG 1 tablet as needed O rally Three times daily Active clonazePAM 0.5 MG 1 tablet at bedtime Orally Once a day Not-Taking Simvastatin 20 MG 1 tablet in the even ing Orally Once a day; Duration: 30 day(s) Active Vistaril 25 MG 2 capsules Orally three times a day; Duration: 30 days As needed Active Wellbutrin XL 300 MG 1 tablet in the mor chitra Orally Once a day Active traZODone HCl 50 MG 1 tablet at bedtime as needed Orally Once a day; Duration: 30 day(s) Active Social History Sex Assigned At : Social History Observation Description Sex Assigned At Female Encounters Encounter Location Date Provider Diagnosis [address] [place] [address] 12/25/2023 Silke Peng Plan Of Treatment No Information Progress Notes * Jaona MENESESsDOB: 3 (70 yo F)Acc No.[id number]:12/25/2023 UNLOCKED PROGRESS NOTE Patient: Jaja BUTT Provider: Radha Peng, CHAD, CORPORATE LOGISTICS MANAGER-BC, PMHNP-BC :1955 A ge:68 Y S ex:Female Date:12/25/2023 Address:[address] [place], [place] [id number] Pcp:Sandeep Pabon Subjective: * Chief Complaints: * 1 . 1 Month Psych F/U & Med Refill. * Medical History: * Medications: T aking Vistaril 25 MG Capsule 2 capsules Orally three times a day As needed, Taking Wellbutrin XL 300 MG Tablet Extended Release 24 Hour 1 tablet in the morning Orally Once a day , Taking traZODone HCl 50 MG Tablet 1 tablet at bedtime as needed Orally Once a day , Taking traMADol HCl 50 MG Tablet 1 tablet as needed Orally Three times daily , Taking Simvastatin 20 MG Tablet 1 tablet in the evening Orally Once a day , Not-Taking clonazePAM 0.5 MG Tablet 1 tablet at bedtime Orally Once a day Objective: * Vitals: Assessment: Plan: * Treatment: * * Electronic signature of Silke Peng , [id number] on 04/29/2025 at 03:49 PM VENEREAL DISEASE INVESTIGATOR Sign off status: Pending * Provider: CHAD Coy, CORPORATE LOGISTICS MANAGER-BC, PMHNP-BC Date: 0 12/25/2023 Generated for Mary ramirez/Justin/William on: 1 06/29/2024 03:49 PM VENEREAL DISEASE INVESTIGATOR
--- OUTSIDE RECORDS SUMMARY | 2025-04-29 15:49 | XMS_ITS | Encounter Summary ---
Author Organization [facility] Healthcare Address [address] [place] [address] Care Team Providers Care Baker Bread Name Role Phone Bernabe Lainez MD Primary Care Provider [phone] Encounter Details Date Type Department Care Team (Late st Contact Info) Description 06/07/2024 Orders Only [facility] Health Information Management [address] [place] [address] Scanning, Provider Social History Tobacco Use Types Packs/Day Years Used Date Smoking Tobacco: Never Smokeless Tobacco: Never Comments Unknown Sex and Gender Information Value Date Recorded Sex Assigned at Not on file Legal Sex Female 6:12 PM INDUSTRIAL SERVICE TECHNICIAN Gender Identity Not on file Sexual Orientation Not on file documented as of this encounter Functional Status * BP Location Answer Date of Assessment Author Right arm 06/07/2024 8:59 AM INDUSTRIAL SERVICE TECHNICIAN Holly Cain MA * BP Location Answer Date of Assessment Author Right arm 06/07/2024 8:59 AM INDUSTRIAL SERVICE TECHNICIAN Holly Cain MA documented as of this encounter Plan of Treatment Not on file documented as of this encounter Procedures Procedure Name Priority Date/Time Associated Diagnosis Comments SCAN - RADIOLOGY/IMAGING 06/07/2024 documented in this encounter Results * SCAN - RADIOLOGY/IMAGING (06/07/2024) Anatomical Region Laterality Modality Other us Provider Scanning Final Result documented in this encounter Visit Diagnoses Not on filedocumented in this encounter Care Teams Baker Bread Relationship Specialty Start Date End Date Bernabe Lainez MD PCP - General Internal Medicine 06/07/24 documented as of this encounter
--- OUTSIDE RECORDS SUMMARY | 2025-04-29 15:49 | XMS_ITS | Patient Health Record ---
Author Organization [facility] Address [address] [place] [address] Care Team Providers Care Corn Picker Name Role Phone Pabon, Sandeep Primary Care Provider Kei Stringer Unavailable [phone] Allergies No Known Allergies Reason For Referral No Information Medications Medication SIG (Take, Route, Fr equency, Duration) Notes Start Date End Date Status clonazePAM 0.5 MG 1 tablet at bedtime Orally Once a day Active Simvastatin 20 MG 1 tablet in the even ing Orally Once a day; Duration: 30 day(s) Active Wellbutrin XL 300 MG [...] day; Duration: 30 days As needed Active Social History [...] 09/19/2022 traMADol 30.0 10 50 MG 15 MahaySae Md [id number] [facility], [place] NA 0 [place] 1 [id number] 09/09/2022 08/17/2022 clonazePAM 30.0 30 0.5 MG NA Eusebio Elise M.d [id number] [place], [place] NA 2 [place] 1 [id number] 08/14/2022 08/11/2022 traMADol 30.0 10 50 MG 15 Jessica Sae Lopez [id number] [place], [place] NA 0 [place] 1 [id number] 07/26/2022 04/26/2022 clonazePAM 30.0 30 0.5 MG Eusebio Norman M.d [id number] [place] PRESCRIPTION # FILLED WRITTEN DRUG LABEL QTY DAYS STRENGTH MME PRESCRIBER PHARMACY REFILL NO. REFILLS STATE 11/29/2022 11/29/2022 traMADol 30.0 10 50 MG 15 Jessica Sae Lopez [id number] [place], [place] NA 0 [place] 1 [id number] 11/28/2022 08/17/2022 clonazePAM 30.0 30 0.5 MG Eusebio Norman M.d [id number] [place], [place] NA 2 [place] 1 [id number] 10/20/2022 08/17/2022 clonazePAM 30.0 30 0.5 MG NA Eusebio Elise M.d [id number] [place], [place] NA 2 [place] 1 [id number] 09/19/2022 09/19/2022 traMADol 30.0 10 50 MG 15 KalynSae simpson Md [id number] W PRESCRIPTION # FILLED WRITTEN DRUG LABEL QTY DAYS STRENGTH MME PRESCRIBER PHARMACY REFILL NO. REFILLS STATE 12/28/2022 12/28/2022 traMADol 30.0 10 50 MG 15 JessicaSae Md [id number] [place], [place] NA 0 [place] 1 [id number] 11/29/2022 11/29/2022 traMADol 30.0 10 50 MG 15 Sae Lopez Md [id number] [place], [place] NA 0 [place] 1 [id number] 11/28/2022 08/17/2022 clonazePAM 30.0 30 0.5 MG NA Muddasani, Bongsifrankia Liat Lopez [id number] PRESCRIPTION # FILLED WRITTEN DRUG LABEL QTY DAYS STRENGTH MME PRESCRIBER PHARMACY REFILL NO. REFILLS STATE 03/08/2023 02/07/2023 clonazePAM 30.0 30 0.5 MG NA Muddasani, Bongsifrankia Liat Garner - [id number] [place], [place] NA 2 [place] 1 [id number] 02/07/2023 02/07/2023 clonazePAM 30.0 30 0.5 MG NA Muddasani, Bongsifrankia Liat Garner - [id number] [place], [place] NA 2 [place] 1 [id number] 12/28/2022 12/28/2022 traMADol 30.0 10 50 MG 15 Sae Lopez Md [id number] PRESCRIPTION # FILLED WRITTEN DRUG LABEL QTY DAYS STRENGTH MME PRESCRIBER PHARMACY REFILL NO. REFILLS STATE 03/11/2023 03/10/2023 traMADol HCL 30.0 10 50 MG 15 Haven Rubi Aprn-c - [id number] [place], [place] NA 0 [place] 1 [id number] 03/08/2023 02/07/2023 clonazePAM 30.0 30 0.5 MG NA Muddasani, Bongsifrankia R Pascual Lopez [id number] [place], [place] NA 2 [place] 1 [id number] 02/07/2023 02/07/2023 clonazePAM 30.0 30 0.5 MG NA Muddasani, Bongsifrankia Liat Garner - [id number] PRESCRIPTION # FILLED WRITTEN DRUG LABEL QTY DAYS STRENGTH MME PRESCRIBER PHARMACY REFILL NO. REFILLS STATE 05/28/2023 05/25/2023 30.0 10 NA Sae Lopez Md [id number] [place], [place] NA 0 [place] 1 [id number] 05/08/2023 02/07/2023 clonazePAM 30.0 30 0.5 MG NA Muddasani, Bongsifrankia Liat Lopez [id number] [facility], [place] NA 2 [place] 1 [id number] 03/11/2023 03/10/2023 traMADol HCL 30.0 10 50 MG 15 MinHaven menendez, Lpn Private Duty-c - [id number] [facility], [place] NA 0 [place] 1 [id number] 03/08/2023 02/07/2023 clonazePAM 30.0 30 0.5 MG NA Muddasani, Bongsifrankia Liat Lopez [id number] [place], [place] NA 2 [place] 1 [id number] 02/07/2023 02/07/2023 clonazePAM 30.0 30 0.5 MG NA Muddasani, Eusebio Lopez [id number] W PRESCRIPTION # FILLED WRITTE N DRUG LABEL QTY DAYS STRENGTH MME PRESCRIBER PHARMACY REFILL NO. REFILLS STATE PATIENT [id number] 05/28/2023 05/25/2023 30.0 10 Sae Preston Md [id number] [place], [place] NA 0 [place] [id number] 05/08/2023 02/07/2023 clonazePAM 30.0 30 0.5 MG NA Muddasani, Eusebio Josue M.d - [id number] [facility], [place] NA 2 [place] [id number] 03/11/2023 03/10/2023 traMADol HCL 30.0 10 50 MG 15 MinHaven menendez, Lpn Private Duty-c - [id number] W PRESCRIPTION # FILLED WRITTE N DRUG LABEL QTY DAYS STRENGTH MME PRESCRIBER PHARMACY REFILL NO. REFILLS STATE PATIENT [id number] 05/28/2023 05/25/2023 30.0 10 Sae Preston Md [id number] [facility], [place] NA 0 [place] [id number] 05/08/2023 02/07/2023 clonazePAM 30.0 30 0.5 MG NA Muddasani, Narsimha Liat Garner - [id number] [place], [place] NA 2 [place] [id number] 03/11/2023 03/10/2023 traMADol HCL 30.0 10 50 MG Rosa Greyson Haven De La CruzArely, Lpn Private Duty-c - [id number] [facility], [place] NA 0 [place] [id number] 03/08/2023 02/07/2023 clonazePAM 30.0 30 0.5 MG NA Muddasani, Narsimha Liat Garner - [id number] W PRESCRIPTION # FILLED WRITTE N DRUG LABEL QTY DAYS STRENGTH MME PRESCRIBER PHARMACY REFILL NO. REFILLS STATE PATIENT [id number] 09/13/2023 09/13/2023 clonazePAM 30.0 30 0.5 MG NA Muddasani, Narsimha Liat Lopez [id number] [place], [place] NA 2 [place] [id number] 09/07/2023 09/07/2023 30.0 10 Sae Preston Md [id number] [facility], [place] NA 0 [place] [id number] 05/28/2023 05/25/2023 30.0 10 aSe Preston Md [id number] [facility], [place] NA 0 [place] [id number] 05/08/2023 02/07/2023 clonazePAM 30.0 30 0.5 MG NA Muddasani, Bongsifrankia Liat Lopez [id number] W PRESCRIPTION # FILLED WRITTEN DRUG LABEL QTY DAYS STRENGTH MME PRESCRIBER PHARMACY REFILL NO. REFILLS STATE 10/28/2023 09/13/2023 clonazePAM 30.0 30 0.5 MG NA Muddasani, Narsimha Liat Lopez [id number] [place], [place] NA 2 [place] 1 [id number] 10/23/2023 10/23/2023 traMADol HCL 60.0 30 50 MG 10.0 Bernabe Lainez Md - [id number] [facility], [place] NA 0 [place] 1 [id number] 09/13/2023 09/13/2023 clonazePAM 30.0 30 0.5 MG NA LiondaEusebio avendaño M.d [id number] [place], [place] NA 2 [place] 1 [id number] 09/07/2023 09/07/2023 traMADol HCL 30.0 10 50 MG 15.0 Sae Lopez Md [id number] W PRESCRIPTION # FILLED WRITTEN DRUG LABEL QTY DAYS STRENGTH MME PRESCRIBER PHARMACY REFILL NO. REFILLS STATE 12/10/2023 09/13/2023 clonazePAM 30.0 30 0.5 MG NA LiondaEusebio avendaño M.d [id number] [place], [place] NA 2 [place] 1 [id number] 10/28/2023 09/13/2023 clonazePAM 30.0 30 0.5 MG NA LiondasaEusebio arriaza M.d [id number] [place], [place] NA 2 [place] 1 [id number] 10/23/2023 10/23/2023 traMADol HCL 60.0 30 50 MG 10.0 Bernabe Lainez Md [id number] [place], [place] NA 0 [place] 1 [id number] 09/13/2023 09/13/2023 clonazePAM 30.0 30 0.5 MG NA MuddaEusebio avendaño M.d [id number] [place] PRESCRIPTION # FILLED WRITTEN DRUG LABEL QTY DAYS STRENGTH MEDD PRESCRIBER PHARMACY REFILL NO. REFILLS STATE 08/14/2022 08/11/2022 traMADol 30.0 10 50 MG 15 Sae Lopez Md [id number] [place], [place] NA 0 [place] 1 [id number] 07/26/2022 04/26/2022 clonazePAM 30.0 30 0.5 MG NA LiondaEusebio avendaño M.d [id number] [place], [place] NA 2 [place] 1 [id number] 06/10/2022 06/10/2022 traMADol 30.0 10 50 MG 15 Sae Lopez Md [id number] [place], [place] NA 0 [place] 1 [id number] 06/09/2022 04/26/2022 clonazePAM 30.0 30 0.5 MG NA Eusebio Elise M.d [id number] W Problems Problem Type SNOMED Code ICD Code Onset Dates Problem Status W/U Status Risk Notes Problem Depression (833839723) Depression (F32.9) Active confirmed Problem Anxiety (00755848) Anxiety (F41.9) Active confirmed Plan Of Treatment No Information Insurance Providers Payer Name Payer Address Payer Phone Subscriber Number Group Number Insured Name Patient Relationship to Insured Coverage Start Date Coverage End Date [employer] AARP Medicare [address] [address] [place] [address] [phone] [id number] Jaja Meneses Self - patient is the insured 3 [employer] AARP MEDICARE BALLING MACHINE OPERATOR [address] [address] [place] [address] [id number] Jaja Meneses Self - patient is the insured 2 2 AARP MEDICARE ADVANTAGE PLAN [address] [address] [place], [place] [id number] Jaja Meneses Self - patient is the [...]
--- OUTSIDE RECORDS SUMMARY | 2025-04-29 15:49 | XMS_ITS | Encounter Summary ---
Author Organization [facility] Healthcare Address [address] [place] [address] Care Team Providers Care Automobile Contract Clerk Name Role Phone Bernabe Lainez MD Primary Care Provider [phone] Encounter Details Date Type Department Care Team (Late st Contact Info) Description 06/11/2024 Orders Only [facility] Health Information Management [address] [place] [address] Douglas Dove MD [address] [place] [address] Social History Tobacco Use Types Packs/Day Years Used Date Smoking Tobacco: Never Smokeless Tobacco: Never Comments Unknown Sex and Gender Information Value Date Recorded Sex Assigned at Not on file Legal Sex Female 6:12 PM ENAMEL MACHINE OPERATOR Gender Identity Not on file Sexual [...] on filedocumented in this encounter Care Teams Automobile Contract Clerk Relationship Specialty Start Date End Date Bernabe Lainez MD PCP - General Internal Medicine 06/07/24 documented as of this encounter
--- OUTSIDE RECORDS SUMMARY | 2025-04-29 15:49 | XMS_ITS | Clinical Summary ---
Author Organization [facility] [address] Address [address] [place] [address] Care Team Providers Care Economics Professor Name Role Phone Bernabe Lainez MD Primary Care Provider [phone] Allergies Active Allergy Reactions Criticality Noted Date [...] (300 mg total) by mouth every morning 05/09/20 24 Active simvastatin (ZOCOR) 20 mg tablet Take 1 tablet (20 mg total) by mouth nightly Active furosemide (LASIX) 20 mg tablet Take 1 tablet (20 mg total) by mouth 2 (two) times a day Active fluvoxaMINE (LUVOX) 50 mg tablet 09/23/19 25 Active acetaminophen (TYLENOL) 500 mg tablet Take 1 tablet (500 mg total) by mouth every 4 (four) hours as needed Active warfarin (COUMADIN) 2 mg tabletIndicatio ns:atrial fibrillation Take 2 tablets (4 mg total) by mouth daily Take as directed. Dose may change as blood testing is done. Finish Eliquis completely before starting warfarin. 60 tablet 11 02/19/20 25 Active sacubitriL-vals eliud (ENTRESTO) 24-26 mg tabletIndicatio ns:chronic heart failure Take 1 tablet by mouth 2 (two) times a day 60 tablet 11 03/04/20 25 Active Jardiance 10 mg tablet TAKE ONE TABLET BY MOUTH DAILY 90 tablet 3 03/25/20 25 Active metoprolol XL (TOPROL-XL) 50 mg extended release tablet Take 2 tablets (100 mg total) by mouth daily 180 tablet 3 04/07/20 25 Active metoprolol XL (TOPROL-XL) 50 mg extended release tablet Take 2 tablets (100 mg total) by mouth daily 180 tablet 1 09/25/19 25 025 Discontinued metoprolol XL (TOPROL-XL) 50 mg extended release tablet TAKE 2 TABLETS(100 MG) BY MOUTH DAILY 180 tablet 3 04/01/20 25 025 Discontinued(R amy) Active Problems Problem Noted Date Diagnosed Date Stage 3a chronic kidney disease 06/07/2024 Cardiomyopathy 06/07/2024 Hyperlipidemia LDL goal <100 06/07/2024 Essential hypertension 06/07/2024 Chronic anticoagulation 06/07/2024 Atrial fibrillation with rapid ventricular respo nse 06/07/2024 Acute systolic congestive heart failure 06/07/20 24 Encounters Date Type Department Care Team Description 04/07/2025 Telephone [facility] Medical Group Cardiology [address] [facility] [address] [place] [address] Negro Barbosa MD 03/04/2025 Telephone [facility] Medical [facility] Cardiology [address] [facility] [address] [place] [address] Prabha Moyer NP Med Management 02/18/2025 11:00 AM CDT Office Visit [facility] Medical [facility] Cardiology [address] [facility] [address] [place] [address] Prabha Moyer NP Paroxysmal atrial fibrillation (HCC); Chronic anticoagulation; Abnormal nuclear stress test; Cardiomyopathy, unspecified type (HCC); Chronic kidney disease (CKD), stage 4 02/18/2025 Telephone [facility] Medical Group Cardiology [address] [place] [address] Prabha Moyer NP 02/18/2025 Anticoagulation Visit [facility] Cardiology [address] [place] [address] Nichelle Fox RN from Last 3 Months Social History Tobacco Use Types Packs/Day Years Used Date Smoking Tobacco: Never Smokeless Tobacco: Never Tobacco Cessation:Counseling Given: Not Answered Comments Unknown Sex and Gender Information Value Date Recorded Sex Assigned at Not on file Legal Sex Female 6:12 PM EVENT PLANNING 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
--- OUTSIDE RECORDS SUMMARY | 2025-04-29 15:49 | XMS_ITS | Clinical Summary ---
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 Not on file Not on file Last Filed Vital Signs Vital Sign Reading Time Taken Comments Blood Pressure 129/67 08/14/2015 11:34 AM PRACTICE CONSULTANT Pulse - - Temperature 36 C (96.8 F) 08/14/2015 11:34 AM PRACTICE CONSULTANT Respiratory Rate 16 08/14/2015 11:34 AM PRACTICE CONSULTANT Oxygen Saturation 100% 08/14/2015 11:34 AM PRACTICE CONSULTANT Inhaled Oxygen Concentration - - Weight 92.1 kg (203 lb) 08/07/2015 9:00 AM PRACTICE CONSULTANT Height 175.3 cm (5' 9) 08/07/2015 9:00 AM PRACTICE CONSULTANT Body Mass Index 29.98 08/07/2015 9:00 AM PRACTICE CONSULTANT Plan of Treatment Health Maintenance Due Date Last Done Comments Hepatitis C Virus (HCV) Screening 1955 TdaP Immunization 1955 Cologuard 1998 Immunochemical Fecal Occult Blood 1998 Pneumococcal Immunization (5 0+ years) (1 of 1 - PCV) 2003 Zoster Immunization (1 of 2) 2003 Influenza Immunization (#1) 2025 SARS-COV-2 Immunization (1 - season) 2025 Colonoscopy 08/14/2025 08/14/2015 Colorectal Cancer Screening [...] age to complete this topic Care Teams Sheet Sewer Relationship Specialty Start Date End Date Edil [place]añ[place] [address] [place] [address] PCP - General Physician Sheetfed Press Operator 08/10/15
--- OUTSIDE RECORDS SUMMARY | 2025-04-29 15:49 | XMS_ITS | Encounter Summary ---
Author Organization [facility] Healthcare Address [address] [place] [address] Care Team Providers Care Chip Crusher Operator Name Role Phone Sae Lopez MD Primary Care Provider [phone] Bernabe Lainez MD Primary Care Provider [phone] Encounter Details Date Type Department Care Team (Late st Contact Info) Description 05/10/2024 Orders Only [facility] Health Information Management [address] [place] [address] Scanning, Provider Social History Tobacco Use Types Packs/Day Years Used Date Smoking Tobacco: Never Smokeless Tobacco: Never Comments Unknown Sex and Gender Information Value Date Recorded Sex Assigned at Not on file Legal Sex Female 6:12 PM STRIP 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
--- OUTSIDE RECORDS SUMMARY | 2025-04-29 15:50 | XMS_ITS | Clinical Summary ---
Author Organization [facility] Facility Address [address] [place] [address] Care Team Providers Care Physical Metallurgist Name Role Phone Jessica Quevedo MD Primary Care Provider [phone] Allergies Active Allergy Reactions Criticality Noted Date [...] Documents on File Type Date Recorded Patient Mobile Home Installer Expl anation Advance Care Planning 09/25/2023 3:03 PM Care Teams Physical Metallurgist Relationship Specialty Start Date End Date Jessica Quevedo MD [address] [place], [place] [id number] PCP - General Internal Medicine 06/06/23
[2025-04-29 16:59] LABS: INR 1.6; Prothrombin Time 18.9 Seconds (11.1-14.7)
[2025-04-29 17:00] LABS: Anion Gap 10 mmol/L (4-12); Blood Urea Nitrogen 29 mg/dL (7-17); Calcium 9.4 mg/dL (8.4-10.2); Carbon Dioxide 26 mmol/L (22-30); Chloride 104 mmol/L (98-107); Estimated Glomerular Filt Rate 24; Glucose 76 mg/dL (65-110); Potassium 3.4 mmol/L (3.4-5.0); Sodium 140 mmol/L (137-145)
== END 2025-04-29 15:47 | disposition home or self-care (01) ==
PROVIDERS: PCP Internal Medicine; Visit Provider Nurse Practitioner Adult Health
DX: I50.21 Acute systolic (congestive) heart failure (principal); I48.91 Unspecified atrial fibrillation
CPT/HCPCS: 36415; 80048; 85610